=== PATIENT | female | born 2000 | race Two or more races ===

== ENCOUNTER 2020-09-23 08:29 | Outpatient (REF) | payer BC, OTHER, SELFPAY ==
--- NOTE | 2020-09-23 08:34 | CT_ITS ---
EXAMINATION: CT SINUS WITHOUT CONTRAST CLINICAL INFORMATION: Sinonasal polyp with deviated septum COMPARISON: None TECHNIQUE: Axial 2 mm thin and reformatted 2 mm thin sagittal and coronal images of sinuses were obtained. This CT examination was performed using dose optimization techniques as appropriate, variously including the following: *Automated exposure control *Adjustment of mA and/or kV according to patient size (this includes techniques or standardized protocols for targeted exams where dose is matched to indication/reason for exam; i.e. extremities or head) *Use of iterative reconstruction technique DLP: 83 mGy-cm FINDINGS: PARANASAL SINUSES: There is diffuse mucoperiosteal thickening involving bilateral frontal, ethmoid, sphenoid and maxillary sinusitis consistent with pansinusitis. Bilateral ostiomeatal complex and frontoethmoidal recesses are completely obstructed from mucosal thickening. The bony sinus morgan are intact without any thickening or sclerosis. The lamina papyracea and the cribriform plate appears normal. The soft tissues are normal. NASAL CAVITY/NASOPHARYNX: There is significant mucosal thickening involving the left nasal cavity and mild mucosal thickening involving the right nasal cavity with moderate obstruction of left nasal cavity. There are hypertrophic changes of left middle and inferior turbinates. Mild deviation of nasal septum to the right with a tiny bony spur is noted. The bony orbits, optic globes and optic nodes are normal and symmetric. No acute intracranial parenchymal abnormality seen on this limited exam. ADDITIONAL RELEVANT FINDINGS: No periapical disease is seen. The TMJs articulate normally. The skull base, maxillary, mandibular and nasal soft tissues are unremarkable. The middle ear cavities and mastoid air cells are clear. Limited evaluation demonstrates no acute intracranial findings. CT/CT sinus wo con IMPRESSION: 1. Chronic pansinusitis. 2. Hypotrophic mucosal thickening in the nasal cavity with complete obstructed sinus drainage pathways. There is moderate narrowing of the left nasal cavity airway as well. The nasopharynx is patent.
== END 2020-09-23 08:30 | disposition home or self-care (01) ==
LOC: HO.CT 08:29
PROVIDERS: Visit Provider Otolaryngology
DX: J33.0 Polyp of nasal cavity (principal); J34.2 Deviated nasal septum
CPT/HCPCS: 70486

== ENCOUNTER 2020-10-25 11:51 | Outpatient (REF) | payer BC, OTHER, SELFPAY | END 2020-10-25 11:52 | disposition home or self-care (01) | LOC: HO.LNP 11:51 | PROVIDERS: Visit Provider Family Medicine | DX: R30.0 Dysuria (principal) | CPT/HCPCS: 87086 ==

== ENCOUNTER 2021-05-08 15:14 | Emergency (ER) | payer OTHER, SELFPAY ==
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
[2021-05-08 15:42] VITALS: BP 101/59; PULSE 81; RESP 16; TEMP 37.1; O2SAT 98; BMI 24.5
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
== END 2021-05-08 17:01 | disposition home or self-care (01) ==
PROVIDERS: Emergency Provider Emergency Medicine; PCP Hospitalist
DX: S00.531A Contusion of lip, initial encounter (principal); G89.11 Acute pain due to trauma; M25.531 Pain in right wrist; V43.52XA Car driver injured in collision with other type car in traffic accident, initial encounter; Y93.89 Activity, other specified; Y92.414 Local residential or business street as the place of occurrence of the external cause; Y99.9 Unspecified external cause status
CPT/HCPCS: 73110; 73130; 99283

== ENCOUNTER 2021-06-01 12:32 | Emergency (ER) | payer BC, OTHER, SELFPAY ==
[2021-06-01 12:38] VITALS: BP 104/57; PULSE 79; RESP 16; TEMP 36.1; O2SAT 98; BMI 22.6
[2021-06-01 13:17] LABS: Appearance Urine CLOUDY; Color Urine YELLOW; Glucose Urine UA NEG (NEG); Leukocyte Esterase Urine 1+ (NEG); Nitrite Urine POS (NEG); Specific Gravity - Urine 1.025 (1.005-1.025); UACC Culture Trigger YES; Urine Blood 2+ (NEG); Urine Ketones NEG (NEG); Urine Protein NEG (NEG-TRACE)
[2021-06-01 13:24] LABS: Bacteria Urine 3+ /LPF; Squamous Epithelial Cell Urine 2+ /LPF; UACC CULT YES; WBC Urine 30-49 /HPF (0-4)
[2021-06-01] MEDS: cefTRIAXone sodium 500 MG, Lidocaine HCl 1 % MPF 1 ML IM (14:14)
[2021-06-01] MEDS: Nitrofurantoin Monohyd/M-Cryst 100 MG CAPSULE PO (14:14)
--- NOTE | 2021-06-01 14:25 | ED.FEMALEGU ---
HPI - Female Genitourinary General Chief complaint: Urogenital-Female Stated complaint: std check Time Seen by Provider: 06/01/21 13:37 Source: patient Mode of arrival: ambulatory History of Present Illness HPI Narrative: 21-year-old female with no significant past medical history presenting to the ED complaining of dysuria/lower pelvic pressure x 4-5 days. Patient reports she is sexually active with 2 partners, there is concern for STI. Denies vaginal bleeding, vaginal lesions, vaginal discharge, abdominal pain, flank pain, hematuria MD elicited complaint: dysuria and possible STD Related Data Home Medications Medication Instructions Recorded Confirmed loratadine 10 mg tablet (Claritin) 10 mg PO DAILY 10/25/20 Previous Rx's Medication Instructions Recorded amoxicillin 500 mg tablet 500 mg PO Q12H 5 Days #10 tab 10/25/20 doxycycline hyclate 100 mg tablet 100 mg PO BID 7 Days #14 tab 06/01/21 nitrofurantoin 100 mg PO Q12H 7 Days #14 cap 06/01/21 monohydrate/macrocrystals 100 mg capsule (Macrobid) Allergies Allergy/AdvReac Type Severity Reaction Status Date / Time No Known Allergies Allergy Verified 10/25/20 09:30 [No Known Allergies*] Review of Systems Review of Systems: Constitutional: No Fever, No Fatigue, No Malaise ENT/Mouth: No Ear Pain, No Nasal Congestion, No sore throat Eyes: No Eye Pain, No Swelling Cardiovascular: No Chest Pain, No SOB Respiratory: No Cough, No Dyspnea Gastrointestinal: No Nausea, No Vomiting, No Abdominal pain Genitourinary: No irregular bleeding, No Dysuria, No Urinary Frequency, No Hematuria, No Flank Pain, No vaginal discharge or lesions, No vaginal bleeding Musculoskeletal: No joint pain, No Myalgias Skin: No Skin Lesions, No rash Neuro: No Weakness, No Numbness Yes all other systems are reviewed and are negative [facility] Past Medical History Attestation statement: The following information was validated with the patient. Social History Social History Advance Directives: Yes Advance Directives Information Provided: No Advance Directives on File: No Patient : No Physical Exam Vital Signs: Vital Signs: Last Vital Signs Temp 97 F 06/01/21 12:38 Pulse 79 06/01/21 12:38 Resp 16 06/01/21 12:38 BP 104/57 L 06/01/21 12:38 Pulse Ox 98 06/01/21 12:38 Body Mass Index 22.6 Const: General: cooperative and healthy appearing Orientation/consciousness: patient oriented x3 Limitations: no limitations HENMT: Head: Yes normal to inspection Ears: hearing grossly normal bilaterally General nose exam: Normal external nose present Face and sinus: Yes normal facial exam Eyes: General: appearance normal, both eyes and all related structures EOM: EOMs intact bilaterally Neck: Neck: Yes normal visual inspection and Yes no meningeal signs Resp: Effort & Inspection: normal respiratory effort and no respiratory distress Cardio: Rate: regular rate GI: Inspection: Yes normal to inspection Palpation (GI): Soft to palpation, nontender, no guarding and not rigid : Other: defferred Skin: Rashes: no rashes Wounds: no wounds Neuro: General: patient oriented x3 and no meningeal signs Gait exam (Neuro): Normal gait present Extrem: General: Yes normal to inspection Course Course Course Narrative: -UA contaminated but with the PVCs, RBCs, 1+ leuk esterase, and nitrite positive > will treat patient for UTI with Macrobid. Patient given 1st dose of Doxycycline and Rocephin in the ED as well MDM - Female Genitourinary MDM Narrative Medical decision making narrative: 21-year-old female with no significant past medical history presenting to the ED complaining of dysuria/lower pelvic pressure x 4-5 days. On exam VSS, NAD/well-appearing, abdomen soft/nontender. Patient eager to leave, discussed best way for STI testing would be through pelvic exam, patient deferred and would like STI testing through urine, discussed will test for GC/chlamydia but can obtain further STI testing at [facility]. Patient is agreeable to empiric treatment with ceftriaxone/doxycycline in the ED Plan UA, STI testing Medical Records Attestation: I reviewed the patient's medical records. Lab Data Attestation: I reviewed the patient's lab results. Labs: Lab Results 06/01/21 Range/Units 13:08 Urine Color YELLOW Urine Appearance CLOUDY Urine pH 6.0 (5.0-8.0) Ur Specific [place] 1.025 (1.005-1.025) Urine Protein NEG (NEG-TRACE) MG/DL Urine Glucose (UA) NEG (NEG) MG/DL Urine Ketones NEG (NEG) MG/DL Urine Blood 2+ H (NEG) Urine Nitrite POS H (NEG) Ur Leukocyte Esterase 1+ H (NEG) Urine RBC 10-14 H (0) /HPF Urine WBC 30-49 H (0-4) /HPF Ur Squamous Epith Cells 2+ /LPF Urine Bacteria 3+ /LPF Discharge Plan Discharge Clinical Impression: STI (sexually transmitted infection) Urinary tract infection Qualifiers: Urinary tract infection type: site unspecified Hematuria presence: without hematuria Qualified Code(s): N39.0 - Urinary tract infection, site not specified Patient Disposition: Home, Self-Care Instructions: Sexually Transmitted Diseases (ED), Urinary Tract Infection in Women (ED) Additional Instructions: You have a urinary tract infection, Macrobid is an antibiotic, please take as prescribed You were tested and treated for gonorrhea and chlamydia today in the ED Your culture should be back in 48 hours, we will call you with positive result only Continue taking doxycycline which is treatment for chlamydia. Avoid the sun while in doxycycline as can make you prone to sunburn Please refrain from any sexual contact into know the results of her cultures, and inform her sexual partners of her results today can be tested and treated as well Follow-up with [facility] for further sti testing if her symptoms persist or worsen, you developed abdominal pain, fever, please return to the Prescriptions: New doxycycline hyclate 100 mg tablet 100 mg PO BID 7 Days Qty: 14 RF: 0 nitrofurantoin monohyd/m-cryst [Macrobid] 100 mg capsule 100 mg PO Q12H 7 Days Qty: 14 RF: 0 No Action loratadine [Claritin] 10 mg tablet 10 mg PO DAILY RF: 0 amoxicillin 500 mg tablet 500 mg PO Q12H 5 Days Qty: 10 RF: 0 Referrals: Sabas Dey MD [Physician] - 1 week
[2021-06-01 14:50] LABS: UPreg QC Valid YES; Urine Pregnancy NEGATIVE (NEGATIVE)
[2021-06-01 16:26] LABS: CT PCR NOT DETECTED (Not Detect.); NG PCR NOT DETECTED (Not Detect.)
== END 2021-06-01 14:40 | disposition home or self-care (01) ==
PROVIDERS: Physician Assistant; Emergency Provider Emergency Medicine Emergency Medical Services; PCP Hospitalist
DX: A64 Unspecified sexually transmitted disease (principal); N39.0 Urinary tract infection, site not specified; Z79.899 Other long term (current) drug therapy
CPT/HCPCS: 36415; 81001; 81025; 87086; 87088; 87186; 87491; 87591; 96372; 99284; J0696

== ENCOUNTER 2021-08-04 12:17 | Outpatient (REF) | payer BC, OTHER, SELFPAY | END 2021-08-04 12:18 | disposition home or self-care (01) | LOC: HO.LAB 12:17 | PROVIDERS: Visit Provider Hospitalist | DX: N39.0 Urinary tract infection, site not specified (principal); R30.0 Dysuria | CPT/HCPCS: 87086 ==

== ENCOUNTER 2021-09-13 11:36 | Emergency (ER) | payer BC, OTHER, SELFPAY ==
--- NOTE | ~2021-09-13 | XR_ITS ---
EXAMINATION: XR CHEST CLINICAL INFORMATION: Cough. Fever. COMPARISON: None TECHNIQUE: Frontal view of the chest was obtained. FINDINGS: No significant abnormality is noted involving the heart, lungs, mediastinum, bony thorax or soft tissues. XR/XR chest 1V IMPRESSION: Unremarkable examination.
[2021-09-13 12:45] VITALS: BP 109/73; PULSE 101; RESP 18; TEMP 37.8; O2SAT 100; BMI 22.3
[2021-09-13 13:42] LABS: COVID-19 Test Positive (Negative)
--- NOTE | 2021-09-13 14:15 | ED.URI ---
HPI - URI/Sore Throat General Chief Complaint: Upper Respiratory Symptoms Stated Complaint: wheezing cough Time Seen by Provider: 09/13/21 14:15 History of Present Illness HPI Narrative: Patient complains of runny nose cough chest tightness intermittent none now for 2 days, patient is unvaccinated Related Data Home Medications Medication Instructions Recorded Confirmed loratadine 10 mg tablet (Claritin) 10 mg PO DAILY 10/25/20 Allergies Allergy/AdvReac Type Severity Reaction Status Date / Time No Known Allergies Allergy Verified 09/13/21 12:45 [No Known Allergies*] Review of Systems Review of Systems: Positive for cough runny nose and wheezing Negatives are no fever no chills no dizziness no weakness no headache no neck pain no stiff neck no sore throat no chest pain no shortness of breath right now no abdominal pain no nausea or vomiting Yes all other systems are reviewed and are negative PMFSH Past Medical History Source: nursing notes reviewed Social History Social History Advance Directives: No Advance Directives Information Provided: No Patient : No Physical Exam Vital Signs: Vital Signs: Last Vital Signs Temp 100.1 F 09/13/21 12:45 Pulse 101 H 09/13/21 12:45 Resp 18 09/13/21 12:45 BP 109/73 09/13/21 12:45 Pulse Ox 100 09/13/21 12:45 BMI result Body Mass Index 22.3 General appearance no acute distress The eyes no redness discharge Neck is supple The pharynx is clear with no redness swelling or exudate, mucous membranes moist Chest clear to auscultation bilateral with full symmetric equal breath sounds Heart no murmur Extremities full range of motion x4 Course Course Course Narrative: Well-appearing patient, COVID positive, x-ray normal, physical exam normal oxygen level normal is discharged MDM - URI/Sore Throat Lab Data Labs: Lab Results 09/13/21 Range/Units 12:58 COVID-19 ([place]) Positive A (Negative) COVID-19 Clin Com See Note Discharge Plan Discharge Clinical Impression: COVID-19 Patient Disposition: Home, Self-Care Additional Instructions: X-ray was normal But COVID test was positive Your well-appearing with normal oxygen level and a normal lung exam with no wheezing No sign of any dangerous illness now COVID is very contagious and can be dangerous to some people so quarantine for 10 days Return any time for difficulty breathing any worse condition or any concerns Prescriptions: No Action loratadine [Claritin] 10 mg tablet 10 mg PO DAILY RF: 0 Stand Alone Forms: Work/School Release
== END 2021-09-13 14:31 | disposition home or self-care (01) ==
PROVIDERS: Emergency Provider Emergency Medicine; PCP Hospitalist
DX: U07.1 COVID-19 (principal); R05.9 Cough, unspecified
CPT/HCPCS: 36415; 71045; 87635; 99282; 99283

== ENCOUNTER 2021-11-02 13:20 | Emergency (ER) | payer BC, OTHER, SELFPAY ==
[2021-11-02 13:30] VITALS: BP 99/69; PULSE 76; RESP 18; TEMP 36.7; O2SAT 99; BMI 21.7
[2021-11-02 14:11] LABS: Appearance Urine CLOUDY; Color Urine YELLOW; Glucose Urine UA NEG (NEG); Leukocyte Esterase Urine 3+ (NEG); Nitrite Urine NEG (NEG); Specific Gravity - Urine 1.025 (1.005-1.025); UACC Culture Trigger YES; Urine Blood TRACE (NEG); Urine Ketones NEG (NEG); Urine Protein TRACE MG/DL (NEG-TRACE)
[2021-11-02 14:13] LABS: UPreg QC Valid YES; Urine Pregnancy NEGATIVE (NEGATIVE)
[2021-11-02 14:19] LABS: Squamous Epithelial Cell Urine 4+ /LPF
[2021-11-02 14:21] LABS: Bacteria Urine 3+ /LPF; RBC Urine 0-2 /HPF (0); WBC Urine 50-75 /HPF (0-4)
[2021-11-02 14:23] LABS: Amorphous Sediment Urine 2+ /LPF
--- NOTE | 2021-11-02 14:32 | ED.FEMALEGU ---
HPI - Female Genitourinary General Chief complaint: Urogenital-Female Stated complaint: std check Time Seen by Provider: 11/02/21 13:34 Source: patient Mode of arrival: ambulatory Limitations: no limitations History of Present Illness HPI Narrative: 21-year-old female presenting to the ED with complaints of dysuria with cloudy colored urine and white/yellow creamy colored discharge possible STD and wants to be tested for STDs for the past 5 days. She reports intermittent suprapubic abdominal cramping. Reports that she is sexually active with a new partner although he told her that he was tested before he had any intercourse with her and he was negative for all STDs although she is unsure if this is true or not. She would like to be treated for Chlamydia although once liquid medication. She reports that she does not want the shot that will treat the gonorrhea until she knows she is positive therefore she is declining the shot at this time. She denies any fevers, chills, dizziness, headaches, neck pain/stiffness, trouble swallowing or breathing, chest pain or shortness of breath, any radiation of the abdominal pain, back pain, hematuria, rashes or lesions to the vaginal area or any other symptoms complaints or concerns at this time. MD elicited complaint: dysuria, UTI , vaginal discharge and possible STD Onset (ago): day(s) (5) Location of symptoms: suprapubic Severity: mild Female Urogenital Radiation: Non-Radiating Quality of pain: cramping Consistency: intermittent Vaginal discharge: white, yellow and creamy Vaginal bleeding: none Urinary symptoms: Dysuria, Urgency and Frequency Exacerbating factors: urination Relieving factors: none Associated symptoms: denies other symptoms Treatment prior to arrival: none Sexual activity: Yes and New Sexual Partners Patient : No Related Data Home Medications Medication Instructions Recorded Confirmed loratadine 10 mg tablet (Claritin) 10 mg PO DAILY 10/25/20 Previous Rx's Medication Instructions Recorded doxycycline calcium 50 mg/5 mL 10 ml PO BID 10 Days #200 ml 11/02/21 oral syrup Allergies Allergy/AdvReac Type Severity Reaction Status Date / Time No Known Allergies Allergy Verified 09/13/21 12:45 [No Known Allergies*] Review of Systems Review of Systems: Constitutional : No Fever, No Chills ENT/Mouth : No sore throat, No Rhinorrhea Eyes: No Eye Pain, No Redness Cardiovascular : No Chest Pain, No SOB Respiratory : No Cough, No Sputum, No Wheezing Gastrointestinal : No Nausea, No Vomiting, No Diarrhea, + suprapubic abdominal pain, Genitourinary : + dysuria/increased urinary urgency/frequency and abnormal vaginal discharge, No irregular bleeding, No pelvic pain Musculoskeletal : No Myalgias Skin : No rash Neuro : No Weakness, No Headache Psych : No Anxiety/Panic, No Depression Heme/Lymph: No bruising, No Lymphadenopathy Endocrine : No Polyuria, No Polydipsia + thoughts of STDs. Yes all other systems are reviewed and are negative [facility] Past Medical History Attestation statement: The following information was validated with the patient. Medical History No known health problems Social History Social History Advance Directives: No Advance Directives Information Provided: Yes Patient : No Physical Exam Vital Signs: Vital Signs: Last Vital Signs Temp 98.0 F 11/02/21 13:30 Pulse 76 11/02/21 13:30 Resp 18 11/02/21 13:30 BP 99/69 11/02/21 13:30 Pulse Ox 99 11/02/21 13:30 BMI result Body Mass Index 21.7 vital signs have been reviewed as normal and appeared to be correct. Blood pressure normal. Heart rate normal. Respiration rate normal. Temperature normal. Oxygen saturation normal. Appearance: Alert. Oriented X3. No acute distress. Head: Normal external exam. Normocephalic. Atraumatic. Eyes: PERRLA. EOMI. Conjunctiva and sclera normal. Eyelids normal. ENT: Pharynx normal. Uvula midline. Moist mucous membranes. Neck: Normal inspection. Neck supple. FROM. No adenopathy. Thyroid Normal. No meningeal signs. No neck mass noted. CVS: Normal heart rate and rhythm. Heart sound normal. No murmurs noted. Pulses normal throughout. Respiratory: No respiratory distress. Painless inspiration. Breath sounds normal. No wheezes/rales/rhonchi noted. Chest nontender. No accessory muscle usage noted or decreased air movement noted. Abdomen: Soft and nontender. Bowel sounds normal in all 4 quadrants. No distention noted. No organomegaly noted. No visible injury noted. : Supervised by TRACY Schofield. Normal external appearance of urethra. No lesions/lacerations or discharge or tenderness noted. Speculum exam normal appearance/palpation of vagina normal. Although patient noted to have No abnormal vaginal discharge noted. Otherwise no vaginal erythema. No foreign bodies noted. No vaginal laceration/lesions or active bleeding noted. No tissue present in vagina. No vaginal mass noted. No vaginal swelling noted. No vaginal tenderness noted. Normal appearance of cervix. Normal palpation of cervix. Cervical os is closed. No cervical lesion/mass. No Bartholin cyst noted. No cervical motion tenderness noted. Negative chandelier sign. Normal bimanual exam. Uterine size normal. Bladder normal to palpation. Uterine consistency normal. Normal cervical palpation. Uterine mobility normal. Uterine shape normal. Normal adnexa. Normal rectovaginal exam. Back: No CVA tenderness. Full range of motion noted. Skin: Skin warm and dry. Normal skin color. Normal skin turgor. No rashes/lesions/lacerations noted. Extremities: No lower extremity edema. Extremities exhibit normal range of motion. Extremities nontender. Neuro: Oriented X 3. No motor deficit. No sensory deficit. Reflexes normal. Course Course Course Narrative: 21-year-old female presenting to the ED with complaints of dysuria with cloudy colored urine and white/yellow creamy colored discharge possible STD and wants to be tested for STDs for the past 5 days. She reports intermittent suprapubic abdominal cramping. Reports that she is sexually active with a new partner although he told her that he was tested before he had any intercourse with her and he was negative for all STDs although she is unsure if this is true or not. She would like to be treated for Chlamydia although once liquid medication. She reports that she does not want the shot that will treat the gonorrhea until she knows she is positive therefore she is declining the shot at this time. She denies any fevers, chills, dizziness, headaches, neck pain/stiffness, trouble swallowing or breathing, chest pain or shortness of breath, any radiation of the abdominal pain, back pain, hematuria, rashes or lesions to the vaginal area or any other symptoms complaints or concerns at this time. On exam patient does have creamy white/yellow non odorous discharge. UA revealed 50-75 white blood cells therefore consistent with UTI and negative nitrates though. Negative . Her Trichomonas and yeast were negative. Syphilis is pending. Bacterial vaginosis/gonorrhea/chlamydia pending. Patient does not want to be treated for gonorrhea although would like to be treated for chlamydia due to she does not want a shot and her buttocks at this time I explained to her that we will call her if she has any positive results within 5-7 days and that she should stay abstinent from any sexual intercourse until she completes the treatment for the chlamydia. Along with instructions to follow-up with [facility] for HIV testing or any other additional testing and to use a condom when she is having intercourse and to return if any new or worsening symptoms. Patient understands agrees with this plan. MDM - Female Genitourinary Medical Records Attestation: I reviewed the patient's medical records. Lab Data Attestation: I reviewed the patient's lab results. Labs: Lab Results 11/02/21 11/02/21 Range/Units 13:58 13:58 Urine Color YELLOW Urine Appearance CLOUDY Urine pH 7.0 (5.0-8.0) Ur Specific [place] 1.025 (1.005-1.025) Urine Protein TRACE (NEG-TRACE) MG/DL Urine Glucose (UA) NEG (NEG) MG/DL Urine Ketones NEG (NEG) MG/DL Urine Blood TRACE (NEG) Urine Nitrite NEG (NEG) Ur Leukocyte Esterase 3+ H (NEG) Urine RBC 0-2 (0) /HPF Urine WBC 50-75 H (0-4) /HPF Ur Squamous Epith Cells 4+ /LPF Amorphous Sediment 2+ /LPF Urine Bacteria 3+ /LPF Urine Test NEGATIVE (NEGATIVE) Discharge Plan Discharge Clinical Impression: UTI (urinary tract infection), Concern about STD in female without diagnosis Patient Disposition: Home, Self-Care Instructions: Sexually Transmitted Diseases (ED), Safe Sex Practices (ED), Urinary Tract Infection in Women (DC) Additional Instructions: You should stay abstinent from any sexual intercourse for at least 7-10 days until you complete your prescription for doxycycline. We will call you in approximately 5-7 days for any positive results. If we call you that means that something was positive. You should wear condoms at all times there are some STDs that if contracted they will stay with you for life such as herpes or HIV. We did not test due for herpes or HIV due to he did not have any lesions and we do not have proper follow-up for HIV therefore if you want HIV testing then you should follow-up with [facility] for further testing for HIV. Return if any new or worsening symptoms and follow-up with her primary care provider again safe sex is best sex. Prescriptions: New doxycycline calcium 50 mg/5 mL syrup 10 ml PO BID 10 Days Qty: 200 0RF No Action loratadine [Claritin] 10 mg tablet 10 mg PO DAILY 0RF Referrals: Gloria Angel NP [Primary Care Provider] - 2 days
[2021-11-03 00:14] LABS: CT PCR NOT DETECTED (Not Detect.); NG PCR NOT DETECTED (Not Detect.)
[2021-11-03 08:34] LABS: Syphilis Screen Nonreactive (Nonreactive)
[2021-11-03 12:44] LABS: BV Int Neg Control Negative (Negative); BV Int Pos Control Positive (Positive)
== END 2021-11-02 15:41 | disposition home or self-care (01) ==
PROVIDERS: Physician Assistant Medical; Emergency Provider Emergency Medicine; PCP Hospitalist
DX: N39.0 Urinary tract infection, site not specified (principal); R30.0 Dysuria; N39.41 Urge incontinence; Z20.2 Contact with and (suspected) exposure to infections with a predominantly sexual mode of transmission; Z20.822 Contact with and (suspected) exposure to COVID-19
CPT/HCPCS: 36415; 81001; 81025; 86780; 87086; 87147; 87480; 87491; 87510; 87591; 87660; 99283

== ENCOUNTER 2021-12-09 12:35 | Outpatient (REF) | payer BC, OTHER, SELFPAY ==
[2021-12-09 13:17] LABS: Hematocrit 47.1 % (37.0-47.0); Hemoglobin 15.4 g/dl (12.0-16.0); Mean Corpuscular HGB Conc 32.7 g/dl (31.0-35.0); Mean Corpuscular Hemoglobin 31.5 pg (27.0-33.0); Mean Corpuscular Volume 96.3 fL (80.0-98.0); Mean Platelet Volume 9.4 fL (9.4-12.3); Platelet Count 293 X10*3/uL (160-400); Red Blood Count 4.89 X10*6/uL (4.20-5.50); Red Cell Distribution Width 12.1 % (11.0-16.0)
[2021-12-09 13:46] LABS: Alanine Aminotransferase 12 U/L (0-31); Albumin Level 4.4 g/dL (3.5-5.0); Alkaline Phosphatase 52 U/L (39-117); Anion Gap 11 (12-20); Aspartate Amino Transferase 13 U/L (5-31); Bilirubin Total 0.4 mg/dL (0.0-1.0); Blood Urea Nitrogen 11 mg/dL (9-16); Calcium 9.7 mg/dL (8.4-10.2); Carbon Dioxide 28 mmol/L (22-29); Chloride 106 mmol/L (96-108); Cholesterol 142 mg/dL; Estimated Glomerular Filt Rate > 60; Glucose Fasting 96 mg/dL (60-99); HDL Cholesterol 55 mg/dL; LDL Cholesterol Calculated 78 mg/dl; Sodium 140 mmol/L (135-145); Total Protein 7.4 g/dL (6.5-8.0); Triglycerides 46 mg/dL
[2021-12-09 14:12] LABS: TSH reflex Free T4 0.99 uIU/mL (0.32-4.0)
== END 2021-12-09 12:36 | disposition home or self-care (01) ==
LOC: HO.LAB 12:35
PROVIDERS: PCP Hospitalist; Visit Provider Hospitalist
DX: Z00.00 Encounter for general adult medical examination without abnormal findings (principal)
CPT/HCPCS: 36415; 80053; 80061; 84443; 85027

== ENCOUNTER 2022-01-02 14:20 | Outpatient (REF) | payer BC, OTHER, SELFPAY | END 2022-01-02 14:21 | disposition home or self-care (01) | LOC: HO.LAB 14:20 | PROVIDERS: Visit Provider Hospitalist | DX: N39.0 Urinary tract infection, site not specified (principal) | CPT/HCPCS: 87086; 87088; 87186 ==

== ENCOUNTER 2022-02-06 15:38 | Emergency (ER) | payer BC, OTHER, SELFPAY ==
[2022-02-06 17:11] VITALS: BP 115/77; PULSE 97; RESP 18; TEMP 35.6; O2SAT 99; BMI 24.0
== END 2022-02-06 21:10 | disposition left against medical advice (07) ==
PROVIDERS: Emergency Provider Emergency Medicine
DX: S09.90XA Unspecified injury of head, initial encounter (principal); Y04.2XXA Assault by strike against or bumped into by another person, initial encounter; Y93.89 Activity, other specified; Y92.59 Other trade areas as the place of occurrence of the external cause; Y99.0 Civilian activity done for income or pay
CPT/HCPCS: 99281

== ENCOUNTER 2022-03-17 | Outpatient (REF) | payer BC, OTHER, SELFPAY | END 2022-03-17 00:01 | disposition home or self-care (01) | LOC: HO.LNP | PROVIDERS: Visit Provider Hospitalist | DX: R30.0 Dysuria (principal); N39.0 Urinary tract infection, site not specified | CPT/HCPCS: 87086; 87088; 87186 ==

== ENCOUNTER 2022-04-02 14:26 | Outpatient (REF) | payer OTHER, BC, SELFPAY | END 2022-04-02 14:27 | disposition home or self-care (01) | LOC: HO.LNP 14:26 | PROVIDERS: Visit Provider Hospitalist | DX: N39.0 Urinary tract infection, site not specified (principal); B96.29 Other Escherichia coli [E. coli] as the cause of diseases classified elsewhere; Z16.12 Extended spectrum beta lactamase (ESBL) resistance | CPT/HCPCS: 87086 ==

== ENCOUNTER 2022-04-28 11:00 | Outpatient (RCR) | payer OTHER, BC, SELFPAY ==
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
--- NOTE | 2022-05-19 10:26 | MHC.PT.DC ---
[facility] [place] Office [place] Office [place] Office [address] [phone] F: [phone] F: [phone] F: [phone] F: [phone] Physical Therapy Discharge Report Diagnosis: L shoulder strain Date of Surgery: n/a Date of Evaluation: 04/08/22 Date of Discharge: 05/19/22 Treatments to Date: 5 Cancellations to Date: 1 No Shows to Date: 2 Discharge Status: Patient Elected to Stop Discharge Summary: Pt placed on 30 day hold. 30 days has passed and pt has not reached out to be scheduled. Pt to be d/c per our policy. Electronically signed by: Alaina Bhat, PT, DPT, ATC Please sign and return to therapist. Thank you for your referral.
== END 2022-05-19 10:26 | disposition home or self-care (01) ==
LOC: HO.PTCHIC 11:00
PROVIDERS: PCP Hospitalist; Visit Provider Hospitalist
DX: S46.912A Strain of unspecified muscle, fascia and tendon at shoulder and upper arm level, left arm, initial encounter (principal)
CPT/HCPCS: 97110; 97140; 97161

== ENCOUNTER 2022-06-23 15:23 | Outpatient (REF) | payer BC, OTHER, SELFPAY | END 2022-06-23 15:24 | disposition home or self-care (01) | LOC: HO.LAB 15:23 | PROVIDERS: Visit Provider Hospitalist | DX: Z87.440 Personal history of urinary (tract) infections (principal) | CPT/HCPCS: 87086 ==

== ENCOUNTER 2022-07-24 09:17 | Outpatient (REF) | payer BC, OTHER, SELFPAY | END 2022-07-24 09:18 | disposition home or self-care (01) | LOC: HO.LAB 09:17 | PROVIDERS: Visit Provider Nurse Practitioner Family | DX: N39.0 Urinary tract infection, site not specified (principal) | CPT/HCPCS: 87086 ==

== ENCOUNTER 2023-09-03 08:57 | Outpatient (AMB) | payer BC, OTHER, SELFPAY ==
--- NOTE | 2023-09-03 09:07 | MHC.PC.OV ---
Vital Signs 09/03/23 09:09 Height 5 ft 1 in Weight 163 lb 8 oz BMI 30.9 BP 114/66 Blood Pressure Location Rt brachial Position Sitting Respiration 13 Pulse 74 Pulse Source Pulse Oximeter Temp 97.6 F Temp Source Temporal Artery Scan Pulse Oximetry (%) 97 Oxygen Delivery Method Room Air Intake Visit Reasons: Follow Up On SOB SV Intake Note: Patient would like a nasal spray prescribed. Patient would also like a referral to get her nose looked at due to deviated septum, clogged sinus ducts and her nasal passages being narrow. Patient was told she needed to see someone for her nose 5-6 years ago and shes never went. Customer Success Representative Required: No Accompanied by: Self / Same As Patient Allergies ibuprofen Adverse Reaction (Severe, Verified 09/03/23 09:22) Runny Nose Medication List - Last Reconciled 09/03/23 by Michael Chavez CNP albuterol sulfate 90 mcg/actuation (Ventolin HFA) 2 puffs inhalation Q4-6H PRN Tobacco use date assessed: 09/03/23 Dental Screening Dental Screen Date: 09/03/23 Did you have a dental visit in the last 12 months?: Yes Did you have a dental problem in the last 6 months where you did not have access to dental care?: No Was dental information given to patient?: Patient has dentist HPI HPI Comments History of Present Illness Details 23-year-old female presents with complaints of persistent nasal congestion with associated difficulty breathing for the past 5-6 years She reports history of deviated septum that requires surgery. She notes that repeat CT scan could not be performed few months ago because she was . She is not currently and requests consultation with ENT. She uses ventolin occasionally. Denies nasal trauma or injury. [facility] Medical History No known health problems Surgical History (Updated 09/03/23 @ 09:21 by Irma Hare MA) No pertinent past surgical history Social History Housing: House Patient Tobacco Use Status: Never used Tobacco e-Cigarette/Vaping Use: Currently Using Second Hand Smoke Exposure: No service: No Current occupational status: unemployed Current occupational exposures/hazards: No Cognitive needs: No Hearing needs: No Vision needs: No Questionnaire Thrive Questionnaire Date Thrive assessed: 11/25/21 TODD-7 AMB Questionnaire TODD-7 Date TODD - 7 assessed: 04/21/22 Source: Developed by Drs. Bethel Bermudez, Ivette Dumont, Jeffrey Porter and colleagues, with an educational satnam from [employer]. Review of Systems Const Details: Const Denies chills, Denies fatigue, Denies fever(s), Denies headache(s) and Denies weakness ENT Reports as per HPI Card Denies chest pain, Denies lightheadedness, Denies dyspnea and Denies other (Palpitations) Resp Denies cough, Denies dyspnea, Denies wheezing and Denies other ( shortness of breath) GI Denies abdominal pain, Denies melena, Denies hematochezia, Denies change in bowel habits, Denies dyspepsia and Denies nausea Denies hematuria and Denies dysuria Musc Denies abnormal gait, Denies myalgias, Denies arthralgias, Denies numbness and Denies tingling Skin/Breast Denies rash, Denies unusual bruising and Denies wounds Neuro Denies abnormal gait, Denies dizziness, Denies headache(s), Denies memory loss, Denies numbness, Denies Sensory deficit (Neuro), Denies tingling and Denies weakness Psych Denies anxiety, Denies depression, Denies memory loss Endo Denies cold intolerance, Denies fatigue, Denies heat intolerance, Denies polydipsia and Denies polyuria Aller/Immun Denies wheezing Physical exam (Primary Care) Vital Signs: Last Vital Signs Temp 97.6 F 09/03/23 09:09 Pulse 74 09/03/23 09:09 Resp 13 09/03/23 09:09 BP 114/66 09/03/23 09:09 Pulse Ox 97 09/03/23 09:09 Oxygen Delivery Method Room Air 09/03/23 09:09 BMI result Body Mass Index 30.9 Tobacco/Smoking Status: Tobacco use Status Tobacco use date assessed 04/21/22 09/03/23 09:07 Patient Tobacco Use Status Never used Tobacco 09/03/23 09:07 e-Cigarette/Vaping Use Currently Using 09/03/23 09:07 Thrive Assessment: Date of Thrive Assessment Date Thrive assessed 11/25/21 09/03/23 09:07 Const Other: General: no acute distress and well developed Nutritional Appearance: well nourished Orientation/consciousness: patient oriented x3 HENMT Head is normocephalic Bilateral ear canal and TM are normal Nasal turbinates and oropharynx are pink and moist. Nasal passages are narrow Sinuses are nontender with palpation No auricular or cervical lymphadenopathy Eyes General: appearance normal, both eyes and all related structures Pupils: Equal, round and reactive pupils present EOM: EOMs intact bilaterally Resp Effort & Inspection: normal respiratory effort Auscultation: clear to auscultation bilaterally Cardio Rate: regular rate Rhythm: regular rhythm Heart sounds: S1 normal heart sound present, S2 normal heart sound present, no gallops, no murmurs and no rubs GI Palpation (GI): No Abdominal aortic bruit present, Soft to palpation, nontender, No hepatosplenomegaly present and No Rebound tenderness present Auscultation: normal bowel sounds General: Yes no CVA tenderness Back/Spine/Pelvis Back: no CVA tenderness Cervical Spine: cervical ROM normal and No Cervical spine tenderness Thoracic/Lumbar Spine: thoraco-lumbar ROM normal, No pain with thoraco-lumbar ROM, No thoracic spinal tenderness and No lumbar spinal tenderness Extrem General: Yes normal to inspection, No edema and No calf tenderness Skin General: warm and dry. Normal skin color. Normal skin turgor Neuro General: patient oriented x3, gait normal and no focal neuro deficit Cranial nerves: Yes Equal, round and reactive pupils present Cognition (Neuro): normal cognition Gait exam (Neuro): Normal gait present Sensory Exam: No Sensory deficit (Neuro) Psych Appearance: grossly normal Affect: normal affect Attitude: cooperative Thought process: Normal thought process present Assessment and Plan Assessment & Plan (1) Difficulty breathing: Code(s): R06.89 - Other abnormalities of breathing Plan: Reports persistent nasal congestion with associated difficulty breathing for the past 5-6 years Narrow nasal passages noted Likely due to deviated septum Rhinitis is also possible Flonase ordered. Use as prescribed Ventolin as needed Referred to ENT specialist Advised to schedule an appointment for for transfer of care Return with worsening or new symptoms Verbalized understanding and agreed with treatment plan (2) Deviated septum: Code(s): J34.2 - Deviated nasal septum Plan: As above Orders: Referrals Ear/Nose/Throat Referral J34.2 - Deviated nasal septum, R06.89 - Other abnormalities of breathing Medications: New fluticasone propionate 50 mcg/actuation (Flonase Allergy Relief) administer into each nostril 1 spray intranasal Q12H 16 grams 0RF Coding Level of Care Code Est Pt Level 3 (08516) Diagnoses Difficulty breathing R06.89 Deviated septum J34.2
[2023-09-03 09:09] VITALS: BP 114/66; PULSE 74; RESP 13; TEMP 36.4; O2SAT 97; BMI 30.9
== END 2023-09-03 09:39 | disposition home or self-care (01) ==
PROVIDERS: PCP Nurse Practitioner Family; Visit Provider Nurse Practitioner Family
DX: R06.89 Other abnormalities of breathing (principal); J34.2 Deviated nasal septum
CPT/HCPCS: 99213

== ENCOUNTER 2023-12-16 08:37 | Outpatient (AMB) | payer BC, OTHER, SELFPAY ==
[2023-12-16 08:51] VITALS: BP 102/58; PULSE 83; RESP 13; TEMP 36.2; O2SAT 97; BMI 30.4
--- NOTE | 2023-12-16 08:51 | AM.OFFWIN_ITS ---
Intake Vital Signs 12/16/23 08:51 Height 5 ft 1 in Weight 161 lb BMI 30.4 BP 102/58 L Blood Pressure Location Rt brachial Position Sitting Respiration 13 Pulse 83 Pulse Source Pulse Oximeter Temp 97.2 F Temp Source Temporal Artery Scan Pulse Oximetry (%) 97 Oxygen Delivery Method Room Air Intake Visit Reasons: ? UTI Intake Note: Patient is here for UTI possibility. Patient reports she is having a different smell with some discharge. Patient reports she is out of her flonase and she woul d like a refill while she is here. 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 This only lasted for 24 hours. This occurred 1 week ago. Now having vaginal discharge w/ a smell. Fishy smell or musty. Smells gets worse after shower & after being sweaty. Does not deuche. Had BV when LMP 2.5 weeks ago. Denies chance of preg. Sexually active. Last time about 2 weeks ago. Denies fever, chills, vomiting. [facility] Medical History No known health problems Surgical History No pertinent past surgical history Social History Housing: House Patient Tobacco Use Status: Never used Tobacco e-Cigarette/Vaping Use: Currently Using Second Hand Smoke Exposure: No service: No Current occupational status: unemployed Current occupational exposures/hazards: No Cognitive needs: No Hearing needs: No Vision needs: No Review of Systems Const All systems reviewed & are unremarkable except as noted in HPI and below Physical Exam Vital Signs: Last Vital Signs Temp 97.2 F 12/16/23 08:51 Pulse 83 12/16/23 08:51 Resp 13 12/16/23 08:51 BP 102/58 L 12/16/23 08:51 Pulse Ox 97 12/16/23 08:51 Oxygen Delivery Method Room Air 12/16/23 08:51 BMI result Body Mass Index 30.4 Const Other: awake alert NAD No suprapubic tenderness or CVAT Self swabbed for BV Results AMB Urinalysis Dipstick UR Leukocytes Moderate Last Edit by Carrie Sosa CMA on 12/16/23 09:13 UR Nitrite Negative Last Edit by Carrie Sosa CMA on 12/16/23 09: 13 UR Urobilinogen Normal Last Edit by Carrie Sosa CMA on 12/16/23 09:13 UR Protein Trace Last Edit by Carrie Sosa CMA on 12/16/23 09:13 UR Ph 6.0 Last Edit by Carrie Sosa CMA on 12/16/23 09:13 UR Blood Negative Last Edit by Carrie Sosa CMA on 12/16/23 09:13 UR Specific Mears 1.030 Last Edit by Carrie Sosa CMA on 09:13 UR Ketone Large (80) Last Edit by Carrie Sosa CMA on 12/16/23 09 :13 UR Bilirubin Small Last Edit by Carrie Sosa CMA on 12/16/23 09:1 3 UR Glucose Negative Last Edit by Carrie Sosa CMA on 12/16/23 09: 13 Results Reviewed Results Reviewed: Laboratory Last Values Urine pH (Clinic) 6.0 12/16/23 09:06 Specific Mears (Clinic) 1.030 12/16/23 09:06 Ur Protein (Clinic) Trace 12/16/23 09:06 Ur Ketones (Clinic) Large (80) 12/16/23 09:06 Urine Blood (Clinic) Negative 12/16/23 09:06 Urine Nitrite Negative 12/16/23 09:06 Urine Bilirubin (Clinic) Small 12/16/23 09:06 Urobilinogen (Clinic) Normal 12/16/23 09:06 Leukocyte Esterase (Clinic) Moderate 12/16/23 09:06 Urine Glucose (Clinic) Negative 12/16/23 09:06 Assessment & Plan Assessment & Plan (1) Hx: UTI (urinary tract infection): Code(s): Z87.440 - Personal history of urinary (tract) infections (2) Vaginal discharge: Comment: most likely BV swab obtained today, will call w/ results and tx as approp if negative, rec urine for GC - she agrees I did advise her of need to hydrate well based on her UA done in the office. She agrees she needs to drink more fluid. Code(s): N89.8 - Other specified noninflammatory disorders of vagina Plan This note is constructed using voice recognition software. While every effort has been made to ensure accuracy in basketball coach, still errors may have been included Sometimes, these errors may affect the content or meaning of the given sentence . Total time spent caring for the patient today was 30 minutes. This includes time spent before the visit reviewing the chart, time spent during the visit, and time spent after the visit on documentation Orders: Orders AMB Urinalysis Dipstick Today Z87.440 - Personal history of urinary (tract) infections Bacterial Vaginosis Panel Today N89.8 - Other specified noninflammatory disorders of vagina Medications: Refilled fluticasone propionate 50 mcg/actuation (Flonase Allergy Relief) administer into each nostril 1 spray intranasal Q12H 16 grams 11RF Coding Level of Care Code Est Pt Level 4 (03564) Diagnoses Hx: UTI (urinary tract infection) Z87.440 Vaginal discharge N89.8
== END 2023-12-16 09:51 | disposition home or self-care (01) ==
LOC: HO.HMGWIW 08:37
PROVIDERS: PCP Nurse Practitioner Family
DX: Z87.440 Personal history of urinary (tract) infections (principal); N89.8 Other specified noninflammatory disorders of vagina
CPT/HCPCS: 81002; 99214

== ENCOUNTER 2023-12-16 09:29 | Outpatient (REF) | payer BC, OTHER, SELFPAY ==
[2023-12-17 14:00] LABS: BV Int Neg Control Negative (Negative); BV Int Pos Control Positive (Positive)
== END 2023-12-16 09:30 | disposition home or self-care (01) ==
LOC: HO.LAB 09:29
PROVIDERS: Visit Provider Nurse Practitioner Family
DX: N89.8 Other specified noninflammatory disorders of vagina (principal)
CPT/HCPCS: 87480; 87510; 87660

== ENCOUNTER 2024-01-13 09:04 | Outpatient (AMB) | payer BC, OTHER, SELFPAY ==
--- NOTE | 2024-01-13 09:05 | A.OFFPC_ITS ---
Vital Signs 01/13/24 09:11 Height 5 ft 1 in Weight 153 lb BMI 28.9 BP 117/74 Blood Pressure Location Rt brachial Position Sitting Respiration 12 Pulse 113 H Pulse Source Pulse Oximeter Temp 98.6 F Temp Source Temporal Artery Scan Pulse Oximetry (%) 94 Oxygen Delivery Method Room Air Intake Visit Reasons: fer from [place] Intake Note: New patient visit. Came into the walk in about 2 weeks ago for BV and sx have not resolved. Still having green discharge Fabricator Foam Rubber Required: No Allergies ibuprofen Adverse Reaction (Severe, Verified 01/13/24 09:07) Runny Nose Medication List - Last Reconciled 01/13/24 by Yina Smith, ORDER CLERK- albuterol sulfate 90 mcg/actuation (Ventolin HFA) 2 puffs inhalation Q4-6H PRN fluticasone propionate 50 mcg/actuation (Flonase Allergy Relief) 1 spray intranasal Q12H Tobacco use date assessed: 09/03/23 Dental Screening Dental Screen Date: 01/13/24 Did you have a dental visit in the last 12 months?: Yes Did you have a dental problem in the last 6 months where you did not have access to dental care?: No Was dental information given to patient?: Patient has dentist HPI HPI Comments History of Present Illness Details 23-year-old female with seasonal allergi es, GERD, recurrent UTI, deviated septum, mild intermittent asthma, marijuana use Surgery- none; plans to have rhinoplasty Health Maintenance: Pap UTD 2022 Specialists: ENT Here today to est care and for CPE: Asthma - has never had PFTs done. Using [facility]. Feels she needs it. BV - used metrogel with + relief however now having some recurrent vaginal discharge. Needs refills on flonase and albuterol. Regular periods. Not on control. Has not interest in starting control. [facility] Medical History No known health problems Surgical History No pertinent past surgical history Social History (Updated 01/13/24 @ 09:09 by Summer Reyna CMA) Housing: House Patient Tobacco Use Status: Never used Tobacco e-Cigarette/Vaping Use: Currently Using Second Hand Smoke Exposure: No Substance Use Type: Marijuana service: No Current occupational status: unemployed Current occupational exposures/hazards: No Cognitive needs: No Hearing needs: No Vision needs: No Questionnaire PHQ-9 Over the last 2 weeks, how often have you been bothered by any of the following problems? 1. Little interest or pleasure in doing things: not at all 2. Feeling down, depressed, or hopeless: not at all 3. Trouble falling or staying asleep, or sleeping too much: not at all 4. Feeling tired or having little energy: several days 5. Poor appetite or overeating: not at all 6. Feeling bad about yourself - or that you are a failure or have let yourself or your family down: not at all 7. Trouble concentrating on things, such as reading the newspaper or watching television: not at all 8. Moving or speaking so slowly that other people could have noticed. Or the opposite - being so fidgety or restless that you have been moving around a lot more than usual: not at all 9. Thoughts that you would be better off or of hurting yourself in some way: not at all Total score: 1 Depression Screening Interpretation: Negative Depression Screening Done: Yes 39043 - PHQ-9 Billing: Yes Source: Developed by Drs. Bethel Bermudez, Ivette Dumont, Jeffrey Porter and colleagues, with an educational satnam from [employer]. Thrive Questionnaire Date Thrive assessed: 01/13/24 I am a: Patient What is your living situation today?: I have a steady place to live Within the past 12 months, did the food you bought not last and you didn't have the money to get more?: Never true Within the past 12 months, did you worry whether your food would run out before you got money to buy more?: Never true Do you have trouble paying for medicines?: No Do you have trouble getting transportation to medical appointments?: Yes Do you have trouble paying your heating and electricity bill?: No Do you have trouble taking care of your child, family member or friend?: No Do you have trouble with day-to-day activities such as bathing, preparing meals, shopping, managing finances, etc.?: No Are you currently unemployed and looking for a job?: Yes Are you interested in more education?: No Please select the resources that you would like help with: Transportation Currently or been in a relationship where the following occur: no concerns reported THRIVE Score: 1 AUDIT C Alcohol Use Questionnaire (AUDIT-C) 1. How often do you have a drink containing alcohol?: Never 3. How often do you have six or more drinks on one occasion?: Never Total Score: 0 Score Reviewed/Action Taken: Yes TODD-7 AMB Questionnaire TODD-7 Date TODD - 7 assessed: 01/13/24 Feeling nervous, anxious, or on edge: 0 = Not at all Not being able to stop or control worryin = Not at all Worrying too much about different things: 0 = Not at all Trouble relaxin = Several days Being so restless that it is hard to sit still: 0 = Not at all Becoming easily annoyed or irritable: 0 = Not at all Feeling afraid as if something awful might happen: 0 = Not at all Total TODD-7 score (0-4 normal; 5-9 mild; 10-14 moderate; 15-21 severe): 1 Source: Developed by Drs. Bethel Bermudez, Ivette Dumont, Jeffrey Porter and colleagues, with an educational satnam from [employer]. TODD-7 Assessment Billing TODD-7 Assessment Tool: TODD-7 Assessment 49534 ACT Questionnaire In the past 4 weeks, how much of the time did your asthma keep you from getting as much done at work, school or at home?: None of the time During the past 4 weeks, how often have you had shortness of breath?: Once a day During the past 4 weeks, how often did your asthma symptoms wake you up at night or earlier than usual in the morning?: Once or twice per week During the past 4 weeks, how often have you had to use your rescue inhaler or nebulizer medication?: 1-2 times a week How would you rate your asthma control during the past 4 weeks?: Somewhat controlled ACT Interpretation: Positive ACT Branch: Follow up visit scheduled Score: 16 Review of Systems Const Details: Constitutional: Denies fever. Skin: Denies rash. Eye: Denies eye pain. Gastrointestinal: Denies nausea, vomiting or abdominal pain. Cardiovascular: Denies chest pain and syncope. Genitourinary: Denies dysuria. Musculoskeletal: Denies back pain and extremity pain. Neurologic: Denies headaches, confusion, and weakness. Psychiatric: Denies suicidal thoughts and substance abuse. Allergy/ Immunologic: Denies impaired immunity. Physical exam (Primary Care) Vital Signs: Last Vital Signs Temp 98.6 F 01/13/24 09:11 Pulse 113 H 01/13/24 09:11 Resp 12 01/13/24 09:11 BP 117/74 01/13/24 09:11 Pulse Ox 94 01/13/24 09:11 Oxygen Delivery Method Room Air 01/13/24 09:11 BMI result Body Mass Index 28.9 BMI Assessment/Plan discussion: High BMI High, discussed plan: lifestyle Tobacco/Smoking Status: Tobacco use Status Tobacco use date assessed 09/03/23 01/13/24 09:13 Patient Tobacco Use Status Never used Tobacco 01/13/24 09:13 e-Cigarette/Vaping Use Currently Using 01/13/24 09:13 PHQ-9: PHQ-9 Score PHQ-9: Total score 0 01/13/24 09:13 Depression Screening Interpretation: Negative Thrive Assessment: Date of Thrive Assessment Date Thrive assessed 11/25/21 01/13/24 09:13 Currently or been in a relationship where the following occur: no concerns reported Assessment and Plan Assessment & Plan (1) Normal physical exam: Code(s): Z00.00 - Encounter for general adult medical examination without abnormal findings (2) Mild intermittent asthma: Comment: Dawit Morel only. Has never had PFTs. We will check PFTs and then bring her back to the office to discuss the PFTs and treatment for her asthma. Code(s): J45.20 - Mild intermittent asthma, uncomplicated Qualifiers: Asthma complication type: uncomplicated Qualified Code(s): J45.20 - Mild intermittent asthma, uncomplicated (3) Seasonal allergies: Comment: Managed with daily Flonase, continue. Code(s): J30.2 - Other seasonal allergic rhinitis (4) Deviated septum: Comment: Followed by ENT. Plans to have a rhinoplasty in the future. Continue Flonase. Code(s): J34.2 - Deviated nasal septum (5) Encounter for screening involving social determinants of health (SDoH): Comment: Refer to nurse navigator to help with transportation and a positive thrive screen. Code(s): Z13.9 - Encounter for screening, unspecified (6) Marijuana use: Comment: Education provided Code(s): F12.90 - Cannabis use, unspecified, uncomplicated (7) Overweight with body mass index (BMI) of 28 to 28.9 in adult: Code(s): E66.3 - Overweight; Z68.28 - Body mass index [BMI] 28.0-28.9, adult Orders: Orders PFT pulmonary function test Today J45.20 - Mild intermittent asthma, uncomplicated Referrals Nurse Navigator Referral Z13.9 - Encounter for screening, unspecified Medications: New metronidazole 0.75% insert vaginally 1 appl topical BEDTIME 5 days 45 grams 0RF Refilled fluticasone propionate 50 mcg/actuation (Flonase Allergy Relief) administer into each nostril 1 spray intranasal Q12H 16 grams 11RF albuterol sulfate 90 mcg/actuation (Ventolin HFA) 2 puffs inhalation Q4-6H PRN 8.5 grams 3RF shortness of breath or wheezing J98.01 - Acute bronchospasm Patient Instructions: Please return to the office in 2 months to discuss her pulmonary function tests and to further evaluate your asthma symptoms. Please return to the office sooner should you have any new complaints or concerns. Health screenings for women ages 18 to 39 You should visit your health care provider from time to time, even if you are healthy. The purpose of these visits is to: Screen for medical issues Assess your risk for future medical problems Encourage a healthy lifestyle Update vaccinations and other preventive care services Help you get to know your provider in case of an illness Information Even if you feel fine, you should still see your provider for regular checkups. These visits can help you avoid problems in the future. For example, the only way to find out if you have high blood pressure is to have it checked regularly. High blood sugar and high cholesterol levels also may not have any symptoms in the early stages. A simple blood test can check for these conditions. There are specific times when you should see your provider or receive specific health screenings. The [place] Preventive Services Task Force publishes a list of recommended screenings. Below are screening guidelines for women ages 18 to 39. BLOOD PRESSURE SCREENING Your blood pressure should be checked at least once every 3 to 5 years if: Your blood pressure is in the normal range (top number less than 120 mm Hg and bottom number less than 80 mm Hg) You don't have risk factors for high blood pressure Ask your provider if you need your blood pressure checked more often if: The top number is 120 to 129 mm Hg or the bottom number is 70 to 79 mm Hg You have diabetes, heart disease, kidney problems, are overweight, or have certain other health conditions You have a first-degree relative with high blood pressure You are Black You had high blood pressure during a If the top number is 130 mm Hg or greater or the bottom number is 80 mm Hg or greater, this is considered stage 1 hypertension. Schedule an appointment with your provider to learn how you can reduce your blood pressure. Watch for blood pressure screenings in your area. Ask your provider if you can stop in to have your blood pressure checked. BREAST CANCER SCREENING Experts do not agree about the benefits of breast self-exams in finding breast cancer or saving lives. Talk to your provider about what is best for you. A screening mammogram is not recommended for most women under age 40. Your provider may discuss and recommend mammograms, MRI scans, or ultrasounds if you have an increased risk for breast cancer, such as: A mother or sister who had breast cancer at a young age (most often starting screening earlier than the age the close relative was diagnosed) You carry a high-risk genetic marker CERVICAL CANCER SCREENING Cervical cancer screening should start at age 21 years unless your provider advises otherwise. After the first test: Women ages 21 through 29 should have a Pap test every 3 years. Exoprts do not agree on whether HPV testing is recommended for this age group. Women ages 30 through 65 should be screened with either a Pap test every 3 years or the HPV test every 5 years or both tests every 5 years (called cotesting ). Women who have been treated for precancer (cervical dysplasia) should continue to have Pap tests for 20 years after treatment or until age 65, whichever is longer. If you have had your uterus and cervix removed (total hysterectomy), and you have not been diagnosed with cervical cancer or precancer (high grade cervical neoplasia), you do not need cervical cancer screening. CHOLESTEROL SCREENING Cholesterol screening should begin at: Age 45 for women with no known risk factors for coronary heart disease Age 20 for women with known risk factors for coronary heart disease Repeat cholesterol screening should take place: Every 5 years for women with normal cholesterol levels More often if changes occur in lifestyle (including weight gain and diet) More often if you have diabetes, heart disease, kidney problems, or certain other conditions DIABETES SCREENING You should be screened for diabetes starting at age 35 and then repeated every 3 years if you have no risk factors for diabetes. Screening may need to start earlier and be repeated more often if you have other risk factors for diabetes, such as: You have a first degree relative with diabetes. You are overweight or have obesity. You have high blood pressure, prediabetes, or a history of heart disease. Screening for diabetes should be done if you are planning to become and you are overweight and have other risk factors such as high blood pressure. DENTAL EXAM Go to the dentist once or twice every year for an exam and cleaning. Your dentist will evaluate if you need more frequent visits. EYE EXAM Have an eye exam every 5 to 10 years before age 40. If you have vision problems, have an eye exam every 2 years or more often if recommended by your provider. You should have an eye exam that includes an examination of your retina (back of your eye) at least every year if you have diabetes. IMMUNIZATIONS Commonly needed vaccines include: Flu shot: get one every year. COVID-19 vaccine: ask your provider what is best for you. Tetanus-diphtheria and acellular pertussis (Tdap) vaccine: have one at or after age 19 as one of your tetanus-diphtheria vaccines if you did not receive it as an adolescent. Tetanus-diphtheria: have a booster (or Tdap) every 10 years. Varicella vaccine: receive 2 doses if you never had chickenpox or the varicella vaccine. Hepatitis B vaccine: receive 2, 3, or 4 doses, depending on your exact circumstances. Measles, mumps, and rubella (MMR) vaccine: receive 1 to 2 doses if you are not already immune to MMR. Your provider can tell you if you are immune. Ask your provider about the human papillomavirus (HPV) vaccine if: You have not received the HPV vaccine in the past You have not completed the full vaccine series (you should catch up on this shot) Ask your provider if you should receive other immunizations if you have certain health problems that increase your risk for some diseases such as pneumonia. INFECTIOUS DISEASE SCREENING Women who are sexually active should be screened for chlamydia and gonorrhea up until age 25. Women 25 years and older should be screened for chlamydia and gonorrhea if at high risk. Screening for hepatitis C: All adults ages 18 to 79 should get a one-time test for hepatitis C. people should be screened at every . Screening for human immunodeficiency virus (HIV): All people ages 15 to 65 should get a one-time test for HIV. Depending on your lifestyle and medical history, you may also need to be screened for infections such as syphilis and HIV, as well as other infections. PHYSICAL EXAM All adults should visit their provider from time to time, even if they are healthy. The purpose of these visits is to: Screen for disease Assess your risk of future medical problems Encourage a healthy lifestyle Update your vaccinations and other preventive care services Maintain a relationship with a provider in case of an illness Your height, weight, and BMI should be checked at every exam. During your exam, your provider may ask you about: Depression and anxiety Diet and exercise Alcohol and tobacco use Safety issues, such as using seat belts, smoke detectors, and intimate partner violence Your medicines and risk for interactions SKIN SELF-EXAM Your provider may check your skin for signs of skin cancer, especially if you're at high risk, such as if you: Have had skin cancer before Have close relatives with skin cancer Have a weakened immune system OTHER SCREENING Talk with your provider about colon cancer screening if you have a strong family history of colon cancer or polyps, or if you have had inflammatory bowel disease or polyps yourself. Routine bone density screening of women under 40 is not recommended. Marijuana: Natural = Safe, Right? Marijuana is readily available to use in many states in the [facility] [[facility]]. Understanding the possible risks of use is important to ensure the safety. No matter how you use marijuana (smoke it, eat it, or apply to your skin), it may cause problems with both short term and senior care use How marijuana affects your BRAIN: Potential effects from Short Term Use Poor focus, memory and reaction time Difficulty with problem solving Hallucinations, paranoia, anxiety Potential effects from Halfway Use Memory problems and trouble learning new things Depression, hallucinations, paranoia, anxiety, worsening PTSD symptoms addiction Brain. It is not safe to drive while on marijuana. It makes it hard to juvenile court judge distance, concentrate, react quickly to signals and sounds, be alert and coordinated. If alcohol is combined, this risk is even higher! In regular users, some of the effects from exterminator helper termite use may last for days or even weeks after stopping marijuana. How inhaling marijuana affects your LUNGS: Inhaling harmful chemicals Gases Small particles Carcinogens (toxins linked to cancer) Breathing problems similar to tobacco smokers Daily cough with mucus Difficulty breathing Lung infections (bronchitis, pneumonia) Lungs How marijuana affects your HEART: Increases risk of heart attack Within the first hour of smoking Increases heart rate 20?100% increase after smoking Increase lasts up to three hours Changes in heart rhythm Feels like your heart skips a beat, or is fluttering, or beating too fast or too slow Heart Is it SAFE to use marijuana with other medications? A combination that can be concerning is the use of opioids and/or benzodiazepines with marijuana. Opioids + Benzodiazepines + Marijuana: Drowsiness: All three can cause drowsiness. Reaction time: All three can reduce reaction time. Do not drive or operate machinery. Overdose: Opioids and Benzodiazepines can cause reduced breathing and in some cases, breathing can stop and a person can . Marijuana containing higher levels of THC may cause difficulty with thinking and memory and this could result in medication errors where extra doses of opioids, benzodiazepines, or other medications may be taken. What is the harm? Example of Opioids Morphine (MS Contin?, Ashlie?) Oxycodone (Percocet?, OxyContin?) Hydrocodone (Vicodin?, Metcalf?) Fentanyl (Duragesic?) Methadone Heroin Example of Benzodiazepines Lorazepam (Ativan?) Diazepam (Valium?) Alprazolam (Xanax?) Clonazepam (Klonopin?) If you have specific questions about the safety of using marijuana with other medications, please contact your provider or pharmacist. Some marijuana users can become addicted! You can have problems with marijuana withdrawal. You may have withdrawal symptoms the day after you stop using. These can get worse 2 to 3 days after using and can take 1 to 2 weeks or longer to go away. Recovery and Treatment Contact your provider or health care team if you are having concerns about your marijuana use or to learn more about available treatment services. The marijuana plant is not an FDA-approved medicine: The U.S. Food and Drug Administration (FDA) has not approved the marijuana plant as a medication due to lack of studies on the risks and benefits. Marijuana contains over 100 chemical substances known as cannabinoids. Some of these, like tetrahydrocannabinol (THC), have mind altering effects and can be intoxicating. Cannabidiol (CBD), another cannabinoid, does not cause the same ?high? users of THC experience. THC has been studied for the treatment of several conditions, including nausea and increasing appetite. CBD is similarly being studied for a number of conditions, including childhood epilepsy and inflammation. What is different between the marijuana product I get from the marijuana shop and a prescription from the pharmacy? The right dose of any medicine is important. A specific dose of THC is approved to treat nausea, but high doses of THC may cause vomiting. The ingredients in a medicine must be measured and stay the same from one dose to the next. The marijuana plant contains unknown ingredients that change from plant to plant. This makes it hard to control the ?dose? of marijuana needed to treat a condition and use it in the same way we use other medicines. Future studies are ongoing to establish the role of the marijuana plant and the cannabinoids found in the plant for treatment of medical conditions. If you have questions about using a marijuana product for a medical condition, please discuss this with your medical provider to determine the most appropriate treatment for you. [place] Providers are not able to prescribe marijuana products. Information in this document was compiled by the [facility] of Excellence in Substance Abuse treatment and Education ([facility]). It contains information from factsheets by the National [place] on Drug Abuse (www.drugabuse.gov) and presentation by Mariaelena Bean, Mariaelena Cohn, & Lisa Gabriel (2010) entitled ?What providers need to know about cannabis use in Veterans with mental health conditions: Research, policy, practice,? and an additional reference: Carol Paige M.D., Marc Knight, Ph.D., Chris Diop M.D., and Irma West, Ph.D: Adverse Effects of Marijuana. N Engl J Med 2014; 370:2044-2730, February 15, 2014 DOI: 10.1056/VUSMfu9304410. [place] [facility] [employer]ailing Service Coding Level of Care Code Est Pt Prev Care 18-39y(44497) Diagnoses Normal physical exam Z00.00 Mild intermittent asthma without complication J45.20 Asthma complication type: uncomplicated Seasonal allergies J30.2 Deviated septum J34.2 Encounter for screening involving social determinants of health (SDoH) Z13.9 Marijuana use F12.90 Overweight with body mass index (BMI) of 28 to 28.9 in adult E66.3; Z68.28 Additional Codes TODD-7 Assessment Billing - TODD-7 Assessment Tool: TODD-7 Assessment [id number] ([id number])
[2024-01-13 09:11] VITALS: BP 117/74; PULSE 113; RESP 12; TEMP 37; O2SAT 94; BMI 28.9
== END 2024-01-13 09:40 | disposition home or self-care (01) ==
LOC: HO.HMGFM 09:04
PROVIDERS: PCP Nurse Practitioner Family; Visit Provider Nurse Practitioner Family
DX: Z00.00 Encounter for general adult medical examination without abnormal findings (principal); J45.20 Mild intermittent asthma, uncomplicated; J30.2 Other seasonal allergic rhinitis; J34.2 Deviated nasal septum; F12.90 Cannabis use, unspecified, uncomplicated; E66.3 Overweight; Z68.28 Body mass index [BMI] 28.0-28.9, adult
CPT/HCPCS: 99395

== ENCOUNTER 2024-01-27 20:34 | Emergency (ER) | payer BC, OTHER, SELFPAY ==
--- NOTE | 2024-01-27 20:36 | ED_ITS ---
HPI - General Adult General Chief complaint: Allergic Reaction Stated complaint: ? allergic reaction Time Seen by Provider: 01/27/24 20:39 Source: patient Mode of arrival: ambulatory Limitations: no limitations History of Present Illness HPI narrative: Patient's history of allergic reaction to NSAIDs by mistake she took Advil 40 minutes prior to arrival within few minutes of taking that patient started feeling short of breath chest tightness on arrival patient was saturating 90% at room air anxious tachycardic no rash no tongue or lip swelling history of similar reaction the past Related Data Previous Rx's ?Medication ?Instructions ?Recorded albuterol sulfate 90 mcg/actuation 2 puff inhalation Q4-6H PRN 01/13/24 aerosol inhaler (Ventolin HFA) shortness of breath or wheezing #8.5 grams fluticasone propionate 50 1 spray intranasal Q12H #16 grams 01/13/24 mcg/actuation nasal spray,suspension (Flonase Allergy Relief) metronidazole 0.75 % (37.5 mg/5 1 appful vaginal DAILY 5 days #70 01/14/24 gram) vaginal gel grams albuterol sulfate 90 mcg/actuation 2 puff inhalation Q4-6H PRN 01/27/24 aerosol inhaler (ProAir HFA) shortness of breath or wheezing #8.5 grams benzonatate 200 mg capsule 200 mg PO TID PRN cough #30 caps 01/27/24 diphenhydramine HCl 25 mg capsule 50 mg (2 x 25 mg) PO TID PRN 01/27/24 (Benadryl) allergic reaction #30 caps prednisone 20 mg tablet 40 mg (2 x 20 mg) PO DAILY #10 tabs 01/27/24 Allergies Allergy/AdvReac Type Severity Reaction Status Date / Time NSAIDS (Non-Steroidal Allergy Severe Anaphylaxis Verified 01/27/24 20:48 Anti-Inflamma Review of Systems 2 Review of Systems: Yes all other systems are reviewed and are negative PMFSH Past Medical History Medical History No known health problems Surgical History No pertinent past surgical history Social History Social History Housing: House Patient Tobacco Use Status: Never used Tobacco Smoked in Last 30 Days: Yes e-Cigarette/Vaping Use: Currently Using Second Hand Smoke Exposure: No Use of substances other than those prescribed or required for medical reasons: No Substance Use Type: Marijuana Advance Directives: No Advance Directives Information Provided: No Do you have a plan to hurt others: No Plan service: No Current occupational status: unemployed Current occupational exposures/hazards: No Cognitive needs: No Hearing needs: No Vision needs: No Physical Exam ED Vital Signs: Vital Signs - 24 hr 01/27/24 20:42 01/27/24 20:46 01/27/24 20:48 Temperature Pulse Rate 154 H 148 H 138 H Respiratory Rate 24 H 24 H Blood Pressure 130/77 130/77 Pulse Oximetry 79 L Oxygen Delivery Method Room Air Oxygen Flow Rate 01/27/24 20:53 01/27/24 22:49 01/28/24 00:33 Temperature 98.2 F Pulse Rate 138 H 85 85 Respiratory Rate 19 15 15 Blood Pressure 126/81 100/60 Pulse Oximetry 95 96 96 Oxygen Delivery Method Nasal Cannula Room Air Room Air Oxygen Flow Rate 2 BMI result Body Mass Index 31.1 Appearance: Alert. Oriented X3. Anxious Eyes: PERRLA, No Nystagmus ENT: Pharynx normal. Oral Mucosa moist no stridor tongue and lips normal Neck: Normal inspection. Neck supple. No stridor CVS: Normal heart rate and rhythm. Pulses normal. Respiratory: Prolonged expiration Equal air entry bilateral, no wheezing/rales/rhonchi Abdomen: Soft and nontender. Bowel sounds are present, no mass palpable, no CVA tenderness Skin: Skin warm and dry. Normal skin color. Normal skin turgor. Extremities: No lower extremity edema. No calf tenderness Neuro: Oriented X 3. No motor deficit. Course Course Course Narrative: RME performed by Leigh Ram PA-C. Patient is a 24 year old assigned female at presenting to the emergency department with an allergic reaction to ibuprofen. Patient states that she accidentally took excedrin and didn't know it had ibuprofen in it. Detailed physical exam and review of systems are deferred to the exhibit display representative. Charge nurse aware. Medications Administered Discontinued Medications Generic Name Dose Route Start Last Admin Trade Name Freq PRN Reason Stop Dose Admin Albuterol Sulfate 2.5 mg 01/27/24 20:47 01/27/24 20:53 Albuterol Sulfate (0.083%) 2.5 Mg/3 Ml Vial.Neb INHALE 01/27/24 20:48 2.5 mg ONCE ONE Administration Albuterol Sulfate 5 mg 01/27/24 22:49 01/27/24 23:19 Albuterol Sulfate (0.083%) 2.5 Mg/3 Ml Vial.Neb INHALE 01/27/24 22:50 5 mg ONCE ONE Administration Diphenhydramine HCl 25 mg 01/27/24 20:37 01/27/24 20:47 Diphenhydramine Hcl 50 Mg/Ml Vial IVPUSH 01/27/24 20:38 25 mg ONCE ONE Administration Epinephrine 0.3 mg 01/27/24 20:41 01/27/24 20:46 Epinephrine 1 Mg/Ml Vial IM 01/27/24 20:42 0.3 mg STAT STA Administration Famotidine 20 mg 01/27/24 20:37 01/27/24 20:47 Famotidine/Pf 20 Mg/2 Ml Vial IVPUSH 01/27/24 20:38 20 mg ONCE ONE Administration Sodium Chloride 1,000 mls @ 999 mls/hr 01/27/24 20:42 01/27/24 22:00 Ns IV 01/27/24 21:42 Infused .Q1H1M ONE Infusion Methylprednisolone Sodium Succinate 125 mg 01/27/24 20:41 01/27/24 20:46 Methylprednisolone Sod Succ 125 Mg/2 Ml Vial IVPUSH 01/27/24 20:42 125 mg ONCE ONE Administration Medical Decision Making Medical Decision Making MDM Narrative: Patient with anaphylactic reaction to ibuprofen requiring EpiPen Benadryl Solu- Medrol and albuterol treatment was transiently hypoxic pulse ox dropped to high 80s patient improved during stay in the ER saturating 95% at this time patient does have history of asthma? and using inhaler will discharge patient home on prednisone Lab Data [facility] Lab Attestation statement: I reviewed the patient's lab results. 01/27/24 20:51 01/27/24 20:51 Labs: Lab Results 01/27/24 Range/Units 20:51 WBC 8.1 (4.8-10.8) X10*3/uL RBC 4.88 (4.20-5.50) X10*6/uL Hgb 14.7 (12.0-16.0) g/dl Hct 44.1 (37.0-47.0) % MCV 90.4 (80.0-98.0) fL MCH 30.1 (27.0-33.0) pg MCHC 33.3 (31.0-35.0) g/dl RDW 12.5 (11.0-16.0) % Plt Count 448 H D (160-400) X10*3/uL MPV 9.5 (9.4-12.3) fL Immature Gran % (Auto) 0.5 H (0.0-0.4) % Neut % (Auto) 50.4 (45-73) % Lymph % (Auto) 42.4 H (20-40) % [place] % (Auto) 4.3 (2-11) % Eos % (Auto) 2.0 (0-4) % Baso % (Auto) 0.4 (0-2) % Lymph # (Auto) 3.4 (1.2-4.9) X10*3/uL [place] # (Auto) 0.4 (0.1-1.2) X10*3/uL Eos # (Auto) 0.2 (0.0-0.4) X10*3/uL Baso # (Auto) 0.0 (0.0-0.2) X10*3/uL Abs Immat Gran (auto) 0.04 H (0.00-0.03) X10*3/uL Absolute Neuts (auto) 4.1 (2.0-8.3) x10*3/uL Absolute Nucleated RBC 0.000 (0.0-0.012) X10*3/uL Nucleated RBC % (auto) 0.0 (0.0-0.2) /100WBC Sodium 140 (135-145) mmol/L Potassium 4.0 (3.3-5.1) mmol/L Chloride 108 (96-108) mmol/L Carbon Dioxide 21 L (22-29) mmol/L Anion Gap 15 (12-20) BUN 7 L (9-16) mg/dL Creatinine 0.77 (0.5-1.4) mg/dL Estim Creat Clear Calc 108.3 Estimated GFR > 60 Random Glucose 144 H (60-115) mg/dL Calcium 9.2 (8.4-10.2) mg/dL Total Bilirubin 0.2 (0.0-1.0) mg/dL AST 23 (5-31) U/L ALT 22 (0-31) U/L Alkaline Phosphatase 62 (39-117) U/L Total Protein 8.2 H (6.5-8.0) g/dL Albumin 4.1 (3.5-5.0) g/dL Critical Care Time Critical Care Time Critical Care Time: Yes Total Critical Care Time: 55 Attestation: The patient was critically ill with a high probability of imminent or life threatening deterioration. I spent greater than ?60 ??minutes of discontinuous time evaluating the patient,delivering critical care at the bedside, discussing and evaluating pertinent data with consultants. Critical care time does not include time spent performing separately billable procedures or teaching. Total time spent performing critical care was ?55??minutes. Discharge Plan Discharge Clinical Impression: Anaphylactic reaction Patient Disposition: Home, Self-Care Instructions: Anaphylaxis (ED) Additional Instructions: Your strongly allergic to ibuprofen/ aspirin group of medication Do not take goes medication You can take Tylenol for pain Take prednisone for 5 days And continue to use your inhaler for wheezing Benadryl 1-2 tablets every 6 hours as needed for allergic reaction Prescriptions: New benzonatate 200 mg capsule 200 mg PO TID PRN (Reason: cough) Qty: 30 0RF prednisone 20 mg tablet 40 mg PO DAILY Qty: 10 0RF albuterol sulfate [ProAir HFA] 90 mcg/actuation HFA aerosol inhaler 2 puff inhalation Q4-6H PRN (Reason: shortness of breath or wheezing) Qty: 8.5 0RF diphenhydramine HCl [Benadryl] 25 mg capsule 50 mg PO TID PRN (Reason: allergic reaction) Qty: 30 0RF No Action metronidazole 0.75 % (37.5mg/5 gram) gel 1 appful vaginal DAILY 5 Days Qty: 70 0RF fluticasone propionate [Flonase Allergy Relief] 50 mcg/actuation spray,suspension 1 spray intranasal Q12H Qty: 16 11RF Rx Instructions: administer into each nostril albuterol sulfate [Ventolin HFA] 90 mcg/actuation HFA aerosol inhaler 2 puff inhalation Q4-6H PRN (Reason: shortness of breath or wheezing) Qty: 8.5 3RF Interventions: ED Discharge Assessment Last Done: 01/28/24 00:33 Discharge Date/Time: 01/28/24 00:36 Print Language: Danish
[2024-01-27 20:42] VITALS: BP 130/77; PULSE 154; RESP 24; O2SAT 79; BMI 31.1
[2024-01-27 20:46] VITALS: BP 130/77; PULSE 148
[2024-01-27] MEDS: methylPREDNISolone Sod Succ 125 MG/2 ML VIAL IVPUSH (20:46)
[2024-01-27] MEDS: EPINEPHrine 1 MG/ML VIAL 0.3 MG IM (20:46)
[2024-01-27] MEDS: Famotidine/PF 20 MG/2 ML VIAL IVPUSH (20:47)
[2024-01-27] MEDS: diphenhydrAMINE HCL 50 MG/ML VIAL 25 MG IVPUSH (20:47)
[2024-01-27 20:48] VITALS: PULSE 138; RESP 24; O2SAT 97
[2024-01-27] MEDS: 0.9 % Sodium Chloride 1,000 ML 999 ML IV (20:48)
[2024-01-27 20:53] VITALS: BP 126/81; PULSE 138; RESP 19; O2SAT 95
[2024-01-27] MEDS: Albuterol Sulfate (0.083%) 2.5 MG/3 ML VIAL.NEB INHALE (20:53)
[2024-01-27 21:19] LABS: MANUAL DIFF FLAG NO
[2024-01-27 21:22] LABS: Basophils Percent Auto 0.4 % (0-2); Eosinophils Absolute Auto 0.2 X10*3/uL (0.0-0.4); Hematocrit 44.1 % (37.0-47.0); Hemoglobin 14.7 g/dl (12.0-16.0); Imm Gran Abs Auto 0.04 X10*3/uL (0.00-0.03); Imm Gran Pct Auto 0.5 % (0.0-0.4); Lymphocytes Absolute Auto 3.4 X10*3/uL (1.2-4.9); Lymphocytes Percent Auto 42.4 % (20-40); Mean Corpuscular HGB Conc 33.3 g/dl (31.0-35.0); Mean Corpuscular Hemoglobin 30.1 pg (27.0-33.0); Mean Corpuscular Volume 90.4 fL (80.0-98.0); Mean Platelet Volume 9.5 fL (9.4-12.3); Monocytes Absolute Auto 0.4 X10*3/uL (0.1-1.2); Monocytes Percent Auto 4.3 % (2-11); Neutrophils Absolute Auto 4.1 x10*3/uL (2.0-8.3); Neutrophils Percent Auto 50.4 % (45-73); Platelet Count 448 X10*3/uL (160-400); Red Blood Count 4.88 X10*6/uL (4.20-5.50); Red Cell Distribution Width 12.5 % (11.0-16.0); White Blood Count 8.1 X10*3/uL (4.8-10.8)
[2024-01-27 21:44] LABS: Alanine Aminotransferase 22 U/L (0-31); Albumin Level 4.1 g/dL (3.5-5.0); Alkaline Phosphatase 62 U/L (39-117); Anion Gap 15 (12-20); Aspartate Amino Transferase 23 U/L (5-31); Bilirubin Total 0.2 mg/dL (0.0-1.0); Blood Urea Nitrogen 7 mg/dL (9-16); Calcium 9.2 mg/dL (8.4-10.2); Carbon Dioxide 21 mmol/L (22-29); Chloride 108 mmol/L (96-108); Creatinine Clr Calc Pharmacy 108.3; Estimated Glomerular Filt Rate > 60; Glucose Random 144 mg/dL (60-115); Sodium 140 mmol/L (135-145); Total Protein 8.2 g/dL (6.5-8.0)
[2024-01-27 22:49] VITALS: PULSE 85; RESP 15; O2SAT 96
[2024-01-27] MEDS: Albuterol Sulfate (0.083%) 2.5 MG/3 ML VIAL.NEB 5 MG INHALE (23:19)
[2024-01-28 00:33] VITALS: BP 100/60; PULSE 85; RESP 15; TEMP 36.8; O2SAT 96
== END 2024-01-28 00:36 | disposition home or self-care (01) ==
PROVIDERS: Emergency Provider Internal Medicine
DX: T88.6XXA Anaphylactic reaction due to adverse effect of correct drug or medicament properly administered, initial encounter (principal); T39.315A Adverse effect of propionic acid derivatives, initial encounter; Y92.9 Unspecified place or not applicable
CPT/HCPCS: 36415; 80053; 85025; 94640; 96361; 96372; 96374; 96375; 99284; 99285; J0171; J1200; J2919

== ENCOUNTER 2024-04-12 11:05 | Outpatient (AMB) | payer BC, OTHER, SELFPAY ==
--- OUTSIDE RECORDS SUMMARY | 2024-04-12 11:07 | XMS_ITS | Continuity of Care Document ---
Author Organization [facility] Address [address] [place] [id number]- Care Team Providers Care Forestry Foreman Name Role Phone Gloria Angel NP Primary Care Physician [phone] [place] [facility] [place] [facility] [address] [address] Allergies, Adverse Reactions, Alerts Substance Reaction Severity Status Cats Active Pollen Active Medications Multivitamins with Folic Acid 1 mg oral tablet 1 tablet, By Mouth, Daily, # 90 tablet, 2 Refills, Maintenance, 06/19/22 9:03:00 EDT, [facility] #[id number], Partial fill upon patient request if the prescription is for a schedule II opioid drug., 1 tablet By Mouth Daily, 158.5, cm, 06/19/22 8:... Start Date: 06/19/22 Status: Ordered Multivitamins with Folic Acid 1 mg oral tablet 1 tablet, By Mouth, Daily, # 90 tablet, 3 Refills, Maintenance, 06/16/22 10:13:00 EDT, Tablet, [facility] #[id number], Partial fill upon patient request if the prescription is for a schedule II opioid drug., 1 tablet By Mouth Daily Start Date: 06/16/22 Status: Ordered Problem List Condition Confirmation Course Effective Dates Status Health [facility] In[facility] History of chlamydia Confirmed Active History of COVID-19 - September 2021 Confirmed Active History of gonorrhea Confirmed Active Social History Social History Type Response Smoking Status Never (less than 100 in lifetime) entered on: 06/19/22 Sex Patient Care team information Care Team Personnel Name: Gloria Angel NP Position: Reference Physician Member Role: PCP Address: Address: [address] [place] [address] [place] [id number]- [place] Care Team Related Persons Name: REJICHRISTIE Address: home [address] [facility] [address]
--- OUTSIDE RECORDS SUMMARY | 2024-04-12 11:07 | XMS_ITS | Continuity of Care Document ---
Author Organization [facility] Address [address] [place] [id number]- Care Team Providers Care Minister Name Role Phone Jeanne JHAVERI, Gloria Lutz Primary Care Physician [phone] En[place] [facility] [place] Date(s): [place]/01/23 - 03/03/[address] [address] Allergies, Adverse Reactions, Alerts Substance Reaction Severity Status Cats Active Pollen Active Medications ibuprofen 600 mg oral tablet See Instructions, PRN, 1 tablet taken By Mouth Every 6 hours not to exceed 3200 mg/day, # 60 tablet, Refills 0, Tot. Refills 0, Maintenance, as needed for pain, 02/08/23 2:49:00 EDT, Instructions Replace Required Details, Route to Pharmacy Electronic... Start Date: 02/08/23 Status: Ordered Multivitamins with Folic Acid 1 mg oral tablet 1 tablet, By Mouth, Daily, # 90 tablet, 3 Refills, Maintenance, 06/16/22 10:13:00 EDT, Tablet, [facility] #[id number], Partial fill upon patient request if the prescription is for a schedule II opioid drug., 1 tablet By Mouth Daily Start Date: 06/16/22 Status: Ordered ProAir HFA Inhalation, Every 6 hours, 0 Refills, Maintenance, 02/05/23 20:32:00 EDT, Partial fill upon patientrequest if the prescription is for a schedule II opioid drug. Start Date: 02/05/23 Status: Ordered Tylenol 325 mg oral capsule See Instructions, PRN as needed for pain, 2 capsule (650 mg) taken By Mouth Every 4 hours not to exceed 4000 mg/day, # 60 capsule, 0 Refills, Maintenance, 02/08/23 2:49:00 EDT, Capsule, [facility] #[id number], Partial fill upon patient request i... Start Date: 02/08/23 Status: Ordered Problem List Condition Confirmation Course Effective Dates Status Health [facility] History of COVID-19 - September 2021 Confirmed Active Obese class I Confirmed Active Social History Social History Type Response Smoking Status Never (less than 100 in lifetime) entered on: 06/19/22 Sex Patient Care team information Care Team Personnel Name: Jeanne JHAVERI, Gloria Lutz Position: Reference Physician Member Role: PCP Address: Address: [address] [place] [address]- Care Team Related Persons Name: CHANELLE MONZON Address: [employer] Address: home [address] [address] Name: CHRISTIE MENDOZA Address: home [address] [place] [address]
--- OUTSIDE RECORDS SUMMARY | 2024-04-12 11:07 | XMS_ITS | Continuity of Care Document ---
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 Role Phone Jeanne JHAVERI, Gloria Lutz Primary Care Physician [phone] Encounter [facility] Date(s): 01/13/23 - 01/13/[address] [id number] Discharge Disposition: A-D/C Home Attending Physician: Christie Cabral MD Admitting Physician: Christie Cabral MD Referring Physician: Christie Cabral MD Allergies, Adverse Reactions, Alerts Substance Reaction Severity Status Cats Active Pollen Active Medications Macrobid macrocrystals-monohydrate 100 mg oral capsule 1 capsule = 100 mg, By Mouth, 2 times a day, for 7 days, # 14 capsule, 0 Refills, Acute 01/20/23 11:25:00 EDT, 01/13/23 11:25:00 EDT, Capsule, [facility] #[id number], Partial fill upon patient request if the prescription is for a schedule II opio... Start Date: 01/13/23 Stop Date: 01/20/23 Status: Ordered Multivitamins with Folic Acid 1 mg oral tablet 1 tablet, By Mouth, Daily, # 90 tablet, 3 Refills, Maintenance, 06/16/22 10:13:00 EDT, Tablet, [facility] #[id number], Partial fill upon patient request if the prescription is for a schedule II opioid drug., 1 tablet By Mouth Daily Start Date: 06/16/22 Status: Ordered Robitussin Maximum Strength Severe 650 mg-25 mg-10 mg/20 mL oral liquid 20 mL, By Mouth, Every 4 hours, # 180 mL, 0 Refills, Maintenance, 10/22/22 16:19:00 EST, [facility] #[id number], Partial fill upon patient request if the prescription is for a schedule II opioiddrug., 20 mL By Mouth Every 4 hours, 158.5, cm, ... Start Date: 10/22/22 Status: Ordered Tylenol 325 mg oral tablet 975 mg, Tablet, By Mouth, Once, PRN for Pain , Moderate, Routine, 01/13/23 7:54:00 EDT Start Date: 01/13/23 Stop Date: 01/13/23 Status: Completed ursodiol 300 mg oral capsule 300 mg, 1, capsule, By Mouth, 3 times a day, # 270 capsule, Refills 1, Tot. Refills 1, Maintenance,01/08/23 15:31:00 EDT, Route to Pharmacy Electronically, [facility] #[id number], Partial fill upon patient request if the prescription is for a sc... Start Date: 01/08/23 Stop Date: 02/07/23 Status: Ordered Problem List Condition Confirmation Course Effective Dates Status Health [facility] Informant Cholestasis of Confirmed Active History of COVID- - September 2021 Confirmed Active Obese class I Confirmed Active Results Radiology Reports * Exam Date Time Procedure Performing Provider Status 01/13/23 10:28 AM US Retroperitoneum Comp Jonn Valle; Auth (Verified) Notes: (US Retroperitoneum Comp) Reason For Exam: Right Flank pain;Other: RESULT: US Retroperitoneum Comp US Retroperitoneum Comp Reason: Other:; Right Flank pain; Clinical Question(s): Other:; Kidney stone - right side; Order Comment: US Retroperitoneum Complete Prep COMPARISON: None. FINDINGS: Right kidney: 12.3 cm in length. No hydronephrosis. Normal parenchymal thickness and echotexture. No stones. No suspicious mass. Left kidney: 12.5 cm in length. No hydronephrosis. Normal parenchymal thickness and echotexture. Nostones. No suspicious mass. Urinary bladder: Incompletely distended. Small amount of internal debris. No discrete stone, mass, or wall thickening. Other: Gravid uterus is partially visualized. This study does not provide diagnostic assessment of the fetus. IMPRESSION: 1. Normal kidneys. No hydronephrosis or stone. 2. Small amount of debris within the under distended bladder. Correlate with urinalysis to assess for urinary tract infection. WSN: [id number] Ordering Physician: Darby Matos Dictated By: Fanny Aldridge MD Dictated Date/Time: 01/13/23 10:57 a Reviewed By: Fanny Aldridge MD Signed By: Fanny Aldridge MD Signed Date/Time: 01/13/23 10:57 am Transcribed By: JULES Transcribed Date/Time: 01/13/23 10:37 am Vital Signs Most recent to oldest [Reference Range]: 1 Weight 82.1 kg (01/13/23 7:02 AM) Oxygen Saturation [94-100 %] 99 % (01/13/23 7:02 AM) Blood Pressure [90-138/55-84 mm Hg] 114/ 67mm Hg (01/13/23 7:02 AM) Respiratory Rate [16-30 br/min] 18 br/mi n (01/13/23 8:13 AM) Temperature [96.8-100.4 DegF] 98.0 DegF (01/13/23 7:02 AM) Temperature Route Oral (01/13/23 7:02 AM) Dry Weight 82.1 kg (01/13/23 7:02 AM) Weight Obtained Via Standing scale (01/13/23 7:02 AM) Dry Weight Obtained Via Standing scale (01/13/23 7:02 AM) Social History Social History Type Response Smoking Status Never (less than 100 in lifetime) entered on: 06/19/22 Sex Note * Irma Cobb V: PERFORM Event Display: Discharge/Transfer Note Hospital Authored Date: [id number] Nursing Discharge Note Entered On: 01/13/2023 11:28 EDT Performed On: 01/13/2023 11:27 EDT by Irma Cobb V Nursing Discharge Note 2 Discharge Time : 01/13/2023 11:27 EDT Discharge Level of Care at Discharge : Home/Long Term/Foster Care Patient Left Unit Via : Wheelchair Patient Accompanied Off Unit with : Significant other DC Instructions Provided & Signed by Pt : Yes Patient Understands D/C Instructions : Yes Patient Instructions Discharge Signed : Yes Did Pt have Specialty Bed or Wound Vac : No Irma Cobb V - 01/13/2023 11:27 EDT * Irma Cobb V: PERFORM Event Display: Patient Education/Instruction Authored Date: [id number] Inpatient Adult Discharge Instructions [address] [address] Name: JAMEEL GRESHAM : 2000 Visit: 01/13/2023 06:50:00 Current Date: 01/13/2023 11:18 Account: [id number] Inpatient Adult Discharge Instructions We would like to thank you for allowing us to assist you with your healthcare needs. The following includes patient education materials and information regarding your injury/illness. Our entire staffstrives to provide an excellent experience for our patients and their families. PLEASE ENSURE YOU FOLLOW-UP PER THE INSTRUCTIONS BELOW! ?? YOUR OPINION IS IMPORTANT TO US! Please complete the survey you may receive by mail or email. Your feedback will be used to make improvements to the healthcare experiences of our patients and their families. Surveys are administered by [employer] ?? If further treatment with your primary care physician or another doctor is recommended, it is important for you to keep the appointment. Call your primary care physician or return to the Emergency Department immediately if your condition worsens, fails to improve, or new symptoms develop. If you need to find a doctor, you can call [facility] for a referral at [phone] or toll free at [phone] ([phone] or log in to [email or web address].. ?? You can view and manage your care through the patient portal or by using a health care jazmin of your choosing. [employer] is a website that allows you to securely view your medical information including your hospital discharge summary, office visit summaries, medications and follow-up visits. You can also request appointments, renew medications, and request access to your medical information using a health care jazmin of your choosing, or just ask a question. You can enroll at [email or web address] or register during your next office visit. You have been discharged from [facility], Patient Care Unit: [id number]. If you have any questions regarding these instructions after you leave, please call us and we will be happy to assist you. [facility] Your Care Team Attending Physician Misha GALLAGHER, Christie Mcrae MD, Jerome Your Diagnosis Acute cystitis during Right-sided back pain Tests Performed Below is a partial list of the tests performed during your hospitalization. You may have had other tests and procedures not included in this list. Please discuss all test results with your provider. Complete Urinalysis US Retroperitoneum Comp Primary Care Provider Jeanne JHAVERI Gloria Lutz Advance Directive . Discharge Vitals Temperature: 98 DegF Weight: 82.1 kg Respiratory Rate: 18 br/min ?? Systolic Blood Pressure: 114 mm Hg ?? Diastolic Blood Pressure: 67 mm Hg ?? Oxygen Saturation: 99 % ?? Studies Pending All tests and labs ordered during this hospital stay have been completed unless listed below. Please discuss all pending results with your provider listed above in these instructions. ?? Urine Culture (Culture Urine) What to do next Instructions From Your Doctor Discharge Orders Scheduled Follow-Up Appointments Wednesday. 2022 11:00 AM EDT ?? With: Missy Wylie CNM Where: [facility] [address] [place] [address]- Wednesday. 2022 8:40 AM EDT ?? With: Missy Wylie CNM Where: [facility] [address] [place] [phone]- Wednesday. 2022 8:20 AM EDT ?? With: Shelbie Rodríguez CNM Where: [facility] [address] [place] [phone]- Discharge Medications JAMEEL GRESHAM :2000 Visit Date:01/13/2023 Medications: Please continue your medications until treatment is completed or stopped by your provider. Medications not listed below should be discontinued. Discuss any questions related to medications with your provider. What How Much When Why Instructions Next Dose Unchanged APAP/ diphenhydramine/ phenylephrine (Robitussin Maximum Strength Severe 650 mg-25 mg-10 mg/ 20 mL oral liquid) 20 Milliliter Oral Every 4 hours Unchanged Multivitamin, ( Multivitamins with Folic Acid 1 mg oral tablet) 1 tab(s) Oral Daily Unchanged Ursodiol (ursodiol 300 mg oral capsule) 1 capsule Oral 3 times a day Test Results Below is a partial list of the most recent Laboratory test results done prior to this discharge. You may have had other tests and procedures not included in this list. Please discuss all test resultswith your provider. Complete Urinalysis (01/13/2023) ???Appear/Color, Urine - LIGHT YELLOW???Specific Glidden, Urine - 1.020???pH, Urine - 6.0???Albumin, Urine - 1+???Glucose, Urine - NEGATIVE???Ketones, Urine - NEGATIVE???Bilirubin, Urine - NEGATIVE???Hemoglobin, Urine - 1+???Nitrite, Urine - NEGATIVE???Leukocyte, Urine - 3+???Urobilinogen - NORMAL???WBC's, Urine - 60 /HPF???RBC's, Urine - 53 /HPF???Bacteria - SLIGHT???Squamous Epith - 1 /HPF???Mucus - SLIGHT Allergies (NKA means No Known Allergies) Cats Pollen Problems Active Problems??(4) Cholestasis of ?? History of COVID-19 ??- September 2021?? Obese class I? Education Materials Below is the list of Educational Leaflet Providered with your Discharge Instructions. Urinary Tract Infections in Women?? Valuables and Belongings I fully understand and agree that [facility] accepts no responsibility for all my personal property including clothing, toilet articles, radios, jewelry, dentures, hearing aids, rings, money, or any other property that is in my possession or is brought to me after admission. I understand certain valuables may be placed in a hospital safe for a short period of time. I understand that the hospital is not liable for loss or damage due to accident, fire, or other natural occurrence while said property is in the safe. I accept full responsibility for any personal property that I keep with me, and will not hold the hospital responsible in case of loss or disappearance. I acknowledge that i have been encouraged to send valuables and belongings home. ? Other Discharge Information ? Pulmonary Rehab Status?? Pulmonary Rehab Discharge Status?? Respiratory Rate: 18 br/min ? Common Emergency Awareness Tips IS IT A STROKE? Act FAST and Check for these signs: FACE Does the face look uneven? ARM Does one arm drift down? SPEECH Does their speech sound strange? TIME Call 9-1-1 at any sign of stroke ?? Heart Attack Signs Chest discomfort: Most heart attacks involve discomfort in the center of the chest and lasts more than a few minutes, or goes away and comes back. It can feel like uncomfortable pressure, squeezing, fullness or pain. Discomfort in upper body: Symptoms can include pain or discomfort in one or both arms, back, neck, jaw or stomach. Shortness of breath: With or without discomfort. Other signs: Breaking out in a cold sweat, nausea, or lightheaded. Remember, MINUTES DO MATTER. If you experience any of these heart attack warning signs, call to get immediate medical attention! ?? Smoking can increase your chances of developing chronic health problems and can cause harmful effects to other family members in your house. If you smoke, you are strongly encouraged to quit. Please call [facility] at [phone] or [phone] ([phone]) or log in to [email or web address] for referrals to smoking cessation programs. ?? 273 Suicide & Crisis Lifeline is available 05/04 if you or someone you know needs to find a reason to keep living. By calling 682 you'll be connected to a skilled, trained counselor at a crisis center in your area. INPATIENT DISCHARGE INSTRUCTIONS SIGNATURE JAMEEL KHAN Location:[facility] Registration Date and Time:01/13/2023 06:50 EDT Primary Care Physician: Jeanne JHAVERI, Gloria Lutz, Therese GRESHAM JAMEEL, have received the above patient education materials/instructions and have verbalized understanding. If ambulance or transport services are being used I further acknowledge being given a choice of service. ?? If you need to contact me, please call me at this number: . Patient/Resident Care Provider Name: Patient/Resident Care Provider Signature: Relationship to Patient: Witness Name/Signature: Date: * Irma Cobb V: PERFORM Event Display: Patient Education Leaflets Authored Date: [id number] Urinary Tract Infections in Women ?? [address] Urinary Tract Infections in Women Urinary tract infections (UTIs) are most often caused by??bacteria. These bacteria enter the urinary tract. The bacteria may come from inside the body. Or they may travel from the skin outside the??rectum or vagina into the urethra. Female anatomy makes it easy for bacteria from the bowel??to entera woman???s urinary tract, which is the most common source of UTI. This means women develop UTIs more often than men. Pain in or around the urinary tract is a common UTI symptom. But the only way to know for sure if you have a UTI for the healthcare provider to test your urine. The two tests that may be done are the urinalysis and urine culture. Types of UTIs ??? Cystitis. A bladder infection (cystitis) is the most common UTI in women. You mayhave urgent or frequent need to pee. You may also have??pain, burning when you pee, and bloody urine. ??? Urethritis. This is an inflamed urethra, which is the tube that carries urine from the bladder to outside the body. You may have lower stomach or back pain. You may also have urgent or frequentneed to pee. ??? Pyelonephritis. This is a kidney infection. If not treated, it can be serious and damage your kidneys. In severe cases, you may need to stay in the??hospital. You may have a fever and lower back pain. ?? Medicines to treat a UTI Most UTIs are treated with antibiotics. These kill the bacteria. The length of time you need to take them depends on the type of infection. It may be as short as 3 days. If you have repeated UTIs, you may need a low-dose antibiotic??for several months. Take antibiotics exactly as directed. Don???t stop taking them until all of the medicine is gone, even if you feel better. If you stop taking the antibiotic too soon, the infection may not go away. You may also develop a resistance to the antibiotic. This can make it much harder to treat. ?? Lifestyle changes to treat and prevent UTIs The lifestyle changes below will help get rid of your UTI. They may also help prevent future UTIs. ??? Drink plenty of fluids. This includes water, juice, or other caffeine-free drinks. Fluids help flush bacteria out of your body. ??? Empty your bladder. Always empty your bladder when you feel the urge to pee. And always pee before going to sleep. Urine that stays in your bladder can lead to infection. Try to pee before and after sex as well. ??? Practice good personal hygiene. Wipe yourself from front to back after using the toilet. This helps keep bacteria from getting into the urethra. ???Wear cotton underwear. Don't wear synthetic or tight-fitting underwear that can trap moisture. Change out of wet bathing suits and workout clothing quickly. ??? Take showers. Showers are better than baths for preventing UTIs. ??? Use condoms during sex. These help prevent UTIs caused by sexually transmitted bacteria. Also don't use spermicides during sex. These can increase the risk for UTIs. Choose other forms of control instead. For women who tend to get UTIs after sex, a low-dose of a p reventive antibiotic may be used. Be sure to discuss this option with your healthcare provider. ???Follow up with your healthcare provider as directed. They may test to make sure the infection has cleared. If needed, more treatment may be started. ?? Last Reviewed Date: 2021 ?? [id number] [employer]. All rights reserved. This information is not intended as a substitute for professional medical care. Always follow your healthcare professional's instructions. ?? US Retroperitoneum * GABY Castrejon S: TRANSCRIFanny Longo MD: VERIFY Event Display: Result: Authored Date: [id number] US Retroperitoneum Comp Reason: Other:; Right Flank pain; Clinical Question(s): Other:; Kidney stone - right side; Order Comment: US Retroperitoneum Complete Prep COMPARISON: None. FINDINGS: Right kidney: 12.3 cm in length. No hydronephrosis. Normal parenchymal thickness and echotexture. No stones. No suspicious mass. Left kidney: 12.5 cm in length. No hydronephrosis. Normal parenchymal thickness and echotexture. Nostones. No suspicious mass. Urinary bladder: Incompletely distended. Small amount of internal debris. No discrete stone, mass, or wall thickening. Other: Gravid uterus is partially visualized. This study does not provide diagnostic assessment of the fetus. IMPRESSION: 1. Normal kidneys. No hydronephrosis or stone. 2. Small amount of debris within the under distended bladder. Correlate with urinalysis to assess for urinary tract infection. WSN: [id number] Ordering Physician: Darby Matos Dictated By: Fanny Aldridge MD Dictated Date/Time: 01/13/23 10:57 a Reviewed By: Fanny Aldridge MD Signed By: Fanny Aldridge MD Signed Date/Time: 01/13/23 10:57 am Transcribed By: JULES Transcribed Date/Time: 01/13/23 10:37 am Patient Care team information Care Team Personnel Name: Gloria Angel NP Position: Reference Physician Member Role: PCP Address: Address: [address] [place] [address]- Name: Irma Cobb V Position: S OB RN Member Role: Patient Care Provider Care Team Related Persons Name: MENDOZACHRISTIE Address: [address] [address]
--- OUTSIDE RECORDS SUMMARY | 2024-04-12 11:07 | XMS_ITS | Continuity of Care Document ---
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 Phone Jeanne JHAVERI, Gloria Lutz Primary Care Physician Encounter [facility] Date(s): 08/12/22 - 12/03/[address] [address] Attending Physician: Not on Staff, Attending MD Allergies, Adverse Reactions, Alerts Substance Reaction Severity Status Cats Active Pollen Active Medications multivitamin, Multivitamins oral tablet, chewable 1 tablet, Chew, Daily, # 90 tablet, 2 Refills, Maintenance, 07/31/22 12:52:00 EST, Chew Tablet, [facility] #[id number], Partial fill upon patient request if the prescription is for a schedule IIopioid drug., 1 tablet Chew Daily, 158.5, cm, 07/08... Start Date: 07/31/22 Status: Ordered Paxlovid 150 mg-100 mg oral tablet See Instructions, 300mg nirmatrelvir (two 150mg tablets) with 100mg ritonavir (one tablet). All 3 tablets taken together twice daily for 5 days, with or without food., # 30 tablet, 0 Refills, Maintenance, [facility] Start Date: 09/02/22 Status: Ordered Multivitamins with Folic Acid 1 mg oral tablet 1 tablet, By Mouth, Daily, # 90 tablet, 2 Refills, Maintenance, 06/19/22 9:03:00 EDT, [facility] #[id number], Partial fill upon patient request if the prescription is for a schedule II opioid drug., 1 tablet By Mouth Daily, 158.5, cm, 06/19/22 8:... Start Date: 06/19/22 Status: Ordered Multivitamins with Folic Acid 1 mg oral tablet 1 tablet, By Mouth, Daily, # 90 tablet, 3 Refills, Maintenance, 06/16/22 10:13:00 EDT, Tablet, [facility] #[id number], Partial fill upon patient request if the prescription is for a schedule II opioid drug., 1 tablet By Mouth Daily Start Date: 06/16/22 Status: Ordered Robitussin Maximum Strength Severe 650 mg-25 mg-10 mg/20 mL oral liquid 20 mL, By Mouth, Every 4 hours, # 180 mL, 0 Refills, Maintenance, 10/22/22 16:19:00 EST, [facility] #[id number], Partial fill upon patient request if the prescription is for a schedule II opioiddrug., 20 mL By Mouth Every 4 hours, 158.5, cm, ... Start Date: 10/22/22 Status: Ordered Problem List Condition Confirmation Course Effective Dates Status Health [facility] Informant Acute COVID-19 Confirmed Active History of chlamydia Confirmed Active History of COVID-19 - September 2021 Confirmed Active History of gonorrhea Confirmed Active Obese class I Confirmed Active Social History Social History Type Response Smoking Status Never (less than 100 in lifetime) entered on: 06/19/22 Sex Patient Care team information Care Team Personnel Name: Gloria Angel NP Position: Reference Physician Member Role: PCP Address: Address: [address] [place] [phone]- Care Team Related Persons Name: CHRISTIE MENDOZA Address: home [address] [place] [address]
--- OUTSIDE RECORDS SUMMARY | 2024-04-12 11:07 | XMS_ITS | Continuity of Care Document ---
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 Name Role Phone Gloria Angel NP Primary Care Physician Encounter [facility] Date(s): 12/03/22 - 01/02/23 [facility] [address] [address] Allergies, Adverse Reactions, Alerts Substance Reaction Severity Status Cats Active Pollen Active Medications Multivitamins with Folic Acid 1 mg oral tablet 1 tablet, By Mouth, Daily, # 90 tablet, 3 Refills, Maintenance, 06/16/22 10:13:00 EDT, Tablet, [facility] #[id number], Partial fill upon patient request if the prescription is for a schedule II opioid drug., 1 tablet By Mouth Daily Start Date: 06/16/22 Status: Ordered Robitussin Maximum Strength Severe 650 mg-25 mg-10 mg/20 mL oral liquid 20 mL, By Mouth, Every 4 hours, # 180 mL, 0 Refills, Maintenance, 10/22/22 16:19:00 EST, [facility] #[id number], Partial fill upon patient request if the prescription is for a schedule II opioiddrug., 20 mL By Mouth Every 4 hours, 158.5, cm, ... Start Date: 10/22/22 Status: Ordered Problem List Condition Confirmation Course Effective Dates Status Health [facility] Informant History of COVID- - September 2021 Confirmed Active Obese class I Confirmed Active Social History Social History Type Response Smoking Status Never (less than 100 in lifetime) entered on: 06/19/22 Sex Patient Care team information Care Team Personnel Name: Gloria Angel NP Position: Reference Physician Member Role: PCP Address: Address: [address] [place] [id number]- Care Team Related Persons Name: LIBAN MENDOZALINE Address: home [address] [place] [address]
--- OUTSIDE RECORDS SUMMARY | 2024-04-12 11:07 | XMS_ITS | Continuity of Care Document ---
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 Role Phone Jeanne JHAVERI, Gloria Lutz Primary Care Physician [phone] Encounter [facility] Date(s): 01/28/23 - 03/05/[address] [address]- Attending Physician: Cait Gresham MD Admitting Physician: Cait Gresham MD Referring Physician: Missy Wylie CNM Allergies, Adverse Reactions, Alerts Substance Reaction Severity [...] 3 Refills, Maintenance, 06/16/22 10:13:00 EDT, Tablet, [facility] #[id number], Partial fill upon patient request if the [...] 0 Refills, Maintenance, 02/08/23 2:49:00 EDT, Capsule, [facility] #[id number], Partial fill upon patient request i... Start [...] Physician Member Role: PCP Address: Address: [address] [place] [id number]- Care Team Related Persons Name: CHANELLE MONZON Address: [employer] Address: home [address] [address] Name: CHRISTIE MENDOZA Address: home [address] [place] [address]
--- OUTSIDE RECORDS SUMMARY | 2024-04-12 11:07 | XMS_ITS | Continuity of Care Document ---
Author Organization [facility] [employer] Address [address] [place] [address]- Care Team Providers Care Cmm Technician Name Role Phone Jeanne JHAVERI, Gloria Lutz Primary Care Physician Encounter [facility] Date(s): 07/01/22 - 07/31/22 [facility] [employer] [address] [place], [place] [address] Allergies, Adverse Reactions, Alerts Substance Reaction Severity Status Cats Active Pollen Active Medications multivitamin, Multivitamins oral tablet, chewable 1 tablet, Chew, Daily, # 90 tablet, 2 Refills, Maintenance, 07/31/22 12:52:00 EST, Chew Tablet, [facility] #[id number], Partial fill upon patient request if the prescription is for a schedule IIopioid drug., 1 tablet Chew Daily, 158.5, cm, 07/08... Start Date: 07/31/22 Status: Ordered Multivitamins with Folic Acid 1 mg oral tablet 1 tablet, By Mouth, Daily, # 90 tablet, 2 Refills, Maintenance, 06/19/22 9:03:00 EDT, [facility] #[id number], Partial fill upon patient request if the prescription is for a schedule II opioid drug., 1 tablet By Mouth Daily, 158.5, cm, 06/19/22 8:... Start Date: 06/19/22 Status: Ordered Multivitamins with Folic Acid 1 mg oral tablet 1 tablet, By Mouth, Daily, # 90 tablet, 3 Refills, Maintenance, 06/16/22 10:13:00 EDT, Tablet, [facility] #[id number], Partial fill upon patient request if the [...] Reference Physician Member Role: PCP Address: Address: [address] [place] [address]- Care Team Related Persons Name: CHRISTIE MENDOZA Address: home [address] [place] [address]
--- OUTSIDE RECORDS SUMMARY | 2024-04-12 11:07 | XMS_ITS | Continuity of Care Document ---
Author Organization [facility] ter Address [address] [place] [id number] Care Team Providers Care Health Coordinator Name Role Phone Jeanne JHAVERI, Gloria Lutz Primary Care Physician En[place] [facility] [place](s[place] 01/15/23 - 01/17/[address] [address] Discharge Disposition: A-D/C Home Attending Physician: Jennifer Harmon MD Admitting Physician: Jennifer Harmon MD Referring Physician: Jennifer Harmon MD Allergies, Adverse Reactions, Alerts Substance Reaction Severity Status Cats Active Pollen Active Medications amoxicillin 875 mg oral tablet 1 tablet = 875 mg, By Mouth, Every 12 hours, for 10 days, # 20 tablet, 0 Refills, Acute 01/27/23 8:54:00 EDT, 01/17/23 8:54:00 EDT, Tablet, [id number], Partial fill upon patient request if the prescription is for a schedule II opioid... Start Date: 01/17/23 Stop Date: 01/27/23 Status: Ordered oxyCODONE 5 mg oral tablet 5 mg, Tablet, By Mouth, Every 4 hours, PRN for Pain , Mild, Routine, 01/16/23 13:17:00 EDT Start Date: 01/16/23 Stop Date: 01/18/23 Status: Discontinued Multivitamins with Folic Acid 1 mg oral tablet 1 tablet, By Mouth, Daily, # 90 tablet, 3 Refills, Maintenance, 06/16/22 10:13:00 EDT, Tablet, [id number], Partial fill upon patient request if the prescription is for a schedule II opioid drug., 1 tablet By Mouth Daily Start Date: 06/16/22 Status: Ordered Robitussin Maximum Strength Severe 650 mg-25 mg-10 mg/20 mL oral liquid 20 mL, By Mouth, Every 4 hours, # 180 mL, 0 Refills, Maintenance, 10/22/22 16:19:00 EST, [id number], Partial fill upon patient request if the prescription is for a schedule II opioiddrug., 20 mL By Mouth Every 4 hours, 158.5, cm, /... Start Date: 10/22/22 Status: Ordered Tylenol 325 mg oral tablet 975 mg, Tablet, By Mouth, Every 6 hours, PRN for Pain , Mild, Routine, 01/15/23 0:52:00 EDT Start Date: 01/15/23 Stop Date: 01/18/23 Status: Discontinued ursodiol 300 mg oral capsule 300 mg, 1, capsule, By Mouth, 3 times a day, # 270 capsule, Refills 1, Tot. Refills 1, Maintenance,01/08/23 15:31:00 EDT, Route to Pharmacy Electronically, [id number], Partial fill upon patient request if the prescription is for a sc... Start Date: 01/08/23 Stop Date: 02/07/23 Status: Ordered Problem List Condition Confirmation Course Effective Dates Status Health St atus Informant Cholestasis of Confirmed Active History of COVID- - September 2021 Confirmed Active Obese class I Confirmed Active Vital Signs Most recent to oldest [Reference Range]: 1 2 3 Height 158.5 cm (01/15/23 1:47 AM) Weight 82.1 kg (01/15/23 1:47 AM) Oxygen Saturation [94-100 %] 98 % (01/17/23 3:01 PM) 98 % (01/17/23 11:10 AM) 100 % (01/17/23 7:41 AM) Pulse Rate [55-90 bpm] 115 bpm *H* (01/15/23 1:47 AM) Body Mass Index [18.5-24.99 kg/m2] 32.68 kg/m2 *>HHI* (01/15/23 1:47 AM) Blood Pressure [90-138/55-84 mm Hg] 107/63mm Hg (01/17/23 3:01 PM) 118/53mm Hg (01/17/23 11:10 AM) 104/58mm Hg (01/17/23 7:41 AM) Respiratory Rate [16-30 br/min] 18 br/min (01/17/23 4:02 PM) 18 br/min (01/17/23 4:02 PM) 18 br/min (01/17/23 3:02 PM) Temperature [96.8-100.4 DegF] 97.6 DegF (01/17/23 5:53 PM) 98.6 DegF (01/17/23 3:01 PM) 98.4 DegF (01/17/23 11:10 AM) Mode of Delivery (Oxygen) Room air (01/17/23 3:01 PM) Room air (01/17/23 11:10 AM) Room air (01/17/23 7:41 AM) Blood pressure sites Arm, left (01/17/23 3:01 PM) Arm, right (01/17/23 11:10 AM) Arm, left (01/15/23 4:50 PM) Temperature Route Oral (01/17/23 5:53 PM) Oral (01/17/23 3:01 PM) Oral (01/17/23 11:10 AM) Dry Weight 82.1 kg (01/15/23 1:47 AM) Social History Social History Type Response Smoking Status Never (less than 100 in lifetime) entered on: 06/19/22 Sex History and physical note * Nikole Benítez DO: PERFORM Event Display: History and Physical Hospital Authored Date: Patient: ??MP, JAMEEL ? Age:??22 Years?Sex:??Female?:??2000?? OB Reason for Admission OB Reason for Admission Reason for admission: Pyelonephritis LMP/EGA/SUSAN Gestational Age (EGA) and SUSAN? * Note: EGA calculated as of 01/15/2023 ?? SUSAN:??02/19/2023?EGA*:??35 weeks ? History?(0,0,0,0)?Method:??Ultrasound??(07/08/2022) History of Present Illness Patient is a 22 year old G1 @ 35 weeks gestation presenting with complaints of fevers, chills, bodyaches and back pain at home. She was seen in [facility] yesterday and was sent home with macrobid for suspected UTI. She was afebrile at that time. She took two doses of the macrobid. Today she started to feel worse, with worsening back pain and body aches. ?? She has contractions only once in a while, denies vaginal bleeding, loss of fluid, or DFM. Review of Systems All systems reviewed and negative except as noted above in HPI. Physical Exam Vitals & Measurements T:??102.8?F ?? HR:??140(Monitored)?? RR:??19?? BP:??112/57?? SpO2:??97%?? Constitutional:??Normal affect, appears ill/flushed, well developed. Pulmonary:??Clear to auscultation, equal bilaterally, no rales, crackles, wheezing,??or rhonchi.? Cardiovascular:??Tachycardic, regular rhythm, no murmurs.? Abdomen/GI:??Soft, non-tender, and non-distended, no guarding, no rebound tenderness.??CVA tenderness Extremities:??No clubbing, cyanosis or edema present.?? Skin:??No rash or jaundice. Normal for ethnicity. Neurological/Psychiatric:??Appearance appropriate, mood and affect stable. OB Assessment Baby A Baseline:165 Baseline Description:Tachycardia, above 160 bpm Baseline Variability:Moderate variability Accelerations:Present Deceleration:None Uterine Monitor Mode, UterineExternal Assessment/Plan Assessment:??Patient is a 22 year old G1 @ 35 weeks gestation admitted for pyelonephritis. On admission she was febrile to 102.8 and tachycardic to the 140s which has now improved with IV fluids. Shehad a renal US yesterday that showed no concern for renal stone or hydronephrosis. Urine culture from 01/13 resulted with >100k E. coli. Will start IV Ceftriaxone and continue fluids and Tylenol. Tracing notable for tachycardia, so will keep on continuous monitoring. ?? (Z34.90):?? CEFM for now, NST BID when able GBS collected Cephalic presentation ?? Pyelonephritis (N12):?? IV Ceftriaxone q24 hours IV fluids Scheduled Tylenol q6 hours (p) repeat CBC w/ diff in??AM ?? Discussed with Dr. Harmon. ?? OB History History?(0,0,0,0)?No previous pregnancies history have been recorded Labs Labs Labs & Tests ABO: A (06/19/22) Antibody Screen: Negative (06/19/22) Bile Acids Total: 1.4 (12/30/22) Chlamydia Trachomatis Amplified Probe: NEGATIVE (08/29/22) Creatinine-Blood: 0.6 mg/dL (01/14/23) Down Syndrome Age Risk FTS: Age Risk: (08/05/22) Down Syndrome Scrn Risk FTS: Screening Risk: (08/05/22) Glucose 50 Gm, +60 Minutes: 130 mg/dL (12/02/22) Hct:??34.5 %??Low (01/14/23) Hemoglobinopathy Interpretation: Normal hemoglobins. (06/19/22) Hepatitis B Surface Antigen: NEGATIVE (06/19/22) Hepatitis C Ab: NEGATIVE (06/19/22) Hgb:??11.2 Gm/dL??Low (01/14/23) HIV 4th Generation Ab-Ag Result: NEGATIVE (06/19/22) RH Test Only: Positive (06/19/22) RPR Titer Result: NOT INDICATED (12/02/22) Rubella IgG Ab: POSITIVE (06/19/22) Syphilis Screen by [facility]: NEGATIVE (12/02/22) Trisomy 18 Scrn Risk FTS: Screening Risk: (08/05/22) Urine Culture: Urine Culture (12/02/22) Varicella IgG Ab: POSITIVE (06/19/22) Problem List Active Active Problem List Cholestasis of : (Medical) History of COVID-19 ??- September 2021: (Medical) Obese class I: (Medical) : (Obstetric) (04/18/22) Procedure/Surgical History No qualifying data available. Home Medications APAP/diphenhydramine/phenylephrine: 20 mL, By Mouth, Every 4 hours Multivitamin, : 1 tablet, By Mouth, Daily Nitrofurantoin: 100 mg = 1 capsule, By Mouth, 2 times a day Ursodiol: 300 mg = 1 capsule, By Mouth, 3 times a day Allergies Cats Pollen Social History Alcohol Use: Socially - last week nit drinking in ., 06/19/2022 Electronic Cigarette/Vaping Electronic Cigarette Use: Use, within last 90 days. Type: Nicotine infused. Number of Years: 1., 06/19/2022 Employment/School Status: Employed. 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 Lives with: Mother., 06/19/2022 Nutrition/Health Diet: Regular., 06/19/2022 Sexual Sexually involved in last 6 months: Yes. Gender identity: Identifies as female. Self described orientation: Straight or heterosexual., 06/19/2022 Substance Abuse Use: Current. Type: Marijuana. Other: Last on May - stopped due to ., 06/19/2022 Tobacco Use: Never (less than 100 in lifetime)., 06/19/2022 Family History Mother: Thyroid Father: Negative Plan OB Plan Feeding Plan: Breast milk (01/14/23) * Jennifer Harmon MD: PERFORM Event Display: History and Physical Hospital Authored Date: OBGYN ATTENDING NOTE: I saw and evaluated the patient. I reviewed the resident???s note and agree with findings and plan as documented in the resident???s note. WBC 22 ?? Jennifer Harmon MD Hospital Progress note * Oriana Mtz RN: VERIFY, SIGN, PERFORM Event Display: Progress Note Hospital Authored Date: Patient: JAMEEL GRESHAM Age: 22 years Sex: Female : 2000 Associated Diagnoses: None Author: Arceri RN, Oriana Findings Assumed care and safety checks done. Pt upset and crying this morning d/t pain and tenderness afterMD assessed. Pt also states pelvic pressure when moving around and re-assured this can be normal inpregnancy as baby grows. Pain regimen working well for pt. At time of crying had elevated temp which quickly came down after pt was calm and relaxed. aware. Other VSS. NST reactive. Ambulating independently. Voiding well. PO intake good no N/V. Awaiting to hear plan from MD. PRN angio inserted per . No major concerns will continue to monitor. * Elliott Crystal DO: PERFORM Event Display: Progress Note Hospital Authored Date: Patient: ??MP, JAMEEL ? Age:??22 Years?Sex:??Female?:??2000?? LMP/EGA/SUSAN Gestational Age (EGA) and SUSAN? * Note: EGA calculated as of 01/16/2023 ?? SUSAN:??02/19/2023?EGA*:??35 weeks 1 day ? History?(0,0,0,0)?Method:??Ultrasound??(07/08/2022) Subjective Patient is resting comfortably at time of evaluation.?? She states that she continues to have intermittent fevers but overall feels improved from yesterday.?? She denies DFM, vaginal bleeding, leaking, headache, vision changes, RUQ pain Review of Systems Constitutional, Eye, Skin, Head/Neck, ENMT, Respiratory, Cardio, Gastrointestinal, Breast, Gynecologic, Genitourinary, Endocrine, Musculoskeletal, Immunologic, Hematologic, Lymphatic, Neurologic, Psych reviewed and negative except as noted in HPI. Physical Exam Vitals & Measurements T:??98.5?F ?? HR:??98(Monitored)?? MT:??115?? RR:??20?? BP:??124/70?? SpO2:??100%?? HT:??158.5??cm?? WT:??82.1??kg?? BMI:??32.68?? Constitutional:??Well-developed, no acute distress. Respiratory:??unlabored breathing?clear to auscultation bilaterally Cardiovascular:??Regular rate??and rhythm??no murmurs or other adventitious sounds Abdomen/GI:??Soft, non-tender, non-distended, no guarding or rebound tenderness.??Gravid. Extremities:??No edema or tenderness. Warm and well-perfused.?? Skin:??No rash or jaundice. Neurological/Psychiatric:??Appearance appropriate, mood and affect stable. OB Intake and Output Intake and Output Results?? No results in record. Assessment/Plan Assessment:??Assessment: Patient is a 22 year old G1 @ 35 weeks 1 day gestation admitted for pyelonephritis. On admission she was febrile to 102.8 and tachycardic to the 140s which has now improved with IV fluids. She had a renal US yesterday that showed no concern for renal stone or hydronephrosis. Urine culture from 01/13 resulted with >100k E. coli. She was initiated on IV Ceftriaxone and continue fluids and Tylenol. Leukocytosis of 22 on admission. ? This morning, she remains afebrile, last Temp at 0100 on 01/14. She is well- appearing and pain is well controlled. Her BPs are soft, but remains normotensive. WBC downtrended this AM from 22 to 20.4. Tracing was notable for tachycardia on admission, now resolved. Will switch to NST BID at this t kate. ? (Z34.90): ??NST BID ??GBS collected and pending ??Cephalic presentation ? Pyelonephritis (N12): ??IV Ceftriaxone q24 hours - Tlast 01/18 @ 1800 ??Plan for IV Ceftriaxone until at least 24 hours??afebrile ??Plan for suppression therapy on DC ??IV fluids ??Scheduled Tylenol q6 hours ??Oxycodone q4h ??5/5: WBC 20.4 ?? OB History History?(0,0,0,0)?No previous pregnancies history have been recorded Active Problem List Active Problem List Cholestasis of : (Medical) History of COVID-19 ??- September 2021: (Medical) Obese class I: (Medical) : (Obstetric) (04/18/22) Medications Medications (4) Active SCHEDULED: (1) Ceftriaxone 1 Gm Inj (Ceftriaxone Inj) ??1 Gm, IVPB, Every 24 hours CONTINUOUS: (1) Lactated Ringers (1000 mL) Cont IV 1000 mL (Lactated Ringers 1000 mL) ??1,000 mL, IV Infusion, 150 mL/hr PRN: (2) Acetaminophen 325 mg Tablet (Tylenol 325 mg oral tablet) ??975 mg, By Mouth, Every 6 hours OxyCODONE 5 mg IR Tablet (oxyCODONE 5 mg oral tablet) ??10 mg, By Mouth, Every 4 hours Allergies Cats Pollen * Sara Hodge MD T: PERFORM Event Display: Progress Note Hospital Authored Date: ?? Attending Attestation ?? I saw and evaluated the patient myself during rounds in the hospital. ?? I discussed the patient with the resident and agree with the findings and plan as documented in the resident's note.?? stable.?? last fever 01/15/23 ~ 1800.?? no N/V.?? good FM.?? pain significantly improved. vitals stable transition to PO Abx when 24hrs afebrile.?? Pt counseled on need for Abx suppression after completing treatment course for pyelo ? Sara Hodge MD, MPH OBGYN ?? * Unique Toledo MD: PERFORM Event Display: Progress Note Hospital Authored Date: Patient: ??MP, JAMEEL ? Age:??22 Years?Sex:??Female?:??2000?? LMP/EGA/SUSAN Gestational Age (EGA) and SUSAN? * Note: EGA calculated as of 01/15/2023 ?? SUSAN:??02/19/2023?EGA*:??35 weeks ? History?(0,0,0,0)?Method:??Ultrasound??(07/08/2022) Subjective In to see patient for morning rounds. She feels better. Denies chills/ fevers. States her back painhas improved but is still present. She denies nausea/vomiting, chest pain, SOB, light-headedness. OB Assessment Baby A Baseline:140 Baseline Description:Normal, 110-160 bpm Baseline Variability:Moderate variability Accelerations:Present Deceleration:None Activity:Present Uterine Monitor Mode, UterineExternal Physical Exam Vitals & Measurements T:??98.4?F ?? HR:??118(Monitored)?? MT:??115?? RR:??17?? BP:??108/50?? SpO2:??97%?? HT:??158.5??cm?? WT:??82.1??kg?? BMI:??32.68?? Constitutional:??Normal affect, no acute distress, well-developed. Respiratory:??Normal exam, not labored, clear to auscultation, equal bilaterally, not rales, crackles, wheezing,??or rhonchi.? Cardiovascular:??RRR, no murmurs.? Abdomen/GI:??Soft, non-tender, and non-distended, no guarding, no rebound tenderness.?? Extremities:?? SCDs in place. Skin:??No rash or jaundice. Normal for ethnicity. Neurological/Psychiatric:??Appearance appropriate, mood and affect stable. Review of Systems Negative except as noted in the HPI. Assessment/Plan Assessment:??Patient is a 22 year old G1 @ 35 weeks gestation admitted for pyelonephritis. On admission she was febrile to 102.8 and tachycardic to the 140s which has now improved with IV fluids. Shehad a renal US yesterday that showed no concern for renal stone or hydronephrosis. Urine culture from 01/13 resulted with >100k E. coli. She was initiated on IV Ceftriaxone and continue fluids and Tylenol. Leukocytosis of 22 on admission. ?? This morning, she remains afebrile, last Temp at 0100 on 01/14. She is well- appearing and pain is well controlled. Her BPs are soft, but remains normotensive. WBC downtrended this AM from 22 to 20.4.??Tracing was notable for tachycardia on admission, now resolved. Will switch to NST BID at this time. ?? (Z34.90):? NST BID GBS collected and pending Cephalic presentation ?? Pyelonephritis (N12):? IV Ceftriaxone q24 hours IV fluids Scheduled Tylenol q6 hours Oxycodone q4h 01/15: WBC 20.4 ?? OB History History?(0,0,0,0)?No previous pregnancies history have been recorded Active Problem List Active Problem List Cholestasis of : (Medical) History of COVID-19 ??- September 2021: (Medical) Obese class I: (Medical) : (Obstetric) (04/18/22) Medications Medications (4) Active SCHEDULED: (1) Ceftriaxone 1 Gm Inj (Ceftriaxone Inj) ??1 Gm, IVPB, Every 24 hours CONTINUOUS: (1) Lactated Ringers (1000 mL) Cont IV 1,000 mL (Lactated Ringers 1,000 mL) ??1,000 mL, IV Infusion, 125 mL/hr PRN: (2) Acetaminophen 325 mg Tablet (Tylenol 325 mg oral tablet) ??975 mg, By Mouth, Every 6 hours OxyCODONE 5 mg IR Tablet (oxyCODONE 5 mg oral tablet) ??5 mg, By Mouth, Every 4 hours * Gio GALLAGHER, Paresh Avila: PERFORM Event Display: Progress Note Hospital Authored Date: I saw the above patient and reviewed the findings and plan with the resident. Agree with assessmentand plan. Sarah Powers MD Note * Oriana Mcgraw DO: PERFORM Event Display: Discharge/Transfer Note Hospital Authored Date: [id number] Patient: ??JAMEEL GRESHAM ? Age:??22 Years?Sex:??Female?:??2000?? Admit Date Admission Date: 01/15/2023 Discharge Date 01/17/2023 OB Reason for Admission OB Reason for Admission Reason for [facility] Patient is a 22 year old G1 @ 35 weeks gestation admitted in the setting of UTI, fevers and CVA tenderness consistent with diagnosis of??pyelonephritis. She was started on IV ceftriaxone.?? When she was afebrile > 24 hours, she was discharged home on PO antibiotics.?? She will follow up in the ambulatory setting. Objective/Physical Exam on Day of Discharge Vitals & Measurements T:??97.6?F ?? HR:??95(Monitored)?? MT:??115?? RR:??18?? RR:??18?? BP:??107/63?? SpO2:??98%?? HT:??158.5??cm?? WT:??82.1??kg?? BMI:??32.68?? General: Well appearing, well nourished, no acute distress Cardiopulmonary: Normotensive, normal respiratory effort on room air Abdomen: Soft and nontender along the liver edge.?? Uterus: Soft and nontender.?? Extremities: Symmetric, nonedematous Assessment/Plan/Discharge Diagnosis Jameel Gresham is a 22yo G1 at 35w2d with pyelonephritis.?? She is clinically improving after treatment with Ceftriaxone and is > 24 hours afebrile.?? She complained of significant abdominal pain, particularly in the RUQ and epigastrium this morning.?? Laboratory evaluation revealed normal LFTs and downtrending leukocytosis.?? Reassurance was provided and at the end of the day pt was sitting up comfortably, eating dinner, reporting that she feels well enough for discharge.? Pyelonephritis: - S/p Ceftriaxone 5/5-01/17 - Amoxicillin 875mg BID x10 days prescribed at discharge - Plan for daily suppression for the remainder of , to be discussed in the office during follow up Future Appointments Wednesday. 2022 8:20 AM EDT ?? With: Tana Morris CNM Where: [facility] [place] [address]- Wednesday. 2022 11:00 AM EDT ?? With: Missy Wylie CNM Where: [place] [address]- Wednesday. 2022 8:40 AM EDT ?? With: Missy Wylie CNM Where: [place] [address]- Wednesday. 2022 8:20 AM EDT ?? With: Shelbie Rodríguez CNM Where: [place] [address]- Discharge Medications ???APAP/diphenhydramine/phenylephrine (Robitussin Maximum Strength Severe 650 mg-25 mg-10 mg/20 mL oral liquid)???Amoxicillin (amoxicillin 875 mg oral tablet)???Multivitamin, ( Multivitamins with Folic Acid 1 mg oral tablet)???Ursodiol (ursodiol 300 mg oral capsule) Stop taking these medications ???Nitrofurantoin (Macrobid macrocrystals- monohydrate 100 mg oral capsule) * Oriana Mtz RN: PERFORM Event Display: Discharge/Transfer Note Hospital Authored Date: [id number] Nursing Discharge Note Entered On: 01/17/2023 19:02 EDT Performed On: 01/17/2023 19:02 EDT by Oriana Mtz RN Nursing Discharge Note 2 Discharge Time : 01/17/2023 19:02 EDT Discharge Level of Care at Discharge : Home/Assisted/Foster Care Patient Left Unit Via : Ambulatory Patient Accompanied Off Unit with : Responsible adult DC Instructions Provided & Signed by Pt : Yes Patient Understands D/C Instructions : Yes Patient Instructions Discharge Signed : Yes Did Pt have Specialty Bed or Wound Vac : No Oriana Mtz RN - 01/17/2023 19:02 EDT * Oriana Mtz RN: PERFORM Event Display: Patient Education/Instruction Authored Date: [id number] Inpatient Adult Discharge Instructions [address] [address] Name: JAMEEL GRESHAM : 2000 Visit: 01/15/2023 00:02:00 Current Date: 01/17/2023 18:26 Account: [id number] Inpatient Adult Discharge Instructions We would like [...] and their families. Surveys are administered by [employer] ?? If further treatment with your primary care physician or another doctor is recommended, it is important for you to keep the appointment. Call your primary care physician or return to the Emergency Department immediately if your condition worsens, fails to improve, or new symptoms develop. If you need to find a doctor, you can call [facility] [employer] [facility] for a referral at [phone] or toll free at [phone] or log in to [email or web address].. ?? You can view and manage your care through the patient portal or by using a health care jazmin of your choosing. [employer] is a website that allows you to securely view your medical information including your hospital discharge summary, office visit summaries, medications and follow-up visits. You can also request appointments, renew medications, and request access to your medical information using a health care jazmin of your choosing, or just ask a question. You can enroll at [email or web address] or register during your next office visit. You have been discharged from [facility], Patient Care Unit: [facility]. If you have any questions regarding these instructions after you leave, please call us and we will be happy to assist you. [facility] Your Care Team Attending Physician Faustino GALLAGHER, Jennifer Joseph Reason for Your Visit Pyelonephritis Your Diagnosis rhinitis Pyelonephritis Tests Performed Below is a partial list of the tests performed during your hospitalization. You may have had other tests and procedures not included in this list. Please discuss all test results with your provider. CBC CBC w/ Differential Creatinine Hold Lavender Top Tube Lactate Level Liver Function Panel Primary Care Provider Jeanne JHAVERI Gloria Lutz Advance Directive . Discharge Vitals Temperature: 97.6 DegF Height: 158.5 cm Pulse Rate:??115 bpm??High Weight: 82.1 kg Respiratory Rate: 18 br/min Body Mass Index:??32.68 kg/m2??Critical Respiratory Rate: 18 br/min Body surface area: 1.9 Systolic Blood Pressure: 107 mm Hg ?? Diastolic Blood Pressure: 63 mm Hg ?? Oxygen Saturation: 98 % ?? Studies Pending All tests and labs ordered during this hospital stay have been completed unless listed below. Please discuss all pending results with your provider listed above in these instructions. ?? COVID-19 (2019 Novel Coronavirus) PCR Group B Strep by PCR Lactic Acid Level (Lactate Level) What to do next Instructions From Your Doctor Discharge Orders Instructions from your Care Team ?? Recognizing Labor ?? The beginning of labor is the beginning of . You???ll start to feel strong contractions. That???s when the muscles of your uterus tighten up to help push your baby out during . ? Yes, labor has likely started? Signs of labor include: ? Your contractions are getting stronger and more painful instead of weaker. You???ll likely feel them throughout your whole uterus. ? Your contractions are regular. This means that you feel them about every 5 to 10 minutes. And they are getting closer together. ? You have pink-colored or blood-streaked fluid from your vagina. ? You feel that the baby has dropped lower in your pelvis? Your water breaks. It may be a gush or a slow trickle of clear fluid from your vagina. ? No, it???s likely not real labor? Signs of false labor include: ? Your contractions aren???t regular or strong. ? You feel the contractions only in your lower uterus. ? Your contractions go away when you walk or change position. ? Your contractions go away after drinking fluids. ? When to call your healthcare provider ?? Call your healthcare provider or clinic right away if you notice any of these signs: ? Fluid from your vagina, with or without contractions. ? Bleeding heavy enough that you need a sanitary pad. ? You don???t feel your baby moving as much as before. ? Note ?? Contractions are timed by both of these measures: ? The length of each contraction from its start to its finish. ? How far apart the contractions are ???the time between the start of one contraction and the start of the next contraction. ?? Discharge Instructions for Pyelonephritis ?? You have been told you have a kidney infection. This is called pyelonephritis. The infection can beserious. It can damage your kidneys and cause bacteria to enter your bloodstream. You were treated in the hospital. Once you return home, here???s what you can do at home to aid in your recovery and prevent future infections. ?? Home care ? Take all the medicine you were prescribed, even if you feel better. Not finishing the medicine can make the infection come back. It may also make a future infection harder to treat. ? Unless told not to by your healthcare provider, drink 8 to 12 glasses of fluid every day. Clear fluids, such as water, are best. This may help flush the infection from your system. ? Preventing future infection ? Keep your genital area clean. Use mild soap. Rinse with water. ? If you are a woman, always wipe the genital area from front to back. ? Urinate frequently. Don't hold urine in your bladder for a long time. ? Always urinate after having sex. ? Practice safe sex. Protect yourself and your partner from sexually transmitted infections (STIs). ? Follow-up care ?? Follow up with your healthcare provider, or as advised. And see your??healthcare provider??for regular lab tests as directed. ?? When to call your healthcare provider ?? Call your??healthcare provider??right away if you have any of the following: ? Decreased urine output or trouble urinating ? Severe pain in the lower back or flank ? Fever of 100.4??F (38??C) or higher, or as directed by your healthcare provider ? Shaking chills ? Vomiting ? Blood in your urine ? Dark-colored or foul-smelling urine ? Nausea or other problems that prevent you from taking your prescribed medicine ? New or worsening symptoms Scheduled Follow-Up Appointments Wednesday. 2022 8:20 AM EDT ?? With: Tana Morris CNM Where: [facility] [address] [place] [address] - Wednesday 11:00 AM EDT ?? With: Missy Wylie CNM Where: [facility] - [address] - Wednesday. 2022 8:40 AM EDT ?? With: Missy Wylie CNM Where: [facility] - [address] - Wednesday 8:20 AM EDT ?? With: Shelbie Rodríguez CNM Where: [facility] [address] [place] [address] - Discharge Medications JAMEEL GRESHAM :2000 Visit Date:01/15/2023 Medications: Please continue your medications until treatment is completed or stopped by your provider. Medications not listed below should be discontinued. Discuss any questions related to medications with your provider. What How Much When Why Instructions Next Dose New Amoxicillin (amoxicillin 875 mg oral tablet) 1 tab(s) Oral Every 12 hours Duration: 10 Days Pickup at [facility] #[id number] Unchanged APAP/ diphenhydramine/ phenylephrine (Robitussin Maximum Strength Severe 650 mg-25 mg-10 mg/ 20 mL oral liquid) 20 Milliliter Oral Every 4 hours Unchanged Multivitamin, ( Multivitamins with Folic Acid 1 mg oral tablet) 1 tab(s) Oral Daily Unchanged Ursodiol (ursodiol 300 mg oral capsule) 1 capsule Oral 3 times a day Pharmacy Information [facility] #[id number]: [address], [place] [id number] [phone] ?? What How Much When Comments Stop Taking Nitrofurantoin (Macrobid macrocrystals-monohydrate 100 mg oral capsule) 1 capsule Oral Twice a day Duration: 7 Days Test Results Below is a partial list of the most recent Laboratory test results done prior to this discharge. You may have had other tests and procedures not included in this list. Please discuss all test resultswith your provider. Est Creatinine Clearance - 142.16 mL/min (01/16/2023) CBC (01/16/2023) ???WBC - 18.1 k/mm3???RBC - 3.34 m/mm3???Hgb - 9.8 Gm/dL???Hct - 30.5 %???MCV - 91.3 femtoliters???MCH - 29.3 pg???MCHC - 32.1 g/dL???Platelet Count - 217 k/mm3???RDW-SD - 43.8 femtoliters???MPV - 10.4 femtoliters???Nucleated RBC (Automated) - 0.0 #/100 WBC'S???Abs. NRBC - 0.0 k/mm3 CBC w/ Differential (01/17/2023) ???WBC - 11.3 k/mm3???RBC - 3.58 m/mm3???Hgb - 10.6 Gm/dL???Hct - 32.6 %???MCV - 91.1 femtoliters???MCH - 29.6 pg???MCHC - 32.5 g/dL???Platelet Count - 227 k/mm3???RDW-SD - 43.6 femtoliters???MPV - 10.7 femtoliters???Nucleated RBC (Automated) - 0.0 #/100 WBC'S???Abs. NRBC - 0.0 k/mm3???Abs. Neut - 8.6 k/mm3???Abs. Lymph - 1.2 k/mm3???Abs. [place] - 1.1 k/mm3???Abs. Eo - 0.1 k/mm3???Abs. Baso - 0.0 k/mm3???Neut % - 76.7 %???Lymph % - 10.4 %???[place] % - 10.0 %???Eos % - 0.4 %???Baso % - 0.3 %???Imm Gran - 2.2 %???Abs. Imm Gran - 0.3 k/mm3 Creatinine (01/17/2023) ???Creatinine-Blood - 0.5 mg/dL???Estimated GFR Creatinine - 137 ML/MIN/1.73 M2 Hold Lavender Top Tube (01/15/2023) ???Hold Lavender Top - SPECIMEN DISCARDED AFTER 24 HOURS. Lactate Level (01/17/2023) ???Lactate - 0.9 mmol/L Liver Function Panel (01/17/2023) ???Protein, Total - 5.4 Gm/dL???Albumin - 3.0 Gm/dL???Alkaline Phosphatase - 134 units/L???AST (SGOT) - 15 units/L? ?ALT (SGPT) - 12 units/L? ?Bilirubin, Total - 0.2 mg/dL? ?Bilirubin, Direct - <0.2 mg/dL???Bilirubin, Indirect - Direct bilirubin is less than the measureable limit. Therefore, indirect Allergies (NKA means No Known Allergies) Cats Pollen Problems Active Problems??(4) Cholestasis of ?? History of COVID-19 ??- September 2021?? Obese class I? Education Materials Below is the list of Educational Leaflet Providered with your Discharge Instructions. Valuables and Belongings I fully understand and agree that [facility] accepts no responsibility for all my personal [...] Rehab Discharge Status?? Respiratory Rate: 18 br/min Respiratory Rate: 18 br/min ? Common Emergency Awareness Tips IS IT A STROKE? Act FAST and Check for these signs: FACE Does the face look uneven? ARM Does one arm drift down? SPEECH Does their speech sound strange? TIME Call at any sign of stroke ?? Heart [...] are strongly encouraged to quit. Please call [facility] [employer] at [phone] or [phone] ([phone]) or log in to [email or web address] for referrals to smoking cessation programs. ?? 337 Suicide & Crisis Lifeline is available 05/04 if you or someone you know needs to find a reason to keep living. By calling 898 you'll be connected to a skilled, trained counselor at a crisis center in your area. INPATIENT DISCHARGE INSTRUCTIONS SIGNATURE JAMEEL KHAN Location:[facility] Registration Date and Time:01/15/2023 00:02 EDT Primary Care Physician: Gloria Angel NP, JAMEEL MISTRY, have received the above patient education materials/instructions and have verbalized understanding. If ambulance or transport services are being used I further acknowledge being given a choice of service. ?? If you need to contact me, please call me at this number: . Patient/Crumb Packer Name: Patient/Crumb Packer Signature: Relationship to Patient: Witness Name/Signature: Date: Patient Care team information Care Team Personnel Name: Gloria Angel NP Position: Reference Physician Member Role: PCP Address: Address: [address] [place] [address]- Name: Raquel Christensen RN Position: S OB RN Member Role: Patient Care Provider Care Team Related Persons Name: CHRISTIE MENDOZA Address: home [address] [place] [id number]
--- OUTSIDE RECORDS SUMMARY | 2024-04-12 11:07 | XMS_ITS | Continuity of Care Document ---
Author Organization [facility] Address [address] [place] [address]- Care Team Providers Care Sales Engineer Name Role Phone Jeanne JHAVERI, Gloria Lutz Primary Care Physician [place] [facility] [place] Date(s): 01/18/23 - 03/19/[address] [address] Attending Physician: Shelbie Rodríguez CNM Admitting Physician: Shelbie Rodríguez CNM Allergies, Adverse Reactions, Alerts Substance Reaction [...] 3 Refills, Maintenance, 06/16/22 10:13:00 EDT, Tablet, [facility] #[id number], Partial fill upon patient request if the [...] 0 Refills, Maintenance, 02/08/23 2:49:00 EDT, Capsule, [facility] #[id number], Partial fill upon patient request i... Start [...] Reference Physician Member Role: PCP Address: Address: [address] [place] [address]- Care Team Related Persons Name: CHANELLE MONZON Address: AMERCN Address: home [address] [address] Name: CHRISTIE MENDOZA Address: home [address] [place] [address]
--- OUTSIDE RECORDS SUMMARY | 2024-04-12 11:08 | XMS_ITS | Continuity of Care Document ---
Author Organization [facility] Address [address] [place] [address]- Care Team Providers Care Prepper Name Role Phone Jeanne JHAVERI, Gloria Lutz Primary Care Physician Encounter [facility] [place] Date(s): 09/21/22 - 10/21/[address] [address]- Allergies, Adverse Reactions, Alerts Substance Reaction Severity Status Cats Active Pollen Active Medications multivitamin, Multivitamins oral tablet, chewable 1 tablet, Chew, Daily, # 90 tablet, 2 Refills, Maintenance, 07/31/22 12:52:00 EST, Chew Tablet, [facility][id number], Partial fill upon patient request if the [...] 30 tablet, 0 Refills, Maintenance, 09/02/22 11:47:00 EST, [facility] #... Start Date: 09/02/22 Status: Ordered Multivitamins with Folic Acid 1 mg oral tablet 1 tablet, By Mouth, Daily, # 90 tablet, 2 Refills, Maintenance, 06/19/22 9:03:00 EDT, [facility] #[id number], Partial fill upon patient request if the prescription is for a schedule II opioid drug., 1 tablet By Mouth Daily, 158.5, cm, 06/19/22 8:... Start Date: 06/19/22 Status: Ordered Multivitamins with Folic Acid 1 mg oral tablet 1 tablet, By Mouth, Daily, # 90 tablet, 3 Refills, Maintenance, 06/16/22 10:13:00 EDT, Tablet, [facility] #[id number], Partial fill upon patient request if the [...] Reference Physician Member Role: PCP Address: Address: [address] [place] [address]- Care Team Related Persons Name: CHRISTIE MENDOZA Address: home [address] [place] [address]
--- OUTSIDE RECORDS SUMMARY | 2024-04-12 11:08 | XMS_ITS | Continuity of Care Document ---
Author Organization [facility] Address [address] [place] [address]- Care Team Providers Care Senior Receptionist Name Role Phone Gloria Angel NP Primary Care Physician Encounter [facility] [place] Date(s): 06/22/22 - 07/22/22 [facility] [address] [address] Allergies, Adverse Reactions, Alerts Substance Reaction Severity Status Cats Active Pollen Active Medications Multivitamins with Folic Acid 1 mg oral tablet 1 tablet, By Mouth, Daily, # 90 tablet, 2 Refills, Maintenance, 06/19/22 9:03:00 EDT, [facility] #[id number], Partial fill upon patient request if the prescription is for a schedule II opioid drug., 1 tablet By Mouth Daily, 158.5, cm, 06/19/22 8:... Start Date: 06/19/22 Status: Ordered Multivitamins with Folic Acid 1 mg oral tablet 1 tablet, By Mouth, Daily, # 90 tablet, 3 Refills, Maintenance, 06/16/22 10:13:00 EDT, Tablet, [facility] #[id number], Partial fill upon patient request if the [...] Reference Physician Member Role: PCP Address: Address: [address] [place] [address] [place] [address]- [place] Care Team Related Persons Name: REJICHRISTIE Address: home [address] [facility] [place] [address]
--- OUTSIDE RECORDS SUMMARY | 2024-04-12 11:08 | XMS_ITS | Continuity of Care Document ---
Author Organization [facility] Address [address] [place] [address]- Care Team Providers Care Insole And Outsole Splitter Name Role Phone Gloria Angel NP Primary Care Physician [phone] Encounter [facility] [place] Date(s): 11/23/22 - 12/23/22 [facility] [address] Allergies, Adverse Reactions, Alerts Substance Reaction Severity Status Cats Active Pollen Active Medications Multivitamins with Folic Acid 1 mg oral tablet 1 tablet, By Mouth, Daily, # 90 tablet, 3 Refills, Maintenance, 06/16/22 10:13:00 EDT, Tablet, [facility] #[id number], Partial fill upon patient request if the prescription is for a schedule II opioid drug., 1 tablet By Mouth Daily Start Date: 06/16/22 Status: Ordered Robitussin Maximum Strength Severe 650 mg-25 mg-10 mg/20 mL oral liquid 20 mL, By Mouth, Every 4 hours, # 180 mL, 0 Refills, Maintenance, 10/22/22 16:19:00 EST, [facility] #[id number], Partial fill upon patient request if the [...] Reference Physician Member Role: PCP Address: Address: [address] [place] [address]- Care Team Related Persons Name: CHRISTIE MENDOZA Address: home [address] [place] [address]
--- OUTSIDE RECORDS SUMMARY | 2024-04-12 11:08 | XMS_ITS | Continuity of Care Document ---
Author Organization [facility] Address [address] [place] [address]- Care Team Providers Care Adventure Therapist Name Role Phone Jeanne JHAVERI, Gloria Lutz Primary Care Physician [place] [facility] [place] [id number] Date(s): 02/17/24 - 02/17/[address] [address]- Discharge Disposition: A-D/C Home Attending Physician: Letha Amaya MD Admitting Physician: Letha Amaya MD Referring Physician: Not on Staff, Referring MD Allergies, Adverse Reactions, Alerts Substance Reaction Severity Status ibuprofen Active Cats Active Pollen Active Medications ibuprofen 600 mg oral tablet See Instructions, PRN, 1 tablet taken By Mouth Every 6 hours not to exceed 3200 mg/day, # 60 tablet, Refills 0, Tot. Refills 0, Maintenance, as needed for pain, 02/08/23 2:49:00 EDT, Instructions Replace Required Details, Route to Pharmacy Electronic... Start Date: 02/08/23 Status: Ordered predniSONE 20 mg oral tablet 2 tablet = 40 mg, By Mouth, Daily, for 4 days, # 8 tablet, 0 Refills, Acute 02/21/24 22:58:00 EDT, 02/17/24 22:58:00 EDT, Tablet, [facility] #[id number], Partial fill upon patient request if theprescription is for a schedule II opioid drug., 155... Start Date: 02/17/24 Stop Date: 02/21/24 Status: Ordered Multivitamins with Folic Acid 1 mg oral tablet 1 tablet, By Mouth, Daily, # 90 tablet, 3 Refills, Maintenance, 06/16/22 10:13:00 EDT, Tablet, [facility] #[id number], Partial fill upon patient request if the [...] 0 Refills, Maintenance, 02/08/23 2:49:00 EDT, Capsule, [facility] #[id number], Partial fill upon patient request i... Start Date: 02/08/23 Status: Ordered Problem List Condition Confirmation Course Effective Dates Status Health [facility] Informant History of COVID- - September 2021 Confirmed Active Results Radiology Reports * Exam Date Time Procedure Performing Provider Status 02/17/24 9:31 PM Chest 2 Views Frontal and Lat Eddie Pillai; Auth (Verified) Notes: (Chest 2 Views Frontal and Lat) Reason For Exam: Chest Pain;Other: RESULT: Chest 2 Views Frontal and Lat Chest 2 Views Frontal and Lat Hx of Present Illness: Pt c o increased SOB since approx 2p while at rest. Pt sts no relief with inhaler, denies asthma hx.; Reason: Other:; Chest Pain; Clinical Question(s): Other: COMPARISON: None. FINDINGS: LINES AND TUBES: None. LUNGS AND PLEURA: Mild bronchial wall thickening and hyperinflation consistent with upper respiratory tract infectionversus asthma. No consolidative pneumonia. No pleural effusion. No pneumothorax. HEART, MEDIASTINUM AND WILNER: Heart is normal in size. Normal mediastinal and hilar contour. BONES AND SOFT TISSUES: No acute abnormality. IMPRESSION: Mild bronchial wall thickening and hyperinflation consistent with upper respiratory tract infectionversus asthma. No consolidative pneumonia. WSN: [id number] Ordering Physician: Becky Clemente Dictated By: Steven Benitez MD Dictated Date/Time: 02/17/24 9:50 pm Reviewed By: Steven Benitez MD Signed By: Steven Benitez MD Signed Date/Time: 02/17/24 9:50 pm Transcribed By: JULES Transcribed Date/Time: 02/17/24 9:50 pm Vital Signs Most recent to oldest [Reference Range]: 1 2 3 Height 155 cm (02/17/24 11:09 PM) 155 cm (02/17/24 8:39 PM) 155 cm (02/17/24 8:38 PM) Weight 64 kg (02/17/24 11:09 PM) 64 kg (02/17/24 8:39 PM) 64 kg (02/17/24 8:38 PM) Oxygen Saturation [94-100 %] 97 % (02/17/24 11:09 PM) 90 % *L* (02/17/24 8:38 PM) 90 % *L* (02/17/24 8:30 PM) Pulse Rate [55-90 bpm] 106 bpm *H* (02/17/24 11:09 PM) 101 bpm *H* (02/17/24 8:38 PM) 93 bpm *H* (02/17/24 8:30 PM) Body Mass Index [18.5-24.99 kg/m2] 26.64 kg/m2 *H* (02/17/24 11:09 PM) 26.64 kg/m2 *H* (02/17/24 8:38 PM) Blood Pressure [90-138/55-84 mm Hg] 112/67mm Hg (02/17/24 11:09 PM) 110/67mm Hg (02/17/24 8:38 PM) Respiratory Rate [16-30 br/min] 18 br/min (02/17/24 11:09 PM) 18 br/min (02/17/24 8:30 PM) Temperature [96.8-100.4 DegF] 99.9 DegF (02/17/24 11:09 PM) 97.6 DegF (02/17/24 8:38 PM) Mode of Delivery (Oxygen) Room air (02/17/24 11:09 PM) Room air (02/17/24 8:38 PM) Room air (02/17/24 8:30 PM) Blood pressure sites Arm, right (02/17/24 11:09 PM) Arm, left (02/17/24 8:38 PM) Temperature Route Oral (02/17/24 11:09 PM) Oral (02/17/24 8:38 PM) Dry Weight 64 kg (02/17/24 11:09 PM) 64 kg (02/17/24 8:39 PM) 64 kg (02/17/24 8:38 PM) Weight Obtained Via Standing scale (02/17/24 8:38 PM) Dry Weight Obtained Via Standing scale (02/17/24 8:38 PM) Social History Social History Type Response Smoking Status Never (less than 100 in lifetime) entered on: 06/19/22 Sex EKG study * Event Display: EKG Authored Date: [id number] Note * Letha Amaya MD: PERFORM Event Display: Patient Education Leaflets Authored Date: [id number] Asthma (Adult) ?? [id number] Asthma (Adult) Asthma is a disease where the medium and??small air passages in the lung go into spasm. This limitsair flow. Inflammation and swelling of the airways cause more blockage. During an acute asthma attack, these things cause trouble breathing, wheezing, coughing, and chest tightness. An asthma attack can be triggered by many things. Common triggers include infections such as the common cold, bronchitis, and pneumonia. Irritants such as smoke or pollutants in the air, very cold air, strong emotions, and exercise can also trigger an attack. In??many adults with asthma, allergies to??dust, mold, pollen, and animal dander can cause an asthma attack. Skipping doses of daily asthmamedicine can also bring on an asthma attack. Asthma can be controlled using the??correct medicines prescribed by your healthcare provider. You can also control it by staying away from known triggers including allergens and irritants. Home care ??? Take prescribed medicine exactly as advised. Ask your healthcare team for help if youhave questions about how to use your inhaler or nebulizer. ??? Call your provider or get medical care right away if you need quick-relief medicine such as from an inhaler or aerosol breathing machine(nebulizer) more often than prescribed.. ??? If you are prescribed an antibiotic or the steroid prednisone, take all of the medicine as prescribed. Keep taking it even if you are feeling better aftera few days. ??? Don't smoke. Ask your provider for resource, such as organizations and websites to help you quit. Stay away from the smoke of others. Don't let anyone smoke in your home, in your car,or around you. Also don't use e-cigarettes. ??? Some people with asthma find their symptoms get worse when they take aspirin and nonsteroidal anti-inflammatory drugs (NSAIDs) or fever-reducing medicines such as ibuprofen and naproxen. Talk with your provider if you think this may apply to you. ??? Stay away from your asthma triggers. ?? Follow-up care Follow up with your healthcare provider, or as advised. Always bring all of your current medicines to any appointments with your provider. Also bring a complete list of medicines, even??those you take for other conditions. Bring your Asthma Action Plan to all appointments. If you don't have one, talk with your provider about making your own Asthma Action Plan. Get the COVID-19 vaccine, pneumonia (pneumococcal)??vaccine, and yearly flu shot (every fall). Ask your provider about this. ?? When to get medical care Call your healthcare provider right away if any of these occur:? More wheezing or shortness ofbreath ??? Waking up at night because of asthma symptoms ??? Need to use your quick-relief inhaler more often than normal without relief ??? Fever of 100.4??F (38??C) or higher, or as advised by yourprovider ??? Coughing up lots of dark-colored or bloody sputum (mucus) ??? Chest pain with each breath ??? If you use a peak flow meter as part of an Asthma Action Plan, and you are still in the yellow zone (50% to 79% of personal best) 15 minutes after using quick-relief inhaler medicine. ?? Call 911 Call 911 right away if any of these occur: ??? Trouble walking or talking because you're short of breath ??? If you use a peak flow meter as part of an Asthma Action Plan, and??you are still in the red zone (less than 50% of personal best) 15 minutes after using quick-relief inhaler medicine ??? Lips or fingernails turn schmitz, purple, or blue ??? Feeling faint or loss of consciousness ?? Last Reviewed Date: 2022 ?? 5722-1078 [employer]. All rights reserved. This information is not intended as a substitute for professional medical care. Always follow your healthcare professional's instructions. ?? Patient Care team information Care Team Personnel Name: Jeanne JHAVERI, Gloria Lutz Position: Reference Physician Member Role: PCP Address: Address: [address] [place] [address]- Care Team Related Persons Name: MONZON CHANELLE Address: AMER[employer] Address: home [address] [place] [address] [place] Name: CHRISTIE MENDOZA Address: home [address] [address]
--- OUTSIDE RECORDS SUMMARY | 2024-04-12 11:08 | XMS_ITS | Continuity of Care Document ---
Author Organization [facility] Address [address] [place] [address]- Care Team Providers Care Case Packer Name Role Phone Jeanne JHAVERI, Gloria Lutz Primary Care Physician Encounter [facility] [place] Date(s): 09/11/22 - 10/11/22 [facility] [address] [address] Allergies, Adverse Reactions, Alerts Substance Reaction Severity Status Cats Active Pollen Active Medications clotrimazole 1% vaginal cream with applicator 1 application, Vaginally, Daily at bedtime, for 7 days, # 45 Gm, 0 Refills, Acute 10/14/22 11:08:00EST, 10/07/22 11:08:00 EST, Cream, [email or web address] #[id number], Partial fill upon patient request if the prescription is for a schedule II opioid drug.... Start Date: 10/07/22 Stop Date: 10/14/22 Status: Ordered multivitamin, Multivitamins oral tablet, chewable 1 tablet, Chew, Daily, # 90 tablet, 2 Refills, Maintenance, 07/31/22 12:52:00 EST, Chew Tablet, [email or web address] #[id number], Partial fill upon patient request if the [...] 30 tablet, 0 Refills, Maintenance, 09/02/22 11:47:00 [facility]... Start Date: 09/02/22 Status: Ordered Multivitamins with Folic Acid 1 mg oral tablet 1 tablet, By Mouth, Daily, # 90 tablet, 2 Refills, Maintenance, 06/19/22 9:03:00 EDT, [email or web address] #[id number], Partial fill upon patient request if the prescription is for a schedule II opioid drug., 1 tablet By Mouth Daily, 158.5, cm, 06/19/22 8:... Start Date: 06/19/22 Status: Ordered Multivitamins with Folic Acid 1 mg oral tablet 1 tablet, By Mouth, Daily, # 90 tablet, 3 Refills, Maintenance, 06/16/22 10:13:00 EDT, Tablet, [email or web address] #[id number], Partial fill upon patient request if the [...] Physician Member Role: PCP Address: Address: [address] [place] [address]- Care Team Related Persons Name: CHRISTIE MENDOZA Address: home [address] [place] [address]
--- OUTSIDE RECORDS SUMMARY | 2024-04-12 11:08 | XMS_ITS | Continuity of Care Document ---
Author Organization [facility] Address [address] [place] [address]- Care Team Providers Care Business Systems Manager Name Role Phone Jeanne JHAVERI, Gloria Lutz Primary Care Physician [phone] Encounter [facility] [place] Date(s): 01/08/23 - 02/07/[address] [address] Allergies, Adverse Reactions, Alerts Substance Reaction Severity Status Cats Active Pollen Active Medications cephalexin monohydrate 500 mg oral capsule 1 capsule = 500 mg, By Mouth, Daily at bedtime, for 30 days, # 30 capsule, 1 Refills, Acute 03/28/23 12:08:00 EDT, 01/27/23 12:08:00 EDT, Capsule, [facility][id number], Partial fill upon patient request if the prescription is for a schedule II... Start Date: 01/27/23 Stop Date: 03/28/23 Status: Ordered ibuprofen 600 mg oral tablet See Instructions, [...] 3 Refills, Maintenance, 06/16/22 10:13:00 EDT, Tablet, [facility] #[id number], Partial fill upon patient request if the [...] 0 Refills, Maintenance, 02/08/23 2:49:00 EDT, Capsule, [facility] #[id number], Partial fill upon patient request i... Start [...] Physician Member Role: PCP Address: Address: [address] [place] [address]- Care Team Related Persons Name: JAMEEL GRESHAM Address: [employer] Address: home [address] [address] Name: CHRISTIE MENDOZA Address: home [address] [place] [address]
--- OUTSIDE RECORDS SUMMARY | 2024-04-12 11:08 | XMS_ITS | Continuity of Care Document ---
Author Organization [facility] Address [address] [place] [address]- Care Team Providers Care National Sales Name Role Phone Jeanne JHAVERI, Gloria Lutz Primary Care Physician [phone] [place] [facility] [place] - 08/16/[address] [address] Allergies, Adverse Reactions, Alerts Substance Reaction Severity Status Cats Active Pollen Active Medications multivitamin, Multivitamins oral tablet, chewable 1 tablet, Chew, Daily, # 90 tablet, 2 Refills, Maintenance, 07/31/22 12:52:00 EST, Chew Tablet, [facility] #[id number], Partial fill upon patient request if the prescription is for a schedule IIopioid drug., 1 tablet Chew Daily, 158.5, cm, 07/08... Start Date: 07/31/22 Status: Ordered Multivitamins with Folic Acid 1 mg oral tablet 1 tablet, By Mouth, Daily, # 90 tablet, 2 Refills, Maintenance, 06/19/22 9:03:00 EDT, [facility] #[id number], Partial fill upon patient request if the prescription is for a schedule II opioid drug., 1 tablet By Mouth Daily, 158.5, cm, 06/19/22 8:... Start Date: 06/19/22 Status: Ordered Multivitamins with Folic Acid 1 mg oral tablet 1 tablet, By Mouth, Daily, # 90 tablet, 3 Refills, Maintenance, 06/16/22 10:13:00 EDT, Tablet, [facility] #[id number], Partial fill upon patient request if the [...] Reference Physician Member Role: PCP Address: Address: [address] [place] [address]- Care Team Related Persons Name: CHRISTIE MENDOZA Address: home [address] [place] [address]
--- OUTSIDE RECORDS SUMMARY | 2024-04-12 11:08 | XMS_ITS | Continuity of Care Document ---
Author Organization [facility] Address [address] [place] [address]- Care Team Providers Care Career Developer Name Role Phone Jeanne JHAVERI, Gloria Lutz Primary Care Physician [phone] Encounter [facility] [place] Date(s): 08/28/22 - 09/04/[address] [address]- Encounter Diagnosis Procedure and treatment not carried out for other reasons(Final) - Discharge Disposition: A-D/C Walkout Attending Physician: Robe GALLAGHER, Alex Park Admitting Physician: Robe GALLAGHER, Alex Park Allergies, Adverse Reactions, Alerts Substance Reaction Severity Status Cats Active Pollen Active Medications Monistat 7 2% cream with applicator 1 application, Vaginally, Daily at bedtime, for 7 days, # 45 Gm, 0 Refills, Acute 09/05/22 7:38:00 EST, 08/29/22 7:38:00 EST, Cream, [facility] #[id number], Partial fill upon patient request if the prescription is for a schedule II opioid drug.,... Start Date: 08/29/22 Stop Date: 09/05/22 Status: Ordered multivitamin, Multivitamins oral tablet, chewable 1 tablet, Chew, Daily, # 90 tablet, 2 Refills, Maintenance, 07/31/22 12:52:00 EST, Chew Tablet, [facility] #[id number], Partial fill upon patient request if the [...] tablet, 0 Refills, Maintenance, 09/02/22 11:47:00 EST, [facility] #... Start Date: 09/02/22 Status: Ordered Multivitamins with Folic Acid 1 mg oral tablet 1 tablet, By Mouth, Daily, # 90 tablet, 2 Refills, Maintenance, 06/19/22 9:03:00 EDT, [facility] #[id number], Partial fill upon patient request if the prescription is for a schedule II opioid drug., 1 tablet By Mouth Daily, 158.5, cm, 06/19/22 8:... Start Date: 06/19/22 Status: Ordered Multivitamins with Folic Acid 1 mg oral tablet 1 tablet, By Mouth, Daily, # 90 tablet, 3 Refills, Maintenance, 06/16/22 10:13:00 EDT, Tablet, [facility] #[id number], Partial fill upon patient request if the [...] Physician Member Role: PCP Address: Address: [address] [place] [address]- Care Team Related Persons Name: CHRISTIE MENDOZA Address: home [address] [place] [address]
--- OUTSIDE RECORDS SUMMARY | 2024-04-12 11:08 | XMS_ITS | Continuity of Care Document ---
Author Organization [facility] Address [address] [place] [address]- Care Team Providers Care Sheetmetal Worker Name Role Phone Jeanne JHAVERI, Gloria Lutz Primary Care Physician [place] [facility] [place] - 03/13/[address] [address] Allergies, Adverse Reactions, Alerts Substance [...] 3 Refills, Maintenance, 06/16/22 10:13:00 EDT, Tablet, [facility][id number], Partial fill upon patient request if the [...] 02/08/23 2:49:00 EDT, Capsule, [facility] #[id number], Partial fill upon patient request i... Start [...] Reference Physician Member Role: PCP Address: Address: [address] [place] [address]- Care Team Related Persons Name: CHANELLE MONZON Address: [employer] Address: home [address] [address] Name: CHRISTIE MENDOZA Address: home [address] [place] [address]
--- OUTSIDE RECORDS SUMMARY | 2024-04-12 11:08 | XMS_ITS | Continuity of Care Document ---
Author Organization [facility] Address [address] [place] [address]- Care Team Providers Care Sample Processor Name Role Phone Jeanne JHAVERI, Gloria Lutz Primary Care Physician [place] [facility] [place]s): 07/30/22 - 08/29/22 [facility] [address] [address] Allergies, Adverse Reactions, Alerts Substance Reaction Severity Status Cats Active Pollen Active Medications Monistat 7 2% cream with applicator 1 application, Vaginally, Daily at bedtime, for 7 days, # 45 Gm, 0 Refills, Acute 09/05/22 7:38:00 EST, 08/29/22 7:38:00 EST, Cream, [facility] #[id number], Partial fill upon patient request if the prescription is for a schedule II opioid drug.,... Start Date: 08/29/22 Stop Date: 09/05/22 Status: Ordered multivitamin, Multivitamins oral tablet, chewable 1 tablet, Chew, Daily, # 90 tablet, 2 Refills, Maintenance, 07/31/22 12:52:00 EST, Chew Tablet, [facility] #[id number], Partial fill upon patient request if the prescription is for a schedule IIopioid drug., 1 tablet Chew Daily, 158.5, cm, 07/08... Start Date: 07/31/22 Status: Ordered Multivitamins with Folic Acid 1 mg oral tablet 1 tablet, By Mouth, Daily, # 90 tablet, 2 Refills, Maintenance, 06/19/22 9:03:00 EDT, [facility] #[id number], Partial fill upon patient request if the prescription is for a schedule II opioid drug., 1 tablet By Mouth Daily, 158.5, cm, 06/19/22 8:... Start Date: 06/19/22 Status: Ordered Multivitamins with Folic Acid 1 mg oral tablet 1 tablet, By Mouth, Daily, # 90 tablet, 3 Refills, Maintenance, 06/16/22 10:13:00 EDT, Tablet, [facility] #[id number], Partial fill upon patient request if the [...] Reference Physician Member Role: PCP Address: Address: [address] [place] [address]- Care Team Related Persons Name: CHRISTIE MENDOZA Address: home [address] [place] [address]
--- OUTSIDE RECORDS SUMMARY | 2024-04-12 11:08 | XMS_ITS | Continuity of Care Document ---
Author Organization [facility] Address [address] [place] [address]- Care Team Providers Care Audit Officer Name Role Phone Jeanne JHAVERI, Gloria Lutz Primary Care Physician Encounter [facility] [place] Date(s): 01/13/23 - 02/12/[address] [address] Allergies, Adverse Reactions, Alerts Substance Reaction Severity Status Cats Active Pollen Active Medications cephalexin monohydrate 500 mg oral capsule 1 capsule = 500 mg, By Mouth, Daily at bedtime, for 30 days, # 30 capsule, 1 Refills, Acute 03/28/23 12:08:00 EDT, 01/27/23 12:08:00 EDT, Capsule, [facility] #[id number], Partial fill upon patient request if the [...] 3 Refills, Maintenance, 06/16/22 10:13:00 EDT, Tablet, [facility] #[id number], Partial fill upon patient request if the [...] 0 Refills, Maintenance, 02/08/23 2:49:00 EDT, Capsule, [facility] #[id number], Partial fill upon patient request i... Start Date: 02/08/23 Status: Ordered Problem List Condition Confirmation Course Effective Dates Status Health St [facility] Informant Cholestasis of Confirmed Active History of COVID-19 - September 2021 Confirmed Active Obese class I Confirmed Active Social History Social History Type Response Smoking Status Never (less than 100 in lifetime) entered on: 06/19/22 Sex Patient Care team information Care Team Personnel Name: Gloria Angel NP Position: Reference Physician Member Role: PCP Address: Address: [address] [place] [address]- Care Team Related Persons Name: JAMEEL GRESHAM BOY Address: [employer] Address: home [address] [facility] [address] [place] [address] [place] Name: CHRISTIE MENDOZA Address: home [address] [place] [address]
--- OUTSIDE RECORDS SUMMARY | 2024-04-12 11:08 | XMS_ITS | Continuity of Care Document ---
Author Organization [facility] Address [address] [place] [address]- Care Team Providers Care Senior Product Development Engineer Name Role Phone Jeanne JHAVERI, Gloria Lutz Primary Care Physician [place] [facility] [place] - 10/09/22 [facility] [address] [address] Attending Physician: Not on Staff, Attending MD Allergies, Adverse Reactions, Alerts Substance Reaction Severity Status Cats Active Pollen Active Medications clotrimazole 1% vaginal cream with applicator 1 application, Vaginally, Daily at bedtime, for 7 days, # 45 Gm, 0 Refills, Acute 10/14/22 11:08:00EST, 10/07/22 11:08:00 EST, Cream, [facility] #[id number], Partial fill upon patient request if the prescription is for a schedule II opioid drug.... Start Date: 10/07/22 Stop Date: 10/14/22 Status: Ordered multivitamin, Multivitamins oral tablet, chewable 1 tablet, Chew, Daily, # 90 tablet, 2 Refills, Maintenance, 07/31/22 12:52:00 EST, Chew Tablet, [facility] #[id number], Partial fill upon patient request if the [...] tablet, 0 Refills, Maintenance, 09/02/22 11:47:00 EST, [facility] #... Start Date: 09/02/22 Status: Ordered Multivitamins with Folic Acid 1 mg oral tablet 1 tablet, By Mouth, Daily, # 90 tablet, 2 Refills, Maintenance, 06/19/22 9:03:00 EDT, [facility] #[id number], Partial fill upon patient request if the prescription is for a schedule II opioid drug., 1 tablet By Mouth Daily, 158.5, cm, 06/19/22 8:... Start Date: 06/19/22 Status: Ordered Multivitamins with Folic Acid 1 mg oral tablet 1 tablet, By Mouth, Daily, # 90 tablet, 3 Refills, Maintenance, 06/16/22 10:13:00 EDT, Tablet, [facility] #[id number], Partial fill upon patient request if the [...] Reference Physician Member Role: PCP Address: Address: [address] [place] [address]- Care Team Related Persons Name: CHRISTIE MENDOZA Address: home [address] [place] [address]
--- OUTSIDE RECORDS SUMMARY | 2024-04-12 11:08 | XMS_ITS | Continuity of Care Document ---
Author Organization [facility] Address [address] [place] [address]- Care Team Providers Care Soda Column Operator Name Role Phone Jeanne JHAVERI, Gloria Lutz Primary Care Physician [phone] Encounter [facility] [place] Date(s): 08/26/22 - 09/25/[address] [address] Allergies, Adverse Reactions, Alerts Substance Reaction Severity Status Cats Active Pollen Active Medications multivitamin, Multivitamins oral tablet, chewable 1 tablet, Chew, Daily, # 90 tablet, 2 Refills, Maintenance, 07/31/22 12:52:00 EST, Chew Tablet, [facility][id number], Partial fill upon patient request if the [...] tablet, 0 Refills, Maintenance, 09/02/22 11:47:00 EST, [facility] #... Start Date: 09/02/22 Status: Ordered Multivitamins with Folic Acid 1 mg oral tablet 1 tablet, By Mouth, Daily, # 90 tablet, 2 Refills, Maintenance, 06/19/22 9:03:00 EDT, [facility][id number], Partial fill upon patient request if the prescription is for a schedule II opioid drug., 1 tablet By Mouth Daily, 158.5, cm, 06/19/22 8:... Start Date: 06/19/22 Status: Ordered Multivitamins with Folic Acid 1 mg oral tablet 1 tablet, By Mouth, Daily, # 90 tablet, 3 Refills, Maintenance, 06/16/22 10:13:00 EDT, Tablet, [facility] #[id number], Partial fill upon patient request if the prescription is for a schedule II opioid drug., 1 tablet By Mouth Daily Start Date: 06/16/22 Status: Ordered Vandazole 0.75% vaginal gel with applicator 1 applicator, Vaginally, Daily at bedtime, for 5 days, # 70 Gm, 0 Refills, Acute 09/26/22 15:28:00 EST, 09/21/22 15:28:00 EST, Gel, [facility] #[id number], Partial fill upon patient request if the prescription is for a schedule II opioid drug., 1... Start Date: 09/21/22 Stop Date: 09/26/22 Status: Ordered Problem List Condition Confirmation Course [...] Physician Member Role: PCP Address: Address: [address] [place] [address]- Care Team Related Persons Name: CHRISTIE MENDOZA Address: home [address] [place] [address]
--- OUTSIDE RECORDS SUMMARY | 2024-04-12 11:08 | XMS_ITS | Continuity of Care Document ---
Author Organization [facility] Address [address] [place] [address]- Care Team Providers Care Deck Hand Name Role Phone Jeanne JHAVERI, Gloria Lutz Primary Care Physician [place] [facility] [place] - 03/12/[address] [address] Attending Physician: Cait Gresham MD Admitting Physician: [...] 3 Refills, Maintenance, 06/16/22 10:13:00 EDT, Tablet, [facility] #[id number], Partial fill upon patient request if the [...] 0 Refills, Maintenance, 02/08/23 2:49:00 EDT, Capsule, [facility] #[id number], Partial fill upon patient request i... Start [...] Reference Physician Member Role: PCP Address: Address: [address] [place] [address]- Care Team Related Persons Name: CHANELLE MONZON Address: [employer] Address: home [address] [address] [place] Name: CHRISTIE MENDOZA Address: home [address] [place] [address]
--- OUTSIDE RECORDS SUMMARY | 2024-04-12 11:08 | XMS_ITS | Continuity of Care Document ---
Author Organization [facility] ter Address [address] [place] [address]- Care Team Providers Care Head Of Digital Name Role Phone Jeanne JHAVERI, Gloria Lutz Primary Care Physician Encounter [facility] Date(s): 10/22/22 - 10/22/[address] [address]- Discharge Disposition: A-D/C Home Attending Physician: Aleida Murphy MD Admitting Physician: Aleida Murphy MD Referring Physician: Aleida Murphy MD Allergies, Adverse Reactions, Alerts Substance Reaction Severity Status Cats Active Pollen Active Medications multivitamin, Multivitamins oral tablet, chewable 1 tablet, Chew, Daily, # 90 tablet, 2 Refills, Maintenance, 07/31/22 12:52:00 EST, [id number], Partial fill upon patient request if the [...] 30 tablet, 0 Refills, Maintenance, 09/02/22 11:47:[facility]... Start Date: 09/02/22 Status: Ordered Multivitamins with Folic Acid 1 mg oral tablet 1 tablet, By Mouth, Daily, # 90 tablet, 2 Refills, Maintenance, 06/19/22 9:03:[id number], Partial fill upon patient request if the prescription is for a schedule II opioid drug., 1 tablet By Mouth Daily, 158.5, cm, 06/19/22 8:... Start Date: 06/19/22 Status: Ordered Multivitamins with Folic Acid 1 mg oral tablet 1 tablet, By Mouth, Daily, # 90 tablet, 3 Refills, Maintenance, 06/16/22 10:13:00 EDT, Tablet, [facility] #[id number], Partial fill upon patient request if the prescription is for a schedule II opioid drug., 1 tablet By Mouth Daily Start Date: 06/16/22 Status: Ordered Robitussin Maximum Strength Severe 650 mg-25 mg-10 mg/20 mL oral liquid 20 mL, By Mouth, Every 4 hours, # 180 mL, 0 Refills, Maintenance, 10/22/22 16:19:00 EST, [facility] #[id number], Partial fill upon patient request if the prescription is for a schedule II opioiddrug., 20 mL By Mouth Every 4 hours, 158.5, cm, ... Start Date: 10/22/22 Status: Ordered Problem List Condition Confirmation Course Effective Dates Status Health St atus Informant Acute COVID-19 Confirmed Active History of chlamydia Confirmed Active History of COVID-19 - September 2021 Confirmed Active History of gonorrhea Confirmed Active Vital Signs Most recent to oldest [Reference Range]: 1 Weight 71 kg (10/22/22 2:38 PM) Oxygen Saturation [94-100 %] 100 % (10/22/22 2:38 PM) Pulse Rate [55-90 bpm] 98 bpm *H* (10/22/22 2:38 PM) Blood Pressure [90-138/55-84 mm Hg] 106/ 64mm Hg (10/22/22 2:38 PM) Respiratory Rate [16-30 br/min] 18 br/mi n (10/22/22 2:38 PM) Temperature [96.8-100.4 DegF] 97.6 DegF (10/22/22 2:38 PM) Mode of Delivery (Oxygen) Room air (10/22/22 2:38 PM) Blood pressure sites Arm, right 1 (10/22/22 2:38 PM) Temperature Route Oral (10/22/22 2:38 PM) Dry Weight 71 kg (10/22/22 2:38 PM) 1Result Comment: right upper arm measured 30.5cm Social History Social History Type Response Smoking Status Never (less than 100 in lifetime) entered on: 06/19/22 Sex History and physical note * Everardo GALLAGHER, Pratima Maurer: MODIFY, PERFORM Event Display: History and Physical Hospital Authored Date: [id number] Patient: ??MP, JAMEEL ? Age:??22 Years?Sex:??Female?:??2000?? OB Reason for Admission OB Reason for Admission?? No qualifying data available. LMP/EGA/SUSAN Gestational Age (EGA) and SUSAN? * Note: EGA calculated as of 10/22/2022 ?? SUSAN:??02/19/2023?EGA*:??22 weeks 6 days ? History?(0,0,0,0)?Method:??Ultrasound??(07/08/2022) History of Present Illness 22 yo G1 at 22+6 with hx of chronic sinusitis [facility] . She reports over the last year, prior to , her nasal congestion and daily cough have worsened. She has been evaluated by ENT and has follow-up planned with her PCP. She has been taking daily Flonase for her nasal congestion, but is uncertain what medication she can take for cough suppression. She denies any obstetrical complaints: no contractions, uterine cramping, vaginal bleeding, or??leaking of fluid. Reports feeling movement. Review of Systems Constitutional, HEENT, cardiovascular, respiratory, gastrointestinal, genitourinary, musculoskeletal, skin, endocrine, neurological, psychiatric, hematologic/lymphatic, allergy/immune otherwise reviewed and negative. Physical Exam Vitals & Measurements T:??97.6?F ?? DC:??98?? RR:??18?? BP:??106/64?? SpO2:??100%?? WT:??71??kg?? Constitutional: Pleasant, alert, cooperative, no acute distress. Lungs: Unlabored breathing. Clear to auscultation bilaterally with full symmetric breath sounds,??no crackles, no wheezing,??or rhonchi.? Cardiovascular: Regular rate and rhythm.? Abdomen: Gravid, soft, non-tender to palpation. Assessment/Plan Assessment:??22 yo G1 at 22+6 with hx of chronic sinusitis presents to [facility] for medication recommendations in for chronic cough. Vitals stable and within normal limits. Exam unremarkable. +FHR 146. Respiratory panel collected to assess for infectious cause of her symptoms. Discussed that most OTC medications have not been studied in , but advised avoiding medications containingibuprofen and dextromethorphan. She questioned whether??Robitussin was safe and requested a prescription. Advised patient to follow-up with her PCP and we will call??her if??her respiratory panel is positive. ?? Chronic sinusitis (J32.9):? - Rx sent to patient pharmacy for Robitussin - Recommended follow-up with PCP ?? Patient and plan discussed with attending.?? OB History History?(0,0,0,0)?No previous pregnancies history have been recorded Labs Labs Labs & Tests ABO: A (06/19/22) Antibody Screen: Negative (06/19/22) Chlamydia Trachomatis Amplified Probe: NEGATIVE (08/29/22) Down Syndrome Age Risk FTS: Age Risk: (08/05/22) Down Syndrome Scrn Risk FTS: Screening Risk: (08/05/22) Hct: 42 % (06/19/22) Hemoglobinopathy Interpretation: Normal hemoglobins. (06/19/22) Hepatitis B Surface Antigen: NEGATIVE (06/19/22) Hepatitis C Ab: NEGATIVE (06/19/22) Hgb: 14.5 Gm/dL (06/19/22) HIV 4th Generation Ab-Ag Result: NEGATIVE (06/19/22) RH Test Only: Positive (06/19/22) RPR Titer Result: NOT INDICATED (06/19/22) Rubella IgG Ab: POSITIVE (06/19/22) Syphilis Screen by [facility]: NEGATIVE (06/19/22) Trisomy 18 Scrn Risk FTS: Screening Risk: (08/05/22) Urine Culture: Urine Culture (06/19/22) Varicella IgG Ab: POSITIVE (06/19/22) Problem List Active Active Problem List Acute COVID-19: (Medical) History of chlamydia: (Medical) History of COVID-19 ??- September 2021: (Medical) History of gonorrhea: (Medical) : (Obstetric) (04/18/22) Procedure/Surgical History No qualifying data available. Home Medications APAP/diphenhydramine/phenylephrine: 20 mL, By Mouth, Every 4 hours Multivitamin, : 1 tablet, By Mouth, Daily Multivitamin, : 1 tablet, By Mouth, Daily Multivitamin, : 1 tablet, Chew, Daily nirmatrelvir-ritonavir: See Instructions, 300mg nirmatrelvir (two 150mg tablets) with 100mg ritonavir (one tablet). All 3 tabletstaken together twice daily for 5 days, with or without food. Allergies Cats Pollen Social History Alcohol Use: Socially - last week nit drinking in ., 06/19/2022 Electronic Cigarette/Vaping Electronic Cigarette Use: Use, within last 90 days. Type: Nicotine infused. Number of Years: 1., 06/19/2022 Employment/School Status: Employed. 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 ??I have discussed the case and its management with the resident and agree with the findings and plan as documented in the resident???s note.PBS Will discharge to home. [facility] to call with swab results.?? PBS Note * Pratima Munoz RN: PERFORM Event Display: Discharge/Transfer Note Hospital Authored Date: Nursing Discharge Note Entered On: 10/22/2022 16:47 EST Performed On: 10/22/2022 16:46 EST by Pratima Munoz RN Nursing Discharge Note 2 Discharge Time : 10/22/2022 16:45 EST Discharge Level of Care at Discharge : Home/Custodial/Foster Care Patient Left Unit Via : Ambulatory Patient Accompanied Off Unit with : Significant other DC Instructions Provided & Signed by Pt : Yes Patient Understands D/C Instructions : Yes Patient Instructions Discharge Signed : Yes Did Pt have Specialty Bed or Wound Vac : No Pratima Munoz RN - 10/22/2022 16:46 EST * Pratima Munoz RN: PERFORM Event Display: Patient Education/Instruction Authored Date: Inpatient Adult Discharge Instructions [address] [address] Name: JAMEEL GRESHAM : 2000 Visit: 10/22/2022 14:26:00 Current Date: 10/22/2022 16:42 Account: [id number] Inpatient Adult Discharge Instructions We would like [...] and their families. Surveys are administered by [email or web address] ?? If further treatment with your primary care physician or another doctor is recommended, it is important for you to keep the appointment. Call your primary care physician or return to the Emergency Department immediately if your condition worsens, fails to improve, or new symptoms develop. If you need to find a doctor, you can call [facility] for a referral at [phone] or toll free at [phone] or log in to [email or web address] ?? You can view and manage your care through the patient portal or by using a health care jazmin of your choosing. [employer] is a website that allows you to securely view your medical information including your hospital discharge summary, office visit summaries, medications and follow-up visits. You can also request appointments, renew medications, and request access to your medical information using a health care jazmin of your choosing, or just ask a question. You can enroll at [email or web address] or register during your next office visit. You have been discharged from [facility], Patient Care Unit: [facility]1. If you have any questions regarding these instructions after you leave, please call us and we will be happy to assist you. [facility] Your Care Team Attending Physician Jeffrey GALLAGHER, Aleida Avila Your Diagnosis Chronic sinusitis Tests Performed Below is a partial list of the tests performed during your hospitalization. You may have had other tests and procedures not included in this list. Please discuss all test results with your provider. Primary Care Provider Gloria Angel NP Advance Directive Health Care Proxy on File No Discharge Vitals Temperature: 97.6 DegF Weight: 71 kg Pulse Rate:??98 bpm??High ?? Respiratory Rate: 18 br/min ?? Systolic Blood Pressure: 106 mm Hg ?? Diastolic Blood Pressure: 64 mm Hg ?? Oxygen Saturation: 100 % ?? Studies Pending All tests and labs ordered during this hospital stay have been completed unless listed below. Please discuss all pending results with your provider listed above in these instructions. ?? COVID-19, RSV, and Flu A/B, Rapid PCR What to do next Instructions From Your Doctor Discharge Orders Scheduled Follow-Up Appointments Wednesday 2:40 PM EST ?? With: Tien GALLAGHER, Donna Toledo Where: [facility] [address] [place] [address] - Wednesday 8:20 AM EDT ?? With: Shelbie Rodríguez CNM Where: [facility] [address] [place] [address] - Wednesday 8:00 AM EDT ?? With: Missy Wylie CNM Where: [facility] [address] [place] [address] - Wednesday 9:40 AM EDT ?? With: Missy Wylie CNM Where: [facility] [address] [place] [address]- You Need to Schedule the Following Appointments Follow Up with??[facility] [phone] When?? Where: Discharge Medications JAMEEL GRESHAM :2000 Visit Date:10/22/2022 Medications: Please continue your medications until treatment is completed or stopped by your provider. Medications not listed below should be discontinued. Discuss any questions related to medications with your provider. What How Much When Why Instructions Next Dose New APAP/ diphenhydramine/ phenylephrine (Robitussin Maximum Strength Severe 650 mg-25 mg-10 mg/ 20 mL oral liquid) 20 Milliliter Oral Every 4 hours Pickup at [facility] #[id number] Unchanged Multivitamin, (multivitamin, Multivitamins oral tablet, chewable) 1 tab(s) Chew Daily Unchanged Multivitamin, ( Multivitamins with Folic Acid 1 mg oral tablet) 1 tab(s) Oral Daily Unchanged Multivitamin, ( Multivitamins with Folic Acid 1 mg oral tablet) 1 tab(s) Oral Daily Unchanged nirmatrelvir-ritonavir (Paxlovid 150 mg-100 mg oral tablet) See instructions Acute COVID-19 300mg nirmatrelvir (two 150mg tablets) with 100mg ritonavir (one tablet). All 3 tablets taken together twice daily for 5 days, with or without food. ?? Pharmacy Information [email or web address] #[id number]: [address], [place] [id number] [phone] Test Results Below is a partial list of the most recent Laboratory test results done prior to this discharge. You may have had other tests and procedures not included in this list. Please discuss all test resultswith your provider. Allergies (NKA means No Known Allergies) Cats Pollen Problems Active Problems??(5) Acute COVID-19?? History of chlamydia?? History of COVID-19 ??- September 2021?? History of gonorrhea? Education Materials Below is the list of Educational Leaflet Providered with your Discharge Instructions. Self-Care for Sinusitis?? Adapting to : Second Trimester?? Valuables and Belongings I fully understand and agree that [facility] accepts no responsibility for all my personal [...] are strongly encouraged to quit. Please call [facility] at [phone] or [phone] ([phone]) or log in to [email or web address] for referrals to smoking cessation programs. ?? The National Suicide Prevention Hotline is available 05/04 if you or someone you know needs to find a reason to keep living. By calling 6-797-022-[employer] (7636) you'll be connected to a skilled, trained counselor at a crisis center in your area. INPATIENT DISCHARGE INSTRUCTIONS SIGNATURE JAMEEL KHAN Location:[facility] Registration Date and Time:10/22/2022 14:26 EST Primary Care Physician: Jeanne JHAVERI, Gloria Lutz, JAMEEL MISTRY, have received the above patient education materials/instructions and have verbalized understanding. If ambulance or transport services are being used I further acknowledge being given a choice of service. ?? If you need to contact me, please call me at this number: . Patient/Powerhouse Operator Name: Patient/Powerhouse Operator Signature: Relationship to Patient: Witness Name/Signature: Date: * Alexander FRYE, Pratima Smith: PERFORM Event Display: Patient Education Leaflets Authored Date: [id number] Self-Care for Sinusitis ?? 16205 Self-Care for Sinusitis Sinusitis can often be managed with self-care. Self-care can keep sinuses moist and make you feel more comfortable. Remember to follow your healthcare provider's instructions closely. This can make abig difference in getting your sinus problem under control. Drink fluids Drinking extra fluids helps thin your mucus. This lets it drain from your sinuses more easily. Havea??glass of water every hour or 2. A humidifier helps in much the same way. Fluids can also offset the drying effects of certain medicines. If you use a humidifier, follow the product maker's instructions on how to use it. Clean it on a regular schedule. Drinking plenty of water can help sinuses drain. ?? Use saltwater rinses Rinses help keep your sinuses and nose moist. Mix a teaspoon of salt in 8 ounces of fresh, warm water. Use a bulb syringe to gently squirt the water into your nose a few times a day. You can also buyready-made saline nasal sprays. ?? Apply hot or cold packs Applying warm moist compresses over the nose and forehead may make you feel more comfortable. Breathing steam from a bowl of hot water or shower may also help. Some people also find ice packs effective for relieving pain. ?? Medicines Your healthcare provider may prescribe medicines to help treat your sinusitis. If you have a bacterial infection, antibiotics are effective treatments. If you are prescribed antibiotics, take all pills on schedule until they are gone, even if you feel better. Decongestants help relieve swelling. Use decongestant sprays for short periods only under the direction of your healthcare provider. If you have allergies, your healthcare provider may prescribe medicines to help relieve them. ?? Last Reviewed Date: 2021 ?? 9037-5621 [employer]. All rights reserved. This information is not intended as a substitute for professional medical care. Always follow your healthcare professional's instructions. ?? * Alexander FRYE, Pratima Smith: PERFORM Event Display: Patient Education Leaflets Authored Date: [id number] Adapting to : Second Trimester ?? 36350 Adapting to : Second Trimester Keep up the healthy habits you started in your first trimester. You might be a little more tired than normal. So plan your day wisely. Look at the tips below and choose the ones that suit your lifestyle. Note If you have any questions, talk with your healthcare provider. ?? If you work If you can, adjust your work with your employer to fit your needs. Try these tips: ??? If you standfor long periods, find ways to do some tasks while sitting. Also, try to stand with 1 foot resting on a low stool or ledge. Shift your weight from foot to foot often. Wear low-heeled shoes. ??? If you sit, keep your knees level with your hips. Rest your feet on a firm surface. Sit tall with supportfor your low back. ??? If you work long hours, ask about adjusting your schedule. Try taking shorter breaks more often. ?? When you travel The second trimester may be the best time for any travel. Talk to your healthcare provider about any special plans you may need to make. Always: ??? Wear a seat belt. Fasten the lap part under your belly. Wear the shoulder part also. ??? Take breaks often during long trips by car or plane. Move around to stretch your legs. ??? Drink plenty of fluids on flights. The air in plane cabins is very dry. ??? Stay out of hot climates or high altitudes if you are not used to them. ??? Stay away from places where the food and water might make you sick. ??? Make sure you are up-to-date on all vaccines, including the flu vaccine. This is especially important when traveling overseas. ?? Taking time to relax Find time to rest and relax at work or at home: ??? Take short time-outs daily. Do relaxation exercises. ??? Breathe deeply during stressful times.??? Try not to take on too much. Plan tasks for times when you have the most energy. ??? Take naps when you can. Or just sit and relax. ??? After week 16, don't lie on your back for more than a few minutes. Instead, lie on your side. Switch sides often. ?? Having sex Unless your healthcare provider tells you otherwise, there is no reason to stop having sex now. Blood supply increases to the pelvic area in the second trimester. Because of this, sex might be more enjoyable. Try different positions and see what???s best. Also talk with your partner about any changes in desire. Spotting may happen after sex. Let your healthcare provider know if there is heavy bleeding. ?? Keeping your environment safe You can still clean your house and use scented products. Just take some simple precautions: ??? Wear gloves when using cleaning fluids. ??? Open windows to let in fresh air. Use a fan if you paint. ??? Stay away from secondhand smoke. ??? Don???t breathe fumes from nail greek, hair spray, cleansers, or other chemicals. ?? How daily issues affect your health Many things in your daily life impact your health. This can include transportation, money problems,housing, access to food, and early childhood associate teacher. If you can???t get to medical appointments, you may not receive the care you need. When money is tight, it may be difficult to pay for medicines. And living far from a grocery store can make it hard to buy healthy food. If you have concerns in any of these or other areas, talk with your healthcare team. They may know of local resources to assist you. Or they may have a staff person who can help. ?? Last Reviewed Date: 2021 ?? [id number] [employer]. All rights reserved. This information is not intended as a substitute for professional medical care. Always follow your healthcare professional's instructions. ?? Patient Care team information Care Team Personnel Name: Gloria Angel NP Position: Reference Physician Member Role: PCP Address: Address: [address] [place] [address]- Care Team Related Persons Name: CHRISTIE MENDOZA Address: home [address] [place] [id number]
--- OUTSIDE RECORDS SUMMARY | 2024-04-12 11:08 | XMS_ITS | Continuity of Care Document ---
Author Organization [facility] Address [address] [place] [address]- Care Team Providers Care Wildlife Biostation Research Ecologist Name Role Phone Jeanne JHAVERI, Gloria Lutz Primary Care Physician [phone] Encounter [facility] Date(s): 02/15/23 - 03/17/[address] [address] Allergies, Adverse Reactions, Alerts Substance [...] 3 Refills, Maintenance, 06/16/22 10:13:00 EDT, Tablet, [id number], Partial fill upon patient request if the [...] 02/08/23 2:49:00 EDT, [facility][id number], Partial fill upon patient request i... Start [...] Reference Physician Member Role: PCP Address: Address: [address] [place] [address]- Care Team Related Persons Name: CHANELLE MONZON Address: [employer] Address: home [address] [address] Name: CHRISTIE MENDOZA Address: home [address] [place] [address]
--- OUTSIDE RECORDS SUMMARY | 2024-04-12 11:08 | XMS_ITS | Continuity of Care Document ---
Author Organization [facility] Address [address] [place] [id number]- Care Team Providers Care Pcas Name Role Phone Jeanne JHAVERI, Gloria Lutz Primary Care Physician Encounter [facility] Date(s): 08/29/22 - 08/29/[address] [address] Discharge Disposition: A-D/C Home Attending Physician: Jerome Mcrae MD Attending Physician: Robe GALLAGHER, Alex Park Admitting Physician: Robe GALLAGHER, Alex Park Referring Physician: Robe GALLAGHER, Alex Park Allergies, Adverse Reactions, Alerts Substance Reaction Severity Status Cats Active Pollen Active Medications Monistat 7 2% cream with applicator 1 application, Vaginally, Daily at bedtime, for 7 days, # 45 Gm, 0 Refills, Acute 09/05/22 7:38:00 EST, 08/29/22 7:38:00 EST, Cream, [facility] #[id number], Partial fill upon patient request if the prescription is for a schedule II opioid drug.,... Start Date: 08/29/22 Stop Date: 09/05/22 Status: Ordered multivitamin, Multivitamins oral tablet, chewable 1 tablet, Chew, Daily, # 90 tablet, 2 Refills, Maintenance, 07/31/22 12:52:00 EST, Chew Tablet, [facility] #[id number], Partial fill upon patient request if the prescription is for a schedule IIopioid drug., 1 tablet Chew Daily, 158.5, cm, 07/08... Start Date: 07/31/22 Status: Ordered Multivitamins with Folic Acid 1 mg oral tablet 1 tablet, By Mouth, Daily, # 90 tablet, 2 Refills, Maintenance, 06/19/22 9:03:00 EDT, [facility] #[id number], Partial fill upon patient request if the prescription is for a schedule II opioid drug., 1 tablet By Mouth Daily, 158.5, cm, 06/19/22 8:... Start Date: 06/19/22 Status: Ordered Multivitamins with Folic Acid 1 mg oral tablet 1 tablet, By Mouth, Daily, # 90 tablet, 3 Refills, Maintenance, 06/16/22 10:13:00 EDT, Tablet, [facility] #[id number], Partial fill upon patient request if the prescription is for a schedule II opioid drug., 1 tablet By Mouth Daily Start Date: 06/16/22 Status: Ordered Problem List Condition Confirmation Course Effective Dates Status Health St atus Informant History of chlamydia Confirmed Active History of COVID- - September 2021 Confirmed Active History of gonorrhea Confirmed Active Vital Signs Most recent to oldest [Reference Range]: 1 Weight 65.7 kg (08/29/22 6:07 AM) Oxygen Saturation [94-100 %] 98 % (08/29/22 6:07 AM) Pulse Rate [55-90 bpm] 101 bpm *H* (08/29/22 6:07 AM) Blood Pressure [90-138/55-84 mm Hg] 109/ 64mm Hg (08/29/22 6:07 AM) Respiratory Rate [16-30 br/min] 18 br/mi n (08/29/22 6:07 AM) Temperature [96.8-100.4 DegF] 98.8 DegF (08/29/22 6:07 AM) Mode of Delivery (Oxygen) Room air (08/29/22 6:07 AM) Blood pressure sites Arm, left 1 (08/29/22 6:07 AM) Temperature Route Oral (08/29/22 6:07 AM) Dry Weight 65.7 kg (08/29/22 6:07 AM) Weight Obtained Via Standing scale (08/29/22 6:07 AM) Dry Weight Obtained Via Standing scale (08/29/22 6:07 AM) 1Result Comment: 30cm Social History Social History Type Response Smoking Status Never (less than 100 in lifetime) entered on: 06/19/22 Sex Note * Irma Cobb V: PERFORM Event Display: Patient Education/Instruction Authored Date: [id number] Inpatient Adult Discharge Instructions [address] [address] Name: JAMEEL GRESHAM : 2000 Visit: 08/29/2022 05:52:00 Current Date: 08/29/2022 07:37 Account: [id number] Inpatient Adult Discharge Instructions We would like [...] and their families. Surveys are administered by [employer]. ?? If further treatment with your primary care physician or another doctor is recommended, it is important for you to keep the appointment. Call your primary care physician or return to the Emergency Department immediately if your condition worsens, fails to improve, or new symptoms develop. If you need to find a doctor, you can call [facility] for a referral at [phone] or toll free at [phone]) or log in to [email or web address].. ?? You can view and manage your care through the patient portal or by using a health care jazmin of your choosing. [employer] is a website that allows you to securely view your medical information including your hospital discharge summary, office visit summaries, medications and follow-up visits. You can also request appointments, renew medications, and request access to your medical information using a health care jazmin of your choosing, or just ask a question. You can enroll at [email or web address] or register during your next office visit. You have been discharged from [facility], Patient Care Unit: [id number]. If you have any questions regarding these instructions after you leave, please call us and we will be happy to assist you. [facility] Your Care Team Attending Physician Robe GALLAHGER, Alex Park Tests Performed Below is a partial list of the tests performed during your hospitalization. You may have had other tests and procedures not included in this list. Please discuss all test results with your provider. Chlamydia/N. Gonorrhoeae TMA (NAAT)?-- Results Pending -- Vaginosis Vaginitis Panel (BV, CV/TV)?-- Results Pending -- ? You will be contacted within 72 hours with your results. Primary Care Provider Jeanne JHAVERI, Gloria Lutz Advance Directive Health Care Proxy on File No No qualifying data available. Discharge Vitals Temperature: 98.8 DegF Weight: 65.7 kg Pulse Rate:??101 bpm??High ?? Respiratory Rate: 18 br/min ?? Systolic Blood Pressure: 109 mm Hg ?? Diastolic Blood Pressure: 64 mm Hg ?? Oxygen Saturation: 98 % ?? Studies Pending All tests and labs ordered during this hospital stay have been completed unless listed below. Please discuss all pending results with your provider listed above in these instructions. ?? Chlamydia/N. Gonorrhoeae TMA (NAAT) Vaginosis Vaginitis Panel (BV, CV/TV) What to do next Instructions From Your Doctor Discharge Orders Scheduled Follow-Up Appointments Wednesday 9:00 AM EST ?? With: Aura MORENO NP, Katerina Lutz Where: [address] [address]- Wednesday 11:40 AM EST ?? With: Shelbie Rodríguez CNM Where: [address] [address]- Wednesday 2:40 PM EST ?? With: Tien GALLAGHER, Donna Toledo Where: [facility] [employer] [address] [place] [address]- Discharge Medications JAMEEL GRESHAM :2000 Visit Date:08/29/2022 Medications: Please continue your medications until treatment is completed or stopped by your provider. Medications not listed below should be discontinued. Discuss any questions related to medications with your provider. What How Much When Why Instructions Next Dose Unchanged Multivitamin, (multivitamin, Multivitamins oral tablet, chewable) 1 tab(s) Chew Daily Unchanged Multivitamin, ( Multivitamins with Folic Acid 1 mg oral tablet) 1 tab(s) Oral Daily Unchanged Multivitamin, ( Multivitamins with Folic Acid 1 mg oral tablet) 1 tab(s) Oral Daily Test Results Below is a partial list of the most recent Laboratory test results done prior to this discharge. You may have had other tests and procedures not included in this list. Please discuss all test resultswith your provider. Allergies (NKA means No Known Allergies) Cats Pollen Problems Active Problems??(4) History of chlamydia?? History of COVID-19 ??- September 2021?? History of gonorrhea? Education Materials Below is the list of Educational Leaflet Providered with your Discharge Instructions. Yeast Infection (Radha Vaginal Infection)?? Valuables and Belongings I fully understand and agree that [facility] accepts no responsibility for all my [...] are strongly encouraged to quit. Please call [facility] at [phone] or [phone] ([phone]) or log in to [email or web address] for referrals to smoking cessation programs. ?? The National Suicide Prevention Hotline is available 05/04 if you or someone you know needs to find a reason to keep living. By calling 9-272-845-Enomaly (8953) you'll be connected to a skilled, trained counselor at a crisis center in your area. INPATIENT DISCHARGE INSTRUCTIONS SIGNATURE JAMEEL KHAN Location:[facility] Registration Date and Time:08/29/2022 05:52 EST Primary Care Physician: Gloria Angel NP, I JAMEEL GRESHAM, have received the above patient education materials/instructions and have verbalized understanding. If ambulance or transport services are being used I further acknowledge being given a choice of service. ?? If you need to contact me, please call me at this number: . Patient/Rubber Tubing Splicer Name: Patient/Rubber Tubing Splicer Signature: Relationship to Patient: Witness Name/Signature: Date: * Irma Cobb V: PERFORM Event Display: Patient Education Leaflets Authored Date: [id number] Yeast Infection (Radha Vaginal Infection) ?? [id number] Yeast Infection (Radha Vaginal Infection) You have a??Radha??vaginal infection. This is also known as a yeast infection. It's most often caused by a type of yeast (fungus) called??Radha.??Radha??are normally found in the vagina. But ifthey increase in number, this can lead to infection and cause symptoms. Symptoms of a yeast infection can include: ??? Clumpy or thin, white discharge, which may look like cottage cheese ??? Itching or burning ??? Burning with urination Certain factors can make a yeast infection more likely. These can include: ??? Taking certain medicines, such as antibiotics or control pills ? Diabetes??? Weak immune system A yeast infection is most often treated with antifungal medicine. This may be given as a vaginal cream or pills you take by mouth. Treatment may last for about 1 to 7 days. Women with severe or recurrent infections may need longer courses of treatment. Home care ??? If you???re prescribed medicine, be sure to use it as directed. Finish??all??of the medicine, even if your symptoms go away.??Don???t try to treat yourself using [id number] products without talking with your provider first. They will let you know if this is a good option for you. ??? Ask your provider what steps you can take to help reduce your risk of having a yeast infectionin the future. ?? Follow-up care Follow up with your healthcare provider, or as directed. ?? When to seek medical advice Call your healthcare provider right away if: ??? You have a fever of 100.4??F (38??C)??or higher, or as directed by your provider. ??? Your symptoms worsen, or they don???t go away within a few days of starting treatment. ??? You have new pain in the lower belly or pelvic region. ??? You have side effects that bother you or a reaction to the cream or pills you???re prescribed. ??? You or any partners you have sex with have new symptoms, such??as a rash, joint pain, or sores. ?? Last Reviewed Date: 2020 ?? [id number] [employer]. All rights reserved. This information is not intended as a substitute for professional medical care. Always follow your healthcare professional's instructions. ?? Patient Care team information Care Team Personnel Name: Gloria Angel NP Position: Reference Physician Member Role: PCP Address: Address: [address] [place] [address]- Name: Irma Cobb V Position: [facility] OB RN Member Role: Patient Care Provider Care Team Related Persons Name: CHRISTIE MENDOZA Address: [address] [address]
--- OUTSIDE RECORDS SUMMARY | 2024-04-12 11:08 | XMS_ITS | Continuity of Care Document ---
Author Organization [facility] Address [address] [place] [address]- Care Team Providers Care Mechanical Cad Designer Name Role Phone Jeanne JHAVERI, Gloria Lutz Primary Care Physician En[place] [facility] Date(s): 12/25/22 - 01/24/[address] [address] Allergies, Adverse Reactions, Alerts Substance Reaction Severity Status Cats Active Pollen Active Medications amoxicillin 875 mg oral tablet 1 tablet = 875 mg, By Mouth, Every 12 hours, for 10 days, # 20 tablet, 0 Refills, Acute 01/27/23 8:54:00 EDT, 01/17/23 8:54:00 EDT, Tablet, [facility] #[id number], Partial fill upon patient request if the prescription is for a schedule II opioid... Start Date: 01/17/23 Stop Date: 01/27/23 Status: Ordered Multivitamins with Folic Acid 1 mg oral tablet 1 tablet, By Mouth, Daily, # 90 tablet, 3 Refills, Maintenance, 06/16/22 10:13:00 EDT, Tablet, [facility] #[id number], Partial fill upon patient request if the prescription is for a schedule II opioid drug., 1 tablet By Mouth Daily Start Date: 06/16/22 Status: Ordered Robitussin Maximum Strength Severe 650 mg-25 mg-10 mg/20 mL oral liquid 20 mL, By Mouth, Every 4 hours, # 180 mL, 0 Refills, Maintenance, 10/22/22 16:19:00 EST, [facility] #[id number], Partial fill upon patient request if the prescription is for a schedule II opioiddrug., 20 mL By Mouth Every 4 hours, 158.5, cm, 01/... Start Date: 2/9/23 Status: Ordered ursodiol 300 mg oral capsule 300 mg, 1, capsule, By Mouth, 3 times a day, # 270 capsule, Refills 1, Tot. Refills 1, Maintenance,01/08/23 15:31:00 EDT, [facility] to [facility], [id number], Partial fill upon patient request if the [...] Reference Physician Member Role: PCP Address: Address: [address] [place] [address]- Care Team Related Persons Name: CHRISTIE MENDOZA Address: home [address] [place] [address]
--- OUTSIDE RECORDS SUMMARY | 2024-04-12 11:08 | XMS_ITS | Continuity of Care Document ---
Author Organization [facility] Address [address] [place] [address]- Care Team Providers Care Medical Office Assistant Name Role Phone Jeanne JHAVERI, Gloria Lutz Primary Care Physician [phone] [id number] - 04/17/[address] [address] Attending Physician: Not on Staff, Attending [...] 3 Refills, Maintenance, 06/16/22 10:13:00 EDT, Tablet, [facility] #[id number], Partial fill upon patient request if the [...] 02/08/23 2:49:00 EDT, Capsule, [facility] #[id number], Partial fill upon patient request i... Start [...] Physician Member Role: PCP Address: Address: [address] [place] [address]- Care Team Related Persons Name: CHANELLE MONZON Address: [employer] Address: home [address] [address] Name: CHRISTIE MENDOZA Address: home [address] [place] [address]
--- OUTSIDE RECORDS SUMMARY | 2024-04-12 11:08 | XMS_ITS | Continuity of Care Document ---
Author Organization [facility] Address [address] [place] [address]- Care Team Providers Care Sales Support Administrator Name Role Phone Jeanne JHAVERI, Gloria Lutz Primary Care Physician [place] [facility] [place] Date(s): 07/08/22 - 08/07/22 [facility] [address], [place] [address] Allergies, Adverse Reactions, Alerts Substance Reaction Severity Status Cats Active Pollen Active Medications multivitamin, Multivitamins oral tablet, chewable 1 tablet, Chew, Daily, # 90 tablet, 2 Refills, Maintenance, 07/31/22 12:52:00 EST, Chew Tablet, [facility] #[id number], Partial fill upon patient request if the prescription is for a schedule IIopioid drug., 1 tablet Chew Daily, 158.5, cm, 07/08... Start Date: 07/31/22 Status: Ordered Multivitamins with Folic Acid 1 mg oral tablet 1 tablet, By Mouth, Daily, # 90 tablet, 2 Refills, Maintenance, 06/19/22 9:03:00 EDT, [facility] #[id number], Partial fill upon patient request if the prescription is for a schedule II opioid drug., 1 tablet By Mouth Daily, 158.5, cm, 06/19/22 8:... Start Date: 06/19/22 Status: Ordered Multivitamins with Folic Acid 1 mg oral tablet 1 tablet, By Mouth, Daily, # 90 tablet, 3 Refills, Maintenance, 06/16/22 10:13:00 EDT, Tablet, [facility] #[id number], Partial fill upon patient request if the [...] Reference Physician Member Role: PCP Address: Address: [address] [place] [address]- Care Team Related Persons Name: CHRISTIE MENDOZA Address: [address] [address]
--- OUTSIDE RECORDS SUMMARY | 2024-04-12 11:08 | XMS_ITS | Continuity of Care Document ---
Author Organization [facility] Address [address] [place] [address]- Care Team Providers Care Sale Professional Digital Marketing Name Role Phone Jeanne JHAVERI, Gloria Lutz Primary Care Physician En[facility] [id number] Date(s): 03/18/23 - 04/17/[address] [address] Attending Physician: Allison Madsen Admitting Physician: Allison Madsen Referring Physician: AdmtrAllison Allergies, Adverse Reactions, Alerts Substance Reaction Severity [...] 3 Refills, Maintenance, 06/16/22 10:13:00 EDT, Tablet, [facility] #[id number], Partial fill upon patient request if the [...] 02/08/23 2:49:00 EDT, Capsule, [facility] #[id number], Partial fill upon patient request i... Start [...] Reference Physician Member Role: PCP Address: Address: [address] [place] [address]- Care Team Related Persons Name: CHANELLE MONZON Address: [employer] Address: home [address] [facility] [address] [place] [address] Name: CHRISTIE MENDOZA Address: home [address] [place] [address]
--- OUTSIDE RECORDS SUMMARY | 2024-04-12 11:08 | XMS_ITS | Continuity of Care Document ---
Author Organization [facility] ter Address [address] [place] [id number]- Care Team Providers Care Catalyst Supervisor Name Role Phone Jeanne JHAVERI, Gloria Lutz Primary Care Physician [phone] [place] [facility] [place] - 02/08/[address] [address] Discharge Disposition: A-D/C Home Attending Physician: Maddy Mosley DO Admitting Physician: Maddy Mosley DO Referring Physician: Maddy Mosley DO Allergies, Adverse Reactions, Alerts Substance Reaction Severity Status Cats Active Pollen Active Medications Acetaminophen Tablet 650 mg, Tablet, By Mouth, Every 4 hours, PRN for Pain , Mild, (1-3), may give 325mg per patient preference and re-dose with 325mg within 4 hours, if needed. Patient should only receive a total of 650mg of Acetaminophen every 4 hours., Routine, 02/06... Start Date: 02/06/23 Stop Date: 03/08/23 Status: Ordered cephalexin monohydrate 500 mg oral capsule 1 capsule = 500 mg, By Mouth, Daily at bedtime, for 30 days, # 30 capsule, 1 Refills, Acute 03/28/23 12:08:00 EDT, 01/27/23 12:08:00 EDT, Capsule, [facility] #[id number], Partial fill upon patient request if the [...] 3 Refills, Maintenance, 06/16/22 10:13:00 EDT, Tablet, [facility] #[id number], Partial fill upon patient request if the [...] 0 Refills, Maintenance, 02/08/23 2:49:00 EDT, Capsule, [facility] #[id number], Partial fill upon patient request i... Start Date: 02/08/23 Status: Ordered Problem List Condition Confirmation Course Effective Dates Status Health St atus Informant Cholestasis of Confirmed Active History of COVID- - September 2021 Confirmed Active Obese class I Confirmed Active Vital Signs Most recent to oldest [Reference Range]: 1 2 3 Height 155 cm (02/08/23 12:00 AM) 155 cm (02/07/23 4:55 PM) 155 cm (02/07/23 7:40 AM) Weight 83 kg (02/05/23 10:06 PM) 83 kg (02/05/23 10:06 PM) 83.0 kg (02/05/23 8:11 PM) Oxygen Saturation [94-100 %] 99 % (02/08/23 9:05 AM) 100 % (02/08/23 12:00 AM) 98 % (02/07/23 1:30 AM) Pulse Rate [55-90 bpm] 72 bpm (02/08/23 5:15 PM) 79 bpm (02/08/23 9:05 AM) 96 bpm *H* (02/08/23 12:00 AM) Body Mass Index [18.5-24.99 kg/m2] 34.55 kg/m2 *>HHI* (02/05/23 10:06 PM) Blood Pressure [90-138/55-84 mm Hg] 115/68mm Hg (02/08/23 5:15 PM) 124/72mm Hg (02/08/23 9:05 AM) 115/71mm Hg (02/08/23 12:00 AM) Respiratory Rate [16-30 br/min] 18 br/min (02/08/23 12:04 AM) 18 br/min (02/08/23 12:00 AM) 18 br/min (02/07/23 5:14 PM) Temperature [96.8-100.4 DegF] 98.6 DegF (02/08/23 9:05 AM) 98.0 DegF (02/08/23 12:00 AM) 97.8 DegF (02/07/23 4:55 PM) Mode of Delivery (Oxygen) Room air (02/08/23 9:05 AM) Room air (02/08/23 12:00 AM) Blood pressure sites Arm, right (02/08/23 5:15 PM) Arm, left (02/08/23 9:05 AM) Arm, right (02/05/23 10:06 PM) Temperature Route Oral (02/08/23 9:05 AM) Oral (02/08/23 12:00 AM) Oral (02/07/23 4:55 PM) Dry Weight 83 kg (02/05/23 10:06 PM) 83.0 kg (02/05/23 8:11 PM) Weight Obtained Via Standing scale (02/05/23 8:11 PM) Dry Weight Obtained Via Standing scale (02/05/23 8:11 PM) Social History Social History Type Response Smoking Status Never (less than 100 in lifetime) entered on: 06/19/22 Sex History and physical note * Renetta Morrow MD: PERFORM Event Display: History and Physical Hospital Authored Date: Patient: ??MP, JAMEEL ? Age:??23 Years?Sex:??Female?:??2000?? OB Reason for Admission OB Reason for Admission Reason for admission: Labor LMP/EGA/SUSAN Gestational Age (EGA) and SUSAN? * Note: EGA calculated as of 02/05/2023 ?? SUSAN:??02/19/2023?EGA*:??38 weeks ? History?(0,0,0,0)?Method:??Ultrasound??(07/08/2022) History of Present Illness Jameel is a??23 yo @??38w0d gestation??presenting in labor with ruptured membranes at 1745 (meconium stained). She also reports contractions ~every 5 minutes following SROM. She denies vaginal bleeding. Endorses good movement. Denies fever/chills, NAVARRO, dizziness, changes in vision, CP, SOB, RUQ pain, UE/LE swelling. Review of Systems Constitutional:??No fever, chills, or fatigue. HEENT:??No changes in vision, sneezing, congestion, runny nose or sore throat. Skin:??No rash or itching. Cardiovascular:??No chest pain. Respiratory:??No shortness of breath. Gastrointestinal:??No abdominal pain, anorexia, nausea/vomiting, constipation/diarrhea. Genitourinary:??No burning micturition, urinary frequency or incontinence. Gynecologic: No vaginal bleeding, vaginal discharge, or vaginal itching. Neurologic:??No headaches. Musculoskeletal:??No muscle pains. Psychiatric:??No depression or anxiety. Physical Exam Vitals & Measurements T:??98.4?F?? HR:??120??(Monitored)?? RR:??18?? BP:??116/72?? SpO2:??99%?? HT:??155??cm?? WT:??83.0??kg?? Constitutional:??Well-developed, no acute distress. Respiratory:??No labored breathing.? Cardiovascular:??Regular rate and rhythm.? Abdomen/GI:??Gravid. Gynecologic:?External Genitalia: Normal exam, without lesions. ??Vagina: No lesions, well-rugated. ??Cervix: Normal exam, no lesions. Extremities:??Warm and well-perfused.?? Skin:??Normal for ethnicity. Neurological/Psychiatric:??Appearance appropriate, mood and affect stable. Presentation confirmed by:??Vertex by US SROM Check: - Positive fern test - Positive nitrazine OB Assessment Baby A Baseline:140 Baseline Description:Normal, 110-160 bpm Baseline Variability:Moderate variability Membranes ROM Date, Time:02/05/2023 17:50 EDT Amniotic Fluid Amount:Moderate Amniotic Fluid Color/Description:Meconium Cervical Estimated Weight:3700 gm Membrane Status:SROM Uterine Monitor Mode, UterineExternal Cervical Cervical Dilatation3 cm Cervical Zreorvzmxc83% Station-4 Assessment/Plan Assessment:??23 yo @ 38w0d gestation admitted in labor following SROM at 1745 (meconium stained) on 02/05. GBS positive, starting PCN. complicated by pyelonephritis and suspected cholestasis, currently asymptomatic for both conditions. Plan to admit??for augmentation??with Pitocin.??Cat I tracing. ?? OB team notified. ?? Labor without complication (O80):? - Expectant management - CEFM - Pain control: Eventually desires an epidural - Low risk PPH - Re-eval in 2 hrs or prn ?? - PPBC: Nexplanon - Baby boy, ( ) circ ?? Positive GBS test (B95.1):? - Starting PCN ?? Anemia in (O99.019):?? 01/17/23: 10.6/32.6 (noted while inpatient) no supplementation initiated (p) H/H on admission ?? Acute vaginitis (N76.0):?? 01/27: + BV and yeast 02/03: On day 3 of yeast treatment, has not yet started treatment for BV ?? Itching of both hands (L29.9):?? 12/30/22: Itching to hands and feet, itching it most intense at night (x) Cholestasis labs completed, T bile acids 1.4 - Prescribed Ursodiol TID, however patient reports she never took the medication 01/27: Itching had resolved ?? rhinitis (O99.519):?? 09/14/14:??Patient??states always has a problem with her nose x 4.5yrs - States was told a year ago she needed surgery, has to wait now that she is - Pt states she saw ENT recently, had a camera in nose and throat and everything was fine, but hadphlegm build up - States at night time she has a coughing attack for hours, lots of mucus and starts to wheeze?? 11/13: PCP ordered albuterol inhaler prn ?? (Z33.1):?? Pap neg, gc/ct neg 07/08/22 FTS neg Declined flu and covid vaccines, advised high risk due to , call if ever positive covid orflu survey - posterior placenta, 3VC, 3.9 cm cervix Male fetus 28 week labs WNL EPDS 28 weeks: 2 tdap 28wks ?? Pyelonephritis (N12):?? Inpt: 01/15-01/18 IV Ceftriaxone, fluids, oxycodone 01/15: WBC 20.4, 01/17: 11.3 - Amoxicillin 875mg BID x10 days prescribed at discharge 01/27/23: Plan to initiate daily Keflex for remainder of for suppressive therapy after completion of amoxicillin, reviewed with pt 01/27: Urine cx no growth 02/05: Patient reports she started Keflex yesterday ?? OB History History?(0,0,0,0)?No previous pregnancies history have been recorded Labs Labs Labs & Tests ABO: A (06/19/22) Antibody Screen: Negative (06/19/22) Bile Acids Total: 3 (02/03/23) Chlamydia Trachomatis Amplified Probe: NEGATIVE (08/29/22) Creatinine-Blood: 0.5 mg/dL (01/17/23) Down Syndrome Age Risk FTS: Age Risk: (08/05/22) Down Syndrome Scrn Risk FTS: Screening Risk: (08/05/22) Glucose 50 Gm, +60 Minutes: 130 mg/dL (12/02/22) Hct:??32.6 %??Low (01/17/23) Hemoglobinopathy Interpretation: Normal hemoglobins. (06/19/22) Hepatitis B Surface Antigen: NEGATIVE (06/19/22) Hepatitis C Ab: NEGATIVE (06/19/22) Hgb:??10.6 Gm/dL??Low (01/17/23) HIV 4th Generation Ab-Ag Result: NEGATIVE (06/19/22) RH Test Only: Positive (06/19/22) RPR Titer Result: NOT INDICATED (12/02/22) Rubella IgG Ab: POSITIVE (06/19/22) Syphilis Screen by VINICIUS: NEGATIVE (12/02/22) Trisomy 18 Scrn Risk FTS: Screening Risk: (08/05/22) Urine Culture: Urine Culture (01/27/23) Varicella IgG Ab: POSITIVE (06/19/22) Problem List Active Active Problem List Cholestasis of : (Medical) History of COVID-19 ??- September 2021: (Medical) Obese class I: (Medical) : (Obstetric) (04/18/22) Procedure/Surgical History No qualifying data available. Home Medications Albuterol: Inhalation, Every 6 hours APAP/diphenhydramine/phenylephrine: 20 mL, By Mouth, Every 4 hours Cephalexin: 500 mg = 1 capsule, By Mouth, Daily at bedtime Metronidazole: 500 mg = 1 tablet, By Mouth, Every 12 hours Multivitamin, : 1 tablet, By Mouth, Daily Allergies Cats Pollen Social History Alcohol Use: Socially - last week nit drinking in . Electronic Cigarette/Vaping Electronic Cigarette Use: Use, within last 90 days. Type: Nicotine infused. Number of Years: 1. Employment/School Status: Employed. 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 Exercise Self assessment: Good condition. Home/Environment Living situation: Home/Independent. Lives with: Mother. Nutrition/Health Diet: Regular. Sexual Sexually involved in last 6 months: Yes. Gender identity: Identifies as female. Self described orientation: Straight or heterosexual. Substance Abuse Use: Current. Type: Marijuana. Other: Last on May - stopped due to . Tobacco Use: Never (less than 100 in lifetime). Family History Mother: Thyroid Father: Negative Plan OB Plan Circumcision Plan: Before discharge (02/05/23) Feeding Plan: Breast milk (02/05/23) Labor Coping Mechanisms: Epidural (02/05/23) * Yina Knight MD: PERFORM Event Display: History and Physical Hospital Authored Date: Attending Attestation:??I have seen and evaluated this patient. ??I have discussed the case and itsmanagement with the resident and agree with the findings and plan as documented in the resident???snote. Hospital Progress note * Kelin Edwards RN: PERFORM, SIGN, VERIFY Event Display: Progress Note Hospital Authored Date: [id number] Patient: JAMEEL GRESHAM Age: 23 years Sex: Female : 2000 Associated Diagnoses: None Author: Kelin Edwards RN Color [place], cry activity good, + voids, + stools, baby , mom hand expressing and syringe feeding supplementing with formula, Seen by . mom caring for appropriately. Willassist with as needed. * Kelin Edwards RN: PERFORM, SIGN, VERIFY Event Display: Progress Note Hospital Authored Date: Patient: JAMEEL GRESHAM Age: 23 years Sex: Female : 2000 Associated Diagnoses: None Author: Kelin Edwards RN Assume patient care at change of shift. Patient alert and oriented x3, Patient ambulating ab [place]. Lungs sounds clear bilaterally. Bowel sounds active x4, Pt reports last bowel movement on 02/07. Taking 100mg of Colace. Patient voiding without difficulty, using tucks for rajiv care. Fund firn -1, mildbleeding no clots noted. Pt reports pain will controlled with current pain medication regime. Patient having difficulty latching to breast, supplementing with formula at time, hand expressingand syringe feeding . Seen by . Patient will be discharge today pending on baby, waiting for circumcision. Will continue to monitor, call garcia at reach. * Gianna Ang RN: PERFORM, SIGN, VERIFY Event Display: Progress Note Hospital Authored Date: [id number] Patient: JAMEEL GRESHAM Age: 23 years Sex: Female : 2000 Associated Diagnoses: None Author: Gianna Ang RN vital signs stable.fundus firm with mild lochia..pt with minimal assistance.pt oob tothe bathroom without difficulty.voiding qs.pt bonding with infant .will continue teaching and emotional support.pain well controlled with ibuprofen and tylenol Note * Marlen Chinchilla: PERFORM Event Display: Care Team Progress Note Authored Date: [id number] Patient: ??MP, JAMEEL ? Age:??23 Years?Sex:??Female?:??2000?? Assessment/Plan Mom states that baby was fussy overnight, fed 25ml formula at 0900 and hand expressed 2 syringes ofcolostrum. Mom states that her pump hurt. Flanges look larger than 25mm Assisted in obtaining a medela PISA from insurance. flange of 24 fit better. Encouraged parents to use paced bottle feeding and smaller amounts if they continue to formula feedwith pumping at those times for stimulation for supply. Reviewed how the body makes milk. Encouraged to feed EBM after circ and attempt at breast but that baby may be sleepy. Plan: keep trying at breast,?? use shield as baby fed better yesterday with shield, pump if taking feeds that are not at breast. Adequate stimulation is 8 or more times in 24 hours if exclusively pumping OB Summary : 1 . Baby A - Weight: 3.273 kg Baby A - Date, Time of : 02/06/23 18:33:00 Baby A - Gender: Male Baby A - Complications: None EGA at Documented Date, Time: 38W 1D Weight at Delivery Baby A - Delivery Type: Vaginal Delivery Complications: None OB History History?(0,0,0,0)?No previous pregnancies history have been recorded Active Problem List Active Problem List Cholestasis of : (Medical) History of COVID-19 ??- September 2021: (Medical) Obese class I: (Medical) : (Obstetric) (04/18/22) Home Medications Acetaminophen: See Instructions, PRN (as needed for pain), 2 capsule (650 mg) taken By Mouth Every 4 hoursnot to exceed 4000 mg/day Albuterol: Inhalation, Every 6 hours Cephalexin: 500 mg = 1 capsule, By Mouth, Daily at bedtime Ibuprofen: See Instructions, PRN (as needed for pain), 1 tablet taken By Mouth Every 6 hoursnot to exceed 3200 mg/day Multivitamin, : 1 tablet, By Mouth, Daily Medications Medications (9) Active SCHEDULED: (3) Cetirizine 5 mg / 5mL Syrup (UD) (Cetirizine Liquid) ??10 mg 10 mL, By Mouth, Daily Etonogestrel 68 mg Implant (Nexplanon 68mg SQ Implant) ??68 mg 1 each, Intradermal, on call to Procedure Multivitamin Tablet ( Multivitamin Tablet) ??1 tablet, By Mouth, Daily CONTINUOUS: (0) PRN: (6) Acetaminophen 325 mg Tablet (Acetaminophen Tablet) ??650 mg, By Mouth, Every 4 hours Albuterol 90mcg/Inhalation Inhaler HFA (albuterol CFC free 90 mcg/inh inhalation aerosol) ??180 mcg2 puffs, Inhalation, Every 4 hours Calcium Carbonate 500 mg (Calcium 200 mg) Chewable Tablet (Tums 500 mg Tablet) ??1,000 mg 2 tablet,Chew, 3 times a day Docusate Sodium 100 mg Capsule (Docusate Sodium Capsule) ??100 mg 1 capsule, By Mouth, 2 times a day Ibuprofen 800 mg Tablet (Ibuprofen Tablet) ??800 mg, By Mouth, Every 8 hours Ondansetron 2mg/mL Inj (2mL Vial) (Ondansetron Inj) ??4 mg, IV Push, Every 8 hours * Keyonna Rivers RN: PERFORM Event Display: Discharge/Transfer Note Hospital Authored Date: Nursing Discharge Note Entered On: 02/08/2023 21:58 EDT Performed On: 02/08/2023 21:57 EDT by Keyonna Rivers RN Nursing Discharge Note 2 Discharge Time : 02/08/2023 21:40 EDT Discharge Level of Care at Discharge : Home/Halfway/Foster Care Patient Left Unit Via : Ambulatory Patient Accompanied Off Unit with : Significant other, Other: [place] Instructions Provided & Signed by Pt : Yes Patient Understands D/C Instructions : Yes Patient Instructions Discharge Signed : Yes Did Pt have Specialty Bed or Wound Vac : No Keyonna Rivers RN - 02/08/2023 21:57 EDT * Negrita Zapien MD: PERFORM Event Display: Discharge/Transfer Note Hospital Authored Date: [id number] Patient: ??MP, JAMEEL ? Age:??23 Years?Sex:??Female?:??2000?? Admit Date Admission Date: 02/05/2023 Discharge Date 02/08/23 OB Reason for Admission OB Reason for Admission Reason for admission: Labor [place] [facility] Course 23 yo @??38w0d gestation??admitted??in labor following SROM at 1745 (meconium stained) on 02/05. She proceeded to have an uncomplicated of a healthy baby boy, no repair required. Remaining hospital course was uncomplicated. On day of discharge, patient meeting appropriate milestones and appropriate for discharge to home. ?? Patient is feeling well with no acute concerns. States her pain is well controlled with PO pain medications. Her lochia is??infectious disease technician than a normal period. She is ambulating, voiding spontaneously, and tolerating regular diet. Denies fever, chills, chest pain, shortness of breath,??persistent headache, vision changes, RUQ pain, calf tenderness, nausea, vomiting, or other??acute concerns.??Mood is??appropriate and she is bonding well with her baby. Patient??reports that she has a??good support system at home. Objective/Physical Exam on Day of Discharge Vitals & Measurements T:??98.0?F?? HR:??96??(Peripheral)?? RR:??18?? BP:??115/71?? SpO2:??100%?? HT:??155??cm?? WT:??83??kg?? WT:??83??kg?? BMI:??34.55?? Constitutional:??No acute distress, resting comfortably. Respiratory:??Normal work of breathing. Breathing comfortably on room air. Cardiovascular:??No signs of fluid overload. Abdomen/GI:??Soft, non-distended, no guarding, no rebound tenderness.??Fundus firm below umbilicus with mild tenderness. Gynecologic:??Minimal lochia. No swelling or hematoma. Extremities:??No calf tenderness or edema. Skin:??No rash or jaundice. Neurological/Psychiatric:??Mood and affect congruent and stable. Assessment/Plan/Discharge Diagnosis state (Z39.2):? - Continue routine care - Diet: Regular - Pain control: Ibuprofen & Tylenol - Encourage ambulation - Expected discharge PPD2 - PPBC: desires Nexplanon at PPV - Feeding plan: breast - Circumcision: desired ?? Acute vaginitis (N76.0):??01/27: + BV and yeast 02/03: On day 3 of yeast treatment, has not yet started treatment for BV ?? Anemia in (O99.019):??01/17/23: 10.6/32.6 (noted while inpatient) no supplementation initiated - H/H .6 ?? Delivery Summary Delivery Summary Maternal Information ??Labor Information ?Baby A ?Labor Onset Methods: ??Spontaneous, Augmented ?Augmentation Methods: ??Oxytocin infusion ??Delivery Information ?Gestational Age at Delivery: ??38W 1D ?Anesthesia OB: ??Epidural ??02/06/23 20:52:22, Epidural, Other: replacement ??02/06/23 07:20:33, Epidural ??02/06/23 02:21:31 ?Obstetrical Laceration: ??Perineum intact, Labial laceration ?Labial Laceration: ??Bilateral ?Delivery Complications: ??None ?Blood Loss(ml): ??200 mL ? Baby A ??Delivery Information ?Delivery Type: ??Vaginal ?Date, Time of : ??02/06/23 18:33:00 ? Position: ??Supine ?Foot of bed removed: ??Yes (Modified) ?Placenta Delivery Date/Time: ??02/06/23 18:38:00 ?Placenta Delivery Method: ??Expressed ?Placenta Appearance: ??Normal ?Placenta to Pathology: ??No ??Care Team ?Attending Provider: ??Hieu VALADEZ, Yossi Stein ?Delivery Physician: ??Alyssa GALLAGHER, Fredis ?blind cleaner #1: ??Bipin FRYE, Oliva ?blind cleaner #2: ??Thanh FRYE, Tanna ?Change Release Manager: ??Argelia Gibbons DO ?Anesthesiology Attending: ??Emperatriz Andre MD ?Time NICU Team Called: ??02/06/23 18:25:00 ??Labor Information ?ROM Date, Time: ??02/05/23 17:50:00 ? monitoring: ??External monitor ?? Information ? Position: ??Occiput anterior ? Weight: ??3.273 kg ? Score 1 minute: ??7 ? Score 5 minute: ??9 ? Score 10 minute: ??9 ?Transferred To: ?? Care area with Family ?Umbilical Cord Description: ??3 vessel cord ? Complications: ??None ?Gender: ??Male ? Procedures Performed Epidural Vaginal delivery ?? Discharge Medications ???Acetaminophen (Tylenol 325 mg oral capsule)???Albuterol (ProAir HFA)???Cephalexin (cephalexin monohydrate 500 mg oral capsule)???Ibuprofen (ibuprofen 600 mg oral tablet)???Multivitamin, ( Multivitamins with Folic Acid 1 mg oral tablet) Stop taking these medications ???APAP/diphenhydramine/phenylephrine (Robitussin Maximum Strength Severe 650 mg-25 mg-10 mg/20 mL oral liquid)???Metronidazole (metroNIDAZOLE 500 mg oral tablet) Contraception ??Nexplanon at??PPV ? Infant Feeding Method No Results Patient Education Titles After a Vaginal ?? Follow-Up Appointments Added Follow Up ?Time Frame ?Comments [facility] [phone] Weeks?Our office will reach out to you with appointment date and time. Patient Instructions Discharge:??Home ?? Please call the office with any concerns including:?? Heavy vaginal bleeding?? Fever of 100.4 or greater Foul-smelling vaginal discharge Difficulty or burning with urination Nausea and vomiting with inability to tolerate food Pain not controlled by the medications listed below Shortness of breath or chest pain. Swelling of the extremities. ?? General Instructions: - Avoid lifting anything 15 lbs or greater until cleared by doctor. - Stairs are OK but avoid multiple trips/ skipping steps and go slowly. - Walk as often as you are able. - Do not put anything in the vagina. No intercourse, tampons, or douching - For pain, you can use pvlx-sif-myqrglm medicines:??Tylenol (acetaminophen, up to 1000mg every 6 hours) and ibuprofen (up to 600mg every 6 hours) - Continue using stool softeners as needed??(examples: colace/docusate, senna, miralax) - Shower as usual. Avoid tubs / soaking / pools. ?? Thank you for allowing us to be part of your care team. * Kelin Edwards RN: PERFORM Event Display: Patient Education/Instruction Authored Date: [id number] Inpatient Adult Discharge Instructions [address] [address] Name: JAMEEL GRESHAM : 2000 Visit: 02/05/2023 21:24:00 Current Date: 02/08/2023 09:52 Account: [id number] Inpatient Adult Discharge Instructions We would like [...] and their families. Surveys are administered by [employer] ?? If further treatment with your primary care physician or another doctor is recommended, it is important for you to keep the appointment. Call your primary care physician or return to the Emergency Department immediately if your condition worsens, fails to improve, or new symptoms develop. If you need to find a doctor, you can call [facility] [employer] for a referral at [phone] or toll free at [phone]) or log in to [email or web address] ?? You can view and manage your care through the patient portal or by using a health care jazmin of your choosing. [employer] is a website that allows you to securely view your medical information including your hospital discharge summary, office visit summaries, medications and follow-up visits. You can also request appointments, renew medications, and request access to your medical information using a health care jazmin of your choosing, or just ask a question. You can enroll at [email or web address] or register during your next office visit. You have been discharged from [facility], Patient Care Unit: [facility]. If you have any questions regarding these instructions after you leave, please call us and we will be happy to assist you. [facility] Your Care Team Attending Physician Maddy Mosley DO Consulting Providers Aniyah Ramirez MD Discharging Providers Negrita Zapien MD Reason for Your Visit Labor Your Diagnosis Acute vaginitis Anemia in Itching of both hands Labor without complication Positive GBS test state rhinitis Pyelonephritis Tests Performed Below is a partial list of the tests performed during your hospitalization. You may have had other tests and procedures not included in this list. Please discuss all test results with your provider. CBC Type and Screen Primary Care Provider Gloria Angel NP Advance Directive Patient has a Designated Caregiver: No Discharge Vitals Temperature: 98.6 DegF Height: 155 cm Pulse Rate: 79 bpm Weight: 83 kg Respiratory Rate: 18 br/min Weight: 83 kg Systolic Blood Pressure: 124 mm Hg Body Mass Index:??34.55 kg/m2??Critical Diastolic Blood Pressure: 72 mm Hg Body surface area: 1.89 Oxygen Saturation: 99 % ?? Studies Pending All tests and labs ordered during this hospital stay have been completed unless listed below. Please discuss all pending results with your provider listed above in these instructions. ?? No incomplete studies found What to do next Instructions From Your Doctor Discharge:??Home ?? Please call the office with any concerns including:?? Heavy vaginal bleeding?? Fever of 100.4 or greater Foul-smelling vaginal discharge Difficulty or burning with urination Nausea and vomiting with inability to tolerate food Pain not controlled by the medications listed below Shortness of breath or chest pain. Swelling of the extremities. ?? General Instructions: - Avoid lifting anything 15 lbs or greater until cleared by doctor. - Stairs are OK but avoid multiple trips/ skipping steps and go slowly. - Walk as often as you are able. - Do not put anything in the vagina. No intercourse, tampons, or douching - For pain, you can use [id number]-[id number] medicines:??Tylenol (acetaminophen, up to 1000mg every 6 hours) and ibuprofen (up to 600mg every 6 hours) - Continue using stool softeners as needed??(examples: colace/docusate, senna, miralax) - Shower as usual. Avoid tubs / soaking / pools. ?? Thank you for allowing us to be part of your care team. Discharge Orders Instructions from your Care Team Discharge Care Instructions for the New Mom?? Please take a few moments to read through these helpful instructions before you leave the hospital.??Your nurse will be glad to answer any questions you may have. ??You can also find this and more information throughout the purple??Becoming a Family??booklet,??[facility]???[facility] New Beginnings Guide??and the?? Consultation Services Guide??given to you after the of your baby. ??You may also phone our nurses stations if you have further questions. ??[facility]: ??First Floor ([phone]). ?? Please call your provider if you have any questions or concerns ??before your next appointment. For ongoing support??please?Like?us on our Facebook page?[facility]???[facility] New Beginnings?and sign up for our email newsletter at??[email or web address]. ??News and information will be sent to you??until your baby???s third birthday. Instructions for the New Mother Activity:?? For the next 2 weeks at home?no heavy lifting, avoid unnecessary stair climbing, and no driving (especially if you are taking medicine that may make you sleepy or feel that you are sleep deprived). ?? For the next 4-6 weeks - no tampons, no douches, no sexual intercourse. Use your rajiv bottle to rinse your perineum until your vaginal flow stops. ??If you have stitches in your bottom, they generally dissolve within 7-10 days. ??Apply Tucks/witch santi pads until your soreness subsides. ??Use your bathroom at home every 3 to 4 hours, rinse, and change your pads. Warm showers feel great on achy muscles, sore backs and sore bottoms. Exercise: Walking is the best form of exercise. ??Wait until your follow up appointment with your provider in4-6 weeks before engaging in more strenuous activity. Diet: Drink plenty of fluids to avoid constipation and to help support your recovery. Eat plenty of iron rich foods such as red meat, iron fortified cereals like Total and Cream of Wheat, raisins, prunes, greens and spinach. ??These will help to build your blood count back up as all women lose some blood after delivery. ??Also add foods rich in Vitamin C such as strawberries, oranges, papayas, kale and garcia peppers. Continue to take your vitamins if you are . ??If you are not follow the instructions of your provider. ??If you were prescribed iron supplements such as ferrous sulfate, it is important to continue these until your doctor or skilled nursing facility counselor tells you to stop. Breast Care for Nursing Mothers: Wear a comfortable fitting, supportive nursing bra. ??An underwire bra is not recommended. Express drops of breast milk and rub over your nipples and areola (brown area) before and after each feeding to protect and heal sensitive skin and then air dry your nipples. ??If you are experiencing any soreness, you may purchase nipple cream such as TenderCare or Lansinoh. ??Use it in the following manner: ??finish your feeding or pumping session, self-express colostrum onto your nipple and air dry, apply the nipple cream to the nipple and areola. ??Use only small amounts for best results. If you are having difficulty getting the baby to latch onto the breast due to swelling of the areola, try applying pressure with your fingers for a couple of minutes above and below your nipple and walk your fingers outward softening the area and pushing the swelling away. ??This technique is knownas reverse pressure softening. ??For demonstrations of this and other techniques such as the [place] Hand Expression technique, please refer to the resources section of the Consultation Services Guide that you received from services.?? When your milk first comes in, usually within 3 to 5 days after delivery, you may experience engorgement. ??Your breasts may become swollen and very tender. ??Cold compresses work great to help with discomfort and reduce swelling. It will get better in a couple of days. ??Continue to nurse your baby frequently. ?? Call [facility]???s Consultation Service at [phone], press 1 to schedule an outpatient appointment or press 3??and a diet consultant will return your call that day or the next if you call after 3pm. ?? Breast Care for Bottle Feeding Mothers: Engorgement may occur within the first week after delivery. ??Your breasts may become hard and verytender. ??A cool compress of cleaned raw green cabbage leaves applied to the breast and changed as leaves wilt has been proven helpful for many women. ??Ice packs or frozen bags of peas also work nicely to ease the discomfort. ??The soreness will only last a couple of days. Keep your back turned to the water while showering to decrease breast stimulation. Wear a snug fitting bra such as a sports bra. ?? Control: Your doctor or skilled nursing facility counselor will discuss control methods with you when you are discharged from thespital or at your checkup. ??Be sure to let your provider know if you are . ?? Pain Management: Cramping after is common and increases in strength with each baby you have. ??If you experience painful cramps, and have no allergies to acetaminophen (Tylenol) or ibuprofen (Motrin), you may continue to take these medications as you did in the hospital. ??Ibuprofen is also helpful with back aches following epidurals, perineal pain following a vaginal delivery, and moderate incisional pain after a section or a tubal ligation. ?? If you experience gas distention, especially after surgery, you may take an over the counter medication called simethicone. ??Take these chewable tablets 4 times a day as needed and directed on the package. ??Keep moving. ??Walking or rocking in a chair, will help to move the gas along. ??Guy tea made with heated guy billy (instead of water) and a tea bag, stirred to dissolve carbonation (bubbles) is a helpful drink to soothe a gassy stomach. ?? Warning Signs of a Problem to Notify Your Doctor or Third Loader of: Heavy vaginal bleeding?which is??soaking a pad every hour??with bright red blood. Passing blood clots the size of an egg or larger. An incision that is not healing. A temperature greater than or equal to 100.4 especially if accompanied by any of the following symptoms?painful, frequent urination; extreme back or flank pain; lower belly pain with a foul smell to your vaginal flow; a red hard hot area on your breast. ?? Severe headache that does not go away after taking acetaminophen or ibuprofen. ?? A headache that changes your vision, including seeing spots or blurring. Right sided upper abdominal pain along the rib cage area. Pain in your legs that is warm and tender to the touch. depression signs may include?loss of interest in your baby, weepiness, difficulty focusing, weight loss with no appetite, exhaustion, feeling overwhelmed or anxious, feelings??of despair, or thoughts of harming yourself or your baby. ??These symptoms are important and should be discussed with your doctor or skilled nursing facility counselor. depression may develop over a period of time and needs prompt medical attention. ??Do not suffer in silence. ??In both the??Becoming a Family??booklet and the??[facility]??New Beginnings Guide??there is a screening tool used to identify women at risk, called the [place] Scale which you have taken in the office prior to delivery and again during your ho spital stay. ??Three to four weeks after your delivery, and before your check with your provider, take this test and share your results with your provider. ??Be sure to mention any score of 10 or more. ?? Many women, and even some partners, may experience the?baby blues?? . ??This is a state of feeling overwhelmed and weepy. ??Discomfort from childbirth, hormonal changes, exhaustion, changes to your body and lifestyle are a few of the things that contribute to the highs and lows new parents go through. ??Don???t be afraid to ask your partner or family and friends for some help at home so you can get some rest and a few minutes to yourself. ??The blues will quickly pass. Personal Safety: Every person has the right to feel safe at home and live free from physical or emotional harm. ??Ifyou have suffered mental or physical abuse at home, you are not alone. ??There is help. ??Please call HOTLINE or the [facility] Program at [phone]. Scheduled Follow-Up Appointments Wednesday 8:20 AM EDT ?? With: Shelbie Rodríguez CNM Where: [facility] [employer] [address] [place] [address]- Status: Pending Wednesday 8:40 AM EDT ?? With: Shelbie Rodríguez CNM Where: [facility] [employer] [address] [place] [address]- Status: Pending You Need to Schedule the Following Appointments Follow Up with??[facility] [phone] When:??In 6 weeks Why: Our office will reach out to you with appointment date and time. Discharge Medications JAMEEL GRESHAM :2000 Visit Date:02/05/2023 Medications: Please continue your medications until treatment is completed or stopped by your provider. Medications not listed below should be discontinued. Discuss any questions related to medications with your provider. What How Much When Why Instructions Next Dose Unchanged Acetaminophen (Tylenol 325 mg oral capsule)See instructions 2 capsule (650 mg) taken By Mouth Every 4 hours not to exceed 4000 mg/ day, As needed for as needed for pain ?? Pickup at [facility] #[id number] Unchanged Albuterol (ProAir HFA) Inhalation Every 6 hours Unchanged Cephalexin (cephalexin monohydrate 500 mg oral capsule) 1 capsule Oral Daily at Bedtime Duration: 30 Days Unchanged Ibuprofen (ibuprofen 600 mg oral tablet) See instructions 1 tablet taken By Mouth Every 6 hours not to exceed 3200 mg/ day, As needed for as needed for pain ?? Pickup at [facility] #[id number] Unchanged Multivitamin, ( Multivitamins with Folic Acid 1 mg oral tablet) 1 tab(s) Oral Daily Pharmacy Information [facility] #[id number]: [address], [place] [id number] [phone] Test Results Below is a partial list of the most recent Laboratory test results done prior to this discharge. You may have had other tests and procedures not included in this list. Please discuss all test resultswith your provider. CBC (02/05/2023) ???WBC - 16.1 k/mm3???RBC - 4.24 m/mm3???Hgb - 12.0 Gm/dL???Hct - 37.6 %???MCV - 88.7 femtoliters???MCH - 28.3 pg???MCHC - 31.9 g/dL???Platelet Count - 306 k/mm3???RDW-SD - 44.6 femtoliters???MPV - 10.7 femtoliters???Nucleated RBC (Automated) - 0.0 #/100 WBC'S???Abs. NRBC - 0.0 k/mm3 Type and Screen (02/05/2023) ???Blood Type - A Positive???Antibody Screen - Negative Allergies (NKA means No Known Allergies) Cats Pollen Problems Active Problems??(4) Cholestasis of ?? History of COVID-19 ??- September 2021?? Obese class I? Education Materials Below is the list of Educational Leaflet Providered with your Discharge Instructions. After a Vaginal ?? Valuables and Belongings I fully understand and agree that [facility] accepts no responsibility for all [...] encouraged to send valuables and belongings home. ?? Review of Valuable and Belonging List: With patient Disposition of Belongings: Sent home with patient/family Date for Pt to Sign Valuables/Belongings: 02/07/23 02:13:00 ?? Other Discharge Information ? Pulmonary Rehab Status?? [...] are strongly encouraged to quit. Please call [facility] Link at [phone] or [phone] ([phone]) or log in to [email or web address] for referrals to smoking cessation programs. ?? 014 Suicide & Crisis Lifeline is available 05/04 if you or someone you know needs to find a reason to keep living. By calling 950 you'll be connected to a skilled, trained counselor at a crisis center in your area. INPATIENT DISCHARGE INSTRUCTIONS SIGNATURE JAMEEL KHAN Location:[facility] Registration Date and Time:02/05/2023 21:24 EDT Primary Care Physician: Gloria Angel NP, Attending Physician: Maddy Mosley DO, I JAMEEL GRESHAM, have received the above patient education materials/instructions and have verbalized understanding. If ambulance or transport services are being used I further acknowledge being given a choice of service. ?? If you need to contact me, please call me at this number: . Patient/Landscape Painter Name: Patient/Landscape Painter Signature: Relationship to Patient: Witness Name/Signature: Date: * Negrita Zapien MD: PERFORM Event Display: Patient Education Leaflets Authored Date: [id number] After a Vaginal ?? [id number] After a Vaginal After having a baby, your body may be very tired. It can take time to recover.. [facility].??In some cases, you may be able to go home the same day. Right after the delivery Your temperature and blood pressure will be checked until they are stable. A nurse or other healthcare provider will watch you as you rest. You may have afterbirth pains. These are cramps caused by the uterus shrinking. Sanitary pads are used to soak up the discharge of the uterine lining. To make sure that you aren???t bleeding too much, the pad will be checked. And the firmness of your uterus will be checked. To do this, a nurse will gently push down on your stomach. If you had anesthesia, you???ll be watched closely until you can feel and move your toes. If you have pain between your vagina and anus (perineal pain), an ice pack can help. ?? care While still in the hospital or center, you???ll learn how to hold and feed your baby. You will??also be given directions on how to care for your baby. This includes bathing and feeding.? Getting ready to go home You may be anxious to go home as soon as possible. Before you and your baby go home, a healthcare provider will check to be sure you are healthy enough to take care of your baby and yourself. You???re ready to go home when: ??? You can walk to and use the bathroom without help. ??? You can eat solid food and swallow pills(if needed). ??? You have no sign of infection or other health problems, including fever.? Youhave pain control. ??? Your vaginal bleeding isn't heavy. ??? You are able to care for your newbornand are emotionally stable. Before going home, you???ll be given written directions for home self-care after vaginal delivery. Follow these directions carefully. If you have questions or concerns, talk about them now. ?? If you have stitches You may have get stitches in the skin near your vagina. The stitches might have closed an incision that enlarged the opening of your vagina (episiotomy). Or you may have needed stitches to repair torn skin. Either way, your stitches should dissolve in weeks. Until then, it's important to keep the stitches clean. You can help reduce mild pain, aid healing, and reduce your risk of infection. These tips can help: ??? Gently wipe from front to back after you urinate or have a bowel movement. ??? After wiping, spray warm water on the area. Or you can have a sitz bath. This means sitting in a tub with a few inches of water in it. Then pat the area dry or use a hairdryer on a cool setting. ??? Don't use soap or any solution except water on the area. ??? You can take a shower unless told not to. ??? Change sanitary pads at least every 2 to 4 hours. ??? Place cold or heat packs on the area as directed by your healthcare providers or nurses. Keep a thin towel between the pack and your skin. ???Sit on firm seats so the stitches pull less. ?? follow-up Schedule a follow-up exam with your healthcare provider for about 6 weeks after delivery.During this exam, your uterus and vaginal area will be checked. Contact your provider if you think you or your baby are having any problems. ?? When to call your healthcare provider Call your healthcare provider right away if any of the following occur: ??? A fever of 100.4?? F ( 38.0??C) or higher, or as directed by your provider ??? Bleeding that needs a new sanitary pad afteran hour, or large blood clots. hemorrhage is more bleeding than normal after the of a baby. It most often happens after the placenta is delivered. But it can also happen later. ??? Pain in your vagina that gets worse and isn't eased with medicine ??? Swelling, discharge, or more pain from vaginal tear or episiotomy ??? Burning, pain, red streaks, or lumpy areas in your breasts that may occur with flu-like symptoms ??? Cracks, blisters, or blood on your nipples ??? Burning or pain when you urinate ??? Nausea or vomiting ??? Dizziness or fainting ??? Feelings of extreme sadnessor anxiety, or a feeling that you don???t want to be with your baby ??? Belly pain that isn???t eased with medicine ??? Vaginal discharge that has a bad odor ??? No bowel movement for 5 days ??? Painful urination, or inability to control urination ??? Redness, warmth, or pain in the lower leg ??? Chest pain ?? Last Reviewed Date: 2022 ?? [id number] [employer]. All rights reserved. This information is not intended as a substitute for professional medical care. Always follow your healthcare professional's instructions. ?? Patient Care team information Care Team Personnel Name: Gloria Angel NP Position: Reference Physician Member Role: PCP Address: Address: [address] [place] [address]- Care Team Related Persons Name: JAMEEL GRESHAM BOY Address: [place] Address: home [address] [address] Name: CHRISTIE MENDOZA Address: home [address] [place] [address]
--- OUTSIDE RECORDS SUMMARY | 2024-04-12 11:09 | XMS_ITS | Continuity of Care Document ---
Author Organization [facility] Address [address] [place] [address]- Care Team Providers Care Chemical Weigher Name Role Phone Jeanne JHAVERI, Gloria Lutz Primary Care Physician [place] [facility] [place] - 03/12/[address] [address] Attending Physician: Shelbie Rodríguez CNM [...] 3 Refills, Maintenance, 06/16/22 10:13:00 EDT, Tablet, [facility] #[id number], Partial fill upon patient request if the [...] 02/08/23 2:49:00 EDT, Capsule, [facility] #[id number], Partial fill upon patient request i... Start [...] Reference Physician Member Role: PCP Address: Address: [address] [place] [address]- Care Team Related Persons Name: CHANELLE MONZON Address: [place] Address: home [address] [address] Name: CHRISTIE MENDOZA Address: home [address] [place] [address]
--- OUTSIDE RECORDS SUMMARY | 2024-04-12 11:09 | XMS_ITS | Continuity of Care Document ---
Author Organization [facility] Address [address] [place] [address]- Care Team Providers Care Hardwood Flooring Specialist Name Role Phone Jeanne JHAVERI, Gloria Lutz Primary Care Physician [place] [facility] [place] Date(s): 02/16/23 - 03/18/[address] [address] Allergies, Adverse Reactions, Alerts Substance Reaction [...] 3 Refills, Maintenance, 06/16/22 10:13:00 EDT, Tablet, [facility] #[id number], Partial fill upon patient request if the [...] 02/08/23 2:49:00 EDT, Capsule, [facility] #[id number], Partial fill upon patient request i... Start [...] Reference Physician Member Role: PCP Address: Address: [address] [place] [address]- Care Team Related Persons Name: CHANELLE MONZON Address: [place] Address: home [address] [address] Name: CHRISTIE MENDOZA Address: home [address] [place] [address]
--- OUTSIDE RECORDS SUMMARY | 2024-04-12 11:09 | XMS_ITS | Continuity of Care Document ---
Author Organization [facility] Address [address] [place] [address]- Care Team Providers Care Applications Analyst Name Role Phone Jeanne JHAVERI, Gloria Lutz Primary Care Physician [place] [facility] [place](s): 06/15/22 - 07/15/[address] [address] Allergies, Adverse Reactions, Alerts Substance Reaction Severity Status Cats Active Pollen Active Medications Multivitamins with Folic Acid 1 mg oral tablet 1 tablet, By Mouth, Daily, # 90 tablet, 2 Refills, Maintenance, 06/19/22 9:03:00 EDT, [facility] #[id number], Partial fill upon patient request if the prescription is for a schedule II opioid drug., 1 tablet By Mouth Daily, 158.5, cm, 06/19/22 8:... Start Date: 06/19/22 Status: Ordered Multivitamins with Folic Acid 1 mg oral tablet 1 tablet, By Mouth, Daily, # 90 tablet, 3 Refills, Maintenance, 06/16/22 10:13:00 EDT, Tablet, [facility] #[id number], Partial fill upon patient request if the prescription is for a schedule II opioid drug., 1 tablet By Mouth Daily Start Date: 06/16/22 Status: Ordered pyridoxine 25 mg oral tablet 1 tablet = 25 mg, By Mouth, 3 times a day, for 14 days, # 42 tablet, 1 Refills, Acute 07/17/22 9:04:00 EDT, 06/19/22 9:04:00 EDT, Tablet, [facility] #[id number], Partial fill upon patient request if the prescription is for a schedule II opioid dr.Cristina. Start Date: 06/19/22 Stop Date: 07/17/22 Status: Ordered Problem List Condition Confirmation Course Effective Dates Status Health [facility] Informant History of chlamydia Confirmed Active History of COVID-19 - September 2021 Confirmed Active History of gonorrhea Confirmed Active Social History Social History Type Response Smoking Status Never (less than 100 in lifetime) entered on: 06/19/22 Sex Patient Care team information Personnel Name: Gloria Angel NP Address: Address: [address] [place] [id number]
--- OUTSIDE RECORDS SUMMARY | 2024-04-12 11:09 | XMS_ITS | Continuity of Care Document ---
Author Organization [facility] Address [address] [place] [id number]- Care Team Providers Care Bath House Attendant Name Role Phone Jeanne JHAVERI, Gloria Lutz Primary Care Physician Encounter [facility] [place] Date(s): 11/03/22 - 02/12/[address] [address] Attending Physician: Not on Staff, Attending MD Allergies, Adverse Reactions, Alerts Substance Reaction Severity Status Cats Active Pollen Active Medications cephalexin monohydrate 500 mg oral capsule 1 capsule = 500 mg, By Mouth, Daily at bedtime, for 30 days, # 30 capsule, 1 Refills, Acute 03/28/23 12:08:00 EDT, 01/27/23 12:08:00 EDT, Capsule, [facility] #[id number], Partial fill upon patient request if the [...] 3 Refills, Maintenance, 06/16/22 10:13:00 EDT, Tablet, [facility] #[id number], Partial fill upon patient request if the [...] 0 Refills, Maintenance, 02/08/23 2:49:00 EDT, Capsule, [facility] #[id number], Partial fill upon patient request i... Start [...] Physician Member Role: PCP Address: Address: [address] [place] [address]- Care Team Related Persons Name: JAMEEL GRESHAM BOY Address: [place] Address: home [address] [address] [place] Name: CHRISTIE MENDOZA Address: home [address] [place] [address]
--- OUTSIDE RECORDS SUMMARY | 2024-04-12 11:09 | XMS_ITS | Continuity of Care Document ---
Author Organization [facility] Address [address] [place] [address]- Care Team Providers Care Computed Tomography Scanner Operator Name Role Phone Jeanne JHAVERI, Gloria Lutz Primary Care Physician [place] [facility] 02/17/23 - 03/19/[address] [address] Allergies, Adverse Reactions, Alerts [...] 3 Refills, Maintenance, 06/16/22 10:13:00 EDT, Tablet, [facility] #[id number], Partial fill upon patient request if the [...] 02/08/23 2:49:00 EDT, Capsule, [facility] #[id number], Partial fill upon patient request i... Start [...] Reference Physician Member Role: PCP Address: Address: [address] [place] [address]- Care Team Related Persons Name: CHANELLE MONZON Address: [place] Address: home [address] [address] Name: CHRISTIE MENDOZA Address: home [address] [place] [address]
--- OUTSIDE RECORDS SUMMARY | 2024-04-12 11:09 | XMS_ITS | Continuity of Care Document ---
Author Organization [facility] Address [address] [place] [address]- Care Team Providers Care Transportation Department Supervisor Name Role Phone Jeanne JHAVERI, Gloria Lutz Primary Care Physician Encounter [facility] [place] Date(s): 07/08/22 - 09/11/[address] [address] Attending Physician: Not on Staff, Attending MD Allergies, Adverse Reactions, Alerts Substance Reaction Severity Status Cats Active Pollen Active Medications multivitamin, Multivitamins oral tablet, chewable 1 tablet, Chew, Daily, # 90 tablet, 2 Refills, Maintenance, 07/31/22 12:52:00 EST, Chew Tablet, [facility] #[id number], Partial fill upon patient request if the [...] 30 tablet, 0 Refills, Maintenance, [facility]22 11[facility]47[facility] Start Date: 09/02/22 Status: Ordered Multivitamins with Folic Acid 1 mg oral tablet 1 tablet, By Mouth, Daily, # 90 tablet, 2 Refills, Maintenance, [facility]/19/22 9:03:[id number], Partial fill upon patient request if the prescription is for a schedule II opioid drug., 1 tablet By Mouth Daily, 158.5, cm, 06/19/22 8:... Start Date: 06/19/22 Status: Ordered Multivitamins with Folic Acid 1 mg oral tablet 1 tablet, By Mouth, Daily, # 90 tablet, 3 Refills, Maintenance, 06/16/22 10:13:00 EDT, Tablet, [facility] #[id number], Partial fill upon patient request if the [...] Reference Physician Member Role: PCP Address: Address: [address] [place] [address]- Care Team Related Persons Name: CHRISTIE MENDOZA Address: home [address] [place] [id number]
--- OUTSIDE RECORDS SUMMARY | 2024-04-12 11:09 | XMS_ITS | Continuity of Care Document ---
Author Organization [facility] Address [address] [place] [address]- Care Team Providers Care Optometric Technician Name Role Phone Gloria Angel NP Primary Care Physician [place] [facility] [place]/17[place]22 - 07/17/22 [facility] [address] [address]- Allergies, Adverse Reactions, Alerts Substance Reaction Severity Status Cats Active Pollen Active Medications Multivitamins with Folic Acid 1 mg oral tablet 1 tablet, By Mouth, Daily, # 90 tablet, 2 Refills, Maintenance, 06/19/22 9:03:00 EDT, [facility] #[id number], Partial fill upon patient request if the prescription is for a schedule II opioid drug., 1 tablet By Mouth Daily, 158.5, cm, 06/19/22 8:... Start Date: 06/19/22 Status: Ordered Multivitamins with Folic Acid 1 mg oral tablet 1 tablet, By Mouth, Daily, # 90 tablet, 3 Refills, Maintenance, 06/16/22 10:13:00 EDT, Tablet, [facility] #[id number], Partial fill upon patient request if the [...] Personnel Name: Gloria Angel NP Address: Address: [address] [place] [id number]
--- NOTE | 2024-04-12 11:16 | MHC.PC.OV ---
Vital Signs 04/12/24 11:26 Height 5 ft 1 in Weight 149 lb BMI 28.2 BP 96/50 L Blood Pressure Location Rt brachial Position Sitting Respiration 16 Pulse 68 Pulse Source Palpation Temp 98.4 F Temp Source Oral Intake Visit Reasons: about 2 months 30 min w me FU PFT & Asthma Intake Note: patient here for follow up on PFT and Asthma. could not get 02 stat patient has long nails Marketing Analytics Manager Required: No Is last menstrual period known: Yes (patient cant remember when ) Post menopausal: No Patient : No Allergies ibuprofen [From Advil] Allergy (Severe, Verified 04/12/24 11:45) Anaphylaxis NSAIDS (Non-Steroidal Anti-Inflamma Allergy (Severe, Verified 04/12/24 11:45) Anaphylaxis Medication List - Last Reconciled 04/12/24 by Yina Smith, [facility] albuterol sulfate 90 mcg/actuation (Ventolin HFA) 2 puffs inhalation Q4-6H PRN fluticasone propionate 50 mcg/actuation (Flonase Allergy Relief) 1 spray intranasal Q12H metronidazole 0.75%(37.5mg/5gram) 1 appful vaginal DAILY 5 days Tobacco use date assessed: 04/12/24 Dental Screening Dental Screen Date: 04/12/24 Did you have a dental visit in the last 12 months?: Yes Did you have a dental problem in the last 6 months where you did not have access to dental care?: No Was dental information given to patient?: Patient has dentist HPI HPI Comments History of Present Illness Details 24-year-old female with seasonal allergies, GERD, recurrent UTI, deviated septum, mild intermittent asthma, marijuana use Surgery- none; plans to have rhinoplasty Here today for routine follow up. Since last office visit, her asthma remains uncontrolled. ED visit @ [facility] 02/17/24 for asthma exac Combivent and Pred. CXR negative She states that she was not given a prescription for Combivent. She has been using her albuterol several times per day, including at night. Reports frequent asthma exacerbations which are described as coughing, wheezing and bronchospasm. She does report that she has some relief with her albuterol, but not a lot. Does attribute her asthma symptoms with her smoking, and she is working hard on smoking cessation. States she did not smoke at all today and admits her breathing is good today. She was not able to get the pulmonary function testing complete. She also complains of vaginal discharge and itch. She thinks she has a yeast infection. Would like to be screened. Finally, she reports that she has transportation issues that have not been able to be resolved. Getting to this office, is a 30 minute commute. Admits hardships to this. She is really eager to engage in her health care and make follow up appointments. She would like to establish care with a [facility] primary care provider in the [place] office. She is tearful when talking about this, as she really wants to take care of herself but is having a hard time coming to this office. Plan Smoking cessation encouraged. Declined and RT. Refer to pulmonology in [place] for further management of her asthma as the pulmonary function tests can not be complete at this time. Start Combivent. Continue use of albuterol. Bacterial vaginosis, STD panel and urine today. + BV and Yeast. Urine pending. Diflucan and metrogel. Message sent to the [place] office to see if I can coordinate transfer of care for her. Exam: Awake alert NAD RRR LS CTAB Self swab for BV This note is constructed using voice recognition software. While every effort has been made to ensure accuracy in service tech/welder, still errors may have been included Sometimes, these errors may affect the content or meaning of the given sentence . [facility] Medical History No known health problems Surgical History No pertinent past surgical history Social History Housing: House Patient Tobacco Use Status: Never used Tobacco e-Cigarette/Vaping Use: Currently Using Second Hand Smoke Exposure: No Substance Use Type: Marijuana service: No Current occupational status: unemployed Current occupational exposures/hazards: No Cognitive needs: No Hearing needs: No Vision needs: No Questionnaire Thrive Questionnaire Date Thrive assessed: 01/13/24 TODD-7 AMB Questionnaire TODD-7 Date TODD - 7 assessed: 01/13/24 Source: Developed by Drs. Bethel Bermudez, Ivette B.W. Jeffrey Dumont and colleagues, with an educational satnam from [employer]. ACT Questionnaire In the past 4 weeks, how much of the time did your asthma keep you from getting as much done at work, school or at home?: Most of the time During the past 4 weeks, how often have you had shortness of breath?: More than once a day During the past 4 weeks, how often did your asthma symptoms wake you up at night or earlier than usual in the morning?: 4 or more nights a week During the past 4 weeks, how often have you had to use your rescue inhaler or nebulizer medication?: More than 3 times per day How would you rate your asthma control during the past 4 weeks?: Poorly controlled Score: 7 Physical exam (Primary Care) Vital Signs: Last Vital Signs Temp 98.4 F 04/12/24 11:26 Pulse 68 04/12/24 11:26 Resp 16 04/12/24 11:26 BP 96/50 L 04/12/24 11:26 BMI result Body Mass Index 28.2 Tobacco/Smoking Status: Tobacco use Status Tobacco use date assessed 04/12/24 04/12/24 11:33 Patient Tobacco Use Status Never used Tobacco 04/12/24 11:18 e-Cigarette/Vaping Use Currently Using 04/12/24 11:18 Are you ready to quit: Yes Tobacco cessation counseling provided: Yes Items discussed: Nicotine replacement, QuitWorks and Other Relapse Prevention: discussed the importance of a supportive environment, discussed extending NRT, discussed negative mood or depression after quitting, weight gain after smoking is common and discussed dietary, exercise and/or lifestyle changes Number of minutes spent counselin CPT code: 31367 - 4-10 Minutes Thrive Assessment: Date of Thrive Assessment Date Thrive assessed 01/13/24 04/12/24 11:18 Assessment and Plan Assessment & Plan (1) Mild intermittent asthma: Code(s): J45.20 - Mild intermittent asthma, uncomplicated Qualifiers: Asthma complication type: uncomplicated Qualified Code(s): J45.20 - Mild intermittent asthma, uncomplicated (2) Marijuana use: Comment: Education provided Code(s): F12.90 - Cannabis use, unspecified, uncomplicated (3) Vaginal discharge: Code(s): N89.8 - Other specified noninflammatory disorders of vagina Orders: Orders UA CC w/rflx Micro + Cult Today Z11.3 - Encounter for screening for infections with a predominantly sexual mode of transmission Bacterial Vaginosis Panel Today Z11.3 - Encounter for screening for infections with a predominantly sexual mode of transmission CT NG by PCR Today Z11.3 - Encounter for screening for infections with a predominantly sexual mode of transmission Referrals Pulmonology Referral J45.20 - Mild intermittent asthma, uncomplicated Medications: New fluconazole take 1 tab day 1, repeat second dose on day 3 150 mg PO Q3D 2 tabs 0RF ipratropium-albuterol 20-100 mcg/actuation (Combivent Respimat) space evenly during waking hours 1 puff inhalation QID 4 grams 2RF Refilled albuterol sulfate 90 mcg/actuation (Ventolin HFA) 2 puffs inhalation Q4-6H PRN 8.5 grams 3RF shortness of breath or wheezing J98.01 - Acute bronchospasm metronidazole 0.75%(37.5mg/5gram) 1 appful vaginal DAILY 5 days 70 grams 0RF Patient Instructions: Smoking Cessation How to Quit There are a lot of ways to quit smoking and many resources to help you. Family members, friends, and co-workers may be supportive or encouraging, but to be successful the desire and commitment to quit must be your own. Most people who have been able to successfully quit smoking made at least one unsuccessful attempt in the past. Try not to view past attempts to quit as failures, but rather as learning experiences. Stopping smoking or using smokeless tobacco is difficult, but anyone can do it. Know the symptoms to expect when you stop. Common symptoms include: ? An intense craving for nicotine ? Anxiety, tension, restlessness, frustration, or impatience ? Difficulty concentrating ? Drowsiness or trouble sleeping, as well as bad dreams and nightmares ? Drowsiness and trouble sleeping ? Headaches ? Increased appetite and weight gain ? Irritability or depression How severe your symptoms are depends on how long you smoked and how many cigarettes you smoked each day. Feel ready to quit? ? First and foremost, set a quit date and quit completely on that day. Before your quit date, you may begin reducing your cigarette use. But remember, there is no safe level of cigarette smoking. ? List the reasons why you want to quit. Include both short- and long-term benefits. ? Identify the times you are most likely to smoke. For example, do you tend to smoke when feeling stressed or down? When out at night with friends? While drinking coffee or alcohol? When bored? While driving? Right after a meal or sex? During a work break? While watching TV or playing cards? When you are with other smokers? ? Let all of your friends, family, and co-workers know of your plan to stop smoking and your quit date. Just being aware that they know what you're going through can be helpful, especially when you are grumpy. ? Get rid of all your cigarettes just before the quit date, and clean out anything that smells like smoke, such as clothes and furniture. Make a plan about what you will do instead of smoking at those times when you are most likely to smoke. ? Be as specific as possible. For example, drink tea instead of coffee -- tea may not trigger the desire for a cigarette. Or, take a walk when you feel stressed. ? Remove ashtrays and cigarettes from the car. Place pretzels or hard candies there instead. Pretend-smoke with a straw. ? Find activities that focus your hands and mind but are not taxing or fattening. Computer games, solitaire, knitting, sewing, and crossword puzzles may help. ? If you normally smoke after eating, find other ways to end a meal. Play a tape or CD, eat a piece of fruit, get up and make a phone call, or take a walk (a good distraction that also merrill calories). Make other changes in your lifestyle. ? Change your daily schedule and habits. Eat at different times or eat several small meals instead of three large ones. Sit in a different chair or even a different room. ? Satisfy your oral habits by eating celery or other low-calorie snack, chewing sugarless gum, or sucking on a cinnamon stick. ? Go to public places and restaurants where smoking is prohibited or restricted. ? Eat regular meals and don't eat too much candy or sweet things. ? Get more exercise. Take walks or ride a bike. Exercise helps relieve the urge to smoke. Set short-term quitting goals and reward yourself when you meet them. ? Every day, put the money you normally spend on cigarettes in a jar. Then buy something pleasurable after a period of time. ? Try not to think about all the days ahead you will need to avoid smoking. Take it one day at a time. ? Even one puff or one cigarette will make your desire for more cigarettes even stronger. However, it is normal to make mistakes. So even if you have one cigarette, you don't need to take the next one. Other tips to help you quit smoking and stick to it: ? Enroll in a smoking cessation program (hospitals, health departments, community centers, and work sites often offer programs). Learn about self-hypnosis or other techniques. ? Ask your health care provider about prescription medications that are safe and appropriate for you. ? Find out about nicotine patches, gum, and sprays. The [place]'s web site -- www.cancer.org -- is an excellent resource for smokers who are trying to quit, and the [employer] [place] can help some smokers kick the habit. Above all, don't get discouraged if you aren't able to quit smoking the first time. Nicotine addiction is a hard habit to break. Try something different next time. Develop new strategies, and try again. Many people take several attempts to finally kick the habit. Coding Level of Care Code Est Pt Level 4 (16346) Diagnoses Mild intermittent asthma without complication J45.20 Asthma complication type: uncomplicated Marijuana use F12.90 Vaginal discharge N89.8 Additional Codes Vital Signs *Quality* - CPT code: 58258 - 4-10 Minutes ([id number])
[2024-04-12 11:26] VITALS: BP 96/50; PULSE 68; RESP 16; TEMP 36.9; BMI 28.2
== END 2024-04-12 12:09 | disposition home or self-care (01) ==
LOC: HO.HMGFM 11:06
PROVIDERS: PCP Nurse Practitioner Family; Visit Provider Nurse Practitioner Family
DX: J45.20 Mild intermittent asthma, uncomplicated (principal); F12.90 Cannabis use, unspecified, uncomplicated; N89.8 Other specified noninflammatory disorders of vagina; F17.210 Nicotine dependence, cigarettes, uncomplicated
CPT/HCPCS: 99214; 99406

== ENCOUNTER 2024-04-12 11:56 | Outpatient (REF) | payer BC, OTHER, SELFPAY ==
[2024-04-12 15:50] LABS: Bacterial Vaginosis PCR POSITIVE (Negative); Candida Group PCR DETECTED (Not Detect); Candida glab krusei PCR NOT DETECTED (Not Detect); Trichomonas vaginalis PCR NOT DETECTED (Not Detect)
== END 2024-04-12 11:57 | disposition home or self-care (01) ==
LOC: HO.LAB 11:56
PROVIDERS: Visit Provider Nurse Practitioner Family
DX: Z11.3 Encounter for screening for infections with a predominantly sexual mode of transmission (principal)
CPT/HCPCS: 0352U

== ENCOUNTER 2024-04-20 09:58 | Outpatient (AMB) | payer BC, OTHER, SELFPAY ==
[2024-04-20 10:01] VITALS: BP 90/56; PULSE 64; BMI 27.6
--- NOTE | 2024-04-20 10:01 | MHC.PC.OV ---
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 Allergies ibuprofen [From Advil] Allergy (Severe, Verified 04/20/24 10:26) Anaphylaxis NSAIDS (Non-Steroidal Anti-Inflamma Allergy (Severe, Verified 04/20/24 10:26) Anaphylaxis Medication List - Last Reconciled 04/20/24 by Farnaz Dent PA-C albuterol sulfate 90 mcg/actuation (Ventolin HFA) 2 puffs inhalation Q4-6H PRN fluconazole 150 mg PO Q3D 2 doses fluticasone propionate 50 mcg/actuation (Flonase Allergy Relief) 1 spray intranasal Q12H ipratropium-albuterol 20-100 mcg/actuation (Combivent Respimat) 1 puff inhalation QID metronidazole 0.75%(37.5mg/5gram) 1 appful vaginal DAILY 5 days Tobacco use date assessed: 04/12/24 Dental Screening Dental Screen Date: 04/12/24 Did you have a dental visit in the last 12 months?: Yes Did you have a dental problem in the last 6 months where you did not have access to dental care?: No Was dental information given to patient?: Patient has dentist HPI establish care HPI Details 24-year-old female with past medical history of GERD and asthma last seen by GLEN 03/2024 coming in to establish care.? In the last no patient was found to have vaginal discharge with itch positive for BV and yeast treated with diflucan and metronidazole. Asthma has been mildly uncontrolled which appears to be related to marijuana use. Patient states her asthma remains uncontrolled however she did just tow picker the Combivent yesterday and found that she slept much better after using it last night. She has also cut back on marijuana which she is states has been helpful with her asthma. She also is undergoing treatment for BV and yeast infection she is concerned about STDs at this time as her and her partner do not use protection. Lastly she mentions she has a weird sensation while urinating but does not associate with pain, burning, pressure, or urgency. [facility] Medical History No known health problems Surgical History No pertinent past surgical history Family History (Updated 04/20/24 @ 10:32 by Farnaz Dent PA-C) Maternal Grandmother Pancreatic cancer Brother Cancer Paternal Grandmother CVA (cerebral vascular accident) Social History Housing: House Patient Tobacco Use Status: Never used Tobacco e-Cigarette/Vaping Use: Currently Using Second Hand Smoke Exposure: No Substance Use Type: Marijuana service: No Current occupational status: unemployed Current occupational exposures/hazards: No Cognitive needs: No Hearing needs: No Vision needs: No Female Reproductive History Menstrual control method: none Questionnaire PHQ-9 Over the last 2 weeks, how often have you been bothered by any of the following problems? 1. Little interest or pleasure in doing things: not at all 2. Feeling down, depressed, or hopeless: not at all 3. Trouble falling or staying asleep, or sleeping too much: not at all 4. Feeling tired or having little energy: not at all 5. Poor appetite or overeating: not at all 6. Feeling bad about yourself - or that you are a failure or have let yourself or your family down: not at all 7. Trouble concentrating on things, such as reading the newspaper or watching television: not at all 8. Moving or speaking so slowly that other people could have noticed. Or the opposite - being so fidgety or restless that you have been moving around a lot more than usual: not at all 9. Thoughts that you would be better off or of hurting yourself in some way: not at all Total score: 0 Depression Screening Interpretation: Negative Depression Screening Done: Yes 18681 - PHQ-9 Billing: Yes Source: Developed by Drs. Bethel Bermudez, Ivette Dumont, Jeffrey Porter and colleagues, with an educational satnam from [employer]. Thrive Questionnaire Date Thrive assessed: 01/13/24 I am a: Patient What is your living situation today?: I have a steady place to live Within the past 12 months, did the food you bought not last and you didn't have the money to get more?: Never true Within the past 12 months, did you worry whether your food would run out before you got money to buy more?: Never true Do you have trouble paying for medicines?: No Do you have trouble getting transportation to medical appointments?: No Do you have trouble paying your heating and electricity bill?: No Do you have trouble taking care of your child, family member or friend?: No Do you have trouble with day-to-day activities such as bathing, preparing meals, shopping, managing finances, etc.?: No Are you currently unemployed and looking for a job?: No Are you interested in more education?: No Please select the resources that you would like help with: None Currently or been in a relationship where the following occur: No concerns reported THRIVE Score: 0 AUDIT C Alcohol Use Questionnaire (AUDIT-C) 1. How often do you have a drink containing alcohol?: Never 3. How often do you have six or more drinks on one occasion?: Never Total Score: 0 Score Reviewed/Action Taken: Yes TODD-7 AMB Questionnaire TODD-7 Date TODD - 7 assessed: 01/13/24 Feeling nervous, anxious, or on edge: 0 = Not at all Not being able to stop or control worryin = Not at all Worrying too much about different things: 0 = Not at all Trouble relaxin = Not at all Being so restless that it is hard to sit still: 0 = Not at all Becoming easily annoyed or irritable: 0 = Not at all Feeling afraid as if something awful might happen: 0 = Not at all Total TODD-7 score (0-4 normal; 5-9 mild; 10-14 moderate; 15-21 severe): 0 Source: Developed by Drs. Bethel Bermudez, Ivette Dumont, Jeffrey Porter and colleagues, with an educational satnam from [employer]. TODD-7 Assessment Billing TODD-7 Assessment Tool: TODD-7 Assessment 75618 Review of Systems Const Denies body aches, Denies fatigue, Denies fever(s), Denies frequent falls, Denies headache(s) and Denies weakness Eyes Reports no additional complaints and Denies change in vision ENT Denies dysphagia, Denies dizziness, Denies facial pain, Denies headache(s), Denies nasal congestion and Denies odynophagia Card Denies chest pain, Denies syncope, Denies irregular heart rhythm, Denies leg edema, Denies lightheadedness and Denies dyspnea Resp Denies cough and Denies dyspnea GI Denies constipation, Denies dysphagia, Denies dyspepsia, Denies diarrhea, Denies nausea, Denies odynophagia and Denies vomiting Denies abnormal vaginal bleeding, Denies urinary frequency, Denies dysuria, Denies urinary hesitancy, Denies urinary urgency and Reports vaginal discharge Musc Denies back pain and Denies myalgias Skin/Breast Reports system reviewed and no additional complaints, except as documented Neuro Denies dizziness, Denies syncope, Denies frequent falls, Denies headache(s) and Denies weakness Psych Reports no additional complaints Endo Denies fatigue Physical exam (Primary Care) Vital Signs: Last Vital Signs Pulse 64 04/20/24 10:01 BP 90/56 L 04/20/24 10:01 Oxygen Delivery Method Room Air 04/20/24 10:01 BMI result Body Mass Index 27.6 Tobacco/Smoking Status: Tobacco use Status Tobacco use date assessed 04/12/24 04/20/24 10:01 Patient Tobacco Use Status Never used Tobacco 04/20/24 10:01 e-Cigarette/Vaping Use Currently Using 04/20/24 10:01 Are you ready to quit: No PHQ-9: PHQ-9 Score PHQ-9: Total score 0 04/20/24 11:09 Depression Screening Interpretation: Negative Thrive Assessment: Date of Thrive Assessment Date Thrive assessed 01/13/24 04/20/24 10:01 Currently or been in a relationship where the following occur: No concerns reported Const General: cooperative, healthy appearing, comfortable and no acute distress Orientation/consciousness: patient oriented x3 HENMT Head: Yes normocephalic Ears: hearing grossly normal bilaterally, external ears normal, TM's normal bilaterally and EAC's normal General nose exam: Normal external nose present Face and sinus: Yes normal facial exam and Yes sinuses nontender Mouth: Normal oral and palatal mucosa present and tongue normal Throat: Yes posterior oropharynx normal Eyes General: appearance normal, both eyes and all related structures Conjunctivae: conjunctivae normal Pupils: Equal, round and reactive pupils present EOM: EOMs intact bilaterally and No Nystagmus present Neck Neck: Yes normal visual inspection, Yes full ROM and Yes no lymphadenopathy Chest Chest palpation & inspection: normal inspection of the chest Resp Effort & Inspection: normal respiratory effort Auscultation: clear to auscultation bilaterally, no crackles, no rales, no rhonchi, no wheezes and breath sounds present Cardio Rate: regular rate Rhythm: regular rhythm Peripheral pulses: radial pulses present and dorsalis pedis present GI Inspection: Yes normal to inspection and No Abdominal wall edema Palpation (GI): Soft to palpation, not firm and nontender Auscultation: normal bowel sounds Rectal Exam - Female: deferred General: Yes no CVA tenderness Back/Spine/Pelvis Back: no CVA tenderness Skin General skin exam: no rashes or lesions noted Neuro General: patient oriented x3 Cranial nerves: Yes Equal, round and reactive pupils present, Yes Midline tongue present, Yes Ability to bilaterally elevate shoulders present and No Nystagmus present Gait exam (Neuro): Normal gait present Extrem General: Yes normal to inspection, Yes full ROM, No no pedal edema and No edema Psych Speech and movement: Normal speech and movement present Affect: normal affect Insight: Good insight present (Psych) Judgement: Good judgement present (Psych) Results AMB Urinalysis Dipstick UR Leukocytes Medium Last Edit by DAMON Garvin on 04/20/24 11:14 UR Nitrite Negative Last Edit by DAMON Garvin on 04/20/24 11:14 UR Urobilinogen 2 Last Edit by DAMON Garvin on 04/20/24 11:14 UR Protein Trace Last Edit by DAMON Garvin on 04/20/24 11:14 UR Ph 5.5 Last Edit by Marcella Dunham Emil on 04/20/24 11:14 UR Blood Moderate Last Edit by DAMON Garvin on 04/20/24 11:14 UR Specific [place] 1.025 Last Edit by DAMON Garvin on 04/20/24 11:14 UR Ketone Small Last Edit by DAMON Garvin on 04/20/24 11:14 UR Bilirubin Negative Last Edit by DAMON Garvin on 04/20/24 11:14 UR Glucose Negative Last Edit by DAMON Garvin on 04/20/24 11:14 Assessment and Plan Assessment & Plan (1) Mild intermittent asthma: Code(s): J45.20 - Mild intermittent asthma, uncomplicated Qualifiers: Asthma complication type: uncomplicated Qualified Code(s): J45.20 - Mild intermittent asthma, uncomplicated Plan: Patient was previously using albuterol inhaler as needed. Recently prescribed Combivent to be used 4 times a day she did use it last night and found relief while sleeping. Avoid triggers such as allergens and smoking. Follow up in 3 months. (2) GERD with esophagitis: Code(s): K21.00 - Gastro-esophageal reflux disease with esophagitis, without bleeding Plan: Denies any symptoms of reflux. Avoid trigger foods such as citrus, tomato products, soda, caffeine, spicy foods and other foods that may be irritating to your stomach. Avoid laying flat 3-4 hours after eating and elevate the head of the bed 30 degrees to prevent acid from moving into the esophagus. (3) Deviated septum: Comment: Followed by ENT. Plans to have a rhinoplasty in the future. Continue Flonase. Code(s): J34.2 - Deviated nasal septum Plan: Patient was seen by ear nose and throat in the past and is looking to reestablish care for possible rhinoplasty. Referral sent to ENT. (4) Vaginal discharge: Code(s): N89.8 - Other specified noninflammatory disorders of vagina Plan: Patient is currently undergoing treatment for bacterial vaginosis and yeast infection. Patient has concern for STDs and we will send her urine for gonorrhea and chlamydia. Urinalysis was unclear due to possible contamination and her presently on her period. Ordered for additional urinalysis with culture to be completed after her period ends. (5) Annual physical exam: Code(s): Z00.00 - Encounter for general adult medical examination without abnormal findings Plan: Patient is up-to-date on Pap smears as she had 1 done during referred to gynecology for further follow up and routine screening. Otherwise patient is up-to-date on all routine screenings and vaccinations for her age. We will follow up in 1 year for annual physical. Plan This note was constructed using voice recognition software. While every effort has been made to ensure accuracy and wastewater technician, still areas may have been included sometimes these areas may affect the content or meeting of the given symptoms. Total time spent caring for the patient today was 35 minutes. This includes time spent before the visit reviewing the chart, time spent during the visit, and time spent after the visit and documentation. 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
== END 2024-04-20 10:52 | disposition home or self-care (01) ==
DX: Z00.00 Encounter for general adult medical examination without abnormal findings (principal); J45.20 Mild intermittent asthma, uncomplicated; K21.00 Gastro-esophageal reflux disease with esophagitis, without bleeding; J34.2 Deviated nasal septum; N89.8 Other specified noninflammatory disorders of vagina
CPT/HCPCS: 81002; 99395

== ENCOUNTER 2024-04-20 10:46 | Outpatient (REF) | payer BC, OTHER, SELFPAY ==
[2024-04-21 02:23] LABS: CT PCR NOT DETECTED (Not Detect.); NG PCR NOT DETECTED (Not Detect.)
== END 2024-04-20 10:47 | disposition home or self-care (01) ==
LOC: HO.LAB 10:46
DX: N89.8 Other specified noninflammatory disorders of vagina (principal)
CPT/HCPCS: 87491; 87591

== ENCOUNTER 2024-06-16 06:09 | Emergency (ER) | payer BC, OTHER, SELFPAY ==
--- NOTE | ~2024-06-16 | CT_ITS ---
EXAMINATION: CT ABDOMEN AND PELVIS WITHOUT CONTRAST CLINICAL INFORMATION: abd pain COMPARISON: None available. TECHNIQUE: Multidetector volumetric imaging was performed from the superior aspect of the liver through the pubic symphysis. Sagittal and coronal reformatted images were obtained on the technologist's workstation. This CT examination was performed using dose optimization techniques as appropriate, variously including the following: *Automated exposure control *Adjustment of mA and/or kV according to patient size (this includes techniques or standardized protocols for targeted exams where dose is matched to indication/reason for exam; i.e. extremities or head) *Use of iterative reconstruction technique DLP: 487 mGy-cm FINDINGS: LUNG BASES: Right greater than left lung base patchy groundglass opacities. No pleural effusion. Normal-sized heart without pericardial effusion. LIVER, GALLBLADDER, AND BILIARY TREE: The liver is normal in size, shape, and attenuation. No focal hepatic lesion or biliary ductal dilatation is present. The gallbladder is unremarkable with no evidence of radiopaque gallstones, gallbladder wall thickening, or obvious pericholecystic inflammatory changes. PANCREAS: Unremarkable. SPLEEN: Unremarkable. ADRENAL GLANDS: Unremarkable. KIDNEYS AND URETERS: The kidneys are normal in size, shape, and attenuation. No hydronephrosis, hydroureter, or calculi seen. No perinephric stranding. BLADDER: Unremarkable. GASTROINTESTINAL TRACT: The small and large bowel are nondilated. Normal appendix. ABDOMINAL WALL: No significant hernia is appreciated. LYMPH NODES: Normal. VASCULAR: Unremarkable. PELVIC VISCERA: Normal CT appearance of the uterus. No adnexal masses. OSSEOUS STRUCTURES: Unremarkable. CT/CT abdomen pelvis wo IV con IMPRESSION: 1. No acute abnormality in the abdomen or pelvis. 2. Right greater than left lung base patchy groundglass opacities may represent infectious/inflammatory etiology versus subsegmental atelectasis. Fleischner guidelines were followed. Electronically signed by: Kristin Claudio DO 06/16/2024 10:53 AM EDT
[2024-06-16 06:13] VITALS: BP 110/82; BP 99/57; PULSE 111; PULSE 84; RESP 20; TEMP 36.5; O2SAT 94; O2SAT 97; BMI 27.0
[2024-06-16 06:16] VITALS: BP 99/57; PULSE 84; RESP 16; TEMP 36.5; O2SAT 96
[2024-06-16 06:40] LABS: MANUAL DIFF FLAG NO
--- NOTE | 2024-06-16 06:40 | MHC.EDTECH ---
This Tech assumed care of this pt upon arrival. pt changed over into a hospital; [facility]. blood work sent to the lab for processing
--- NOTE | 2024-06-16 06:47 | ED.ABDPAIN ---
HPI - Abdominal Pain General Chief Complaint: Abdominal Pain Stated Complaint: abd pain Time Seen by Provider: 06/16/24 06:33 Source: patient Mode of arrival: ambulatory Limitations: no limitations History of Present Illness ED Provider: Leobardo HPI narrative: 24yo F PMHx asthma, GERD, seasonal allergies presenting with a one-day history of intermittent ( epigastric) abdominal pain since yesterday morning after she drank coffee. Patient states drinking coffee does not typically trigger her GERD and this pain does not burn or radiate to her chest or throat like she typically experiences with her GERD symptoms. Pain is worst in the epigastric region. Patient denies vomiting, diarrhea, constipation, fevers, chills, sick contacts. Last bowel movement yesterday normal per patient.Normal urination. Patient denies new medications and is allergic to NSAIDs. Has not taken aspirin recently. Endorses nausea without vomiting. Related Data Previous Rx's ?Medication ?Instructions ?Recorded fluticasone propionate 50 1 spray intranasal Q12H #16 grams 03/29/24 mcg/actuation nasal spray,suspension (Flonase Allergy Relief) fluconazole 150 mg tablet 150 mg PO Q3D 2 doses #2 tabs 04/12/24 ipratropium 20 mcg-albuterol 100 1 puff inhalation QID #4 grams 04/12/24 mcg/actuation mist for inhalation (Combivent Respimat) metronidazole 0.75 % (37.5 mg/5 1 appful vaginal DAILY 5 days #70 04/12/24 gram) vaginal gel grams albuterol sulfate 90 mcg/actuation 2 puff inhalation Q4-6H PRN 06/02/24 aerosol inhaler (Ventolin HFA) shortness of breath or wheezing #8.5 grams albuterol sulfate 90 mcg/actuation 2 inh inhalation Q4-6H PRN 06/16/24 breath activated powder inhaler shortness of breath or wheezing #1 ea aluminum-mag hydroxide-simethicone 5 ml PO 5XD PRN dyspepsia #355 mL 06/16/24 200 mg-200 mg-20 mg/5 mL oral susp (Maalox Advanced) azithromycin 250 mg tablet See Rx Instructions PO .COMPLEX #6 06/16/24 tabs Allergies Allergy/AdvReac Type Severity Reaction Status Date / Time ibuprofen [From Advil] Allergy Severe Anaphylaxis Verified 06/16/24 06:23 NSAIDS (Non-Steroidal Allergy Severe Anaphylaxis Verified 06/16/24 06:23 Anti-Inflamma Review of Systems Review of Systems Yes all other systems are reviewed and are negative [facility] Past Medical History Attestation statement: The following information was validated with the patient. Source: old records reviewed and nursing notes reviewed Medical History No known health problems Surgical History No pertinent past surgical history Family History Family History (Updated 04/20/24 @ 10:32 by Farnaz Dent PA-C) Maternal Grandmother Pancreatic cancer Brother Cancer Paternal Grandmother CVA (cerebral vascular accident) Social History Social History Housing: House Patient Tobacco Use Status: Never used Tobacco Smoked in Last 30 Days: No e-Cigarette/Vaping Use: Currently Using Second Hand Smoke Exposure: No Use of substances other than those prescribed or required for medical reasons: No Substance Use Type: Marijuana Advance Directives: No Advance Directives Information Provided: No Do you have a plan to hurt others: No Plan Patient : No service: No Current occupational status: unemployed Current occupational exposures/hazards: No Cognitive needs: No Hearing needs: No Vision needs: No Physical Exam ED Vital Signs: Vital Signs - 24 hr 06/16/24 06:13 06/16/24 06:16 06/16/24 08:33 Temperature 97.7 F 97.7 F 98.3 F Pulse Rate 84 84 84 Respiratory Rate 20 16 18 Blood Pressure 99/57 L 99/57 L 90/50 L Pulse Oximetry 94 96 96 Oxygen Delivery Method Room Air Room Air Room Air 06/16/24 10:57 Temperature Pulse Rate 97 Respiratory Rate 16 Blood Pressure 102/61 Pulse Oximetry 95 Oxygen Delivery Method Room Air BMI result Body Mass Index 27.0 VSS Appearance: Alert.? Oriented X3.? No acute distress.? Head: Normocephalic, atraumatic ENT: Pharynx normal CVS: Normal heart rate and rhythm.? Pulses normal.? Respiratory: No respiratory distress.? Breath sounds normal.? Abdomen: Soft and nontender.?(+) bowel sounds in all 4 quadrants. Negative Jennings's, McBurney's, Rovsing. No liver tenderness Skin: Skin warm and dry.? Normal skin color.? Normal skin turgor.? Neuro: Oriented X 3 Course Reevaluation(s) Reevaluation #1: CBC w/ leukocytosis no shift, unlikely infectious. CBC unremarkable. BHCG negative. Lipase normal. UA pending. CT pending. Patient feeling better. Time: 10:48 Reevaluation #2: CT abdomen pelvis no acute abnormality in the abdomen or pelvis right greater than left lung base patchy ground-glass opacities could represent infectious/inflammatory etiology versus atelectasis, patient does report associated fatigue and malaise will treat for possible bronchitis/respiratory infection with a Z-Shady as patient is not having significant cough will hold on something like doxycycline at this time. Educated patient on diagnosis and treatment plan, answered all question, patient verbalizes understanding. At this time patient will be discharged home, advised to return with new or worsening symptoms. Educated on worrisome signs and symptoms and when to return. At this time I feel comfortable discharge home. Time: 11:01 Medical Decision Making Medical Decision Making [facility] Narrative: 24yo F c/o epigastric abdominal pain x 1 day PE: benign Hx and PE concerning for GERD vs. gastritis vs viral illness. Less likely, acute abdomen, pancreatitis, ulcer, obstruction, perf, cholecystitis, cholangitis, hepatitis, metabolic derangements Plan: labs Differential Diagnosis Differential Diagnoses: The differential diagnosis associated with the presentation includes (Hx and PE concerning for GERD vs. gastritis vs viral illness. Less likely, acute abdomen, pancreatitis, ulcer, obstruction, perf, cholecystitis, cholangitis, hepatitis, metabolic derangements) Admission/Observation Consideration of admission/observation: Escalation of care including admission/observation considered Unlikely Lab Data [facility] Lab Attestation statement: I reviewed the patient's lab results. 06/16/24 06:35 06/16/24 06:35 Labs: Lab Results 06/16/24 Range/Units 06:35 WBC 11.0 H (4.8-10.8) X10*3/uL RBC 4.53 (4.20-5.50) X10*6/uL Hgb 14.1 (12.0-16.0) g/dl Hct 41.4 (37.0-47.0) % MCV 91.4 (80.0-98.0) fL MCH 31.1 (27.0-33.0) pg MCHC 34.1 (31.0-35.0) g/dl RDW 12.5 (11.0-16.0) % Plt Count 301 D (160-400) X10*3/uL MPV 9.3 L (9.4-12.3) fL Immature Gran % (Auto) 0.4 (0.0-0.4) % Neut % (Auto) 78.1 H (45-73) % Lymph % (Auto) 12.6 L (20-40) % [place] % (Auto) 5.7 (2-11) % Eos % (Auto) 2.9 (0-4) % Baso % (Auto) 0.3 (0-2) % Lymph # (Auto) 1.4 (1.2-4.9) X10*3/uL [place] # (Auto) 0.6 (0.1-1.2) X10*3/uL Eos # (Auto) 0.3 (0.0-0.4) X10*3/uL Baso # (Auto) 0.0 (0.0-0.2) X10*3/uL Abs Immat Gran (auto) 0.04 H (0.00-0.03) X10*3/uL Absolute Neuts (auto) 8.6 H (2.0-8.3) x10*3/uL Absolute Nucleated RBC 0.000 (0.0-0.012) X10*3/uL Nucleated RBC % (auto) 0.0 (0.0-0.2) /100WBC Sodium 140 (135-145) mmol/L Potassium 3.9 (3.3-5.1) mmol/L Chloride 107 (96-108) mmol/L Carbon Dioxide 23 (22-29) mmol/L Anion Gap 14 (12-20) BUN 10 (9-16) mg/dL Creatinine 0.68 (0.5-1.4) mg/dL Estim Creat Clear Calc 110.0 Estimated GFR > 60 Random Glucose 105 (60-115) mg/dL Calcium 9.3 (8.4-10.2) mg/dL Total Bilirubin 0.7 (0.0-1.0) mg/dL AST 15 (5-31) U/L ALT 12 (0-31) U/L Alkaline Phosphatase 55 (39-117) U/L Total Protein 7.2 (6.5-8.0) g/dL Albumin 4.1 (3.5-5.0) g/dL Lipase 16 (8-78) U/L Beta HCG, Quant < 2 mIU/mL Independent Interpretation I performed an independent interpretation of an: CT Scan ( CT/CT abdomen pelvis wo IV con IMPRESSION: 1. No acute abnormality in the abdomen or pelvis. 2. Right greater than left lung base patchy groundglass opacities may represent infectious/inflammatory etiology versus subsegmental atelectasis. Fleischner guidelines were followed. ) External Record Review External record reviewed: Inpatient record, Office record, Outpatient record, Prior outpatient labs, Prior outpatient radiology, Primary care record and Outside ED record Prescription Management I considered prescription management with: Antibiotic Chronic Conditions Patient?s care impacted by: Other (see HPI ) Medications Administered Discontinued Medications Generic Name Dose Route Start Last Admin Trade Name Freq PRN Reason Stop Dose Admin Al Hydroxide/Mg Hydroxide 15 ml 06/16/24 07:14 06/16/24 07:23 Magnesium Hydrox/Alum Hydrox 30 Ml Oral.Susp PO 06/16/24 07:15 15 ml ONCE ONE Administration Belladonna Alkaloids/Phenobarbital 10 ml 06/16/24 07:14 06/16/24 07:23 Phenobarb/Hyoscy/Atropine/Scop 10 Ml Elixir PO 06/16/24 07:15 10 ml ONCE ONE Administration Ondansetron HCl 4 mg 06/16/24 07:14 06/16/24 07:22 Ondansetron Odt 4 Mg Tab.Rapdis TRANSLINGU 06/16/24 07:15 4 mg ONCE ONE Administration Critical Care Time Critical Care Time Critical Care Time: No Discharge Plan Discharge Clinical Impression: Abdominal pain, Viral illness Patient Disposition: Home, Self-Care Instructions: Abdominal Pain (ED) Additional Instructions: Take your medications as prescribed. If you were prescribed antibiotics today, it is important that you take your medication to their entirety, do not skip any doses, do not finish them early. Follow-up with your primary care provider this week. Return to the emergency department with new or worsening symptoms. In case of emergency call [address]/CT abdomen pelvis wo IV con IMPRESSION: 1. No acute abnormality in the abdomen or pelvis. 2. Right greater than left lung base patchy groundglass opacities may represent infectious/inflammatory etiology versus subsegmental atelectasis. Fleischner guidelines were followed. Prescriptions: New alum-mag hydroxide-simeth [Maalox Advanced] 200-200-20 mg/5 mL suspension 5 ml PO 5XD PRN (Reason: dyspepsia) Qty: 355 0RF Rx Instructions: administer between meals and at bedtime azithromycin 250 mg tablet See Rx Instructions .ROUTE .COMPLEX Qty: 6 0RF Rx Instructions: For 250 mg dose pack: take 500 mg today (day 1), then 250 mg for 4 days (days 2-5) albuterol sulfate 90 mcg/actuation aerosol powdr breath activated 2 inh inhalation Q4-6H PRN (Reason: shortness of breath or wheezing) Qty: 1 0RF No Action fluticasone propionate [Flonase Allergy Relief] 50 mcg/actuation spray,suspension 1 spray intranasal Q12H Qty: 16 11RF Rx Instructions: administer into each nostril albuterol sulfate [Ventolin HFA] 90 mcg/actuation HFA aerosol inhaler 2 puff inhalation Q4-6H PRN (Reason: shortness of breath or wheezing) Qty: 8.5 3RF Combivent Respimat 20-100 mcg/actuation mist 1 puff inhalation QID Qty: 4 2RF Rx Instructions: space evenly during waking hours fluconazole 150 mg tablet 150 mg PO Q3D Qty: 2 0RF Rx Instructions: take 1 tab day 1, repeat second dose on day 3 metronidazole 0.75 % (37.5mg/5 gram) gel 1 appful vaginal DAILY 5 Days Qty: 70 0RF Referrals: Physician,Unknown J [Primary Care Provider] - 2 days Stand Alone Forms: Work/School Release Print Language: Serbian
[2024-06-16 06:54] LABS: Alanine Aminotransferase 12 U/L (0-31); Albumin Level 4.1 g/dL (3.5-5.0); Alkaline Phosphatase 55 U/L (39-117); Anion Gap 14 (12-20); Aspartate Amino Transferase 15 U/L (5-31); Bilirubin Total 0.7 mg/dL (0.0-1.0); Blood Urea Nitrogen 10 mg/dL (9-16); Calcium 9.3 mg/dL (8.4-10.2); Carbon Dioxide 23 mmol/L (22-29); Chloride 107 mmol/L (96-108); Estimated Glomerular Filt Rate > 60; Glucose Random 105 mg/dL (60-115); Lipase 16 U/L (8-78); Potassium 3.9 mmol/L (3.3-5.1); Sodium 140 mmol/L (135-145); Total Protein 7.2 g/dL (6.5-8.0)
[2024-06-16 06:58] LABS: Basophils Percent Auto 0.3 % (0-2); Eosinophils Absolute Auto 0.3 X10*3/uL (0.0-0.4); Eosinophils Percent Auto 2.9 % (0-4); Hematocrit 41.4 % (37.0-47.0); Hemoglobin 14.1 g/dl (12.0-16.0); Imm Gran Abs Auto 0.04 X10*3/uL (0.00-0.03); Imm Gran Pct Auto 0.4 % (0.0-0.4); Lymphocytes Absolute Auto 1.4 X10*3/uL (1.2-4.9); Lymphocytes Percent Auto 12.6 % (20-40); Mean Corpuscular HGB Conc 34.1 g/dl (31.0-35.0); Mean Corpuscular Hemoglobin 31.1 pg (27.0-33.0); Mean Corpuscular Volume 91.4 fL (80.0-98.0); Mean Platelet Volume 9.3 fL (9.4-12.3); Monocytes Absolute Auto 0.6 X10*3/uL (0.1-1.2); Monocytes Percent Auto 5.7 % (2-11); Neutrophils Absolute Auto 8.6 x10*3/uL (2.0-8.3); Neutrophils Percent Auto 78.1 % (45-73); Platelet Count 301 X10*3/uL (160-400); Red Blood Count 4.53 X10*6/uL (4.20-5.50); Red Cell Distribution Width 12.5 % (11.0-16.0)
[2024-06-16] MEDS: Ondansetron ODT 4 MG TAB.RAPDIS TRANSLINGU (07:22)
[2024-06-16] MEDS: Magnesium Hydrox/Alum Hydrox 30 ML ORAL.SUSP 15 ML PO (07:23)
[2024-06-16] MEDS: PHENobarb/Hyoscy/Atropine/Scop 10 ML ELIXIR PO (07:23)
--- NOTE | 2024-06-16 07:24 | PC.NURSE ---
Pt medicated per order. Pt requesting food.
[2024-06-16 07:50] LABS: HCG Quantitative < 2 mIU/mL
[2024-06-16 08:33] VITALS: BP 90/50; PULSE 84; RESP 18; TEMP 36.8; O2SAT 96
--- NOTE | 2024-06-16 09:11 | PC.NURSE ---
Pt resting comfortably on stretcher, respirations equal/unlabored. CT ordered.
[2024-06-16 10:57] VITALS: BP 102/61; PULSE 97; RESP 16; O2SAT 95
--- NOTE | 2024-06-16 11:06 | PC.NURSE ---
VS updated. Urine sent.
[2024-06-16 11:11] LABS: Appearance Urine Clear; Color Urine Yellow; Glucose Urine UA Negative (Negative); Leukocyte Esterase Urine Small (1+) (Negative); Nitrite Urine Negative (Negative); PH 6.5 (5.0-9.0); Specific Gravity - Urine 1.015 (1.005-1.025); UMIC TRIGGER UACC YES; Urine Blood Negative (Negative); Urine Ketones Negative (Negative); Urine Protein Negative (Neg-Trace)
[2024-06-16 11:16] VITALS: BP 102/61; PULSE 97; RESP 16; TEMP 36.8; O2SAT 95
[2024-06-16 11:18] LABS: Bacteria Urine None Seen (None Seen); Hyaline Casts Urine 0-2 /LPF (0-2); RBC Urine 0-2 /HPF (0-2); UACC Culture Trigger YES; WBC Urine 0-5 /HPF (0-5)
== END 2024-06-16 11:20 | disposition home or self-care (01) ==
PROVIDERS: Physician Assistant; Emergency Provider Student in an Organized Health Care Education/Training Program
DX: B34.9 Viral infection, unspecified (principal); R10.13 Epigastric pain; K21.9 Gastro-esophageal reflux disease without esophagitis; Z79.899 Other long term (current) drug therapy
CPT/HCPCS: 36415; 74176; 80053; 81001; 83690; 84702; 85025; 87086; 99284

== ENCOUNTER 2024-06-26 06:35 | Emergency (ER) | payer BC, OTHER, SELFPAY ==
--- NOTE | ~2024-06-26 | US_ITS ---
EXAMINATION: US ABDOMEN LIMITED CLINICAL INFORMATION: Right upper quadrant and epigastric pain. COMPARISON: CT of 06/16/2024 TECHNIQUE: Real-time imaging of the right upper quadrant abdominal viscera. FINDINGS: PANCREAS: Normal. LIVER: Normal. The liver is normal in size. The liver contour is normal. Parenchymal echogenicity is normal. No focal hepatic lesion. There is no intrahepatic biliary duct dilatation seen. GALLBLADDER: Normal. The gallbladder is physiologically distended without evidence of stones, sludge, polyps, wall thickening or pericholecystic fluid. COMMON BILE DUCT: Normal in caliber measuring 0.5 cm in diameter. RIGHT KIDNEY: Normal. No hydronephrosis. No renal calculi or focal parenchymal lesions. The kidney measures 10.7 cm in maximum dimension. FREE FLUID: None. US/US abdomen limited IMPRESSION: Normal right upper quadrant ultrasound. Electronically signed by: Nile Julio MD 06/26/2024 08:54 AM EDT
[2024-06-26 06:38] VITALS: BP 108/63; PULSE 84; RESP 18; TEMP 36.6; O2SAT 97; BMI 27.0
--- NOTE | 2024-06-26 07:02 | ED_ITS ---
HPI - Abdominal Pain General Chief Complaint: Abdominal Pain Stated Complaint: abd pain Time Seen by Provider: 06/26/24 06:57 Source: patient, RN notes reviewed and old records reviewed Mode of arrival: ambulatory History of Present Illness ED Provider: Elizabet Alcocer PA-C HPI narrative: 24-year-old female with a past medical history of asthma, GERD, seasonal allergies, presenting to the ED complaining of epigastric abdominal pain radiating to umbilicus with associated nausea x 10 days. Patient was evaluated in our ED on 06/16 for similar symptoms, had labs & CT and diagnosed with pneumonia, discharged on Azithromycin which she completed without relief. States then went to [facility] for same symptoms had labs & was treated for GERD. Reports symptoms are persistent. States abdominal pain worse with eating and in the morning. Also reports dark/black stool, does endorse Pepto-Bismol use. Denies vomiting, constipation, dysuria/hematuria, SOB/CP. LMP 06/02 Related Data Previous Rx's ?Medication ?Instructions ?Recorded fluticasone propionate 50 1 spray intranasal Q12H #16 grams 03/29/24 mcg/actuation nasal spray,suspension (Flonase Allergy Relief) fluconazole 150 mg tablet 150 mg PO Q3D 2 doses #2 tabs 04/12/24 ipratropium 20 mcg-albuterol 100 1 puff inhalation QID #4 grams 04/12/24 mcg/actuation mist for inhalation (Combivent Respimat) metronidazole 0.75 % (37.5 mg/5 1 appful vaginal DAILY 5 days #70 04/12/24 gram) vaginal gel grams albuterol sulfate 90 mcg/actuation 2 puff inhalation Q4-6H PRN 06/02/24 aerosol inhaler (Ventolin HFA) shortness of breath or wheezing #8.5 grams albuterol sulfate 90 mcg/actuation 2 inh inhalation Q4-6H PRN 06/16/24 breath activated powder inhaler shortness of breath or wheezing #1 ea aluminum-mag hydroxide-simethicone 5 ml PO 5XD PRN dyspepsia #355 mL 06/16/24 200 mg-200 mg-20 mg/5 mL oral susp (Maalox Advanced) azithromycin 250 mg tablet See Rx Instructions PO .COMPLEX #6 06/16/24 tabs aluminum-mag hydroxide-simethicone 5 ml PO 5XD PRN dyspepsia #30 mL 06/26/24 200 mg-200 mg-20 mg/5 mL oral susp (Maalox Advanced) Allergies Allergy/AdvReac Type Severity Reaction Status Date / Time ibuprofen [From Advil] Allergy Severe Anaphylaxis Verified 06/26/24 06:39 NSAIDS (Non-Steroidal Allergy Severe Anaphylaxis Verified 06/26/24 06:39 Anti-Inflamma Review of Systems Review of Systems Yes all other systems are reviewed and are negative Constitutional: Reports as per [facility] Past Medical History Attestation statement: The following information was validated with the patient. Source: old records reviewed Medical History No known health problems Surgical History No pertinent past surgical history Family History Family History Maternal Grandmother Pancreatic cancer Brother Cancer Paternal Grandmother CVA (cerebral vascular accident) Social History Social History Housing: House Patient Tobacco Use Status: Never used Tobacco Smoked in Last 30 Days: Yes e-Cigarette/Vaping Use: Currently Using Second Hand Smoke Exposure: No Use of substances other than those prescribed or required for medical reasons: No Substance Use Type: Marijuana Advance Directives: No Advance Directives Information Provided: No Do you have a plan to hurt others: No Plan Patient : No service: No Current occupational status: unemployed Current occupational exposures/hazards: No Cognitive needs: No Hearing needs: No Vision needs: No Physical Exam ED Vital Signs: Vital Signs - 24 hr 06/26/24 06:38 06/26/24 08:22 Temperature 97.8 F Pulse Rate 84 90 Respiratory Rate 18 16 Blood Pressure 108/63 121/72 Pulse Oximetry 97 98 Oxygen Delivery Method Room Air Room Air BMI result Body Mass Index 27.0 Const General: cooperative, healthy appearing and no acute distress Orientation/consciousness: patient oriented x3 Limitations: no limitations HENMT Head: Yes normal to inspection and Yes atraumatic Ears: hearing grossly normal bilaterally General nose exam: Normal external nose present Face and sinus: Yes normal facial exam Eyes General: appearance normal, both eyes and all related structures EOM: EOMs intact bilaterally Neck Neck: Yes normal visual inspection and Yes no meningeal signs Resp Effort & Inspection: normal respiratory effort and no respiratory distress Auscultation: clear to auscultation bilaterally Cardio Rate: regular rate Heart sounds: S1 normal heart sound present and S2 normal heart sound present GI Inspection: Yes normal to inspection Palpation (GI): Soft to palpation, Tenderness to palpation present (GI) in the epigastrum and in the RUQ; with no rebound tenderness, no guarding and not rigid General: Yes no CVA tenderness Back/Spine/Pelvis Back: no CVA tenderness Skin Rashes: no rashes Wounds: no wounds Neuro General: patient oriented x3, tone normal and no meningeal signs Cranial nerves: Yes CN's II-XII intact bilaterally Gait exam (Neuro): Normal gait present Extrem General: Yes normal to inspection Course Course Course Narrative: -[id number]--labs reassuring. Troponin negative. HCG negative -occult stool negative US abdomen limited IMPRESSION: Normal right upper quadrant ultrasound. > on re-evaluation patient reports mild symptomatic improvement. Results discussed in including recommended follow up with GI. -UA not infected Results discussed with patient including worrisome signs and symptoms and strict return precautions, and when to return to the emergency department. They verbalized understanding and feel safe for discharge at this time. Medical Decision Making Medical Decision Making [facility] Narrative: 24-year-old female with a past medical history of asthma, GERD, seasonal allergies, presenting to the ED complaining of epigastric abdominal pain radiating to umbilicus with associated nausea x 10 days. On exam vital signs stable, NAD, nontoxic appearing, abdomen soft with epigastric/RUQ tenderness, no rebound or guarding. Concern for cholecystitis/lithiasis vs pancreatitis vs PUD vs when UGIB. Lower suspicion for pancreatitis/appendicitis or ACS Plan: Labs, UA, ultrasound, symptomatic remedies, occult stool, re-evaluate Please refer to course for remaining clinical decision making, interpretation of labs/imaging results, and discussions with consultants and/or family members. Differential Diagnosis Differential Diagnoses: The differential diagnosis associated with the presentation includes As above Admission/Observation Consideration of admission/observation: Escalation of care including admission/observation considered Lab Data [facility] Lab Attestation statement: I reviewed the patient's lab results. 06/26/24 07:14 06/26/24 07:14 Labs: Lab Results 06/26/24 06/26/24 Range/Units 07:14 10:17 WBC 10.4 (4.8-10.8) X10*3/uL RBC 4.67 (4.20-5.50) X10*6/uL Hgb 14.4 (12.0-16.0) g/dl Hct 43.8 (37.0-47.0) % MCV 93.8 (80.0-98.0) fL MCH 30.8 (27.0-33.0) pg MCHC 32.9 (31.0-35.0) g/dl RDW 12.6 (11.0-16.0) % Plt Count 349 (160-400) X10*3/uL MPV 9.3 L (9.4-12.3) fL Immature Gran % (Auto) 0.4 (0.0-0.4) % Neut % (Auto) 70.1 (45-73) % Lymph % (Auto) 18.1 L (20-40) % [place] % (Auto) 5.4 (2-11) % Eos % (Auto) 5.7 H (0-4) % Baso % (Auto) 0.3 (0-2) % Lymph # (Auto) 1.9 (1.2-4.9) X10*3/uL [place] # (Auto) 0.6 (0.1-1.2) X10*3/uL Eos # (Auto) 0.6 H (0.0-0.4) X10*3/uL Baso # (Auto) 0.0 (0.0-0.2) X10*3/uL Abs Immat Gran (auto) 0.04 H (0.00-0.03) X10*3/uL Absolute Neuts (auto) 7.3 (2.0-8.3) x10*3/uL Absolute Nucleated RBC 0.000 (0.0-0.012) X10*3/uL Nucleated RBC % (auto) 0.0 (0.0-0.2) /100WBC Sodium 140 (135-145) mmol/L Potassium 3.7 (3.3-5.1) mmol/L Chloride 107 (96-108) mmol/L Carbon Dioxide 27 (22-29) mmol/L Anion Gap 10 L (12-20) BUN 6 L (9-16) mg/dL Creatinine 0.71 (0.5-1.4) mg/dL Estim Creat Clear Calc 105.3 Estimated GFR > 60 Random Glucose 96 (60-115) mg/dL Calcium 9.3 (8.4-10.2) mg/dL Magnesium 2.2 (1.6-2.6) mg/dL Total Bilirubin 0.5 (0.0-1.0) mg/dL AST 15 (5-31) U/L ALT 16 (0-31) U/L Alkaline Phosphatase 52 (39-117) U/L Troponin I High Sens < 2.7 (<3.5-17.0) ng/L Total Protein 6.9 (6.5-8.0) g/dL Albumin 3.9 (3.5-5.0) g/dL Lipase 14 (8-78) U/L Beta HCG, Quant < 2 mIU/mL Urine Color Yellow Urine Appearance Clear Urine pH 7.0 (5.0-9.0) Ur Specific [place] 1.015 (1.005-1.025) Urine Protein Negative (Neg-Trace) mg/dL Urine Glucose (UA) Negative (Negative) mg/dL Urine Ketones Trace (Negative) mg/dL Urine Blood Negative (Negative) Urine Nitrite Negative (Negative) Ur Leukocyte Esterase Negative (Negative) Urine RBC 0-2 (0-2) /HPF Urine WBC 0-5 (0-5) /HPF Ur Squamous Epith Cells 0-2 (0-2) /HPF Urine Bacteria None Seen (None Seen) Hyaline Casts 0-2 (0-2) /LPF Stool Occult Blood NEGATIVE (NEGATIVE) Independent Interpretation I performed an independent interpretation of an: Ultrasound Radiology Impression Discussion of test interpretation with radiology: I have reviewed the radiologist's reading. External Record Review External record reviewed: Inpatient record, Office record, Outpatient record, Prior outpatient labs, Prior outpatient radiology, Primary care record and Outside ED record Tests considered The following testing was considered but not selected: As above Prescription Management I considered prescription management with: Pain Medication Medications Administered Discontinued Medications Generic Name Dose Route Start Last Admin Trade Name Freq PRN Reason Stop Dose Admin Al Hydroxide/Mg Hydroxide 30 ml 06/26/24 07:10 06/26/24 07:57 Magnesium Hydrox/Alum Hydrox 30 Ml Oral.Susp PO 06/26/24 07:11 30 ml ONCE ONE Administration Famotidine 20 mg 06/26/24 07:10 06/26/24 07:56 Famotidine/Pf 20 Mg/2 Ml Vial IVPUSH 06/26/24 07:11 20 mg ONCE ONE Administration Sodium Chloride 1,000 mls @ 999 mls/hr 06/26/24 07:15 06/26/24 10:28 Ns IV 06/26/24 08:15 Infused .Q1H1M ELEN Infusion Lidocaine HCl 15 ml 06/26/24 07:10 06/26/24 07:57 Lidocaine Hcl Viscous 2 % 15 Ml Solution MUCOUS MEM 06/26/24 07:11 15 ml ONCE ONE Administration Discharge Plan Discharge Clinical Impression: Abdominal pain, RUQ Patient Disposition: Home, Self-Care Prescriptions: New alum-mag hydroxide-simeth [Maalox Advanced] 200-200-20 mg/5 mL suspension 5 ml PO 5XD PRN (Reason: dyspepsia) Qty: 30 0RF Rx Instructions: administer between meals and at bedtime No Action fluticasone propionate [Flonase Allergy Relief] 50 mcg/actuation spray,suspension 1 spray intranasal Q12H Qty: 16 11RF Rx Instructions: administer into each nostril albuterol sulfate [Ventolin HFA] 90 mcg/actuation HFA aerosol inhaler 2 puff inhalation Q4-6H PRN (Reason: shortness of breath or wheezing) Qty: 8.5 3RF alum-mag hydroxide-simeth [Maalox Advanced] 200-200-20 mg/5 mL suspension 5 ml PO 5XD PRN (Reason: dyspepsia) Qty: 355 0RF Rx Instructions: administer between meals and at bedtime azithromycin 250 mg tablet See Rx Instructions .ROUTE .COMPLEX Qty: 6 0RF Rx Instructions: For 250 mg dose pack: take 500 mg today (day 1), then 250 mg for 4 days (days 2-5) albuterol sulfate 90 mcg/actuation aerosol powdr breath activated 2 inh inhalation Q4-6H PRN (Reason: shortness of breath or wheezing) Qty: 1 0RF Combivent Respimat 20-100 mcg/actuation mist 1 puff inhalation QID Qty: 4 2RF Rx Instructions: space evenly during waking hours fluconazole 150 mg tablet 150 mg PO Q3D Qty: 2 0RF Rx Instructions: take 1 tab day 1, repeat second dose on day 3 metronidazole 0.75 % (37.5mg/5 gram) gel 1 appful vaginal DAILY 5 Days Qty: 70 0RF Referrals: [facility] [Provider Group] Print Language: Rwandan
--- OUTSIDE RECORDS SUMMARY | 2024-06-26 07:17 | XMS_ITS | Continuity of Care Document ---
Author Organization [facility] ter Address [address] [place] [id number]- Care Team Providers Care Food Preparer Name Role Phone Not on Staff, PCP Primary Care Physician Unavail able Encounter [facility] Date(s): 06/21/24 - 06/21/[address] [address]- Encounter Diagnosis Gastritis(Final) - 06/21/24 Discharge Disposition: A-D/C Home Attending Physician: Mickey Chow MD Admitting Physician: Mickey Chow MD Referring Physician: Not on Staff, Referring MD Allergies, Adverse Reactions, Alerts Substance Reaction Severity Status ibuprofen Active Cats Active Pollen Active Medications Diflucan 150 mg oral tablet 1 tablet = 150 mg, By Mouth, Once, # 1 tablet, 1 Refills, Soft Stop, 06/21/24 14:17:00 EDT, Tablet,[facility] #[id number], Partial fill upon patient request if the prescription is for a schedule II opioid drug., 155, cm, 06/21/24 10:05:00 EDT, H... Start Date: 06/21/24 Status: Ordered famotidine 20 mg oral tablet 20 mg, 1, tablet, By Mouth, 2 times a day, # 60 tablet, Refills 1, Tot. Refills 1, Maintenance, 06/21/24 14:17:00 EDT, Route to Pharmacy Electronically, [facility] #[id number], Partial fill uponpatient request if the prescription is for a schedu... Start Date: 06/21/24 Status: Ordered ibuprofen 600 mg oral tablet [...] 3 Refills, Maintenance, 06/16/22 10:13:00 EDT, Tablet, [facility] #[id number], Partial fill upon patient request if the [...] 0 Refills, Maintenance, 02/08/23 2:49:00 EDT, Capsule, [facility] #[id number], Partial fill upon patient request i... Start Date: 02/08/23 Status: Ordered Problem List Condition Confirmation Course Effective Dates Status Health [facility] Informant History of COVID- - September 2021 Confirmed Active Vital Signs Most recent to oldest [Reference Range]: 1 2 3 Height 155 cm (06/21/24 2:20 PM) 155 cm (06/21/24 10:05 AM) 155 cm (06/21/24 10:00 AM) Weight 65 kg (06/21/24 2:20 PM) 65 kg (06/21/24 10:05 AM) 65 kg (06/21/24 10:00 AM) Oxygen Saturation [94-100 %] 97 % (06/21/24 2:20 PM) 97 % (06/21/24 10:00 AM) Pulse Rate [55-90 bpm] 91 bpm *H* (06/21/24 2:20 PM) 81 bpm (06/21/24 10:00 AM) Body Mass Index [18.5-24.99 kg/m2] 27.06 kg/m2 *H* (06/21/24 2:20 PM) 27.06 kg/m2 *H* (06/21/24 10:00 AM) Blood Pressure [90-138/55-84 mm Hg] 112/70mm Hg (06/21/24 2:20 PM) 124/69mm Hg (06/21/24 10:00 AM) Respiratory Rate [16-30 br/min] 18 br/min (06/21/24 2:20 PM) 18 br/min (06/21/24 10:00 AM) Temperature [96.8-100.4 DegF] 98.6 DegF (06/21/24 2:20 PM) 97.9 DegF (06/21/24 10:00 AM) Mode of Delivery (Oxygen) Room air (06/21/24 2:20 PM) Room air (06/21/24 10:00 AM) Blood pressure sites Arm, left (06/21/24 2:20 PM) Arm, left (06/21/24 10:00 AM) Temperature Route Oral (06/21/24 2:20 PM) Oral (06/21/24 10:00 AM) Dry Weight 65 kg (06/21/24 2:20 PM) 65 kg (06/21/24 10:05 AM) 65 kg (06/21/24 10:00 AM) Weight Obtained Via Patient/family state d (06/21/24 10:00 AM) Dry Weight Obtained Via Patient/family s tated (06/21/24 10:00 AM) Social History Social History Type Response Smoking Status Never (less than 100 in lifetime) entered on: 06/19/22 Sex EKG study * Event Display: ECG 12-Lead Authored Date: Please click on pdf link to open report * Event Display: ECG 12-Lead Authored Date: Ventricular Rate: 78 BPM Atrial Rate: 78 BPM P-R Interval: 170 ms QRS Duration: 84 ms Q-T Interval: 364 ms QTC Calculation(Bazett): 414 ms P [place]: 62 degrees R [place]: 80 degrees T [place]: 50 degrees Normal sinus rhythm Normal ECG When compared with ECG of 17-FEB-2024 20:59, No significant change was found Confirmed by WILBUR BARON MD ([id number]) on 06/21/2024 9:48:30 PM [place]: WILBUR BARON MD Patient Care team information Care Team Personnel Name: Not on Staff, PCP Position: S Physician (General Medicine) Member Role: PCP Care Team Related Persons Name: CHANELLE MONZON Address: [employer] Address: home [address] [place] [address] Name: CHRISTIE MENDOZA Address: home [address] [place] [address]
[2024-06-26 07:18] LABS: MANUAL DIFF FLAG NO
[2024-06-26 07:23] LABS: Basophils Percent Auto 0.3 % (0-2); Eosinophils Absolute Auto 0.6 X10*3/uL (0.0-0.4); Eosinophils Percent Auto 5.7 % (0-4); Hematocrit 43.8 % (37.0-47.0); Hemoglobin 14.4 g/dl (12.0-16.0); Imm Gran Abs Auto 0.04 X10*3/uL (0.00-0.03); Imm Gran Pct Auto 0.4 % (0.0-0.4); Lymphocytes Absolute Auto 1.9 X10*3/uL (1.2-4.9); Lymphocytes Percent Auto 18.1 % (20-40); Mean Corpuscular HGB Conc 32.9 g/dl (31.0-35.0); Mean Corpuscular Hemoglobin 30.8 pg (27.0-33.0); Mean Corpuscular Volume 93.8 fL (80.0-98.0); Mean Platelet Volume 9.3 fL (9.4-12.3); Monocytes Absolute Auto 0.6 X10*3/uL (0.1-1.2); Monocytes Percent Auto 5.4 % (2-11); Neutrophils Absolute Auto 7.3 x10*3/uL (2.0-8.3); Neutrophils Percent Auto 70.1 % (45-73); Platelet Count 349 X10*3/uL (160-400); Red Blood Count 4.67 X10*6/uL (4.20-5.50); Red Cell Distribution Width 12.6 % (11.0-16.0); White Blood Count 10.4 X10*3/uL (4.8-10.8)
[2024-06-26 07:26] LABS: OBS Int Ctl Valid YES; OBS1 NEGATIVE (NEGATIVE)
[2024-06-26 07:34] LABS: Anion Gap 10 (12-20)
[2024-06-26 07:35] LABS: Alanine Aminotransferase 16 U/L (0-31); Albumin Level 3.9 g/dL (3.5-5.0); Alkaline Phosphatase 52 U/L (39-117); Aspartate Amino Transferase 15 U/L (5-31); Bilirubin Total 0.5 mg/dL (0.0-1.0); Blood Urea Nitrogen 6 mg/dL (9-16); Calcium 9.3 mg/dL (8.4-10.2); Carbon Dioxide 27 mmol/L (22-29); Chloride 107 mmol/L (96-108); Creatinine Clr Calc Pharmacy 105.3; Estimated Glomerular Filt Rate > 60; Glucose Random 96 mg/dL (60-115); Lipase 14 U/L (8-78); Magnesium 2.2 mg/dL (1.6-2.6); Potassium 3.7 mmol/L (3.3-5.1); Sodium 140 mmol/L (135-145); Total Protein 6.9 g/dL (6.5-8.0)
[2024-06-26 07:45] LABS: HCG Quantitative < 2 mIU/mL
[2024-06-26 07:53] LABS: Troponin-I High Sensitivity < 2.7 ng/L (<3.5-17.0)
[2024-06-26] MEDS: 0.9 % Sodium Chloride 1,000 ML 999 ML IV (07:56)
[2024-06-26] MEDS: Famotidine/PF 20 MG/2 ML VIAL IVPUSH (07:56)
[2024-06-26] MEDS: Magnesium Hydrox/Alum Hydrox 30 ML ORAL.SUSP PO (07:57)
[2024-06-26] MEDS: Lidocaine HCl Viscous 2 % 15 ML SOLUTION MUCOUS MEM (07:57)
[2024-06-26 08:22] VITALS: BP 121/72; PULSE 90; RESP 16; O2SAT 98
--- NOTE | 2024-06-26 08:28 | PC.NURSE ---
Upon initial assessment pt receiving bedside ultrasound exam, tearful and reports exam makes pain worse. States pain is epigastric but feels different than prior bouts of GERD. Reports nausea and loose stool without vomiting. Seen at [facility], no imaging at that time. Pt states given abx for ?PNA that has mostly resolved with some residual cough. IV inserted and pt medicated as charted
--- NOTE | 2024-06-26 09:27 | PC.NURSE ---
S/P general medical practitioner pt states pain is 2/10, appears more comfortable
[2024-06-26 10:29] LABS: Appearance Urine Clear; Color Urine Yellow; Glucose Urine UA Negative (Negative); Leukocyte Esterase Urine Negative (Negative); Nitrite Urine Negative (Negative); Specific Gravity - Urine 1.015 (1.005-1.025); Urine Blood Negative (Negative); Urine Ketones Trace mg/dL (Negative); Urine Protein Negative (Neg-Trace)
[2024-06-26 10:34] LABS: Bacteria Urine None Seen (None Seen); Hyaline Casts Urine 0-2 /LPF (0-2); RBC Urine 0-2 /HPF (0-2); Squamous Epithelial Cell Urine 0-2 /HPF (0-2); WBC Urine 0-5 /HPF (0-5)
[2024-06-26 11:14] VITALS: BP 111/72; PULSE 95; RESP 16; TEMP 36.8; O2SAT 97
[2024-06-26] MEDS: Acetaminophen 325 MG TABLET 975 MG PO (11:17)
== END 2024-06-26 11:24 | disposition home or self-care (01) ==
PROVIDERS: Physician Assistant; Emergency Provider Emergency Medicine
DX: R10.13 Epigastric pain (principal); R10.11 Right upper quadrant pain; R10.2 Pelvic and perineal pain; R11.2 Nausea with vomiting, unspecified; Z79.899 Other long term (current) drug therapy
CPT/HCPCS: 36415; 76705; 80053; 81001; 82272; 83690; 83735; 84484; 84702; 85025; 96361; 96374; 99284; 99285

== ENCOUNTER 2024-07-20 10:05 | Outpatient (AMB) | payer BC, OTHER, SELFPAY ==
[2024-07-20 10:10] VITALS: BP 106/58; PULSE 78; O2SAT 95; BMI 27.8
--- NOTE | 2024-07-20 10:10 | A.OFFPC_ITS ---
Vital Signs 07/20/24 10:10 Height 5 ft 1 in Weight 147 lb BMI 27.8 BP 106/58 L Blood Pressure Location Lt brachial Position Sitting Pulse 78 Pulse Source Pulse Oximeter Pulse Oximetry (%) 95 Oxygen Delivery Method Room Air Intake Visit Reasons: 3 Month F/U Allergies ibuprofen [From Advil] Allergy (Severe, Verified 07/20/24 10:14) Anaphylaxis NSAIDS (Non-Steroidal Anti-Inflamma Allergy (Severe, Verified 07/20/24 10:14) Anaphylaxis Medication List - Last Reconciled 07/20/24 by Farnaz Dent PA-C albuterol sulfate 90 mcg/actuation 2 inhalations inhalation Q4-6H PRN albuterol sulfate 90 mcg/actuation (Ventolin HFA) 2 puffs inhalation Q4-6H PRN alum-mag hydroxide-simeth 200-200-20 mg/5 mL (Maalox Advanced) 5 mL PO 5XD PRN alum-mag hydroxide-simeth 200-200-20 mg/5 mL (Maalox Advanced) 5 mL PO 5XD PRN fluconazole 150 mg PO Q3D 2 doses fluticasone propionate 50 mcg/actuation (Flonase Allergy Relief) 1 spray intranasal Q12H ipratropium-albuterol 20-100 mcg/actuation (Combivent Respimat) 1 puff inhalation QID metronidazole 0.75%(37.5mg/5gram) 1 appful vaginal DAILY 5 days Tobacco use date assessed: 04/12/24 Dental Screening Dental Screen Date: 04/12/24 HPI 3 Month F/U HPI Details 24-year-old female with past medical his tory of GERD and asthma last seen April 2024 coming in for follow up. In review of the notes, patient was seen in [facility] ED for abdominal pain with nausea, US was normal in ED and advised Maalox and following up with GI outpatient. Patient states her asthma has been improving and she rarely uses her albuterol inhaler. She does mentioned she still use it multiple times per week. She has only been using the Combivent inhaler intermittently and as needed. Her epigastric pain has resolved and she denies any other concerns today. [facility] Medical History (Updated 07/20/24 @ 10:25 by Farnaz Dent PA-C) Pansinusitis No known health problems Surgical History No pertinent past surgical history Family History Maternal Grandmother Pancreatic cancer Brother Cancer Paternal Grandmother CVA (cerebral vascular accident) Social History Housing: House Patient Tobacco Use Status: Never used Tobacco e-Cigarette/Vaping Use: Currently Using Second Hand Smoke Exposure: No Substance Use Type: Marijuana service: No Current occupational status: unemployed Current occupational exposures/hazards: No Cognitive needs: No Hearing needs: No Vision needs: No Questionnaire Thrive Questionnaire Date Thrive assessed: 01/13/24 AUDIT C Alcohol Use Questionnaire (AUDIT-C) 2. How many drinks containing alcohol do you have on a typical day when you are drinking?: 1 or 2 3. How often do you have six or more drinks on one occasion?: Never Total Score: 0 TODD-7 AMB Questionnaire TODD-7 Date TODD - 7 assessed: 01/13/24 Source: Developed by Drs. Bethel Bermudez, Ivette Dumont, Jeffrey Porter and colleagues, with an educational satnam from [employer]. Review of Systems Const Denies body aches, Denies chills and Denies fever(s) Eyes Reports no additional complaints ENT Details: Difficulty breathing due to deviated septum Card Denies chest pain and Denies dyspnea Resp Denies dyspnea GI Denies abdominal pain, Denies belching, Denies dyspepsia, Denies heartburn, Denies nausea and Denies vomiting Reports no additional complaints Musc Reports no additional complaints Physical exam (Primary Care) Vital Signs: Last Vital Signs Pulse 78 07/20/24 10:10 BP 106/58 L 07/20/24 10:10 Pulse Ox 95 07/20/24 10:10 Oxygen Delivery Method Room Air 07/20/24 10:10 BMI result Body Mass Index 27.8 Tobacco/Smoking Status: Tobacco use Status Tobacco use date assessed 04/12/24 07/20/24 10:13 Patient Tobacco Use Status Never used Tobacco 07/20/24 10:13 e-Cigarette/Vaping Use Currently Using 07/20/24 10:13 Thrive Assessment: Date of Thrive Assessment Date Thrive assessed 01/13/24 07/20/24 10:13 Const General: cooperative, healthy appearing, comfortable and no acute distress Orientation/consciousness: patient oriented x3 HENMT Head: Yes normocephalic Ears: hearing grossly normal bilaterally General nose exam: Normal external nose present Eyes General: appearance normal, both eyes and all related structures Conjunctivae: conjunctivae normal Neck Neck: Yes full ROM and Yes no lymphadenopathy Resp Effort & Inspection: normal respiratory effort Auscultation: clear to auscultation bilaterally, no crackles, no rales, no rhonchi and no wheezes Cardio Rate: regular rate Rhythm: regular rhythm GI Palpation (GI): Soft to palpation, not firm and nontender Skin General skin exam: no rashes or lesions noted Neuro General: patient oriented x3 Gait exam (Neuro): Normal gait present Extrem General: Yes normal to inspection, Yes full ROM and No edema Psych Affect: normal affect Attitude: cooperative Insight: Good insight present (Psych) Judgement: Good judgement present (Psych) Coding Level of Care Code Est Pt Level 3 (14664) Diagnoses Mild intermittent asthma without complication J45.20 Asthma complication type: uncomplicated GERD with esophagitis K21.00 Overweight with body mass index (BMI) of 28 to 28.9 in adult E66.3; Z68.28 Deviated septum J34.2 Assessment & Plan Assessment & Plan (1) Mild intermittent asthma: Code(s): J45.20 - Mild intermittent asthma, uncomplicated Category: Medical Qualifiers: Asthma complication type: uncomplicated Qualified Code(s): J45.20 - Mild intermittent asthma, uncomplicated Plan: Breathing has improved since addition of Combivent and now rarely uses her inhaler. Discussed with patient the appropriate way of taking your medication with taking Combivent at least twice daily and albuterol only as needed. Patient understands and agrees with the plan and will follow up if breathing worsens. Avoid triggers such as allergies. (2) GERD with esophagitis: Code(s): K21.00 - Gastro-esophageal reflux disease with esophagitis, without bleeding Category: Medical Plan: Avoid trigger foods such as citrus, tomato products, soda, caffeine, spicy foods and other foods that may be irritating to your stomach. Avoid laying flat 3-4 hours after eating and elevate the head of the bed 30 degrees to prevent acid from moving into the esophagus. Not currently on medical management. Discussed with patient if she continues to have heartburn or acid reflux to reach out to the office. (3) Overweight with body mass index (BMI) of 28 to 28.9 in adult: Code(s): E66.3 - Overweight; Z68.28 - Body mass index [BMI] 28.0-28.9, adult Category: Medical Plan: Healthy diet and regular exercise is encouraged. (4) Deviated septum: Comment: Followed by ENT. Plans to have a rhinoplasty in the future. Continue Flonase. Code(s): J34.2 - Deviated nasal septum Category: Medical Plan: Patient requesting referral to ear nose and throat for re-evaluation of deviated septum and pansinusitis. Referral placed. Plan This note was constructed using voice recognition software. While every effort has been made to ensure accuracy and data operations director, still areas may have been included sometimes these areas may affect the content or meeting of the given symptoms. Total time spent caring for the patient today was 20 minutes. This includes time spent before the visit reviewing the chart, time spent during the visit, and time spent after the visit and documentation. Orders: Referrals 2 Ear/Nose/Throat Referral J32.4 - Chronic pansinusitis, J34.2 - Deviated nasal septum Medications: Refilled fluticasone propionate 50 mcg/actuation (Flonase Allergy Relief) administer into each nostril 1 spray intranasal Q12H 16 grams 11RF Discontinued fluconazole take 1 tab day 1, repeat second dose on day 3 Discontinued Reason: Patient no longer taking 150 mg PO Q3D 2 tabs 0RF
== END 2024-07-20 10:52 | disposition home or self-care (01) ==
LOC: HO.HMCH 10:06
DX: J45.20 Mild intermittent asthma, uncomplicated (principal); K21.00 Gastro-esophageal reflux disease with esophagitis, without bleeding; E66.3 Overweight; Z68.28 Body mass index [BMI] 28.0-28.9, adult; J34.2 Deviated nasal septum

== ENCOUNTER 2025-02-21 19:08 | Emergency (ER) | payer BC, OTHER, SELFPAY ==
--- NOTE | ~2025-02-21 | XR_ITS ---
CLINICAL HISTORY: Pneumonia? 1 view chest x-ray Comparison: None Findings: Mild patchy bilateral perihilar and medial basilar opacity. Normal size heart. No acute fracture. IMPRESSION: Mild atypical pneumonia. This document has been electronically signed by: Jaspal Menard MD on 02/21/2025 20:18:18
--- NOTE | 2025-02-21 19:11 | ECG_ITS ---
Test Reason : CP Blood Pressure : */* mmHG Vent. Rate : 99 BPM Atrial Rate : 99 BPM P-R Int : 160 ms QRS Dur : 64 ms QT Int : 330 ms P-R-T Axes : 77 78 45 degrees QTcB Int : 423 ms Normal sinus rhythm with sinus arrhythmia Low voltage QRS Borderline ECG No previous ECGs available Referred By: Generic ED Physician Electronically Signed By: MICK MULTANI MD
[2025-02-21 19:43] VITALS: BP 127/74; PULSE 102; RESP 18; TEMP 36.9; O2SAT 92; BMI 29.0
--- NOTE | 2025-02-21 19:48 | ED.GENADULT ---
HPI - General Adult General Chief complaint: Upper Respiratory Symptoms Stated complaint: sob, chest pain Time Seen by Provider: 02/21/25 20:50 Source: patient Mode of arrival: ambulatory Limitations: no limitations History of Present Illness ED Provider: DR. Sharma HPI narrative: 25-year-old female history of asthma, pneumonia presented with 3 days of shortness of breath, wheezing, productive cough with clear sputum, no fever, no chills. No recent travel, no lower extremity swelling or tenderness, no history of PE or DVT. Patient is complaining of chest pain only with coughing, no cardiac history. Related Data Previous Rx's ?Medication ?Instructions ?Recorded ipratropium 20 mcg-albuterol 100 1 puff inhalation QID #4 grams 04/12/24 mcg/actuation mist for inhalation (Combivent Respimat) metronidazole 0.75 % (37.5 mg/5 1 appful vaginal DAILY 5 days #70 04/12/24 gram) vaginal gel grams aluminum-mag hydroxide-simethicone 5 ml PO 5XD PRN dyspepsia #355 mL 06/16/24 200 mg-200 mg-20 mg/5 mL oral susp (Maalox Advanced) aluminum-mag hydroxide-simethicone 5 ml PO 5XD PRN dyspepsia #30 mL 06/26/24 200 mg-200 mg-20 mg/5 mL oral susp (Maalox Advanced) albuterol sulfate 90 mcg/actuation 2 inh inhalation Q4-6H PRN 09/20/24 breath activated powder inhaler shortness of breath or wheezing #1 ea fluticasone propionate 50 1 spray intranasal Q12H #16 grams 09/20/24 mcg/actuation nasal spray,suspension (Flonase Allergy Relief) albuterol sulfate 90 mcg/actuation 2 puff inhalation Q4-6H PRN 01/16/25 aerosol inhaler (Ventolin HFA) shortness of breath or wheezing #8.5 grams albuterol sulfate 90 mcg/actuation 2 puff inhalation Q6H PRN 02/21/25 aerosol inhaler shortness of breath or wheezing #8.5 grams azithromycin 250 mg tablet See Rx Instructions PO .COMPLEX #6 02/21/25 (Zithromax Z-Shady) tabs prednisone 20 mg tablet 20 mg PO BID #10 tabs 02/21/25 Allergies Allergy/AdvReac Type Severity Reaction Status Date / Time ibuprofen [From Advil] Allergy Severe Anaphylaxis Verified 02/21/25 19:48 NSAIDS (Non-Steroidal Allergy Severe Anaphylaxis Verified 02/21/25 19:48 Anti-Inflamma Review of Systems Review of Systems: All other systems are reviewed and are negative Constitutional: Reports as per HPI and Reports no additional constitutional complaints Eyes: Reports as per HPI and Reports no additional eye complaints Reports system reviewed and no additional complaints, except as documented Cardiovascular: Reports as per HPI and Reports no additional cardiovascular complaints Respiratory: Reports as per HPI and Reports no additional respiratory complaints Gastrointestinal: Reports as per HPI and Reports no additional gastrointestinal complaints Genitourinary: Reports no additional female genitourinary complaints Musculoskeletal: Reports no additional musculoskeletal complaints Skin/Breast: Reports system reviewed and no additional complaints, except as docu Psychiatric: Reports no additional psychiatric complaints Endocrine: Reports no additional endocrine complaints Hematologic/Lymphatic: Reports no additional hematologic/lymphatic complaints Allergic/Immunologic: Reports no additional allergic/immunologic complaints Reports system reviewed and no additional complaints, except as documented and Reports Abnormal speech present [facility] Past Medical History Medical History Pansinusitis No known health problems Surgical History No pertinent past surgical history Family History Family History Maternal Grandmother Pancreatic cancer Brother Cancer Paternal Grandmother CVA (cerebral vascular accident) Social History Social History Housing: House Patient Tobacco Use Status: Never used Tobacco e-Cigarette/Vaping Use: Currently Using Second Hand Smoke Exposure: No Substance Use Type: Marijuana Advance Directives: No Advance Directives Information Provided: Yes service: No Current occupational status: unemployed Current occupational exposures/hazards: No Cognitive needs: No Hearing needs: No Vision needs: No Physical Exam ED Vital Signs: Vital Signs - 24 hr 02/21/25 22:14 02/21/25 22:48 Temperature 97.6 F Pulse Rate 90 Respiratory Rate 16 Blood Pressure 126/81 Pulse Oximetry 95 96 Oxygen Delivery Method Room Air BMI result Body Mass Index 29.0 Vital signs have been reviewed and appear to be correct. Blood pressure elevated. Heart rate normal. Respiratory rate normal. Temperature normal. Oxygen saturation normal. Appearance: Alert. Oriented X3. No acute distress. Head: Normal external exam. Normocephalic. Atraumatic. No Whyte signs noted. No raccoon eyes noted Eyes: PERRLA. EOMI. Conjunctiva and sclera normal. Eyelids normal. ENT: TM's Normal. Pharynx normal. Uvula midline. Moist mucous membranes. No trismus noted. No drooling noted. No muffled voice noted. Neck: Normal inspection. Neck supple. FROM. No adenopathy. Thyroid Normal. No meningeal signs. No neck mass noted. CVS: Normal heart rate and rhythm. Heart sound normal. No murmurs noted. Pulses normal throughout. Respiratory: No respiratory distress. Painless inspiration. Decreased breathing sounds bilaterally, expiratory wheezing, with prolonged expiration. No accessory muscle usage noted or decreased air movement noted. Abdomen: Soft and nontender. Bowel sounds normal in all 4 quadrants. No distention noted. No organomegaly noted. No visible injury noted. Back: No CVA tenderness. Full range of motion noted. Skin: Skin warm and dry. Normal skin color. Normal skin turgor. No rashes/lesions/lacerations noted. Extremities: No lower extremity edema. Extremities exhibit normal range of motion. Extremities nontender. Neuro: Oriented X 3. Cranial nerve exam: II-XII are grossly intact No motor deficit. No sensory deficit. Reflexes normal. Course Course Course Narrative: RME: 25-year-old female presents to the ED for coughing, chest pain only whe she coughs, sore throat, wheezing and shortness of breath. Patient patient's O2 sat 92% on room air when she takes deep breath it goes up to 95%. Lung sound tight with wheezing. ED bronchodilator ordered. Chest x-ray SARs strep ordered. Reevaluation(s) Reevaluation #1: Atypical pneumonia, feels better after received bronchodilator, O2 sat is 95% on room air after ambulating in the ED, acute asthma exacerbation. start on Z-Shady, prednisone, and bronchodilator. Time: 22:13 Medications Administered Discontinued Medications Generic Name Dose Route Start Last Admin Trade Name Freq PRN Reason Stop Dose Admin Albuterol Sulfate 7.5 mg/ 10 mg 02/21/25 20:47 02/21/25 20:50 Albuterol Sulfate 2.5 mg INHALE 02/21/25 20:48 10 mg ONCE ONE Administration Azithromycin 500 mg 02/21/25 21:03 02/21/25 22:34 Azithromycin 500 Mg Tablet PO 02/21/25 21:04 500 mg ONCE ONE Administration Prednisone 40 mg 02/21/25 21:03 02/21/25 22:34 Prednisone 20 Mg Tablet PO 02/21/25 21:04 40 mg ONCE ONE Administration Medical Decision Making Differential Diagnosis Differential Diagnoses: The differential diagnosis associated with the presentation includes (Pneumonia, pneumothorax, pleural effusion, asthma exacerbation, COVID-19 infection, RSV, influenza, pharyngitis.) Admission/Observation Consideration of admission/observation: Escalation of care including admission/observation considered Lab Data MDM Lab Attestation statement: I reviewed the patient's lab results. Labs: Lab Results 02/21/25 Range/Units 19:56 Influenza Type A (PCR) NEGATIVE (Negative) Influenza Type B (PCR) NEGATIVE (Negative) RSV RNA Qual (PCR) NEGATIVE (Negative) SARS-CoV-2 RNA (RT-PCR) NEGATIVE (Negative) S. pyogenes GrpA RAFAEL Negative (Negative) Independent Interpretation I performed an independent interpretation of an: Plain X-Ray (Chest: Mild atypical pneumonia.) Radiology Impression Discussion of test interpretation with radiology: I have reviewed the radiologist's reading. Discharge Plan Discharge Clinical Impression: Acute asthma exacerbation, Pneumonia Patient Disposition: Home, Self-Care Instructions: Pneumonia (ED) Prescriptions: New azithromycin [Zithromax Z-Shady] 250 mg tablet See Rx Instructions .ROUTE .COMPLEX Qty: 6 0RF Rx Instructions: For 250 mg dose pack: take 500 mg today (day 1), then 250 mg for 4 days (days 2-5) prednisone 20 mg tablet 20 mg PO BID Qty: 10 0RF albuterol sulfate 90 mcg/actuation HFA aerosol inhaler 2 puff inhalation Q6H PRN (Reason: shortness of breath or wheezing) Qty: 8.5 0RF No Action albuterol sulfate 90 mcg/actuation aerosol powdr breath activated 2 inh inhalation Q4-6H PRN (Reason: shortness of breath or wheezing) Qty: 1 0RF fluticasone propionate [Flonase Allergy Relief] 50 mcg/actuation spray,suspension 1 spray intranasal Q12H Qty: 16 11RF Rx Instructions: administer into each nostril albuterol sulfate [Ventolin HFA] 90 mcg/actuation HFA aerosol inhaler 2 puff inhalation Q4-6H PRN (Reason: shortness of breath or wheezing) Qty: 8.5 3RF alum-mag hydroxide-simeth [Maalox Advanced] 200-200-20 mg/5 mL suspension 5 ml PO 5XD PRN (Reason: dyspepsia) Qty: 355 0RF Rx Instructions: administer between meals and at bedtime alum-mag hydroxide-simeth [Maalox Advanced] 200-200-20 mg/5 mL suspension 5 ml PO 5XD PRN (Reason: dyspepsia) Qty: 30 0RF Rx Instructions: administer between meals and at bedtime Combivent Respimat 20-100 mcg/actuation mist 1 puff inhalation QID Qty: 4 2RF Rx Instructions: space evenly during waking hours metronidazole 0.75 % (37.5mg/5 gram) gel 1 appful vaginal DAILY 5 Days Qty: 70 0RF Interventions: ED Discharge Assessment Last Done: 02/21/25 22:48 Discharge Date/Time: 02/21/25 22:50 Print Language: Citizen Of [place]
[2025-02-21 20:30] LABS: IDNOW Serial# 6674DD1D; Strep A Nucleic Acid Negative (Negative)
[2025-02-21 20:40] LABS: Influenza A PCR NEGATIVE (Negative); Influenza B PCR NEGATIVE (Negative); Resp Syncy Virus RNA Qual PCR NEGATIVE (Negative); SARS COV2 PCR INHOUSE NEGATIVE (Negative)
[2025-02-21] MEDS: Albuterol Sulfate 7.5 MG, Albuterol Sulfate (0.083%) 2.5 MG 10 MG INHALE (20:50)
[2025-02-21 22:14] VITALS: O2SAT 95
--- NOTE | 2025-02-21 22:14 | PC.NURSE ---
states breathing is much improved even on exertion s/p duoneb
[2025-02-21] MEDS: Azithromycin 500 MG TABLET PO (22:34)
[2025-02-21] MEDS: predniSONE 20 MG TABLET 40 MG PO (22:34)
[2025-02-21 22:48] VITALS: BP 126/81; PULSE 90; RESP 16; TEMP 36.4; O2SAT 96
== END 2025-02-21 22:50 | disposition home or self-care (01) ==
PROVIDERS: Physician Assistant; Emergency Provider Emergency Medicine
DX: J45.901 Unspecified asthma with (acute) exacerbation (principal); J18.9 Pneumonia, unspecified organism; R07.9 Chest pain, unspecified; R06.02 Shortness of breath; J02.9 Acute pharyngitis, unspecified; Z03.818 Encounter for observation for suspected exposure to other biological agents ruled out
CPT/HCPCS: 0241U; 71045; 87651; 93005; 99283; 99284

== ENCOUNTER → 2025-02-21 19:11 | Outpatient (BNV) | payer BC, OTHER, SELFPAY | PROVIDERS: Emergency Provider Emergency Medicine; Visit Provider Internal Medicine Cardiovascular Disease | DX: R07.9 Chest pain, unspecified (principal) | CPT/HCPCS: 93010 ==

== ENCOUNTER → 2025-02-21 19:47 | Outpatient (BNV) | payer BC, OTHER, SELFPAY | PROVIDERS: Emergency Provider Emergency Medicine; Visit Provider Radiology Diagnostic Radiology | DX: J45.901 Unspecified asthma with (acute) exacerbation (principal); J18.9 Pneumonia, unspecified organism | CPT/HCPCS: 71045 ==

== ENCOUNTER 2025-04-04 12:05 | Emergency (ER) | payer BC, OTHER, SELFPAY ==
--- NOTE | ~2025-04-04 | XR_ITS ---
EXAMINATION: XR CHEST CLINICAL INFORMATION: cough 1 week, recent pna COMPARISON: February 21, 2025 TECHNIQUE: 2 views of the chest were obtained. FINDINGS: No significant abnormality is noted involving the heart, lungs, mediastinum, bony thorax or soft tissues. XR/XR chest 2V IMPRESSION: Unremarkable examination. Electronically signed by: Rigo Morrissey MD 04/04/2025 12:24 PM EDT RP
[2025-04-04 12:07] VITALS: BP 112/70; PULSE 79; RESP 16; TEMP 36.6; O2SAT 97; BMI 29.7
--- NOTE | 2025-04-04 12:08 | ED.GENADULT ---
HPI - General Adult General Chief complaint: Upper Respiratory Symptoms Stated complaint: pnemonia Time Seen by Provider: 04/04/25 13:08 Source: patient, RN notes reviewed and old records reviewed Mode of arrival: ambulatory Limitations: no limitations History of Present Illness ED Provider: Trent GALARZA narrative: Patient is a 25-year-old female with history of asthma presenting with complaint of cough productive of clear sputum x 5-7 days. Recently treated for mild atypical pneumonia. Coughing is keeping her up at night. Denies fever, chest pain, palpitations. Using inhalers with little relief. MD complaint: cough Related Data Previous Rx's ?Medication ?Instructions ?Recorded ipratropium 20 mcg-albuterol 100 1 puff inhalation QID #4 grams 04/12/24 mcg/actuation mist for inhalation (Combivent Respimat) metronidazole 0.75 % (37.5 mg/5 1 appful vaginal DAILY 5 days #70 04/12/24 gram) vaginal gel grams aluminum-mag hydroxide-simethicone 5 ml PO 5XD PRN dyspepsia #355 mL 06/16/24 200 mg-200 mg-20 mg/5 mL oral susp (Maalox Advanced) aluminum-mag hydroxide-simethicone 5 ml PO 5XD PRN dyspepsia #30 mL 06/26/24 200 mg-200 mg-20 mg/5 mL oral susp (Maalox Advanced) albuterol sulfate 90 mcg/actuation 2 inh inhalation Q4-6H PRN 09/20/24 breath activated powder inhaler shortness of breath or wheezing #1 ea fluticasone propionate 50 1 spray intranasal Q12H #16 grams 09/20/24 mcg/actuation nasal spray,suspension (Flonase Allergy Relief) albuterol sulfate 90 mcg/actuation 2 puff inhalation Q4-6H PRN 01/16/25 aerosol inhaler (Ventolin HFA) shortness of breath or wheezing #8.5 grams albuterol sulfate 90 mcg/actuation 2 puff inhalation Q6H PRN 02/21/25 aerosol inhaler shortness of breath or wheezing #8.5 grams azithromycin 250 mg tablet See Rx Instructions PO .COMPLEX #6 02/21/25 (Zithromax Z-Shady) tabs prednisone 20 mg tablet 20 mg PO BID #10 tabs 02/21/25 fluconazole 150 mg tablet 150 mg PO Q3D 2 doses #2 tabs 02/26/25 albuterol sulfate 90 mcg/actuation 2 puff inhalation Q4-6H PRN 04/04/25 aerosol inhaler (Ventolin HFA) shortness of breath or wheezing #6.7 grams benzonatate 100 mg capsule 100 mg PO TID PRN cough #20 caps 04/04/25 Allergies Allergy/AdvReac Type Severity Reaction Status Date / Time ibuprofen (From Advil) Allergy Severe Anaphylaxis Verified 04/04/25 12:09 NSAIDS (Non-Steroidal Allergy Severe Anaphylaxis Verified 04/04/25 12:09 Anti-Inflamma Review of Systems Review of Systems: As per HPI Yes all other systems are reviewed and are negative Constitutional: Constitutional: Reports as per HPI PMFSH Past Medical History Medical History Pansinusitis No known health problems Surgical History No pertinent past surgical history Family History Family History Maternal Grandmother Pancreatic cancer Brother Cancer Paternal Grandmother CVA (cerebral vascular accident) Social History Social History Housing: House Patient Tobacco Use Status: Never used Tobacco e-Cigarette/Vaping Use: Currently Using Second Hand Smoke Exposure: No Substance Use Type: Marijuana Advance Directives: No Advance Directives Information Provided: Yes Do you have a plan to hurt others: No Plan service: No Current occupational status: unemployed Current occupational exposures/hazards: No Cognitive needs: No Hearing needs: No Vision needs: No Physical Exam ED Vital Signs: Vital Signs - 24 hr 04/04/25 12:07 Temperature 97.9 F Pulse Rate 79 Respiratory Rate 16 Blood Pressure 112/70 Pulse Oximetry 97 Oxygen Delivery Method Room Air BMI result Body Mass Index 29.7 Vital signs have been reviewed and appear to be correct. Blood pressure normal. Heart rate normal. Respiratory rate normal. Temperature normal. Oxygen saturation normal. Const General: cooperative, healthy appearing and no acute distress Orientation/consciousness: oriented to person, oriented to place, oriented to time and patient oriented x3 Limitations: no limitations HENMT Head: Yes normocephalic and Yes atraumatic Ears: external ears normal General nose exam: Normal external nose present Face and sinus: Yes face symmetric Mouth: oropharynx normal and moist mucous membranes Throat: Yes uvula midline Eyes Pupils: Equal, round and reactive pupils present Neck Neck: Yes normal visual inspection and Yes supple Resp Effort & Inspection: normal respiratory effort and able to speak in complete sentences Auscultation: clear to auscultation bilaterally Cardio Rate: regular rate Rhythm: regular rhythm Heart sounds: S1 normal heart sound present and S2 normal heart sound present GI Palpation (GI): Soft to palpation and nontender Auscultation: normoactive bowel sounds General: Yes no CVA tenderness Back/Spine/Pelvis Back: no CVA tenderness Skin General skin exam: elasticity normal and turgor normal Neuro General: oriented to person, oriented to place, oriented to time, patient oriented x3, moves all extremities, no focal motor deficits and CN's II-XI intact bilaterally Cranial nerves: Yes Equal, round and reactive pupils present Cognition (Neuro): normal cognition Extrem General: Yes full ROM, Yes no pedal edema and Yes no calf tenderness Psych Mental Status: mental status grossly normal Affect: normal affect Thought process: Normal thought process present Course Course Course Narrative: This is a rapid medical exam performed by Tuan Newman NP: Additional HPI, ROS, PE not included below will be deferred to primary provider. Patient is a 25-year-old female with history of asthma presenting with complaint of cough productive of clear sputum x 5-7 days. Recently treated for mild atypical pneumonia. Plan: viral serology, CXR Medical Decision Making Medical Decision Making MDM Narrative: Patient is a 25-year-old female with history of asthma presenting with complaint of cough productive of clear sputum x 5-7 days. On exam patient is awake, A+Ox3, VS WNL, afebrile, normal neurological exam without focal deficits, physical exam findings as above. Given reported symptoms and physical exam findings, initial differential includes but is not limited to viral illness, asthma exacerbation, Covid, flu, RSV, bronchitis, pneumonia. X-ray chest notable for no evidence of pneumonia. My interpretation is in agreement with the radiologist's interpretation. Viral serology negative. Lung sounds clear to auscultation on exam. Patient states that her symptoms actually seem to be improved today. Will treat with benzonatate and albuterol inhaler as patient states her albuterol inhaler at home it is empty. Follow up with PCP. Return precautions discussed. Patient verbalized understanding of and agreement with plan. Differential Diagnosis Differential Diagnoses: The differential diagnosis associated with the presentation includes as per [facility] Admission/Observation Consideration of admission/observation: Escalation of care including admission/observation considered Patient would have been admitted to the hospital had their clinical presentation warranted hospital admission. Lab Data [facility] Lab Attestation statement: I reviewed the patient's lab results. As per [facility] Labs: Lab Results 04/04/25 Range/Units 13:25 Influenza Type A (PCR) NEGATIVE (Negative) Influenza Type B (PCR) NEGATIVE (Negative) RSV RNA Qual (PCR) NEGATIVE (Negative) SARS-CoV-2 RNA (RT-PCR) NEGATIVE (Negative) Independent Interpretation I performed an independent interpretation of an: Plain X-Ray Interpretation: No pneumonia on chest xray Radiology Impression Discussion of test interpretation with radiology: I have reviewed the radiologist's reading. Radiologist Impression: XR/XR chest 2V IMPRESSION: Unremarkable examination. External Record Review External record reviewed: Inpatient record, Office record and Outpatient record Prescription Management I considered prescription management with: Other Discharge Plan Discharge Clinical Impression: Asthma exacerbation Qualifiers: Asthma severity: mild Asthma persistence: unspecified Qualified Code(s): J45.901 - Unspecified asthma with (acute) exacerbation Patient Disposition: Home, Self-Care Instructions: Asthma (DC) Additional Instructions: You were evaluated in the emergency department today for cough, wheezing and shortness of breath. You are being prescribed benzonatate for cough which you can use every 8 hours as needed, PLEASE BE SURE TO KEEP THIS MEDICATION OUT OF THE REACH OF CHILDREN. You are being prescribed an inhaler which you can use every 4-6 hours as needed for shortness of breath. Please follow-up with your primary care provider this week. Return to the emergency department if you develop worsening shortness of breath, difficulty breathing, chest pain, fever not improved with Tylenol or ibuprofen, or any other concerning symptoms. Prescriptions: New benzonatate 100 mg capsule 100 mg PO TID PRN (Reason: cough) Qty: 20 0RF albuterol sulfate [Ventolin HFA] 90 mcg/actuation HFA aerosol inhaler 2 puff inhalation Q4-6H PRN (Reason: shortness of breath or wheezing) Qty: 6.7 0RF No Action albuterol sulfate 90 mcg/actuation aerosol powdr breath activated 2 inh inhalation Q4-6H PRN (Reason: shortness of breath or wheezing) Qty: 1 0RF fluticasone propionate [Flonase Allergy Relief] 50 mcg/actuation spray,suspension 1 spray intranasal Q12H Qty: 16 11RF Rx Instructions: administer into each nostril albuterol sulfate [Ventolin HFA] 90 mcg/actuation HFA aerosol inhaler 2 puff inhalation Q4-6H PRN (Reason: shortness of breath or wheezing) Qty: 8.5 3RF azithromycin [Zithromax Z-Shady] 250 mg tablet See Rx Instructions .ROUTE .COMPLEX Qty: 6 0RF Rx Instructions: For 250 mg dose pack: take 500 mg today (day 1), then 250 mg for 4 days (days 2-5) prednisone 20 mg tablet 20 mg PO BID Qty: 10 0RF albuterol sulfate 90 mcg/actuation HFA aerosol inhaler 2 puff inhalation Q6H PRN (Reason: shortness of breath or wheezing) Qty: 8.5 0RF fluconazole 150 mg tablet 150 mg PO Q3D Qty: 2 0RF Rx Instructions: may repeat second dose 72 hrs after first dose if symptoms persist alum-mag hydroxide-simeth [Maalox Advanced] 200-200-20 mg/5 mL suspension 5 ml PO 5XD PRN (Reason: dyspepsia) Qty: 355 0RF Rx Instructions: administer between meals and at bedtime alum-mag hydroxide-simeth [Maalox Advanced] 200-200-20 mg/5 mL suspension 5 ml PO 5XD PRN (Reason: dyspepsia) Qty: 30 0RF Rx Instructions: administer between meals and at bedtime Combivent Respimat 20-100 mcg/actuation mist 1 puff inhalation QID Qty: 4 2RF Rx Instructions: space evenly during waking hours metronidazole 0.75 % (37.5mg/5 gram) gel 1 appful vaginal DAILY 5 Days Qty: 70 0RF Print Language: Gambian
[2025-04-04 14:35] LABS: Resp Syncy Virus RNA Qual PCR NEGATIVE (Negative); SARS COV2 PCR INHOUSE NEGATIVE (Negative)
[2025-04-04 15:15] VITALS: BP 112/70; PULSE 79; RESP 16; TEMP 36.6; O2SAT 97
== END 2025-04-04 15:17 | disposition home or self-care (01) ==
PROVIDERS: Registered Nurse Emergency; Emergency Provider Emergency Medicine
DX: J45.901 Unspecified asthma with (acute) exacerbation (principal); R05.9 Cough, unspecified; R06.02 Shortness of breath; F12.90 Cannabis use, unspecified, uncomplicated; Z03.818 Encounter for observation for suspected exposure to other biological agents ruled out; Z79.899 Other long term (current) drug therapy
CPT/HCPCS: 71046; 87637; 99282; 99283

== ENCOUNTER → 2025-04-04 12:09 | Outpatient (BNV) | payer BC, OTHER, SELFPAY | PROVIDERS: Visit Provider Radiology Diagnostic Radiology | DX: J18.9 Pneumonia, unspecified organism (principal) | CPT/HCPCS: 71046 ==

== ENCOUNTER → 2025-04-08 21:09 | Outpatient (BNV) | payer BC, OTHER, SELFPAY | PROVIDERS: Emergency Provider Emergency Medicine; Visit Provider Radiology Diagnostic Radiology | DX: R06.00 Dyspnea, unspecified (principal) | CPT/HCPCS: 71046 ==

== ENCOUNTER 2025-04-08 21:25 | Emergency (ER) | payer BC, OTHER, SELFPAY ==
--- NOTE | ~2025-04-08 | XR_ITS ---
CLINICAL HISTORY: dyspnea, cough CHEST X-RAY FRONTAL AND LATERAL VIEWS COMPARISON: 04/04/2025. FINDINGS: Frontal and lateral views of the chest were performed. The cardiac size and mediastinal silhouette are within normal limits. Increased density in the lower lungs on the frontal view is thought to be secondary to the patient's breast tissues/body habitus. There are no acute infiltrates or pleural effusions. There is no pneumothorax. IMPRESSION: 1. No acute disease. This document has been electronically signed by: Vladmiir Jacobo M.D. on 04/08/2025 22:35:19
[2025-04-08 21:26] VITALS: BP 125/67; PULSE 106; RESP 22; TEMP 36.6; O2SAT 92; BMI 29.7
--- NOTE | 2025-04-08 21:32 | ECG_ITS ---
Test Reason : SOB Blood Pressure : */* mmHG Vent. Rate : 122 BPM Atrial Rate : 125 BPM P-R Int : 128 ms QRS Dur : 72 ms QT Int : 416 ms P-R-T Axes : 76 82 61 degrees QTcB Int : 592 ms Sinus tachycardia Otherwise normal ECG When compared with ECG of 21-Feb-2025 19:09, Non-specific change in ST segment in Inferior leads Referred By: Generic ED Physician Electronically Signed By: MICK MULTANI MD
[2025-04-08 21:44] LABS: MANUAL DIFF FLAG NO
[2025-04-08 21:45] LABS: Hematocrit 43.4 % (37.0-47.0); Hemoglobin 14.8 g/dl (12.0-16.0); Imm Gran Abs Auto 0.06 X10*3/uL (0.00-0.03); Imm Gran Pct Auto 0.4 % (0.0-0.4); Lymphocytes Absolute Auto 3.6 X10*3/uL (1.2-4.9); Mean Corpuscular HGB Conc 34.1 g/dl (31.0-35.0); Mean Corpuscular Hemoglobin 31.0 pg (27.0-33.0); Mean Corpuscular Volume 90.8 fL (80.0-98.0); NRBC Abs Auto 0.000 X10*3/uL (0.0-0.012); NRBC Pct Auto 0.0 /100WBC (0.0-0.2); Platelet Count 284 X10*3/uL (160-400); Red Blood Count 4.78 X10*6/uL (4.20-5.50); White Blood Count 13.9 X10*3/uL (4.8-10.8)
[2025-04-08] MEDS: Magnesium Sulfate/H2O 2 GM/50 ML PIGGYBACK IV (21:53)
[2025-04-08 22:00] LABS: Anion Gap 12 (12-20); Blood Urea Nitrogen 10 mg/dL (9-16); Calcium 8.3 mg/dL (8.4-10.2); Carbon Dioxide 20 mmol/L (22-29); Chloride 113 mmol/L (96-108); Creatinine Clr Calc Pharmacy 123.3; Estimated Glomerular Filt Rate > 60; Magnesium 2.1 mg/dL (1.6-2.6); Potassium 3.6 mmol/L (3.3-5.1); Sodium 141 mmol/L (135-145)
[2025-04-08] MEDS: Albuterol Sulfate 5 MG, Albuterol Sulfate (0.083%) 2.5 MG 7.5 MG INHALE (22:16)
[2025-04-08 23:20] VITALS: BP 108/57; PULSE 91; RESP 12; TEMP 36.8; O2SAT 94
--- NOTE | 2025-04-09 00:32 | ED_ITS ---
HPI - SOB/Dyspnea General Chief Complaint: Dyspnea Stated Complaint: Chest pain, SOB, asthmatic used pump 1 hour ago Time Seen by Provider: 04/08/25 21:48 Source: patient Mode of arrival: ambulatory Limitations: no limitations History of Present Illness ED Provider: Dr. Kyung Zendejas HPI Narrative: 25 year old female with history of asthma presenting with worsening SOB, cough with clear sputum production, chest tightness ongoing for more than 3 weeks and worsening over the last several days. States she was seen in this ER about a week ago and diagnosed with asthma exacerbation. She was given a cough medication and inhaler which she has been using without real relief of cough or SOB. Was seen about a month prior to that and diagnosed with pneumonia. Finished her antibiotics as prescribed but admits her asthma has worsened since then. Denies fevers, chills, changes in sputum production, vomiting, leg swelling, exogenous estrogen use. Does not take an inhaled cortocosteriod for her asthma. Has not discussed her frequent ED visits with her PCP yet. Related Data Previous Rx's ?Medication ?Instructions ?Recorded ipratropium 20 mcg-albuterol 100 1 puff inhalation QID #4 grams 04/12/24 mcg/actuation mist for inhalation (Combivent Respimat) metronidazole 0.75 % (37.5 mg/5 1 appful vaginal DAILY 5 days #70 04/12/24 gram) vaginal gel grams aluminum-mag hydroxide-simethicone 5 ml PO 5XD PRN dys pepsia #355 mL 06/16/24 200 mg-200 mg-20 mg/5 mL oral susp (Maalox Advanced) aluminum-mag hydroxide-simethicone 5 ml PO 5XD PRN dys pepsia #30 mL 06/26/24 200 mg-200 mg-20 mg/5 mL oral susp (Maalox Advanced) albuterol sulfate 90 mcg/actuation 2 inh inhalation Q4 -6H PRN 09/20/24 breath activated powder inhaler shortness of breath or wheezing #1 ea fluticasone propionate 50 1 spray intranasal Q12H #16 grams 09/20/24 mcg/actuation nasal spray,suspension (Flonase Allergy Relief) albuterol sulfate 90 mcg/actuation 2 puff inhalation Q 4-6H PRN 01/16/25 aerosol inhaler (Ventolin HFA) shortness of breath or wheezing #8.5 grams albuterol sulfate 90 mcg/actuation 2 puff inhalation Q 6H PRN 02/21/25 aerosol inhaler shortness of breath or wheez ing #8.5 grams azithromycin 250 mg tablet See Rx Instructions PO .COM PLEX #6 02/21/25 (Zithromax Z-Shady) tabs prednisone 20 mg tablet 20 mg PO BID #10 tabs fluconazole 150 mg tablet 150 mg PO Q3D 2 doses #2 tab s 02/26/25 albuterol sulfate 90 mcg/actuation 2 puff inhalation Q 4-6H PRN 04/04/25 aerosol inhaler (Ventolin HFA) shortness of breath or wheezing #6.7 grams benzonatate 100 mg capsule 100 mg PO TID PRN cough #20 caps 04/04/25 albuterol sulfate 2.5 mg/0.5 mL 5 mg inhalation QID AR N shortness 04/09/25 solution for nebulization of breath or wheezing #30 ea prednisone 50 mg tablet 50 mg PO DAILY 5 days #5 tab s 04/09/25 Allergies Allergy/AdvReac Type Severity Reaction Status Date / Time ibuprofen (From Advil) Allergy Severe Anaphylaxis Verified 04/10/25 11:52 NSAIDS (Non-Steroidal Allergy Severe Anaphylaxis Verified 04/10/25 11:52 Anti-Inflamma Review of Systems 2 Review of Systems: as per HPI, full review of systems performed and negative but for the above mentioned pertinent positives and negatives. [facility] Past Medical History Attestation statement: The following information was validated with the patient. [facility] Narrative: asthma, nonsmoker Medical History Pansinusitis No known health problems Surgical History No pertinent past surgical history Family History Family History Maternal Grandmother Pancreatic cancer Brother Cancer Paternal Grandmother CVA (cerebral vascular accident) Social History Social History Housing: House Patient Tobacco Use Status: Never used Tobacco e-Cigarette/Vaping Use: Currently Using Second Hand Smoke Exposure: No Substance Use Type: Marijuana service: No Current occupational status: unemployed Current occupational exposures/hazards: No Cognitive needs: No Hearing needs: No Vision needs: No Physical Exam 2 Exam: Exam: GENERAL: Ill-appearing, moderate respiratory distress. SKIN: Normal skin color for ethnicity, warm, dry, no rashes noted. HEENT:? Normocephalic, atraumatic, no stridor, EOMI. NECK: Soft, supple, full ROM, midline structures nontender, no step-offs, no deformities, no lymphadenopathy. CHEST: Heart regular tachycardia, symmetric chest rise and fall. PULMONARY: Diffuse wheezes throughout, tachypnea, poor air movement bilaterally, moderate respiratory distress. ABDOMINAL: Soft, nontender, quiet bowel sounds in all quadrants. : Deferred. MUSCULOSKELETAL: Normal tone, full range of motion, no deformities, no peripheral edema. NEURO: Alert and oriented to person, CN II through XII intact, no focal neurologic deficits.? PSYCHIATRIC: Anxious affect, appropriate demeanor. Vital Signs: Vital Signs: Last Vital Signs Temp 98.2 F 04/09/25 00:49 Pulse 96 04/09/25 00:49 Resp 14 04/09/25 00:49 BP 101/62 04/09/25 00:49 Pulse Ox 96 04/09/25 00:49 O2 Del Method Room Air 04/09/25 00:49 BMI result Body Mass Index 29.7 Medications Administered Discontinued Medications Generic Name Dose Route Start Last Admin Trade Name Freq PRN Reason Stop Dose Admin Albuterol Sulfate 5 mg/ 7.5 mg 04/08/25 22:15 04/08/25 22:16 Albuterol Sulfate 2.5 mg INHALE 04/08/25 22:16 7.5 mg ONCE ONE Administration Magnesium Sulfate 2 gm in 50 mls @ 150 mls/hr 04/08/25 21:48 04/08/25 22:25 Magnesium Sulfate/H2o IV 04/08/25 22:07 Infused ONCE ONE Infusion Methylprednisolone Sodium Succinate 125 mg 04/08/25 21:48 04/08/25 21:53 Methylprednisolone Sod Succ 125 Mg/2 Ml Vial IVPUSH 04/08/25 21:49 125 mg ONCE ONE Administration Medical Decision Making Medical Decision Making MDM Narrative: Patient presents today with chief complaint of shortness of breath. Differential diagnosis includes, but is not limited to, upper respiratory infection, pneumonia, asthma exacerbation, pneumothorax, pleural effusion, pulmonary embolism, ACS. Broad-based work-up will be initiated to evaluate for etiology of patient's symptoms. Patient's clinical picture consistent with asthma exacerbation in the setting of poor air quality today. Patient does not have a nebulizer machine at home but we will discharge her home with a prescription for 1. Also given a course of steroids. Discussed importance of follow-up as well as strict return precautions to the emergency department. I urged her to follow-up with her doctor about needing additional medications for her asthma since she has been having frequent emergency room visits. Patient understands and agrees with plan for discharge. Discharged home in stable condition. Differential Diagnosis Differential Diagnoses: The differential diagnosis associated with the presentation includes (As above) Admission/Observation Consideration of admission/observation: Escalation of care including admission/observation considered Lab Data MDM Lab Attestation statement: I reviewed the patient's lab results. 04/08/25 21:40 04/08/25 21:40 Labs: Lab Results 04/08/25 Range/Units 21:40 WBC 13.9 H (4.8-10.8) X10*3/uL RBC 4.78 (4.20-5.50) X10*6/uL Hgb 14.8 (12.0-16.0) g/dl Hct 43.4 (37.0-47.0) % MCV 90.8 (80.0-98.0) fL MCH 31.0 (27.0-33.0) pg MCHC 34.1 (31.0-35.0) g/dl RDW 12.3 (11.0-16.0) % Plt Count 284 (160-400) X10*3/uL MPV 9.4 (9.4-12.3) fL Immature Gran % (Auto) 0.4 (0.0-0.4) % Neut % (Auto) 62.5 (45-73) % Lymph % (Auto) 25.6 (20-40) % [place] % (Auto) 6.9 (2-11) % Eos % (Auto) 4.0 (0-4) % Baso % (Auto) 0.6 (0-2) % Lymph # (Auto) 3.6 (1.2-4.9) X10*3/uL [place] # (Auto) 1.0 (0.1-1.2) X10*3/uL Eos # (Auto) 0.6 H (0.0-0.4) X10*3/uL Baso # (Auto) 0.1 (0.0-0.2) X10*3/uL Abs Immat Gran (auto) 0.06 H (0.00-0.03) X10*3/uL Absolute Neuts (auto) 8.7 H (2.0-8.3) x10*3/uL Absolute Nucleated RBC 0.000 (0.0-0.012) X10*3/uL Nucleated RBC % (auto) 0.0 (0.0-0.2) /100WBC Sodium 141 (135-145) mmol/L Potassium 3.6 (3.3-5.1) mmol/L Chloride 113 H (96-108) mmol/L Carbon Dioxide 20 L (22-29) mmol/L Anion Gap 12 (12-20) BUN 10 (9-16) mg/dL Creatinine 0.63 (0.5-1.4) mg/dL Estim Creat Clear Calc 123.3 Estimated GFR > 60 Random Glucose 129 H (60-115) mg/dL Calcium 8.3 L D (8.4-10.2) mg/dL Magnesium 2.1 (1.6-2.6) mg/dL Independent Interpretation I performed an independent interpretation of an: Plain X-Ray Interpretation: My independent interpretation of the chest x-ray reveals no consolidations, pulmonary edema, pleural effusion, pneumothorax, obvious bony abnormalities. My independent interpretation of the ECG reveals normal sinus tachycardia with rate of 122, normal axis, QTC 592, no ST elevations or depressions to suggest ischemic changes, no previous for comparison. Radiology Impression Discussion of test interpretation with radiology: I have reviewed the radiologist's reading. Prescription Management I considered prescription management with: Other (Steroids, nebulizer treatments) Chronic Conditions Patient?s care impacted by: Other (asthma) Discharge Plan Discharge Clinical Impression: Asthma with exacerbation Patient Disposition: Home, Self-Care Instructions: How to Use a Nebulizer (ED) Additional Instructions: Use your inhaler as needed for wheezing. You may use nebulizer treatments intermittently as well to help with wheezing/cough. If you have to use your nebulizer or inhaler more than once every 2 hours, you should come to the hospital. Return to the emergency department with any new or worsening symptoms including: Worsening shortness of breath despite use of your inhaler and nebulizer machine, fevers greater than 100?, cough productive of green or per sputum, any new symptom that concerns you. Call 911 with any medical emergency. Prescriptions: New prednisone 50 mg tablet 50 mg PO DAILY 5 Days Qty: 5 0RF albuterol sulfate 2.5 mg/0.5 mL solution for nebulization 5 mg inhalation QID PRN (Reason: shortness of breath or wheezing) Qty: 30 0RF No Action albuterol sulfate 90 mcg/actuation aerosol powdr breath activated 2 inh inhalation Q4-6H PRN (Reason: shortness of breath or wheezing) Qty: 1 0RF fluticasone propionate [Flonase Allergy Relief] 50 mcg/actuation spray,suspension 1 spray intranasal Q12H Qty: 16 11RF Rx Instructions: administer into each nostril albuterol sulfate [Ventolin HFA] 90 mcg/actuation HFA aerosol inhaler 2 puff inhalation Q4-6H PRN (Reason: shortness of breath or wheezing) Qty: 8.5 3RF azithromycin [Zithromax Z-Shady] 250 mg tablet See Rx Instructions .ROUTE .COMPLEX Qty: 6 0RF Rx Instructions: For 250 mg dose pack: take 500 mg today (day 1), then 250 mg for 4 days (days 2-5) prednisone 20 mg tablet 20 mg PO BID Qty: 10 0RF albuterol sulfate 90 mcg/actuation HFA aerosol inhaler 2 puff inhalation Q6H PRN (Reason: shortness of breath or wheezing) Qty: 8.5 0RF fluconazole 150 mg tablet 150 mg PO Q3D Qty: 2 0RF Rx Instructions: may repeat second dose 72 hrs after first dose if symptoms persist benzonatate 100 mg capsule 100 mg PO TID PRN (Reason: cough) Qty: 20 0RF albuterol sulfate [Ventolin HFA] 90 mcg/actuation HFA aerosol inhaler 2 puff inhalation Q4-6H PRN (Reason: shortness of breath or wheezing) Qty: 6.7 0RF alum-mag hydroxide-simeth [Maalox Advanced] 200-200-20 mg/5 mL suspension 5 ml PO 5XD PRN (Reason: dyspepsia) Qty: 355 0RF Rx Instructions: administer between meals and at bedtime alum-mag hydroxide-simeth [Maalox Advanced] 200-200-20 mg/5 mL suspension 5 ml PO 5XD PRN (Reason: dyspepsia) Qty: 30 0RF Rx Instructions: administer between meals and at bedtime Combivent Respimat 20-100 mcg/actuation mist 1 puff inhalation QID Qty: 4 2RF Rx Instructions: space evenly during waking hours metronidazole 0.75 % (37.5mg/5 gram) gel 1 appful vaginal DAILY 5 Days Qty: 70 0RF Interventions: ED Discharge Assessment Last Done: 04/09/25 00:49 Discharge Date/Time: 04/09/25 00:50 Print Language: Maori
[2025-04-09 00:49] VITALS: BP 101/62; PULSE 96; RESP 14; TEMP 36.8; O2SAT 96
== END 2025-04-09 00:50 | disposition home or self-care (01) ==
PROVIDERS: Emergency Provider Emergency Medicine
DX: J45.901 Unspecified asthma with (acute) exacerbation (principal); R06.02 Shortness of breath; R07.89 Other chest pain; R05.9 Cough, unspecified; R00.0 Tachycardia, unspecified; Z79.899 Other long term (current) drug therapy
CPT/HCPCS: 36415; 71046; 80048; 83735; 85025; 93005; 96365; 96375; 99284; J2919; J3475

== ENCOUNTER → 2025-04-08 21:32 | Outpatient (BNV) | payer BC, OTHER, SELFPAY | PROVIDERS: Emergency Provider Emergency Medicine; Visit Provider Internal Medicine Cardiovascular Disease | DX: R00.0 Tachycardia, unspecified (principal) | CPT/HCPCS: 93010 ==

== ENCOUNTER 2025-04-10 11:38 | Emergency (ER) | payer BC, OTHER, SELFPAY ==
[2025-04-10 11:50] VITALS: BP 112/64; PULSE 95; RESP 19; TEMP 36.6; O2SAT 96; BMI 29.7
--- NOTE | 2025-04-10 11:51 | ED_ITS ---
HPI - Asthma General Chief Complaint: Upper Respiratory Symptoms Stated Complaint: Asthma, wheezing Source: patient Mode of arrival: ambulatory Limitations: no limitations History of Present Illness ED Provider: rossy toribio np HPI Narrative: Patient is a 25-year-old female who presents emergency department for evaluation. She expresses concern of asthma exacerbation. She has been to emergency department few times over the past week for treatment of this. She feels that the albuterol inhaler is not beneficial for her but rather via nebulizer. She has had a very difficult time in getting a nebulizer machine from the pharmacy despite multiple attempts with a prescription. She does have the solution for it. She reports that she ordered a machine off of [employer] that she would be arriving this evening that she can use. She is requesting specifically to receive an albuterol nebulizer treatment in the emergency department so that she may go home and rest. She does admit that she has it improvement in her symptoms after taking prednisone this morning, but still does not feel this is adequate enough. Denies fevers, chills, chest pain, dizziness, lightheadedness, numbness or tingling to the extremities. Related Data Previous Rx's ?Medication ?Instructions ?Recorded ipratropium 20 mcg-albuterol 100 1 puff inhalation QID #4 grams 04/12/24 mcg/actuation mist for inhalation (Combivent Respimat) metronidazole 0.75 % (37.5 mg/5 1 appful vaginal DAILY 5 days #70 04/12/24 gram) vaginal gel grams aluminum-mag hydroxide-simethicone 5 ml PO 5XD PRN dys pepsia #355 mL 06/16/24 200 mg-200 mg-20 mg/5 mL oral susp (Maalox Advanced) aluminum-mag hydroxide-simethicone 5 ml PO 5XD PRN dys pepsia #30 mL 06/26/24 200 mg-200 mg-20 mg/5 mL oral susp (Maalox Advanced) albuterol sulfate 90 mcg/actuation 2 inh inhalation Q4 -6H PRN 09/20/24 breath activated powder inhaler shortness of breath or wheezing #1 ea fluticasone propionate 50 1 spray intranasal Q12H #16 grams 09/20/24 mcg/actuation nasal spray,suspension (Flonase Allergy Relief) albuterol sulfate 90 mcg/actuation 2 puff inhalation Q 4-6H PRN 01/16/25 aerosol inhaler (Ventolin HFA) shortness of breath or wheezing #8.5 grams albuterol sulfate 90 mcg/actuation 2 puff inhalation Q 6H PRN 02/21/25 aerosol inhaler shortness of breath or wheez ing #8.5 grams azithromycin 250 mg tablet See Rx Instructions PO .COM PLEX #6 02/21/25 (Zithromax Z-Shady) tabs prednisone 20 mg tablet 20 mg PO BID #10 tabs fluconazole 150 mg tablet 150 mg PO Q3D 2 doses #2 tab s 02/26/25 albuterol sulfate 90 mcg/actuation 2 puff inhalation Q 4-6H PRN 04/04/25 aerosol inhaler (Ventolin HFA) shortness of breath or wheezing #6.7 grams benzonatate 100 mg capsule 100 mg PO TID PRN cough #20 caps 04/04/25 albuterol sulfate 2.5 mg/0.5 mL 5 mg inhalation QID DE N shortness 04/09/25 solution for nebulization of breath or wheezing #30 ea prednisone 50 mg tablet 50 mg PO DAILY 5 days #5 tab s 04/09/25 Allergies Allergy/AdvReac Type Severity Reaction Status Date / Time ibuprofen (From Advil) Allergy Severe Anaphylaxis Verified 04/10/25 11:52 NSAIDS (Non-Steroidal Allergy Severe Anaphylaxis Verified 04/10/25 11:52 Anti-Inflamma Review of Systems Review of Systems: Yes all other systems are reviewed and are negative PMFSH Past Medical History Attestation statement: The following information was validated with the patient. Source: old records reviewed Medical History Pansinusitis No known health problems Surgical History No pertinent past surgical history Family History Family History Maternal Grandmother Pancreatic cancer Brother Cancer Paternal Grandmother CVA (cerebral vascular accident) Social History Social History Housing: House Patient Tobacco Use Status: Never used Tobacco e-Cigarette/Vaping Use: Currently Using Second Hand Smoke Exposure: No Substance Use Type: Marijuana Do you have a plan to hurt others: No Plan service: No Current occupational status: unemployed Current occupational exposures/hazards: No Cognitive needs: No Hearing needs: No Vision needs: No Physical Exam Exam: Exam: Appearance: Alert.?Oriented to person, place and time. No acute distres s.?Normal affect. Eyes: Pupils equal, round and reactive to light.? ENT: Pharynx normal.?? Neck: Normal inspection.? Neck supple.?? CVS: Heart sounds normal. Normal heart rate and rhythm.? Pulses normal.?? Respiratory: No respiratory distress.? Lung sounds with mild inspiratory wheezing. No tachypnea. No hypoxia. Abdomen: Soft and non-tender. Normoactive bowel sounds. Skin: Skin warm and dry.? Normal skin color.? Extremities: No lower extremity edema.? No calf ttp? Neuro: Moves all extremities spontaneously. Sensation intact bilaterally. Ambulates with normal steady gait. Vital Signs: Vital Signs: Last Vital Signs Temp 98 F 04/10/25 11:50 Pulse 95 04/10/25 11:50 Resp 19 04/10/25 11:50 BP 112/64 04/10/25 11:50 Pulse Ox 96 04/10/25 11:50 O2 Del Method Room Air 04/10/25 11:50 BMI result Body Mass Index 29.7 Medical Decision Making Medical Decision Making [facility] Narrative: Patient is a 25-year-old female past medical history of asthma presenting for evaluation of persistent symptoms with asthma exacerbation as per [facility] requesting specifically to receive albuterol nebulizer solution in the emergency department. She unfortunately was not able to get the nebulizer machine prescribed to her from the pharmacy, and subsequently has ordered 1 off the Internet that she had arrived this evening. She did take prednisone 50 mg orally prior to arrival which she does date gave her some improvement. She arrives in no respiratory distress, speaking clear full sentences, no tachypnea tachycardia or hypoxia. As per her request received albuterol nebulizer treatment, LSCTA after treatment. She has had 2 chest x-ray 03/15/2025 and 04/08/2025 without evidence of consolidation infiltrate to suggest pneumonia, do not see indication for repeat imaging at this time. Feel she is stable for discharge. Ambulatory with a steady gait. She has a an outpatient follow-up appointment pulmonology scheduled for further management of her asthma. Given strict return precautions. Differential Diagnosis Differential Diagnoses: The differential diagnosis associated with the presentation includes (See narrative above) External Record Review External record reviewed: Outpatient record Chronic Conditions Patient?s care impacted by: Other (See narrative above) Discharge Plan Discharge Clinical Impression: Asthma exacerbation Qualifiers: Asthma severity: mild Asthma persistence: intermittent Qualified Code(s): J45.21 - Mild intermittent asthma with (acute) exacerbation Patient Disposition: Home, Self-Care Instructions: Asthma (ED) Additional Instructions: You received a breathing treatment while in the emergency department today as per your request. Utilize the albuterol nebulizer solution prescribed to from her most recent visit with your machine once you receive it. Follow-up outpatient with PCP/pulmonology to discuss better management of your asthma. Continue taking prednisone as prescribed. Return to emergency department any new or worsening symptoms or concerns. Prescriptions: No Action albuterol sulfate 90 mcg/actuation aerosol powdr breath activated 2 inh inhalation Q4-6H PRN (Reason: shortness of breath or wheezing) Qty: 1 0RF fluticasone propionate [Flonase Allergy Relief] 50 mcg/actuation s pray,suspension 1 spray intranasal Q12H Qty: 16 11RF Rx Instructions: administer into each nostril albuterol sulfate [Ventolin HFA] 90 mcg/actuation HFA aerosol inhaler 2 puff inhalation Q4-6H PRN (Reason: shortness of breath or wheezing) Qty: 8.5 3RF azithromycin [Zithromax Z-Shady] 250 mg tablet See Rx Instructions .ROUTE .COMPLEX Qty: 6 0RF Rx Instructions: For 250 mg dose pack: take 500 mg today (day 1), then 250 mg for 4 days (days 2-5) prednisone 20 mg tablet 20 mg PO BID Qty: 10 0RF albuterol sulfate 90 mcg/actuation HFA aerosol inhaler 2 puff inhalation Q6H PRN (Reason: shortness of breath or wheezing) Qty: 8.5 0RF fluconazole 150 mg tablet 150 mg PO Q3D Qty: 2 0RF Rx Instructions: may repeat second dose 72 hrs after first dose if symptoms persist benzonatate 100 mg capsule 100 mg PO TID PRN (Reason: cough) Qty: 20 0RF albuterol sulfate [Ventolin HFA] 90 mcg/actuation HFA aerosol inhaler 2 puff inhalation Q4-6H PRN (Reason: shortness of breath or wheezing) Qty: 6.7 0RF prednisone 50 mg tablet 50 mg PO DAILY 5 Days Qty: 5 0RF albuterol sulfate 2.5 mg/0.5 mL solution for nebulization 5 mg inhalation QID PRN (Reason: shortness of breath or wheezing) Qty: 30 0RF alum-mag hydroxide-simeth [Maalox Advanced] 200-200-20 mg/5 mL suspension 5 ml PO 5XD PRN (Reason: dyspepsia) Qty: 355 0RF Rx Instructions: administer between meals and at bedtime alum-mag hydroxide-simeth [Maalox Advanced] 200-200-20 mg/5 mL suspension 5 ml PO 5XD PRN (Reason: dyspepsia) Qty: 30 0RF Rx Instructions: administer between meals and at bedtime Combivent Respimat 20-100 mcg/actuation mist 1 puff inhalation QID Qty: 4 2RF Rx Instructions: space evenly during waking hours metronidazole 0.75 % (37.5mg/5 gram) gel 1 appful vaginal DAILY 5 Days Qty: 70 0RF Referrals: Farnaz Dent PA-C [Primary Care Provider, Internal Medicine] Print Language: Frisian
--- NOTE | 2025-04-10 12:08 | PC.NURSE ---
Respiratory Therapist at bedside speaking with the patient. Placed into ED room Results Pending. Awaiting ED provider evaluation.
[2025-04-10] MEDS: Albuterol Sulfate 2.5 MG, Albuterol/Iprat 2.5/0.5MG 3 ML 3 ML INHALE (12:23)
[2025-04-10 12:24] VITALS: PULSE 98; RESP 16; O2SAT 84
[2025-04-10 13:03] VITALS: BP 128/68; PULSE 98; RESP 16; TEMP 36.6; O2SAT 95
--- OUTSIDE RECORDS SUMMARY | 2025-04-10 13:32 | XMS_ITS | Clinical Summary ---
Author Organization [facility] Address [address] [place] [id number] Phone Care Team Providers Care Helicopter Pilot Instructor Name Role Phone Jerome Gutierres MD Primary Care Provider Allergies No known active allergies Medications No known medications Family History Medical History Relation Comments Diabetes Mother Heart murmur Mother Relation Status Comments Mother Social History Tobacco Use Types Packs/Day Years Used Date Smoking Tobacco: Never Smokeless Tobacco: Never Alcohol Use Standard Drinks/Week Comments Yes 0 (1 standard drink = 0.6 oz pur e alcohol) socially Education Answer Date Recorded Are you interested in more education? Not on germaine e 01/08/2023 Are you concerned about learning? Not on file 01/08/2023 No 01/08/2023 No 01/08/2023 Digital Access Answer Date Recorded No 02/06/2023 No 02/06/2023 No 02/06/2023 Reliable internet access at home? Not on file 02/06/2023 Device with a working camera? Not on file Comments Unknown Sex and Gender Information Value Date Recorded Sex Assigned at Not on file Legal Sex Female 2:25 PM EST Gender Identity Not on file Sexual Orientation Not on file Plan of Treatment Health Maintenance Due Date Last Done Comments DEPRESSION SCREENING 2012 SMOKING Hx and SMOKELESS TOBACCO SCREENING 01/20/2013 HEPATITIS C SCREENING 01/20/2018 HIV ONE-TIME SCREENING (18-65 YEARS) 01/20/2018 HPV VACCINES (3 - 3-dose series) 08/16/2018 05/24/2018, 05/24/2017 PAP SMEAR 01/20/2021 Adult Td,Tdap Booster 02/22/2022 02/23/2012 COVID-19 VACCINE (2023-25 season) 2024 PNEUMOCOCCAL VACCINES (0-49 years) Aged Out 07/14/2001, 03/17/2001, 2000 No longer eligible based on patient's age to complete this topic HIB VACCINES Completed 07/10/2003, 01/2000, 2000, Additional history exists MENINGOCOCCAL VACCINES (ACWY) Aged Out 05/13/2015, 02/23/2012 No longer eligibl e based on patient's age to complete this topic HEPATITIS A VACCINES Aged Out No long er eligible based on patient's age to complete this topic MENINGOCOCCAL VACCINES (B) Aged Out N o longer eligible based on patient's age to complete this topic Medical Devices Not on file Insurance HMO [facility] [place] [address] [place] [address] HMO Member Subscriber Plan / Payer (Ef fective 2019-Present) Name:Alisha Chavez Relation to Subscriber:Self Name:Alisha Chavez Payer ID:Not on file Type:O Address: [address] HMO POS HMO Member Subscriber Plan / Payer (Ef fective 2019-Present) Name:Alisha Chavez Relation to Subscriber:Self Name:Alisha Chavez Payer ID:Not on file Type:O Address: [address] HMO POS HMO Member Subscriber Plan / Payer (Ef fective 2019-Present) Name:Alisha Chavez Relation to Subscriber:Self Name:Scott Alisha Payer ID:Not on file Type:O [address] O Member Subscriber Plan / Payer (Ef fective 2019-Present) Name:Alisha Chavez Relation to Subscriber:Self Name:Scott Alisha Payer ID:Not on file Type:O Address: [address] POS HMO Member Subscriber Plan / Payer (Ef fective 2019-Present) Name:Alisha Chavez Relation to Subscriber:Self Name:Alisha Chavez Payer ID:Not on file Type:O Address: [address] HMO POS HMO [facility] [place] [address] [place] [address] [place] [address] [place] [address] HMO [facility] HMO POS Care Teams Helicopter Pilot Instructor Relationship Specialty Start Date End Date Jerome Gutierres MD [address] [place] [id number] PCP - General 02/19/21 Additional Source Comments The information contained in this document represents components of the legal health record. It is not the complete legal health record.[facility]
== END 2025-04-10 13:03 | disposition home or self-care (01) ==
PROVIDERS: Emergency Provider Emergency Medicine
DX: J45.21 Mild intermittent asthma with (acute) exacerbation (principal)
CPT/HCPCS: 99283; 99284

== ENCOUNTER 2025-04-19 09:38 | Outpatient (AMB) | payer BC, OTHER, SELFPAY ==
--- NOTE | 2025-04-19 09:44 | A.OFFPC_ITS ---
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 Accompanied by: Self / Same As Patient Allergies ibuprofen (From Advil) Allergy (Severe, Verified 04/19/25 10:16) Anaphylaxis NSAIDS (Non-Steroidal Anti-Inflamma Allergy (Severe, Verified 04/19/25 10:16) Anaphylaxis Medication List - Last Reconciled 04/19/25 by Farnaz Dent PA-C albuterol sulfate 5 mg inhalation QID PRN fluticasone propionate 50 mcg/actuation (Flonase Allergy Relief) 1 spray intranasal Q12H ipratropium-albuterol 20-100 mcg/actuation (Combivent Respimat) 1 puff inhalation QID metronidazole 0.75%(37.5mg/5gram) 1 appful vaginal DAILY 5 days prednisone 20 mg PO BID prednisone 50 mg PO DAILY 5 days Tobacco use date assessed: 04/19/25 Dental Screening Dental Screen Date: 04/19/25 Did you have a dental visit in the last 12 months?: Yes Did you have a dental problem in the last 6 months where you did not have access to dental care?: No Was dental information given to patient?: Patient has dentist HPI [facility] 04/09 HPI Details 25 year old female with past history of GERD, asthma, obesity last seen 07/2024 coming in for hospital follow up. In review of the notes, patient was seen in [facility] ED 04/10/2025 for asthma exacerbation and had been seen several times that month for similar concern. Presenting with asthma management. Reports frequent asthma attacks, including nocturnal symptoms and increased use of albuterol without relief. She has had multiple ED visits for asthma exacerbation in the last month. Experiences seasonal allergies, which may contribute to asthma exacerbations. Attempted to quit smoking and is considering using edibles instead of inhaled substances to manage asthma. Chronic nasal infection persistent since age 17, with ongoing mucus drainage, potentially exacerbating respiratory issues. She was recently evaluated by ENT and given amoxicillin-clavulanate for nasal infection. She has a history of yeast infections with the use of antibiotics and current symptoms of discomfort. [facility] Medical History Pansinusitis No known health problems Surgical History No pertinent past surgical history Family History Maternal Grandmother Pancreatic cancer Brother Cancer Paternal Grandmother CVA (cerebral vascular accident) Social History Housing: House Patient Tobacco Use Status: Never used Tobacco e-Cigarette/Vaping Use: Currently Using Second Hand Smoke Exposure: No Substance Use Type: Marijuana service: No Current occupational status: unemployed Current occupational exposures/hazards: No Cognitive needs: No Hearing needs: No Vision needs: No Questionnaire PHQ-9 Over the last 2 weeks, how often have you been bothered by any of the following problems? 1. Little interest or pleasure in doing things: not at all 2. Feeling down, depressed, or hopeless: not at all 3. Trouble falling or staying asleep, or sleeping too much: not at all 4. Feeling tired or having little energy: not at all 5. Poor appetite or overeating: not at all 6. Feeling bad about yourself - or that you are a failure or have let yourself or your family down: not at all 7. Trouble concentrating on things, such as reading the newspaper or watching television: not at all 8. Moving or speaking so slowly that other people could have noticed. Or the opposite - being so fidgety or restless that you have been moving around a lot more than usual: not at all 9. Thoughts that you would be better off or of hurting yourself in some way: not at all Total score: 0 30650 - PHQ-9 Billing: Yes Source: Developed by Drs. Bethel Bermudez, Ivette Dumont, Jeffrey Porter and colleagues, with an educational satnam from [employer]. Thrive Questionnaire Date Thrive assessed: 04/19/25 I am a: Patient What is your living situation today?: I have a steady place to live Within the past 12 months, did the food you bought not last and you didn't have the money to get more?: Never true Within the past 12 months, did you worry whether your food would run out before you got money to buy more?: Never true Do you have trouble paying for medicines?: No Do you have trouble getting transportation to medical appointments?: No Do you have trouble paying your heating and electricity bill?: No Do you have trouble taking care of your child, family member or friend?: No Do you have trouble with day-to-day activities such as bathing, preparing meals, shopping, managing finances, etc.?: No Are you currently unemployed and looking for a job?: Yes Are you interested in more education?: Yes Please select the resources that you would like help with: Job search/training Currently or been in a relationship where the following occur: I choose not to answer THRIVE Score: 0 AUDIT C Alcohol Use Questionnaire (AUDIT-C) 1. How often do you have a drink containing alcohol?: Monthly or less 2. How many drinks containing alcohol do you have on a typical day when you are drinking?: 1 or 2 3. How often do you have six or more drinks on one occasion?: Never Total Score: 1 TODD-7 AMB Questionnaire TODD-7 Date TODD - 7 assessed: 04/19/25 Feeling nervous, anxious, or on edge: 0 = Not at all Not being able to stop or control worryin = Not at all Worrying too much about different things: 0 = Not at all Trouble relaxin = Not at all Being so restless that it is hard to sit still: 0 = Not at all Becoming easily annoyed or irritable: 0 = Not at all Feeling afraid as if something awful might happen: 0 = Not at all Total TODD-7 score (0-4 normal; 5-9 mild; 10-14 moderate; 15-21 severe): 0 Source: Developed by Drs. Bethel Bermudez, Ivette Dumont, Jeffrey Porter and colleagues, with an educational satnam from [employer]. TODD-7 Assessment Billing TODD-7 Assessment Tool: TODD-7 Assessment 63205 Review of Systems Const Denies body aches, Denies chills, Denies fever(s), Denies headache(s) and Denies poor appetite Eyes Reports no additional complaints ENT Denies dizziness and Denies headache(s) Card Denies chest pain, Denies edema, Denies lightheadedness and Denies dyspnea Resp Denies dyspnea GI Denies abdominal pain, Denies nausea and Denies vomiting Reports no additional complaints Musc Reports no additional complaints and Denies abnormal gait Skin/Breast Reports system reviewed and no additional complaints, except as documented Neuro Denies abnormal gait, Denies dizziness and Denies headache(s) Psych Reports no additional complaints Physical exam (Primary Care) Vital Signs: Last Vital Signs Pulse 101 H 04/19/25 09:46 BP 122/68 04/19/25 09:46 Pulse Ox 98 04/19/25 09:46 Oxygen Delivery Method Room Air 04/19/25 09:46 BMI result Body Mass Index 29.0 Tobacco/Smoking Status: Tobacco use Status Tobacco use date assessed 04/19/25 04/19/25 09:47 Patient Tobacco Use Status Never used Tobacco 04/19/25 09:47 e-Cigarette/Vaping Use Currently Using 04/19/25 09:47 PHQ-9: PHQ-9 Score PHQ-9: Total score 0 04/19/25 10:25 Thrive Assessment: Date of Thrive Assessment Date Thrive assessed 04/19/25 04/19/25 09:47 Currently or been in a relationship where the following occur: I choose not to answer Const General: cooperative, healthy appearing, comfortable and no acute distress Orientation/consciousness: patient oriented x3 HENMT Head: Yes normocephalic Ears: hearing grossly normal bilaterally General nose exam: Normal external nose present Eyes General: appearance normal, both eyes and all related structures Conjunctivae: conjunctivae normal Neck Neck: Yes full ROM and Yes no lymphadenopathy Resp Effort & Inspection: normal respiratory effort Auscultation: clear to auscultation bilaterally, no crackles, no rales, no rhonchi and no wheezes Cardio Rate: regular rate Rhythm: regular rhythm Skin General skin exam: no rashes or lesions noted Neuro General: patient oriented x3 Gait exam (Neuro): Normal gait present Extrem General: Yes normal to inspection, Yes full ROM and No edema Psych Affect: normal affect Attitude: cooperative Insight: Good insight present (Psych) Judgement: Good judgement present (Psych) Coding Level of Care Code Est Pt Level 4 (36261) Diagnoses Moderate persistent asthma J45.40 Vaginal discharge N89.8 Marijuana use F12.90 Seasonal allergies J30.2 Additional Codes TODD-7 Assessment Billing - TODD-7 Assessment Tool: TODD-7 Assessment 50601 ([id number]) PHQ-9 - 53284 - PHQ-9 Billing: Yes ([id number]) Assessment & Plan Assessment & Plan (1) Moderate persistent asthma: Code(s): J45.40 - Moderate persistent asthma, uncomplicated Category: Medical Plan: The patient will begin using Symbicort twice daily to manage asthma symptoms, with instructions to rinse her mouth after use to prevent oral infections. A referral to a supervisor yard has been made for further evaluation. The patient should continue using the nebulizer solution as needed until the Symbicort is fully effective. Reviewed with the patient albuterol should only be used as needed and if she continues with frequent use to reach out to the office prior to her next visit. Plan to follow up in 2 months. (2) Vaginal discharge: Code(s): N89.8 - Other specified noninflammatory disorders of vagina Category: Medical Plan: Prescription was given for fluconazole for suspected yeast infection given anti biotic use. (3) Marijuana use: Comment: Education provided Code(s): F12.90 - Cannabis use, unspecified, uncomplicated Category: Social Hx Plan: No longer smoking marijuana and avoid the use of inhaled marijuana going forward. (4) Seasonal allergies: Comment: Managed with daily Flonase, continue. Code(s): J30.2 - Other seasonal allergic rhinitis Category: Medical Plan: Advised to use daily antihistamine and flonase. Consider montelukast if asthma and allergies are not well controlled. Plan This note was constructed using voice recognition software. While every effort has been made to ensure accuracy and associate manager affiliate marketing, still areas may have been included sometimes these areas may affect the content or meeting of the given symptoms. Total time spent caring for the patient today was 20 minutes. This includes time spent before the visit reviewing the chart, time spent during the visit, and time spent after the visit and documentation. Patient was informed and verbally consented to the use of an ambient scribe for clinic note documentation during this visit. Orders: Referrals Pulmonology Referral J45.40 - Moderate persistent asthma, uncomplicated Medications: New cetirizine (Zyrtec) 10 mg PO DAILY 30 caps 0RF budesonide-formoterol 80-4.5 mcg/actuation (Symbicort) 1 inh inhalation BID 10.2 grams 0RF fluconazole 150 mg PO Q3D 2 tabs 0RF 2 doses Refilled albuterol sulfate 5 mg inhalation QID PRN 30 ea 0RF shortness of breath or wheezing albuterol sulfate 5 mg inhalation QID PRN 30 ea 0RF shortness of breath or wheezing Discontinued prednisone Discontinued Reason: Patient no longer taking 20 mg PO BID 10 tabs 0RF prednisone Discontinued Reason: Patient no longer taking 50 mg PO DAILY 5 days 5 tabs 0RF metronidazole 0.75%(37.5mg/5gram) Discontinued Reason: Patient no longer taking 1 appful vaginal DAILY 5 days 70 grams 0RF
[2025-04-19 09:46] VITALS: BP 122/68; PULSE 101; O2SAT 98; BMI 29.0
--- OUTSIDE RECORDS SUMMARY | 2025-04-19 10:05 | XMS_ITS | Clinical Summary ---
Author Organization [facility] Address [address] [place] [id number] Phone Care Team Providers Care C Python Developer Name Role Phone Jerome Gutierres MD Primary [...] Medical Devices Not on file Insurance HMO [facility] [place] [address] [place] [address] HMO Member Subscriber Plan / Payer (Ef fective 2019-Present) Name:Alisha Chavez Relation to Subscriber:Self Name:Alisha Chavez Payer ID:Not on file Type:O Address: [address] HMO POS HMO Member Subscriber Plan / Payer (Ef fective 2019-Present) Name:Alisha Chavez Relation to Subscriber:Self Name:Alisha Chavez Payer ID:Not on file Type:O Address: [address] HMO POS HMO Member Subscriber Plan / Payer (Ef fective 2019-Present) Name:Alisha Chavez Relation to Subscriber:Self Name:Scott Alisha Payer ID:Not on file Type:O Address: [address] POS O Member Subscriber Plan / Payer (Ef fective 2019-Present) Name:Alisha Chavez Relation to Subscriber:Self Name:Scott Alisha Payer ID:Not on file Type:O Address: [address] POS HMO Member Subscriber Plan / Payer (Ef fective 2019-Present) Name:Alisha Chavez Relation to Subscriber:Self Name:Alisha Chavez Payer ID:Not on file Type:O Address: [address] HMO POS HMO [facility] [place] [address] [place] [address] [place] [address] [place] [address] HMO [facility] HMO POS Care Teams C Python Developer Relationship Specialty Start Date End Date Jerome Gutierres MD [address] [place] [address] PCP - General 02/19/21 Additional Source Comments The information contained in this document represents components of the legal health record. It is not the complete legal health record.[facility]
== END 2025-04-19 11:34 | disposition home or self-care (01) ==
LOC: HO.HMCH 09:39
DX: J45.40 Moderate persistent asthma, uncomplicated (principal); N89.8 Other specified noninflammatory disorders of vagina; F12.90 Cannabis use, unspecified, uncomplicated; J30.2 Other seasonal allergic rhinitis

== ENCOUNTER → 2025-04-19 09:38 | Outpatient (BNVA) | payer BC, OTHER, SELFPAY | DX: J45.40 Moderate persistent asthma, uncomplicated (principal); N89.8 Other specified noninflammatory disorders of vagina; F12.90 Cannabis use, unspecified, uncomplicated; J30.2 Other seasonal allergic rhinitis; Z13.39 Encounter for screening examination for other mental health and behavioral disorders; Z13.30 Encounter for screening examination for mental health and behavioral disorders, unspecified | CPT/HCPCS: 96127 ==

== ENCOUNTER 2025-05-02 17:17 | Emergency (ER) | payer BC, OTHER, SELFPAY ==
--- NOTE | ~2025-05-02 | XR_ITS ---
CLINICAL HISTORY: cough Chest X-ray, 2 Views COMPARISON: CR - XR CHEST 2V - 04/08/25 22:09 EDT FINDINGS: No consolidation. No pleural effusion. No pneumothorax. No cardiomegaly. No acute fracture. IMPRESSION: No acute findings. This document has been electronically signed by: Thang Henry MD on 05/02/2025 21:30:33
[2025-05-02 17:27] VITALS: BP 103/62; PULSE 116; RESP 18; TEMP 37.7; O2SAT 96; BMI 31.5
--- NOTE | 2025-05-02 17:28 | ED_ITS ---
HPI - General Adult General Chief complaint: Upper Respiratory Symptoms Stated complaint: ? covid Time Seen by Provider: 05/02/25 21:39 Source: patient Mode of arrival: ambulatory Limitations: no limitations History of Present Illness ED Provider: Dr. Becky Vick HPI narrative: Patient comes to the emergency room complaining of cough, asthma exacerbation. Patient states that she has been wheezing more than usual. Patient denies fever or chills. Patient complaining of nasal congestion. Patient states that her PCP recently prescribed to her budesonide. According to the patient, patient has been using it twice a day, but has not been using albuterol. Patient states that she was not aware that she could use or she is supposed to use albuterol for exacerbations. Related Data Previous Rx's ?Medication ?Instructions ?Recorded ipratropium 20 mcg-albuterol 100 1 puff inhalation QID #4 grams 04/12/24 mcg/actuation mist for inhalation (Combivent Respimat) fluticasone propionate 50 1 spray intranasal Q12H #16 grams 09/20/24 mcg/actuation nasal spray,suspension (Flonase Allergy Relief) albuterol sulfate 2.5 mg/0.5 mL 5 mg inhalation QID AK N shortness 04/19/25 solution for nebulization of breath or wheezing #30 ea budesonide-formoterol HFA 80 1 inh inhalation BID #10. 2 grams 04/19/25 mcg-4.5 mcg/actuation aerosol inhaler (Symbicort) cetirizine 10 mg capsule (Zyrtec) 10 mg PO DAILY #30 c aps 04/19/25 fluconazole 150 mg tablet 150 mg PO Q3D 2 doses #2 tab s 04/19/25 albuterol sulfate 90 mcg/actuation 2 puff inhalation Q 4-6H PRN 05/02/25 aerosol inhaler (Ventolin HFA) shortness of breath or wheezing #8.5 grams benzonatate 100 mg capsule 100 mg PO TID PRN cough #12 caps 05/02/25 prednisone 50 mg tablet 50 mg PO DAILY #4 tabs 05/02 Allergies Allergy/AdvReac Type Severity Reaction Status Date / Time ibuprofen (From Advil) Allergy Severe Anaphylaxis Verified 05/02/25 17:28 NSAIDS (Non-Steroidal Allergy Severe Anaphylaxis Verified 05/02/25 17:28 Anti-Inflamma Review of Systems Review of Systems: Constitutional : No Weight loss, No Fever, No Chills, No Night Sweats, No Fatigue, No Malaise ENT/Mouth : No Hearing loss, No Ear Pain, No Nasal Congestion, No Sinus Pain, No Hoarseness, No sore throat, No Rhinorrhea, No Swallowing Difficulty Eyes: No Eye Pain, No Swelling, No Redness, No Foreign Body, No Discharge, No Vision Changes Cardiovascular : No Chest Pain, No SOB, No Dyspnea on Exertion, No Orthopnea, No Edema, No Palpitations Respiratory : Complaining of productive cough, wheezing, shortness of breath Gastrointestinal : No Nausea, No Vomiting, No Diarrhea, No Constipation, No abdominal Pain, No Hematochezia, No Melena Genitourinary : no irregular bleeding, No Dysuria, No Urinary Frequency, No Hematuria, No Urinary Incontinence, No Urgency, No Flank Pain, No Urinary Flow Changes, No Hesitancy Musculoskeletal : No joint pain, No Myalgias, No Joint Swelling Skin : No Skin Lesions, No rash Neuro : No Weakness, No Numbness, No Paresthesias, No Loss of Consciousness, No Dizziness, No Headache Psych : No Anxiety/Panic, No Depression, No SI/HI/AH/VH, No Social Issues, Heme/Lymph: No Bruising, No Bleeding,No Lymphadenopathy Endocrine : No Polyuria, No Polydipsia, No Temperature Intolerance COUNT INCLUDES THE [facility] Past Medical History Medical History Pansinusitis No known health problems Surgical History No pertinent past surgical history Family History Family History Maternal Grandmother Pancreatic cancer Brother Cancer Paternal Grandmother CVA (cerebral vascular accident) Social History Social History Housing: House Patient Tobacco Use Status: Never used Tobacco e-Cigarette/Vaping Use: Currently Using Second Hand Smoke Exposure: No Substance Use Type: Marijuana Advance Directives: No Advance Directives Information Provided: Yes service: No Current occupational status: unemployed Current occupational exposures/hazards: No Cognitive needs: No Hearing needs: No Vision needs: No Physical Exam ED Exam Exam: Appearance: Alert. Oriented X3. No acute distress. Well-appearing Eyes: Pupils equal, round and reactive to light. ENT: Pharynx normal. Neck: Normal inspection. Neck supple. No lymph nodes noted. No crepitus CVS: Normal heart rate and rhythm. Pulses normal. Normal S1 and S2 Respiratory: No respiratory distress. Breath sounds normal. No Wheezing. No rales Abdomen: Soft and nontender. No rigidity. No distention. Skin: Skin warm and dry. Normal skin color. Normal skin turgor. Extremities: No lower extremity edema. No Lacerations. No Rash Neuro: Oriented X 3. No motor deficit. No sensory deficit. Moving all extremities. No slurred speech. CN 2 through 12 grossly intact Psych: calm, cooperative, normal affect Vital Signs: Vital Signs - 24 hr 05/02/25 17:27 05/02/25 21:13 05/02/25 22:00 Temperature 99.8 F 97.5 F 97 F Pulse Rate 116 H 108 H 101 H Respiratory Rate 18 20 20 Blood Pressure 103/62 118/78 110/70 Pulse Oximetry 96 94 95 Oxygen Delivery Method Room Air Room Air Room Air BMI result Body Mass Index 31.5 Medical Decision Making Medical Decision Making MDM Narrative: RME, this is a rapid medical exam performed by Jun Gusman please refer to primary provider for complete H&P- 25-year-old female presents for evaluation of body aches, cough, congestion. She reports that she has a history of asthma in his using an inhaler with steroids which is not resolving her wheezing. Plan for viral swabs My interpretation of labs: Patient tested negative for influenza, COVID, RSV Chest x-ray negative for any abnormalities. On physical exam, patient has no wheezing at all. However, patient states that she is convinced that she is wheezing. Patient talking in full sentences, patient is forcefully making herself wheeze, upper airway but if she is not forcing herself, there is no wheezing. Lungs are completely clear. I discussed with the patient that she needs to use her albuterol as rescue inhaler. Patient is to continue using her budesonide b.i.d. as instructed per her primary care physician. Patient received a dose of Tessalon Perles and prednisone here in the emergency room. At this time, patient is no wheezing, inhalers not indicated at this time. Patient agrees with plan. Differential Diagnosis Differential Diagnoses: The differential diagnosis associated with the presentation includes (Asthma exacerbation, bronchitis, viral URI) Lab Data MDM Lab Attestation statement: I reviewed the patient's lab results. Labs: Lab Results 05/02/25 Range/Units 19:16 Influenza Type A (PCR) NEGATIVE (Negative) Influenza Type B (PCR) NEGATIVE (Negative) RSV RNA Qual (PCR) NEGATIVE (Negative) SARS-CoV-2 RNA (RT-PCR) NEGATIVE (Negative) Discharge Plan Discharge Clinical Impression: Viral URI, Asthma Patient Disposition: Home, Self-Care Instructions: Asthma (ED), Upper Respiratory Infection (ED) Additional Instructions: Please follow-up with your primary care physician tomorrow. If you have any worsening or new symptoms, please return to the emergency room or call 911 Prescriptions: New prednisone 50 mg tablet 50 mg PO DAILY Qty: 4 0RF albuterol sulfate [Ventolin HFA] 90 mcg/actuation HFA aerosol inhaler 2 puff inhalation Q4-6H PRN (Reason: shortness of breath or wheezing) Qty: 8.5 1RF benzonatate 100 mg capsule 100 mg PO TID PRN (Reason: cough) Qty: 12 0RF No Action fluticasone propionate [Flonase Allergy Relief] 50 mcg/actuation spray,suspension 1 spray intranasal Q12H Qty: 16 11RF Rx Instructions: administer into each nostril Combivent Respimat 20-100 mcg/actuation mist 1 puff inhalation QID Qty: 4 2RF Rx Instructions: space evenly during waking hours budesonide-formoterol [Symbicort] 80-4.5 mcg/actuation HFA aerosol inhaler 1 inh inhalation BID Qty: 10.2 0RF albuterol sulfate 2.5 mg/0.5 mL solution for nebulization 5 mg inhalation QID PRN (Reason: shortness of breath or wheezing) Qty: 30 0RF fluconazole 150 mg tablet 150 mg PO Q3D Qty: 2 0RF Zyrtec 10 mg capsule 10 mg PO DAILY Qty: 30 0RF Stand Alone Forms: Work/School Release Print Language: Bruneian
[2025-05-02 20:12] LABS: Resp Syncy Virus RNA Qual PCR NEGATIVE (Negative); SARS COV2 PCR INHOUSE NEGATIVE (Negative)
[2025-05-02 21:13] VITALS: BP 118/78; PULSE 108; RESP 20; TEMP 36.4; O2SAT 94
[2025-05-02 22:00] VITALS: BP 110/70; PULSE 101; RESP 20; TEMP 36.1; O2SAT 95
[2025-05-02 23:12] VITALS: O2SAT 95
[2025-05-02 23:13] VITALS: BP 110/70; PULSE 101; RESP 18; TEMP 36.1; O2SAT 95
== END 2025-05-02 23:14 | disposition home or self-care (01) ==
PROVIDERS: Physician Assistant; Emergency Provider Emergency Medicine
DX: J06.9 Acute upper respiratory infection, unspecified (principal); J45.901 Unspecified asthma with (acute) exacerbation; R05.9 Cough, unspecified; M79.10 Myalgia, unspecified site; Z03.818 Encounter for observation for suspected exposure to other biological agents ruled out
CPT/HCPCS: 71046; 87637; 99283; 99284

== ENCOUNTER → 2025-05-02 20:18 | Outpatient (BNV) | payer BC, OTHER, SELFPAY | PROVIDERS: Emergency Provider Emergency Medicine; Visit Provider Radiology Diagnostic Radiology | DX: R05.9 Cough, unspecified (principal) | CPT/HCPCS: 71046 ==

== ENCOUNTER 2025-07-11 09:39 | Outpatient (AMB) | payer BC, OTHER, SELFPAY ==
[2025-07-11 09:42] VITALS: BP 100/60; PULSE 75; O2SAT 98; BMI 29.5
--- NOTE | 2025-07-11 09:42 | A.OFFVIS_ITS ---
Vital Signs 07/11/25 09:42 Height 5 ft 1 in Weight 156 lb BMI 29.5 BP 100/60 Blood Pressure Location Rt brachial Position Sitting Pulse 75 Pulse Source Pulse Oximeter Pulse Oximetry (%) 98 Oxygen Delivery Method Room Air Intake Visit Reasons: wheezing Allergies ibuprofen (From Advil) Allergy (Severe, Verified 05/02/25 17:28) Anaphylaxis NSAIDS (Non-Steroidal Anti-Inflamma Allergy (Severe, Verified 05/02/25 17:28) Anaphylaxis HPI HPI wheezing: Details: 25-year-old lady, formerly used vapes, now uses marijuana, with underlying history of asthma since her last in 2022, previously suboptimally controlled on albuterol MDI/nebs, recently started on Symbicort by her primary care provider with significant improvement in her symptom control. Patient also complains of environmental allergies. She denies recent pulmonary function testing. Patient denies family history of lung disease or personal history of exposure to industrial dusts. [facility] Medical History Pansinusitis No known health problems Surgical History No pertinent past surgical history Family History Maternal Grandmother Pancreatic cancer Brother Cancer Paternal Grandmother CVA (cerebral vascular accident) Social History Housing: House Patient Tobacco Use Status: Current everyday Tobacco user Tobacco use type: Cigarette Years Smoked: started 16, currently smokes weed e-Cigarette/Vaping Use: Currently Using Second Hand Smoke Exposure: No Substance Use Type: Marijuana service: No Current occupational status: unemployed Current occupational exposures/hazards: No Cognitive needs: No Hearing needs: No Vision needs: No Review of Systems Const Denies daytime sleepiness, Denies excessive sweating, Denies fatigue, Denies fever(s), Denies lethargy, Denies malaise, Denies night sweats, Denies snoring and Denies weight loss Eyes Denies blurry vision and Denies itchy eyes ENT Denies nasal congestion, Denies post nasal drip, Denies sinus pain, Denies sinus pressure and Denies other ( Thrush) Card Denies chest pain, Denies pedal edema, Denies dyspnea, Denies orthopnea and Denies paroxysmal nocturnal dyspnea Resp Denies cough, Denies hemoptysis, Denies excessive phlegm production, Denies dyspnea, Denies snoring and Denies wheezing GI Denies abdominal pain and Denies heartburn Musc Denies myalgias, Denies arthralgias and Denies joint swelling Skin/Breast Denies rash Neuro Denies memory loss and Denies seizure-like activity Psych Denies abnormal sleep pattern, Denies anxiety and Denies memory loss Endo Denies excessive sweating, Denies fatigue and Denies heat intolerance Bay/Lymph Denies easy bruising Aller/Immun Denies itchy eyes, Denies seasonal rhinorrhea and Denies wheezing Physical Exam Vital Signs: Last Vital Signs Pulse 75 07/11/25 09:42 BP 100/60 07/11/25 09:42 Pulse Ox 98 07/11/25 09:42 Oxygen Delivery Method Room Air 07/11/25 09:42 BMI result Body Mass Index 29.5 Const General: no acute distress and alert Nutritional Appearance: not obese Orientation/consciousness: Other orientation findings ( oriented) HEENT Head: Yes atraumatic Eyes General: appearance normal, both eyes and all related structures Sclerae: sclerae normal EOM: EOMs intact bilaterally Neck Neck: Yes supple Lymphatic: no lymphadenopathy noted Resp Effort & Inspection: normal respiratory effort and no use of accessory muscles Auscultation: clear to auscultation bilaterally Cardio Rate: regular rate Rhythm: regular rhythm Heart sounds: no gallops, no murmurs and no rubs Skin General skin exam: other ( warm) Extrem General: No clubbing, No cyanosis and No edema Assessment & Plan Assessment & Plan (1) Moderate persistent asthma: Code(s): J45.40 - Moderate persistent asthma, uncomplicated Category: Medical Plan: Now reasonably well controlled current regimen of Symbicort and albuterol MDI/ nebs. Continue current regimen. Will obtain full PFT. (2) Environmental allergies: Code(s): Z91.09 - Other allergy status, other than to drugs and biological substances Category: Medical Plan: Will obtain IgE level, CBC with differential, and RAST panel for further evaluation. Orders: Orders PFT pulmonary function test Today J45.40 - Moderate persistent asthma, uncomplicated Resp Allergy Profile Region I Today J45.40 - Moderate persistent asthma, uncomplicated Complete Blood Count Auto Diff Today J45.40 - Moderate persistent asthma, uncomplicated Coding Level of Care Code New Pt Level 4 (98529) Diagnoses Moderate persistent asthma J45.40 Environmental allergies Z91.09
--- OUTSIDE RECORDS SUMMARY | 2025-07-11 11:32 | XMS_ITS | Clinical Summary ---
Author Organization [facility] Address [address] [place] [id number] Phone Care Team Providers Care Manager Visual Name Role Phone Jerome Gutierres MD Primary [...] SMEAR 01/20/2021 Adult Td,Tdap Booster 02/22/2022 02/23/2012 INFLUENZA VACCINE (#1) 2025 COVID-19 VACCINE ( season) 2025 PNEUMOCOCCAL VACCINES (0-49 years) Aged Out 07/14/2001, [...] Medical Devices Not on file Insurance [place] [address] [place] [address] HMO Member Subscriber Plan / Payer (Ef fective 2019-Present) Name:Alisha Chavez Relation to Subscriber:Self Name:Alisha Chavez Payer ID:Not on file Type:HMO Address: [address] [place] [address] [place], [place] [id number] [address] [place] [address] HMO Member Subscriber Plan / Payer (Ef fective 2019-Present) Name:Alisha Chavez Relation to Subscriber:Self Name:Scott Alisha Payer ID:Not on file Type:O Address: [address] HMO POS O Member Subscriber Plan / Payer (Ef fective 2019-Present) Name:Alisha Chavez Relation to Subscriber:Self Name:Alisha Chavez Payer ID:Not on file Type:HMO Address: [address] HMO POS HMO Member Subscriber Plan / Payer (Ef fective 2019-Present) Name:Alisha Chavez Relation to Subscriber:Self Name:Alisha Chavez Payer ID:Not on file Type:O Address: [address] HMO POS HMO Member Subscriber Plan / Payer (Ef fective 2019-Present) Name:Alisha Chavez Relation to Subscriber:Self Name:Alisha Chavez Payer ID:Not on file Type:HMO Address: [address] HMO POS HMO Member Subscriber Plan / Payer (Ef fective 2019-Present) Name:Alisha Chavez Relation to Subscriber:Self Name:Scott Alisha Payer ID:Not on file Type:O Address: [address] HMO POS [facility] HMO [facility] [[email or web address] HMO POS Care Teams Manager Visual Relationship Specialty Start Date End Date Jerome Gutierres MD PCP - General 02/19/21 Additional Source Comments The information contained in this document represents components of the legal health record. It is not the complete legal health record.[facility]
--- OUTSIDE RECORDS SUMMARY | 2025-07-11 11:33 | XMS_ITS | Continuity of Care Document ---
Author Organization [place] - [facility], [facility] Address [address] [place] [address] Care Team Providers Care Field Service Poultry Technician Name Role Phone [facility] OTHER [phone] Assessment Encounter Date Assessment Date Assessment LastModified by Organization Details LastModified Time 07/06/2025 07/06/2025 The patient has a history of asthma, nasal polyps, and sensitivity to ibuprofen and aspirin, which contribute to her respiratory condition. She has been prescribed a nine-day taper of prednisone to alleviate her symptoms, starting with three tablets daily for three days, followed by two tablets daily for three days, and then one tablet daily for the final three days. Additionally, a prescription for Fluticasone nasal spray, one spray twice daily, has been provided to help manage her nasal congestion. The patient is advised to avoid ibuprofen and aspirin due to her sensitivity to these medications. She is recommended to schedule an appointment with Dr. Rooney, a electronic console display operator, for further evaluation and management of her nasal polyps. Dr. Rooney may consider surgical intervention to remove the polyps and clean the sinuses, followed by enrollment in a program to prevent recurrence, which may include DUPIXENT or allergy therapy involving injections. The patient is informed about the potential challenges with insurance coverage for DUPIXENT due to its high cost. The patient is educated about the potential side effects of prednisone, including agitation, poor sleep, and stomach upset, and is reassured that she is otherwise healthy and likely to tolerate the medication well. She is instructed to follow up with Dr. Rooney, who will order a CT scan of her sinuses during her visit for further assessment. [email or web address] Not available 07/06/2025 10:50:34 Plan of Treatment Reminders Order Date Submit Date Provider Last Modified By Organization Details Last Modified Time Details Appointments Establish ed 15 2024 01:45P M Justin Rooney, DO Not available Not available Not available Lab None recorded. Referral None recorded. Procedures None recorded. Surgeries None recorded. Imaging None recorded. Medication Orders fluticaso ne propionat e 50 mcg/actua tion nasal spray,allison pension 2024 [id number], [address], [place], [id number], 07/06/2025 10:49:24 prednison e 20 mg tablet 2024 [facility][id number], [address], [place], [id number], 07/06/2025 10:49:25 Patient TargetsNo targets recorded. Patient Instructions Encounter Date Encounter Id Patient Instructions Last Modified By Organization Details Last Modified Time 07/06/2025 [id number] - Take prednison e as prescribed: three tablets daily for three days, two tablets daily for three days, and one tablet daily for three days. - Use Fluticasone nasal spray, one spray twice daily. - Avoid ibuprofen and aspirin. - Schedule an appointment with Dr. Rooney for further evaluation and management. - Follow up with Dr. Rooney for a CT scan of the sinuses. [email or web address] Not available 07/06/2025 10:50:34 Please note: Parts of this encounter note have been generated by AI based on audio conversation. Patient consent was required prior to utilizing this technology. Content review was required prior to finalizing the note. [email or web address] Not available 07/06/2025 10:50:34 Reason for Referral None Reported. Problems Name Problem SNOMED Code Status Onset Date Resolution Date Notes Provider Name and Address Organization Details Recorded Time Deviated nasal septum 539649173 Active 2021 Deviated nasal septum; Note: Date Diagnosed : 05/07/2022 11:15 AM (J34.2) JUSTIN HARRIS MD [address] [place] [address], [place], [address] , 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 Unspecifi ed disturban cordell of smell and taste; Note: Date Diagnosed : 05/07/2022 11:15 AM (R43.9) Not Available [facility] 4 03:24:35 Disorder of taste 145817016 Active 2021 Unspecifi ed disturban cordell of smell and taste; Note: Date Diagnosed : 05/07/2022 11:15 AM (R43.9) Not Available [facility] 4 03:24:35 Chronic pansinusi tis 40959771 Active 2021 Chronic pansinusi tis; Note: Date Diagnosed : 05/07/2022 11:15 AM (J32.4) Not Available [facility] 4 03:24:35 Chronic bilateral maxillary sinusitis 13534915075 184382 Active 2024 JUSTIN HARRIS MD [address] [place] [address], [place], [address] , [facility] 5 14:46:25 Uncomplic ated moderate persisten t asthma 457744242 Active 2024 JUSTIN HARRIS MD [address] [place] [address], [place], [address] , [facility] 5 14:51:06 Aspirin exacerbat ed respirato ry disease 42564655828 609801 Active 2024 JUSTIN HARRIS MD [address] [place] [address], [place], [address] , [facility] 5 10:46:49 Problem Notes None recorded. Procedures Surgical History Date Name Laterality Status Provider Name and Address Organization Details Recorded Time 04/12/2025 NasalEndos copy_DP completed JUSTIN HARRIS MD [address] [place] [address],[place] [address], [place], [phone], [facility] - [facility] 04/12/2025 14:46:08 Imaging Results None recorded. Procedure Notes None recorded. Medical Equipment None Reported. Allergies Allergen ID Allergen Name Allergen Category Reaction Reaction Severity Criticality Documentation Date Start Date Code Code System Note Provider Name and Address Organization Details Recorded Time 176028 Non-stero idal anti-infl ammatory agent (substanc e) medicatio n Not available Not available Not available 04/12/2025 57334 5008 SNOMED WON KODI holt [place] - [facility] 14:28:44 Medications Name Sig Start Date Stop Date Status Note LastModified by Organization Details LastModified Time prednison e 10 mg tablet by mouth 04/12 completed Medicati on ID: [id number] B rand Name: predniso ne Send Method: E-Prescr ibed Sub s Allowed: subs OK Speci al Instruct ion: Take 4 tabs daily for 3 days then 3 tabs daily for 3 days then 2 tabs daily for 3 days then 1 tab daily for 3 days then stop Med icationG enericNa me: predniso ne Not Available Not Available Not Available cetirizin e 10 mg tablet TAKE 1 TABLET BY MOUTH EVERY DAY active Not Available Not Available No t Available azithromy geetha 250 mg tablet 04/12 completed Not Available Not Available Not Available fluconazo le 150 mg tablet TAKE 1 TABLET BY MOUTH EVERY 3 DAYS FOR 2 DOSES active Not Available Not Available No t Available fluconazo le 200 mg tablet 04/12 completed Not Available Not Available Not Available metronida zole 0.75 % (37.5 mg/5 gram) vaginal gel INSERT 1 APPLICAT ORFUL VAGINALL Y DAILY FOR 5 DAYS 04/12 completed Not Available Not Available Not Available prednison e 20 mg tablet 3 tabs daily x 3 days, then 2 tabs daily x 3 days, then 1 tab daily x 3 days 2024 active Not Available Not Available Not Avai lable metronida zole 500 mg tablet TAKE 1 TABLET BY MOUTH EVERY 12 HOURS FOR 7 DAYS 04/12 completed Not Available Not Available Not Available famotidin e 20 mg tablet TAKE 1 TABLET BY MOUTH TWICE DAILY active Not Available Not Available No t Available benzonata te 100 mg capsule TAKE 1 CAPSULE BY MOUTH THREE TIMES DAILY NEEDED FOR COUGH active Not Available Not Available No t Available doxycycli ne monohydra te 100 mg capsule 1 capsule by mouth twice a day 04/12 completed Medicati on ID: [id number] D uration Value: 10 Brand Name: doxycycl ine monohydr ate Send Method: E-Prescr ibed Sub s Allowed: subs OK Medic ationGen ericName : doxycycl ine monohydr ate Not Available Not Available Not Available prednison e 50 mg tablet TAKE 1 TABLET BY MOUTH DAILY active Not Available Not Available No t Available albuterol sulfate HFA 90 mcg/actua tion aerosol inhaler INHALE 2 PUFFS BY MOUTH EVERY 4 TO 6 HOURS NEEDED FOR SHORTNES S OF BREATH OR WHEEZING active Not Available Not Available No t Available fluticaso ne propionat e 50 mcg/actua tion nasal spray,allison pension SHAKE LIQUID AND USE 1 SPRAY IN EACH NOSTRIL EVERY 12 HOURS 2024 active Not Available Not Available Not Avai lable amoxicill in 875 mg-potass ium clavulana te 125 mg tablet Take 1 tablet twice a day by oral route for 14 days. 05/03 completed Not Available Not Available Not Available albuterol sulfate concentra te 2.5 mg/0.5 mL solution for nebulizat ion INHALE 5MG OF SOLUTION FOUR TIMES DAILY NEEDED FOR SHORTNES S OF BREATH WHEEZING active Not Available Not Available No t Available budesonid e-formote rol HFA 80 mcg-4.5 mcg/actua tion aerosol inhaler INHALE 1 PUFF BY MOUTH TWICE DAILY active Not Available Not Available No t Available Combivent Respimat 20 mcg-100 mcg/actua tion solution for inhalatio n INHALE 1 PUFF BY MOUTH FOUR TIMES DAILY. SPACE EVENLY WHILE AWAKE 04/12 completed Not Available Not Available Not Available ProAir RespiClic k 90 mcg/actua tion breath activated INHALE 2 PUFFS BY MOUTH EVERY 4 TO 6 HOURS NEEDED FOR SHORTNES S OF BREATH OR WHEEZING 04/12 completed Not Available Not Available Not Available Vitals Date Recorded Body height Provider Name an d Address Organization Details Last Updated DateTime 07/06/2025 154.94 cm WON MARI[place] - [facility] 07/06/2025 10:21:36 Social History None recorded. Functional Status Question Answer Note LastModified by Organization D etails LastModified Time What is your level of alcohol consumption? None [email or web address] Information not available 04/12/2025 Mental Status None recorded. Family History Nothing Reported. Medical History Condition Response Asthma Y Gynecological HistoryNo gynecological history recorded. Obstetrics History GPAL:G 0 P 0 0 0 0 Past Encounters Encounter ID Performer Location Encounter Start Date Encounter Closed Date Diagnosis/Indication Diagnosis SNOMED-CT Code Diagnosis ICD10 Code Diagnosis IMO Codes Diagnosis Note [id number] JUSTIN HARRIS MD [facility] [address] [address] 07/06/2025 10:03:20 07/06/2025 10:52:41 Aspirin exacerbated respiratory disease 3157557410 0424322 J45.909 J33.9 Z88.6 1966009437 Deviated nasal septum 12 4059430 J34.2 212988 Uncomplica danielle moderate persistent asthma 173419237 J45.40 5475687 Health Concerns Section Related Observation LastModified by Organization Detai ls LastModified Time None Recorded Concern Status LastModified by Organization Details LastModified Time None Recorded Payers Encounter Date Sequence Insurance Name Policy Number Policy Godwin Covered Member ID Godwin Member ID Guarantor Name 07/06/2025 1 [facility] [id number] Chris Chavez [id number] Alisha Chavez 07/06/[address] [place] [address] [id number] Alisha Chavez [id number] Alisha Chavez Notes Date Note Type Note Provider Name and Address Organization Details Recorded Time 07/06/2025 text/html sinusitis, deviated septum possible AERD with asthma, polyps, ibuprofen allergy PV 08/21/2022 Sarita nasal congestion, rhinorrhea, postnasal drip, first trimester , defer surgical consultation as recommended by Dr. Flowers PV 05/07/22 Kristie septal deviation to the right. 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 Prescribed prednisone and Doxy and requested follow-up in 2 months 10/03/[address] sinus, pansinusitis, right septal deviation, possible nasal polyps. PV 04/12/25 Natalia nasal endoscopy R max sinus mucoid, rx augmentin x 2 week Alisha Chavez is a 25-year-old female who presents for nasal congestion and discomfort. She reports persistent nasal blockage despite prior antibiotic treatment, with no improvement in symptoms. She has a history of asthma, nasal polyps, and sensitivity to ibuprofen and aspirin, which exacerbate her respiratory condition. She underwent allergy skin testing at [facility] a couple of years ago but declined allergy therapy involving injections. She has been off her nasal spray, Fluticasone, for a few days, leading to increased nasal discomfort and difficulty breathing, particularly in cold weather. She notes that prednisone has been effective in alleviating her symptoms in the past, though she is aware of its potential side effects. Her symptoms appear to have worsened following a severe infection, and she has not had this condition since her teenage years. JUSTIN HARRIS MD [address] [place] [address], [place], [address], [facility] - [facility] 07/06/2025 10:51:27 OBGyn Episode No OBEpisode recorded.
--- OUTSIDE RECORDS SUMMARY | 2025-07-11 11:33 | XMS_ITS | Data Portability ---
Author Organization [place] - [facility], Allergy Address [address] [place] [id number] Care Team Providers Care Ota Name Role Phone [facility] OTHER Assessment Encounter Date Assessment Date Assessment LastModified by Organization Details LastModified Time 04/12/2025 04/12/2025 1. Chronic Sinusitis Observation of nasal pus mandates antibiotic therapy and continued use of fluticasone spray. Surgery remains a deferred option, focusing first on medical management of infection. Followup in 3 months to review progress 2. Nasal Obstruction due to Deviated Septum Right septal deviation impacting respiration warrants consideration for septoplasty following medical management. 3. Asthma Pulmonary follow-up priority for asthma exacerbations, exacerbated by prior ibuprofen use, necessitates specialist intervention. possibility of AERD 4. Hyposmia Nasal obstruction and potential sinus infection contribute to olfactory deficits. Enhancing nasal passage patency may assist olfactory function. 5. Ibuprofen Allergy Strict ibuprofen avoidance due to confirmed respiratory reactions post- is essential. [email or web address] Not available 04/12/2025 14:54:48 07/06/2025 07/06/2025 The patient has a history [...] schedule an appointment with Dr. Rooney, a foot gatherer, for further evaluation and management of her [...] Details Appointments Establish ed 15 2024 01:45P Nelda Rooney, DO Not available Not available Not available Lab None recorded. Referral None recorded. Procedures None recorded. Surgeries None recorded. Imaging None recorded. Medication Orders fluticaso ne propionat e 50 mcg/actua tion nasal spray,allison pension 2024 025 [place] [id number], [address] [place], [place], [id number], 07/06/2025 10:49:24 prednison e 20 mg tablet 2024 025 [facility] #[id number], [address] [place], [place], [id number], 07/06/2025 10:49:25 amoxicill in 875 mg-potass ium clavulana te 125 mg tablet 2024 025 [place] [id number], [address] [place], [place], [id number], 05/03/2025 05:01:59 Patient TargetsNo targets recorded. Patient Instructions Encounter Date Encounter Id Patient Instructions Last Modified By Organization Details Last Modified Time 04/12/2025 [id number] Please note: Parts of this encounter note have been generated by AI based on audio conversation. Patient consent was required prior to utilizing this technology. Content review was required prior to finalizing the note. [email or web address] Not available 04/12/2025 14:51:09 07/06/2025 [id number] - Take prednison e as prescribed: three [...] Organization Details Recorded Time Deviated nasal septum 272863894 Active 2021 Deviated nasal septum; Note: Date Diagnosed : 05/07/2022 11:15 AM (J34.2) DULCE HARRIS MD [address] [place] [address], [facility] [phone] , [facility] - [facility] 5 14:46:14 Disorder of smell 429804717 Active 2021 Unspecifi ed disturban cordell of smell and taste; Note: Date Diagnosed : 05/07/2022 11:15 AM (R43.9) Not Available [facility] 4 03:24:35 Disorder of taste 822431735 Active 2021 Unspecifi ed disturban cordell of smell and taste; Note: Date Diagnosed : 05/07/2022 11:15 AM (R43.9) Not Available [facility] 4 03:24:35 Chronic pansinusi tis 06021574 Active 2021 Chronic pansinusi tis; Note: Date Diagnosed : 05/07/2022 11:15 AM (J32.4) Not Available [facility] 4 03:24:35 Chronic bilateral maxillary sinusitis 09921559639 719223 Active 2024 DULCE HARRIS MD [address] [facility],[place] [address], [place], [phone] , [facility] [place] 14:46:25 Uncomplic ated moderate persisten t asthma 388717883 Active 2024 DULCE HARRIS MD [address] [place] [address],[place] [address], [place], [address] , [facility] 5 14:51:06 Aspirin exacerbat ed respirato ry disease 63610631493 841433 Active 2024 DULCE HARRIS MD [address] [place] [address],[place] [address], [place], [place], [address] , [facility] 10:46:49 Problem Notes None recorded. Procedures Surgical History Date Name Laterality Status Provider Name and Address Organization Details Recorded Time 04/12/2025 NasalEndos copy_DP completed DULCE HARRIS MD [address] [place] [address],[place] [address], [place], [phone], [facility] 04/12/2025 14:46:08 Imaging Results None recorded. Procedure Notes None recorded. Medical Equipment None Reported. Allergies Allergen ID Allergen Name Allergen Category Reaction Reaction Severity Criticality Documentation Date Start Date Code Code System Note Provider Name and Address Organization Details Recorded Time [id number] Non-stero idal anti-infl ammatory agent (substanc e) medicatio n Not available Not available Not available 04/12/2025 [id number] 5008 SNOMED WON KODI holt [place] [facility] 14:28:44 Medications Name Sig Start Date Stop Date Status Note LastModified by Organization Details LastModified Time prednison e 10 mg tablet by mouth 04/12 completed Medicati on ID: [id number] B rand Name: predniso ne Send Method: [...] a day 04/12 completed Medicati on ID: [id number] D uration Value: 10 Brand Name: doxycycl [...] Not Available Vitals Date Recorded Body height Body mass index (BMI) Body weight Provider Name and Address Organization Details Last Updated DateTime 04/12/2025 154.94 cm 29.7 kg/m2 81860 g [facility] - [facility] 04/12/2025 14:28:30 Date Recorded Body height Provider Name an d Address Organization Details Last Updated DateTime 07/06/2025 154.94 cm [facility] 07/06/2025 10:21:36 Social History None recorded. Functional [...] ICD10 Code Diagnosis IMO Codes Diagnosis Note [id number] DULCE HARRIS MD [facility] [address] [place] [address] 04/12/2025 14:15:45 04/12/2025 14:53:06 Deviated nasal septum 492491025 J34.2 260947 Chronic bi lateral maxillary sinusitis 2971201044 5591572 J32.0 91093306 Uncomplica danielle moderate persistent asthma 985553501 J45.40 2201831 [id number] DULCE HARRIS MD [facility] [address] [address] 07/06/2025 10:03:20 07/06/2025 10:52:41 Aspirin exacerbated respiratory disease 6988725697 5788165 J45.909 J33.9 Z88.6 8860586027 Deviated nasal septum 12 1198087 J34.2 916316 Uncomplica danielle moderate persistent asthma 953671104 J45.40 7085717 Health Concerns Section Related Observation LastModified by Organization Detai ls LastModified Time None Recorded Concern Status LastModified by Organization Details LastModified Time None Recorded Advance Directives Directive None Recorded Payers Insurance Date Sequence Insurance Name Policy Number Policy Godwin Covered Member ID Godwin Member ID Guarantor Name 07/06/2025 1 [facility] [id number] Chrismike Chavez [id number] Alisha Frankie Scott 07/06/2025 2 [facility] [id number] Alisha D Scott [id number] Alisha D Scott Notes Date Note Type Note Provider Name and Address Organization Details Recorded Time 04/12/2025 text/html patient of Dr Flowers deviated septum, sinusitis PV 08/21/2022 Sarita nasal congestion, rhinorrhea, postnasal drip, first trimester , defer surgical consultation as recommended by Dr. Flowers PV 05/07/22 Kristie septal deviation to the right. 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 Prescribed prednisone and Doxy and requested follow-up in 2 months 10/03/[address] [place] [address] sinus, pansinusitis, right septal deviation, possible nasal polyps. The patient is a 25-year-old female presenting with chronic nasal issues and asthma. She reports a significant history of chronic sinusitis that began at the age of 17, following an initial episode when she contracted sinusitis. Since then, she has experienced persistent nasal congestion, excessive mucus production, and impeded nasal airflow, most problematic during the winter. These symptoms are associated with ear popping during swallowing and have resulted in decreased olfactory capabilities, particularly during the colder months. Previous allergy testing revealed seasonal allergies, but no substantial follow-up care. Furthermore, the patient reports new-onset asthma post-, leading to frequent ER visits due to severe respiratory episodes, often triggered without physical exertion. She has noted a strong allergy to ibuprofen, evidenced by severe respiratory distress. Recent efforts to improve her health include quitting vaping and marijuana use, which has adversely affected her respiratory status. Past imaging from 2021 verified septal deviation, impacting nasal airflow and contributing to her prolonged sinus issues. The patient acknowledges that her nasal symptoms are intensified on the right side, and she is currently seeking to augment her pulmonary care with an upcoming consult. DULCE HARRIS MD [address] [place] [address], [phone], [facility] 04/12/2025 14:54:59 07/06/2025 text/html sinusitis, deviated septum possible AERD with asthma, polyps, ibuprofen allergy PV 08/21/2022 Sarita nasal congestion, rhinorrhea, postnasal drip, first trimester , defer surgical consultation as recommended by Dr. Flowers PV 05/07/22 Kristie septal deviation to the right. 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 Prescribed prednisone and Doxy and requested follow-up in 2 months 10/03/[address] [place] [address] sinus, pansinusitis, right septal deviation, possible nasal polyps. PV 04/12/25 Natalia nasal endoscopy R max sinus mucoid, rx augmentin x 2 week Alisha David Scott is a 25-year-old female who presents for nasal congestion and discomfort. She reports persistent nasal blockage despite prior antibiotic treatment, with no improvement in symptoms. She has a history of asthma, nasal polyps, and sensitivity to ibuprofen and aspirin, which exacerbate her respiratory condition. She underwent allergy skin testing at [facility] a couple of years ago but [...] had this condition since her teenage years. DULCE HARRIS MD [address] [place] [address], [place], [address], [facility] - [facility] 07/06/2025 10:51:27 OBGyn Episode No OBEpisode recorded.
== END 2025-07-11 10:03 | disposition home or self-care (01) ==
LOC: HO.HPS 09:40
PROVIDERS: Visit Provider Internal Medicine Pulmonary Disease
DX: J45.40 Moderate persistent asthma, uncomplicated (principal); Z91.09 Other allergy status, other than to drugs and biological substances
CPT/HCPCS: 99204

== ENCOUNTER 2025-07-27 10:54 | Outpatient (AMB) | payer BC, OTHER, SELFPAY ==
--- NOTE | 2025-07-27 10:59 | MHC.OFFVIS ---
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 Certified Medical Technician Assistant: Certified Medical Technician Assistant Present (Echo) Accompanied by: Self / Same As Patient Allergies ibuprofen (From Advil) Allergy (Severe, Verified 07/27/25 11:13) Anaphylaxis NSAIDS (Non-Steroidal Anti-Inflamma Allergy (Severe, Verified 07/27/25 11:13) Anaphylaxis Medication List - Last Reconciled 07/27/25 by Estela Fitzgerald CNM albuterol sulfate 90 mcg/actuation (Ventolin HFA) 2 puffs inhalation Q4-6H PRN albuterol sulfate 5 mg inhalation QID PRN budesonide-formoterol 80-4.5 mcg/actuation (Symbicort) 1 inh inhalation BID fluticasone propionate 50 mcg/actuation (Flonase Allergy Relief) 1 spray intranasal Q12H prednisone 50 mg PO DAILY Is last menstrual period known: Yes Last menstrual period: 07/18/25 Post menopausal: No Patient : No 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 It has been a few years since she has had a Pap smear she sometimes wonders if she has BV she however has serious sinus issues ever since a bad sinus infection some years ago and she has a deviated septum so sometimes she is worried that she can not smell something. She is currently not contraceptive thing she is on the fence about whether not it would be a good thing if she got though in discussing further she is looking for an apartment with her partner and would rather not have a baby for the foreseeable future until they are better situated. She had her last baby at [facility] she had no difficulty she did have a little kidney infection at the end but that got cleared up and the delivery was okay. She is in the middle of getting appointments for ENT evaluation and has an appointment next week for another evaluation. Discussed with her whether not this would be a good time for her to get given the her plan for getting a workup for her sinuses got completely interrupted by her last . In thinking about it she was thinking that maybe she will consider going back to the Nexplanon which she had before she got it at [facility] she is not sure if she had it put in when she had her period or not but she did bleed for about a month after. Discussed that it is better to place when she does have her period and while as no guarantee she would be less likely to have prolonged bleeding afterwards. Strongly suggested condoms until then she does not think she would be interested in any other method. [facility] Medical History Pansinusitis No known health problems Surgical History No pertinent past surgical history Family History Maternal Grandmother Pancreatic cancer Brother Cancer Paternal Grandmother CVA (cerebral vascular accident) Social History (Updated 07/27/25 @ 11:03 by Echo Pace MA) Housing: House Patient Tobacco Use Status: Current everyday Tobacco user Tobacco use type: Cigarette Years Smoked: started 16, currently smokes weed e-Cigarette/Vaping Use: Currently Using Second Hand Smoke Exposure: No Substance Use Type: Marijuana service: No Current occupational status: employed 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 Current occupational exposures/hazards: No Cognitive needs: No Hearing needs: No Vision needs: No Female Reproductive History Menstrual Age of Menarche: 14 Duration of menses: 3-5 days Date of last menstrual period: 07/18/25 control method: none Total pregnancies: 1 Full term: 1 History of abnormal pap smear: No Physical Exam Vital Signs: Last Vital Signs BP 110/72 07/27/25 11:14 BMI result Body Mass Index 29.1 Const General: healthy appearing, comfortable, no acute distress, well developed and alert Nutritional Appearance: average body habitus Orientation/consciousness: patient oriented x3 Limitations: no limitations HEENT Head: Yes normocephalic Neck Neck: Yes normal visual inspection Chest Chest palpation & inspection: normal inspection of the chest Breast/axilla inspection: normal inspection of the breasts and normal inspection of the axillae Breast/axilla palpation: normal palpation of the breasts and normal palpation of the axillae Resp Effort & Inspection: normal respiratory effort GI Inspection: Yes normal to inspection, No Abdominal wall edema and No distended Palpation (GI): Soft to palpation and nontender Other: External exam within normal limits vagina pink and smooth cervix multiparous pink with whitish yellowish mucus. Otherwise no abnormal discharge noted cervix is long close thick mobile nontender uterus midposition mobile nontender adnexa nontender good tone with Kegel.. General: Yes bladder normal to palpation External Female Exam: normal external appearance and normal appearance of the urethra Speculum Exam - Vagina: normal appearance of the vagina, normal palpation and normal vaginal discharge Speculum Exam - Cervix: normal appearance of the cervix, normal palpation and nontender Bimanual exam- vagina & uterus: normal bimanual exam, normal palpation, uterine size normal, bladder normal to palpation, consistency normal, normal palpation, uterine mobility normal, uterine shape normal, No Cervical tenderness present, non-tender and no cervical motion tenderness Bimanual Exam- Adnexa, other: normal adnexae, no masses, normal and No adnexal tenderness Neuro General: patient oriented x3 Assessment & Plan Assessment & Plan (1) Vaginal discharge: Code(s): N89.8 - Other specified noninflammatory disorders of vagina Category: Medical (2) Environmental allergies: Code(s): Z91.09 - Other allergy status, other than to drugs and biological substances Category: Medical (3) Deviated septum: Comment: Followed by ENT. Plans to have a rhinoplasty in the future. Continue Flonase. Code(s): J34.2 - Deviated nasal septum Category: Medical (4) Pansinusitis: Code(s): J32.4 - Chronic pansinusitis Category: Medical (5) Seasonal allergies: Comment: Managed with daily Flonase, continue. Code(s): J30.2 - Other seasonal allergic rhinitis Category: Medical (6) control counseling: Code(s): Z30.09 - Encounter for other general counseling and advice on contraception Category: Medical (7) Cervical cancer screening: Code(s): Z12.4 - Encounter for screening for malignant neoplasm of cervix Category: Medical Plan -----Discussed in this visit the following: healthy balanced diet, regular and consistent exercise, getting recommended health screens, doing the best she can for her particular health concerns, kegel exercises, pap smear screening and followup recommendations, mammography screening and SBE, normal changes in cycles in her life stage--- . See HPI. Discussed being aware of where she is in her cycle she is probably approaching peak fertility for this month suggested using condoms until she has some answers for her ENT concerns and deals with her problems she recently got her wisdom teeth out and she is wondering sort of there will be some surgical solution to her deviated septum and sinus issues. During the course of this conversation patient was reconsidering whether not she wanted to allow herself to just be at risk of until she finishes her evaluation and hopefully a plan of care for her deviated septum. Given this she was considering going to [facility] for another Nexplanon recommend trying to time it for when she has her cycle I did discuss that if she got it with us we would have her sign a paper ahead of time in her insurance needs to approve it and it would be scheduled after that. She told me this process is much simpler [facility] and they have them available there that day. We will let her know if there is any positive findings from any of the testing. Recommend condoms until she makes some other decision she declined blood work for STIs. Orders: Orders CT NG by PCR Vag/Cerv Today Z01.419 - Encounter for gynecological examination (general) (routine) without abnormal findings Pap Smear Today Z01.419 - Encounter for gynecological examination (general) (routine) without abnormal findings Bacterial Vaginosis Panel Today Z01.419 - Encounter for gynecological examination (general) (routine) without abnormal findings Medications: Refilled prednisone 50 mg PO DAILY 4 tabs 0RF Coding Level of Care Code New Pt Prev Care 18-39yr([id number] Diagnoses Vaginal discharge N89.8 Environmental allergies Z91.09 Deviated septum J34.2 Pansinusitis J32.4 Seasonal allergies J30.2 control counseling Z30.09 Cervical cancer screening Z12.4
[2025-07-27 11:14] VITALS: BP 110/72; BMI 29.1
== END 2025-07-27 12:03 | disposition home or self-care (01) ==
LOC: HO.HWS 10:55
PROVIDERS: Visit Provider Advanced Practice Midwife
DX: Z01.419 Encounter for gynecological examination (general) (routine) without abnormal findings (principal); N89.8 Other specified noninflammatory disorders of vagina; Z91.09 Other allergy status, other than to drugs and biological substances; J34.2 Deviated nasal septum; J32.4 Chronic pansinusitis; J30.2 Other seasonal allergic rhinitis; Z30.09 Encounter for other general counseling and advice on contraception
CPT/HCPCS: 99385; 99459

== ENCOUNTER 2025-07-27 10:54 | Outpatient (REF) | payer BC, OTHER, SELFPAY ==
[2025-07-28 10:22] LABS: Bacterial Vaginosis PCR POSITIVE (Negative); Candida Group PCR DETECTED (Not Detect); Candida glab krusei PCR NOT DETECTED (Not Detect); Trichomonas vaginalis PCR NOT DETECTED (Not Detect)
[2025-07-28 10:44] LABS: CT PCR NOT DETECTED (Not Detect.); NG PCR NOT DETECTED (Not Detect.)
== END 2025-07-27 10:55 | disposition home or self-care (01) ==
LOC: HO.LNP 10:54
PROVIDERS: Visit Provider Advanced Practice Midwife
DX: Z01.419 Encounter for gynecological examination (general) (routine) without abnormal findings (principal); N89.8 Other specified noninflammatory disorders of vagina; J32.4 Chronic pansinusitis; J34.2 Deviated nasal septum; J30.2 Other seasonal allergic rhinitis; Z91.09 Other allergy status, other than to drugs and biological substances; Z30.09 Encounter for other general counseling and advice on contraception; Z20.2 Contact with and (suspected) exposure to infections with a predominantly sexual mode of transmission
CPT/HCPCS: 81515; 87491; 87591; 88175